=== PATIENT | male | born 1940 | race Caucasian/White ===

== ENCOUNTER 2017-10-21 10:30 | Outpatient (RCR) | payer MEDICARE, SELFPAY ==
--- NOTE | 2017-10-13 14:11 | HP.PTEVAL_ITS ---
Patient's Visit Information ACE ARELLANO is a 77 year old M referred to Physical Therapy by BETO MARTINEZ with a diagnosis of CERVICAL RADICULOPATHY. Date of Evaluation: 10/13/17 Physical Therapist: Mitchell Troy PT, - Visit Plan Frequency: 2x /Week Duration: 4 Weeks Plan: postural ex's,cervical isomtrics,gentle AROM cervical, strengthening,CP/ MHP - Subjective Subjective: This 77 y/o male presents to physical therapy cervical radiculooathy. Patient underwent s/p cervical fusion cage/plate C2-3,C3-4,C5-6 anterior/posterior on Sep [address] Barker at [facility]. D/C on Sep 26. Placed in [place] collar. Seen Dr argelia finnegan with rest ,shower,during day.RTD January 07. Prior to surgery with tingling/parathesia, weakness. Currently has parathesia/tingling forearm/hands. Risrtiction with lifting 8 #. Sleeping good at night. Denies LANDA nausea/dizziness. VOCATION: retired. SOCIAL: - Pain Bilateral Neck Pain Intensity (Out of 10): 0 Pain Intensity Range: 10 - Objective POSTURE: mild foward head. NEURO: c/o parathesia/tingling foearm/hands, reflexes C5-6-7 2/3. SKIN: anterior/ posterior well approximate. AROM: BUE WFL. CERVICAL: flexion mod/severe,extension severe,lateral/flexion mod/severe. MMT: 4/5 grossly. [employer] STRENGTH: R-90 #,L-80# - Special Tests C/S Radiculapathy - Left Upper limb tension test: Negative C/S Radiculapathy - Right Upper limb tension test: Negative - Goals Goal 1:: Patient Independant with HEP. Goal Time Frame: 4-6 Weeks Goal 2:: Patient to be Independant with posture ex's. Goal Time Frame: 4-6 Weeks Goal 3:: Patient decrease pain by 70% or greater to improve function. Goal Time Frame: 4-6 Weeks Goal 4:: Patient increase cervical roation/lateral flexion mod loss to improve function. Goal Time Frame: 4-6 Weeks Goal 5:: Patient be able to perform ADL'S and houseworks tasks with min limiations. Goal Time Frame: 4-6 Weeks - Rehabilitation Potential Physical Therapy Diagnosis: This 77 y/o male presents to physical therapy with cervical fusion anterior/posterior plate/cage with decrease strength ,cervical ROM impairs function thus benifit skilled PT Rehabilitation Potential: Good - Anticipated Interventions Patient/Client Instruction: Educate patient on: Condition, Plan of Care For the Purpose of:: To decrease pain, To improve muscle performance and motor function, To improve ability to perform ADL's, To increase tolerance to activity /condition/position, To improve performance and independence with ADL's, To improve ability of physical actions for home/community/work/leisure, To improve health of tissue, To decrease soft tissue restriction, To improve ability to perform tasks related to life management Therapeutic Exercise to Include: Strength training, Postural training, Flexibilty training, Active ROM For the Purpose of:: To decrease pain, To increase ROM, To improve muscle performance and motor function, To increase tolerance to activity/condition/ position, To improve performance and independence with ADL's, To improve ability of physical actions for home/community/work/leisure, To improve health of tissue, To decrease soft tissue restriction, To increase flexibility/ROM, To improve ability to perform tasks related to life management Cryotherapy (ice pack, ice massage): Yes Thermo therapy (hot pack): Yes For the Purpose of:: To decrease pain, To improve health of tissue, To decrease soft tissue restriction Thank you for the opportunity to evaluate your patient. For Medicare and Medicare HMO plans, please review the plan of care and approve it. It will need to be FAXED BACK to us at [phone] for Medicare purposes. Please let me know if there are questions or concerns regarding this plan of care. Physician Signature: Date:
--- NOTE | 2017-12-31 08:48 | HP.PTDCNRP_ITS ---
HP - Discharge Summary (1) - Patient Information ACE ARELLANO was seen in my office for initial evaluation on 10/13/17. The following Plan of Care was established for this patient: Initial Frequency: 2x /Week Initial Duration: 4 Weeks - Anticipated Interventions Patient/Client Instruction: Educate patient on: Condition, Plan of Care For the Purpose of:: To decrease pain, To improve muscle performance and motor function, To improve ability to perform ADL's, To increase tolerance to activity /condition/position, To improve performance and independence with ADL's, To improve ability of physical actions for home/community/work/leisure, To improve health of tissue, To decrease soft tissue restriction, To improve ability to perform tasks related to life management Therapeutic Exercise to Include: Strength training, Postural training, Flexibilty training, Active ROM For the Purpose of:: To decrease pain, To increase ROM, To improve muscle performance and motor function, To increase tolerance to activity/condition/ position, To improve performance and independence with ADL's, To improve ability of physical actions for home/community/work/leisure, To improve health of tissue, To decrease soft tissue restriction, To increase flexibility/ROM, To improve ability to perform tasks related to life management Cryotherapy (ice pack, ice massage): Yes Thermo therapy (hot pack): Yes For the Purpose of:: To decrease pain, To improve health of tissue, To decrease soft tissue restriction This patient was last seen in our office 10/21/17. Pertinent comments regarding their Physical therapy will appear below: Patient seen for PT for cervical radiculopathy with PT for cervical /postural ex 's,strengthening for 2 visits . Patient had no pain after ,doing well thus is d/ c. At this point I will be discontinuing this patient from physical therapy. I would be happy to see this patient again in the future if found appropriate by the physician. Thank you! Mitchell Troy, PT,
== END 2017-10-21 19:00 | disposition home or self-care (01) ==
LOC: PT 10:30
PROVIDERS: Family Provider Family Medicine; PCP Family Medicine
DX: M54.12 Radiculopathy, cervical region (principal)
CPT/HCPCS: 97110; 97162

== ENCOUNTER → 2018-01-05 07:25 | Outpatient (CLI) | payer MEDICARE, SELFPAY ==
--- NOTE | 2018-01-05 07:25 | DT_ITS ---
This patient was seen during an EMR downtime January 05, 2018 - January 12, 2018. This patient may have a combination of paper and electronic documentation or all paper documentation. All documentation is viewable within the e-chart portion of [employer] for each patient visit.
--- NOTE | 2018-01-05 07:35 | RAD_ITS ---
STUDY: X-RAY - CERVICAL SPINE REASON FOR EXAM: Male, 77 years old. Surgery follow-up. History of numbness and tingling in both upper extremities. TECHNIQUE: 4 view(s) of the cervical spine were obtained. COMPARISON: January 06, 2017. MRI cervical spine June 16, 2017. FINDINGS: Normal anterior atlantoaxial articulation. Normal odontoid process. Postoperative changes of posterior cervical fusion C2-C7. Bilateral rods are present. Pedicle screws C2-C6. Anterior cervical fusion with multi hole plate and screws C3-C6. A vertically oriented cage is noted C4 through the superior aspect of C6. Surgical hardware appears intact. Straightening of normal cervical lordosis. On the lateral view 5 mm density between the posterior spinous processes of C7 and T1 likely representing an old spinous process avulsion fracture. The soft tissue structures are unremarkable. RAD/Cerv Spine 2 or 3 Views IMPRESSION: Postoperative changes of multilevel anterior and posterior cervical fusion. Electronically Signed: Ghulam Betancourt MD at 3:34 EDT , Service support ,
== END ==
PROVIDERS: Family Provider Family Medicine; PCP Family Medicine
DX: M54.12 Radiculopathy, cervical region (principal)
CPT/HCPCS: 72040

== ENCOUNTER → 2019-01-11 09:05 | Outpatient (CLI) | payer MEDICARE, SELFPAY ==
--- NOTE | 2019-01-11 09:16 | RAD_ITS ---
STUDY: X-RAY CHEST REASON FOR EXAM: Male, 78 years old. Feels like heart is keeping beats TECHNIQUE: PA and lateral views of the chest. COMPARISON: 03/15/2015 chest x-ray FINDINGS: There is a cervical spine fusion partially visualized. There is a stable calcific density in the right lung periphery compatible with old granulomatous disease. The lung markings are stable without evidence of focal infiltrate. There is no demonstrated pleural abnormality. Normal size heart. Normal mediastinum and sravan. Normal visualized pulmonary arteries. There is atherosclerotic calcification of the aortic arch with tortuosity. There are diffuse degenerative changes of the visualized thoracic spine. Normal visualized ribs, clavicles, and shoulders. There is no demonstrated abnormality of the visualized soft tissue structures of the upper abdomen. RAD/Chest PA and Lateral IMPRESSION: Stable chest. No evidence of acute focal infiltrate. Tortuous aorta. Electronically Signed: Diann Kohli MD at 16:55 EDT Tel , Service support ,
[2019-01-11 10:14] LABS: Absolute Lymphocyte Count 1.78 X10^3/ul (0.83-4.51); Absolute Neutrophil Count 5.6 X10^3/uL (2.0-7.7); Basophil# 0.03 X10^3/uL; Basophil% 0.4 % (0-1); Eosinophil# 0.31 X10^3/uL; Eosinophils% 3.7 % (0-5); Hematocrit 43.4 % (40-54); Hemoglobin 14.8 g/dl (13.0-16.5); Lymphocyte # 1.78 X10^3/ul (4.0); Lymphocyte % 21.2 % (19-41); Mean Corp Hgb Conc 34.1 g/gl (32-36); Mean Corpuscular Hgb 32.5 pg (27.0-32.0); Mean Corpuscular Volume 95.2 fL (80-94); Mean Platelet Vol. 11.1 fl (6.2-12.0); Monocyte# 0.59 X10^3/uL; Neutrophil # 5.64 X10^3/uL (2.7-7.7); Neutrophil % 67.3 % (47-70); Platelet Count 212 K/mm3 (150-450); RBC Distribution Width CV 13.8 % (11.6-14.6); RBC Distribution Width SD 46.5 fl (35.1-43.9); Red Blood Count 4.56 M/mm3 (4.6-6.2); White Blood Count 8.4 K/mm3 (4.4-11.0)
[2019-01-11 10:30] LABS: POSITIVE COUNT NO; POSITIVE DIFFERENTIAL NO; POSITIVE MORPHOLOGY NO
[2019-01-11 10:48] LABS: ALB/GLOB Ratio 1.2 RATIO (0.9-2.4); AST(SGOT) 10 U/L (15-37); Alanine Aminotransfer ALT/SGPT 24 U/L (16-61); Albumin, Serum 3.7 g/dL (3.2-5.0); Alkaline Phosphatase 67 U/L (45-117); Anion Gap 5 (5-15); BUN 14 mg/dL (7-18); BUN/Creat Ratio 17.3 RATIO (10-20); Calcium,Total 8.7 mg/dL (8.5-10.1); Chloride 103 mmol/L (98-107); Creatinine, Serum 0.81 mg/dL (0.70-1.30); EST Glomerular Filtration Rate 98 mL/min (>60); Est Glom Filt Rate - Afr Amer 119 mL/min (>60); Globulin 3.2 g/dL (2.2-4.2); Glucose 120 mg/dL (74-106); Potassium 4.1 mmol/L (3.5-5.1); Protein, Total 6.9 g/dL (6.4-8.2); Sodium Level 138 mmol/L (136-145); Thyroid Stim Hormone (TSH) 0.42 uIU/mL (0.358-3.74)
== END ==
PROVIDERS: Family Provider Family Medicine; PCP Family Medicine; Referring Provider Family Medicine; Visit Provider Family Medicine
DX: I49.9 Cardiac arrhythmia, unspecified (principal); R55 Syncope and collapse
CPT/HCPCS: 36415; 71046; 80053; 83735; 84443; 85025

== ENCOUNTER → 2019-01-25 13:31 | Outpatient (CLI) | payer MEDICARE, SELFPAY ==
--- NOTE | 2019-01-25 13:36 | ECHOD_ITS ---
Reason For Study: Near syncope Procedure This was a 2D Doppler, Color Flow transthoracic echocardiogram. Exam performed in department. Left Ventricle Normal LV size. Left ventricular systolic function is normal. The estimated ejection fraction is 75 %. Stage 1 diastolic dysfunction. No regional wall motion abnormalities noted. Right Ventricle Normal RV size. Normal systolic function. Atria The left atrium is mildly enlarged. Normal right atrium. Mitral Valve Normal mitral valve. Tricuspid Valve Normal tricuspid valve. Aortic Valve Normal aortic valve. Trisinus/trileaflet aortic valve. Pulmonic Valve The pulmonic valve is not well visualized. Great Vessels Normal aortic root. The pulmonary artery is normal size. Normal inferior vena cava. Pericardium/Pleural No pericardial effusion. MMode/2D Measurements & Calculations LVIDd: 5.0 cm IVSd: 0.93 cm Ao root diam: 3.6 cm LVIDs: 2.7 cm LVPWd: 0.83 cm RVDd: 3.7 cm FS: 46.5 % LAV(MOD-bp): 76.6 ml EDV(MOD-sp4): 98.0 ml EDV(MOD-sp2): 94.3 ml LAV(MOD-bp) Indexed: 41.1 ml/m2 ESV(MOD-sp4): 37.1 ml EF(MOD-sp2): 62.4 % LAV(MOD-sp2): 73.1 ml EF(MOD-sp4): 62.1 % LAV(MOD-sp4): 81.1 ml SV(MOD-sp4): 60.9 ml SV(MOD-sp2): 58.8 ml LA A4 area: 23.8 cm2 LA dimension(2D): 4.6 cm RA A4 area: 17.5 cm2 Doppler Measurements & Calculations MV E max urbano: 91.2 cm/sec Lat Peak E' Urbano: 12.3 cm/sec Med Peak E' Urbano: 10.2 cm/sec MV A max urbano: 102.0 cm/sec E/E' lat: 7.4 E/E' med: 8.9 MV E/A: 0.89 Ao V2 max: 177.6 cm/sec LV V1 max: 131.2 cm/sec PA V2 max: 144.6 cm/sec Ao max P.6 mmHg LV V1 max P.9 mmHg TR max urbano: 296.5 cm/sec TR max P.4 mmHg Interpretation Summary Normal LV size. Left ventricular systolic function is normal. The estimated ejection fraction is 75 %. Stage 1 diastolic dysfunction. Ordering Physician: Raúl Leslie Referring Physician: Raúl Leslie Performed By: Jacinta Aguilar RDCS
== END ==
PROVIDERS: Family Provider Family Medicine; PCP Family Medicine; Referring Provider Family Medicine; Visit Provider Family Medicine
DX: R55 Syncope and collapse (principal)
CPT/HCPCS: 93306

== ENCOUNTER → 2020-10-27 15:11 | Outpatient (CLI) | payer MEDICARE, SELFPAY ==
--- NOTE | 2020-10-27 | LES_PTH ---
PATIENT: ACE ARELLANO LOC: [facility] U#:[id number] AGE/SX: 85/M ROOM: RE10/27/[address]: Dr. Carlos Shin MD : 1940 BED: DIS: SPEC #: [id number] RECD: 10/27/20 14:59 STATUS: YONY OLEA #: [id number] PATRICIA: 10/27/20 00:[address]: Carlos Shin DEPT: SURGICAL PATHOLOGY RECD BY: Palomo Tobar ENTERED: 10/30/20 07:43 SP TYPE: Lesion OTHR DR: Dr. Raúl Leslie MD Tissues: Skin of lip, NOS Procedures: Surgery Specimen Level IV HEADER OPERATION: Lesion excision right upper lid PRE-OP DIAGNOSIS: Rule out BCC TISSUE SUBMITTED: Right upper lid MICROSCOPIC DIAGNOSIS Right upper lid lesion, excisional biopsy: Intradermal nevus. Negative for malignancy. See comment. DOMINICK:[email or web address] 10/31/2020 COMMENT Clinical correlation and appropriate follow up are necessary. MICROSCOPIC DESCRIPTION Slides are reviewed. GROSS DESCRIPTION Received in fixative is one container labeled with the patient's name and designated right upper lid. The specimen consists of a piece of stephenson-white skin measuring 0.3 x 0.2 x 0.1 cm. The specimen is totally submitted in one cassette. / SJ:[email or web address] 10/30/20 TC:1 CPT: 82735
== END ==
PROVIDERS: PCP Family Medicine; Visit Provider Ophthalmology
DX: C44.1121 Basal cell carcinoma of skin of right upper eyelid, including canthus (principal)
CPT/HCPCS: 88305

== ENCOUNTER 2021-11-05 10:34 | Outpatient (CLI) | payer MEDICARE, SELFPAY ==
--- NOTE | 2021-11-05 10:37 | RAD_ITS ---
STUDY: XR Chest 2 Views 11/05/2021 10:41 AM REASON FOR EXAM: Male, 81 years old. CHEST PAIN SOB COMPARISON: 01/11/2019 TECHNIQUE: XR Chest 2 Views FINDINGS: There is no demonstrated pleural abnormality. Stable right midlung calcified granuloma. Normal heart size. Normal mediastinum. Normal sravan. Prominent appearing increased interstitial lung markings. Normal visualized pulmonary arteries. There is atherosclerotic calcification of the aortic arch with tortuosity. There are diffuse degenerative changes of the visualized thoracic spine. There is degenerative osteoarthritis of the bilateral shoulders. There is no demonstrated abnormality of the visualized soft tissue structures of the upper abdomen. RAD/Chest PA and Lateral IMPRESSION: There are no acute findings. Electronically Signed: Flex Perez MD at 17:44 EDT ,
== END 2021-11-05 23:59 | disposition home or self-care (01) ==
LOC: MTRAD 10:36
PROVIDERS: PCP Family Medicine; Referring Provider Family Medicine; Visit Provider Family Medicine
DX: R06.02 Shortness of breath (principal)
CPT/HCPCS: 71046

== ENCOUNTER → 2021-11-24 | Outpatient (CLI) | payer MEDICARE, SELFPAY ==
--- NOTE | 2021-11-24 09:20 | CT_ITS ---
INDICATION: copd EXAMINATION: CT CHEST WITHOUT CONTRAST - CT Chest W/O Contrast Injection TECHNIQUE: Helically acquired images were obtained of the chest. A radiation dose optimization technique was used for this scan. IV Contrast dosage and agent: None. COMPARISON: 02/20/2016 FINDINGS: LUNGS, PLEURA AND LARGE AIRWAYS: Stable calcified granuloma in the right middle lobe on image 72 of series 4, image 122 series 602). Noncalcified nodule of the posterior left upper lobe on image 57 of series 4 measures 5.7 x 6.0 mm, stable. No new noncalcified pulmonary nodule. Fleischner Society Guidelines (MacMahon, et al. Radiology 2017; 284(1):228-43) suggest no follow-up is necessary for patients with low or high risk of malignancy. No pleural effusion or thickening. No pneumothorax. THYROID: No thyroid lesions. HEART AND PERICARDIUM: Heart size is normal. No pericardial effusion. CORONARY ARTERIES: Coronary artery calcification is seen. VESSELS: Thoracic aorta is not dilated. Thoracic aortic atherosclerosis. MEDIASTINUM AND DINESH: No mediastinal or hilar adenopathy. Calcified lymph nodes of the right hilum and mediastinum. Esophagus is unremarkable. No hiatal hernia. UPPER ABDOMEN: No acute pathology. BONES: No suspicious lytic or blastic abnormality. 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 Operative changes of the lower cervical spine. CT/Chest without Contrast IMPRESSION: Since 2015, stable exam. No new or enlarging pulmonary nodule. Electronically Signed: Rao Saenz MD ([place]) at 16:15 EDT ,
== END | disposition home or self-care (01) ==
LOC: CT 09:11
PROVIDERS: PCP Family Medicine; Referring Provider Family Medicine; Visit Provider Family Medicine
DX: J44.9 Chronic obstructive pulmonary disease, unspecified (principal); F17.200 Nicotine dependence, unspecified, uncomplicated
CPT/HCPCS: 71250

== ENCOUNTER → 2023-09-02 | Outpatient (CLI) | payer MEDICARE, SELFPAY ==
--- OUTSIDE RECORDS SUMMARY | 2023-09-02 09:13 | XMS RPT_ITS | CCD ---
Author Name Unknown Address [id number] [place] [address] Organization [facility] Care Team Providers Care Companion Name Role Phone Asim Regan Unavailable Unavailable Leslie, Raúl Unavailable Unavailable Leslie, Raúl Unavailable Unavailable Asim Regan Unavailable Unavailable Leslie, Raúl Unavailable Unavailable Leslie, Raúl Unavailable Unavailable Problems Active Problems Problem Classification Problem Date Documented Da te Episodic/Chronic Alcohol-related disorders (2 sources) Alcohol abuse, uncomplicated; Translations: [Alcohol abuse, uncomplicated] Onset: 09-24-2017 Chronic Diseases of white blood cells (2 sources) Elevated white blood cell count, unspecified; Translations: [Elevated white blood cell count, unspecified] Onset: 09-24-2017 Chronic Other acquired deformities (4 sources) Unspecified kyphosis, cervical region; Translations: [Postural lordosis, site unspecified] Onset: 09-24-2017 Chronic Other nervous system disorders (4 sources) Unspecified cord compression; Translations: [Disease of spinal cord, unspecified] Onset: 09-24-2017 Chronic Other non-traumatic joint disorders (2 sources) Osteophyte, vertebrae; Translations: [Osteophyte, vertebrae] Onset: 09-24-2017 Chronic Other nutritional; endocrine; and metabolic disorders (2 sources) Overweight; Translations: [Overweight] Onset: 09-24-2017 Chronic Past or Other Problems Problem Classification Problem Date Documented Da te Episodic/Chronic Medical examination/evaluation (2 sources) Encounter for other preprocedural examination; Translations: [Encounter for other preprocedural examination] Onset: 09-19-2017 Episodic Other gastrointestinal disorders (2 sources) Constipation, unspecified; Translations: [Constipation, unspecified] Onset: 09-24-2017 Episodic Screening or history of mental health and substance abuse (2 sources) Personal history of nicotine dependence; Translations: [Personal history of nicotine dependence] Onset: 09-24-2017 Episodic Spondylosis; intervertebral disc disorders; other back problems (2 sources) Spinal stenosis, cervical region; Translations: [Spinal stenosis, cervical region] Onset: 09-24-2017 Episodic Unclassified (2 sources) Body mass index (BMI) 26.0-26.9, adult; Translations: [Body mass index (BMI) 26.0-26.9, adult] Onset: 09-24-2017 Episodic Results Test Name Value Interpretation Reference Range Facil ity Encounters Encounter Date Encounter Type Care Provider Facility Start: 09-24-2017 Evaluation and manag ement of inpatient [facility] Start: 09-19-[address] [facility] Payers Date Payer Category Payer Policy ID Unknown Summary Purpose Family History No Family History Records Found Advance Directives No Advanced Directives Records Found Additional Source Comments (unrecognized sect ion and content) No Status Records Found INFORMATION SOURCE (unrecogn ized section and content) FOR RECORDS PERTAINING TO PATIENTS WHO ARE OR HAVE BEEN ENROLLED IN A CHEMICAL DEPENDENCY/SUBSTANCEABUSE PROGRAM, SOME INFORMATION MAY BE OMITTED. This clinical summary was aggregated from multiple sources. Caution should be exercised in using it in the provision of clinical care. This summary normalizes information from multiple sources, and as a consequence, information in this document may materially change the coding, format and clinical context of patient data. In addition, data may be omitted in some cases. CLINICAL DECISIONS SHOULD BE BASED ON THE PRIMARY CLINICAL RECORDS. [facility] [employer] provides no warranty or guarantee of the accuracy or completeness of information in this document.
[2023-09-02 10:34] LABS: PSA,Total - Annual Screen 3.93 ng/mL (0.00-4.00)
== END | disposition home or self-care (01) ==
LOC: LAB 08:52
PROVIDERS: PCP Family Medicine; Referring Provider Nurse Practitioner; Visit Provider Nurse Practitioner
DX: Z12.5 Encounter for screening for malignant neoplasm of prostate (principal)
CPT/HCPCS: 36415; 84153; G0103

== ENCOUNTER → 2025-02-17 | Outpatient (CLI) | payer MEDICARE, SELFPAY ==
[2025-02-17 18:13] LABS: Hematocrit 36.5 % (40-54); Hemoglobin 12.5 g/dL (13.0-16.5); Immature Granulocytes Count 0.040 X10^3/uL (0.0-0.0); Mean Corp Hgb Conc 34.2 g/dL (32-36); Mean Corpuscular Volume 95.3 fL (80-94); Mean Platelet Vol. 11.6 fl (6.2-12.0); NRBC Flagged by Analyzer 0 % (0-5); Platelet Count 228 K/mm3 (150-450); RBC Distribution Width CV 12.7 % (11.6-14.6); RBC Distribution Width SD 43.8 fl (35.1-43.9); Red Blood Count 3.83 M/mm3 (4.6-6.2); White Blood Count 10.6 K/mm3 (4.4-11.0)
[2025-02-17 19:47] LABS: AST(SGOT) 21 U/L (<=37); Alanine Aminotransfer ALT/SGPT 21 U/L (<=46); Albumin, Serum 4.4 g/dL (3.4-4.8); Alkaline Phosphatase 74 U/L (40-129); Anion Gap 13 (5-15); BUN 18 mg/dL (4-19); BUN/Creat Ratio 23.4 RATIO (10-20); Calcium,Total 9.3 mg/dL (7.6-11.0); Carbon Dioxide 25.0 mmol/L (21.0-32.0); Chloride 100 mmol/L (98-108); Cholesterol 206 mg/dL (<=200); Globulin 2.5 g/dL (2.2-4.2); Glucose 90 mg/dL (70-99); Low Density Lipoprotein Calc. 119 mg/dL; Potassium 4.2 mmol/L (3.3-5.1); Triglycerides 110 mg/dL; Very Low Density Lipoprotein 22 mg/dL (5-40); cholesterol:hdl ratio screen 3.15
[2025-02-17 19:48] LABS: CRP < 3.00 mg/L (0.0-3.0)
--- OUTSIDE RECORDS SUMMARY | 2025-02-17 20:43 | XMS RPT_ITS | CCD ---
Author Organization [facility] Care Team Providers Care Investigation Manager Name Role Phone Asim Regan Unavailable Unavailable Leslie, Raúl Unavailable Unavailable Leslie, Raúl Unavailable Unavailable Asim Regan Unavailable Unavailable Leslie, Raúl Unavailable Unavailable Leslie, Raúl Unavailable Unavailable Leslie, Raúl Primary Care Unavailable Jones, Tati Referring Unavailable JonesTati Attending Unavailable Problems Active Problems Problem Classification Problem [...] sources) Overweight; Translations: [Overweight] Onset: 09-24-2017 Chronic Other screening for suspected conditions (not mental disorders or infectious disease) (1 source) Encounter for screening for malignant neoplasm of prostate; Translations: [Encounter for screening for malignant neoplasm of prostate] Onset: 09-05-2023 Episodic Past or Other Problems Problem Classification Problem [...] Results Test Name Value Interpretation Reference Range Facility PSA,Total - Annual Screenon 09-02-2023 PSA,TOT SCREEN 3.93 ng/mL Normal 0.00-4.00 [facility] Comment on above: Result Comment: This test was performed using the TPSA assay method for the [employer] chemistry system. Values obtained with different assay methods cannot be used interchangably. When changing PSA assays in the course of monitoring a patient, additional sequential testing should be carried out to confirm baseline values. Performed By: #### L [phone] #### [facility] Laboratory [address] [place], [place], [address] Screening prostate specific antigen (PSA) measurementOrdered By: Tati Ingram on 09-02-2023 Prostate specific Ag IA [Mass/Vol] 3.93 ng/mL 0.00-4.00 [facility] Comment on above: This test was perfor med using the TPSA assay method for [employer] chemistry system. Values obtained with differentassay methods cannot be used interchangably.When changing PSA assays in the course of monitoring apatient, additional sequential testing should be carriedout to confirm baseline values. APTTon 09-19-2017 aPTT 25.9 s Normal 20.0-30.5 [facility] Comment on above: Result Comment: NOTE : The therapeutic time for Heparin anticoagulation,based on Xa activity inhibition, is an APTT of 46-80seconds. Performed By: #### A PTT, PT, HEMOG, BMP3M, LFT3 ####[address] [place] [address] Basic Metabolic Panelon 02- Anion gap 11 mmol/L Normal [facility] Comment on above: Performed By: #### A PTT, PT, HEMOG, BMP3M, LFT3 ####[address] [address] Calcium 9.4 mg/dL Normal 8.4-10.2 [facility] Comment on above: Performed By: #### A PTT, PT, HEMOG, BMP3M, LFT3 ####[address] [address] CO2 26 mmol/L Normal 22-30 [facility] Comment on above: Performed By: #### A PTT, PT, HEMOG, BMP3M, LFT3 ####[address] [address] Creatinine 0.71 mg/dL Normal 0.52-1.25 [facility] Comment on above: Performed By: #### A PTT, PT, HEMOG, BMP3M, LFT3 ####[address] [address] eGFR (black) mL/min/{1.73_m2} Normal >60 [facility] Comment on above: Performed By: #### A PTT, PT, HEMOG, BMP3M, LFT3 ####[address] [address] eGFR (non-black) mL/min/{1.73_m2} Normal >60 [facility] Comment on above: Result Comment: Sour ce- MDRD equation with creatinine calibration to IDMS(NKDEP)eGFR not recommended for drug dose adjustment Performed By: #### A PTT, PT, HEMOG, BMP3M, LFT3 ####[place] [address] Glucose mass conc 61 mg/dL Low 70-100 [facility] Comment on above: Performed By: #### A PTT, PT, HEMOG, BMP3M, LFT3 ####[place] [id number] Urea nitrogen 16 mg/dL Normal 7-20 [facility] Comment on above: Performed By: #### A PTT, PT, HEMOG, BMP3M, LFT3 ####[address] [address] Potassium molar conc 3.8 mmol/L Normal 3.5-5.1 [facility] Comment on above: Performed By: #### A PTT, PT, HEMOG, BMP3M, LFT3 ####[address] [address] Chloride 103 mmol/L Normal 98-107 [facility] Comment on above: Performed By: #### A PTT, PT, HEMOG, BMP3M, LFT3 ####[place] [address] Sodium 140 mmol/L Normal 137-145 [facility] Comment on above: Performed By: #### A PTT, PT, HEMOG, BMP3M, LFT3 ####[place] [address] Hemogramon 09-19-2017 Erythrocyte distribution width Auto Ratio (RBC) 13.3 % Normal 11.5-14.5 [facility] Comment on above: Performed By: #### A PTT, PT, HEMOG, BMP3M, LFT3 ####[address] [address] Erythrocytes (RBC) 4.37 10*6/uL Low 4.40-5.90 [facility] Comment on above: Performed By: #### A PTT, PT, HEMOG, BMP3M, LFT3 ####[address] [address] Hematocrit (HCT) 42.6 % Normal 40.0-52.0 [facility] Comment on above: Performed By: #### A PTT, PT, HEMOG, BMP3M, LFT3 ####[address] [address] Hemoglobin mass conc (Bld) 14.1 g/dL Normal 13.0-18.0 [facility] Comment on above: Performed By: #### A PTT, PT, HEMOG, BMP3M, LFT3 ####[address] [address] MCH 32.4 pg Normal 26.0-34.0 [facility] Comment on above: Performed By: #### A PTT, PT, HEMOG, BMP3M, LFT3 ####[address] [address] MCHC mass conc (RBC) 33.2 % Normal 32.0-36.0 [facility] Comment on above: Performed By: #### A PTT, PT, HEMOG, BMP3M, LFT3 ####[address] [address] MCV 97.5 fL Normal 80.0-98.0 [facility] Comment on above: Performed By: #### A PTT, PT, HEMOG, BMP3M, LFT3 ####[address] [address] Platelet mean volume (PMV) 9.3 fL Normal 7.4-10.4 [facility] Comment on above: Performed By: #### A PTT, PT, HEMOG, BMP3M, LFT3 ####[address] [address] Platelets 228 10*3/uL Normal 140-440 [facility] Comment on above: Performed By: #### A PTT, PT, HEMOG, BMP3M, LFT3 ####[address] [address] WBC (Leukocytes) 14.5 10*3/uL High 3.6-10.7 [facility] Comment on above: Performed By: #### A PTT, PT, HEMOG, BMP3M, LFT3 ####[place] [address] Hepatic Functionon 8 Alanine aminotransferase (ALT) 34 U/L Normal 13-69 [facility] Comment on above: Performed By: #### A PTT, PT, HEMOG, BMP3M, LFT3 ####[place] [address] [place] [address] Alkaline phosphatase (ALP) 77 U/L Normal 38-126 [facility] Comment on above: Performed By: #### A PTT, PT, HEMOG, BMP3M, LFT3 ####[place] [address] Aspartate aminotransferase (AST) 25 U/L Normal 15-46 [facility] Comment on above: Performed By: #### A PTT, PT, HEMOG, BMP3M, LFT3 ####[place] [address] Bilirubin (direct) 0.0 mg/dL Normal 0.0-0.3 [facility] Comment on above: Performed By: #### A PTT, PT, HEMOG, BMP3M, LFT3 ####[place] [address] Bilirubin (total) 0.5 mg/dL Normal 0.2-1.3 [facility] Comment on above: Performed By: #### A PTT, PT, HEMOG, BMP3M, LFT3 ####[place] [address] Protein 7.3 g/dL Normal 6.3-8.2 [facility] Comment on above: Performed By: #### A PTT, PT, HEMOG, BMP3M, LFT3 ####[place] [address] Albumin 4.4 g/dL Normal 3.5-5.0 [facility] Comment on above: Performed By: #### A PTT, PT, HEMOG, BMP3M, LFT3 ####[place] [address] Prothrombin Timeon 8 INR Coag RelTime (PPP) 1.0 {INR} Normal 0.9-1.1 [facility] Comment on above: Result Comment: Wes mmended Anticoagulant Therapy:SEE BELOW----- INR of 2.0 - 3.0 :- Prophylaxis of Venous Thrombosis (high-risk surgery)- Treatment of Venous Thrombosis- Treatment of Pulmonary Embolism (Includes tissue heartvalves, Acute Myocardial Infarction to prevent systemicembolism, Valvular Heart Disease, and Atrial Fibrillation)----- INR of 2.5 - 3.5 :- Mechanical Prosthetic Valves (high risk)- If oral anticoagulant therapy is used to preventMyocardial Infarction Performed By: #### A PTT, PT, HEMOG, BMP3M, LFT3 ####[place] [address] Prothrombin time (PT) Coag time (PPP) 10.4 s Normal 9.0-12.0 [facility] Comment on above: Result Comment: . Performed By: #### A PTT, PT, HEMOG, BMP3M, LFT3 ####[place] [address] TS GELon 09-19-2017 TS GEL PATIENT: ADAN BELLO LOC: COUCH BILL# : [id number] : 1940 SEX: M AGE: [id number] BY: DENAE Lutz ORDERED : 09/19/2017 12:32 COLLECTED: 09/19/2017 12:51ORDER : [id number] RECEIVED : 09/19/2017 16:11 T EST NAME RESULT UNITS RANGES ABN FL STABO Group A FRh, Gel POS FAntibody Screen Gel NEG F Normal [facility] Comment on above: Performed By: #### T SGL ####[place] [address] [address] [id number] Urinalysis,Macroon 8 Bilirubin (direct) Negative Normal Negative [facility] Comment on above: Performed By: #### U AMAC ####[place] [address] [place] [address] Ketone,Urine Trace Normal Negative [facility] Comment on above: Performed By: #### U AMAC ####[place] [address] [place] [address] Occult Blood,Ur Negative Normal Negative [facility] Comment on above: Performed By: #### U AMAC ####[place] [address] [place] [address] Specific [place],Urine 1.020 Normal 1.005-1.030 [facility] Comment on above: Performed By: #### U AMAC ####[place] [address] [place] [address] Total Protein,Urine Negative Normal Negative [facility] Comment on above: Performed By: #### U AMAC ####[place] [address] [place] [address] Urine, appearance clear Normal Clear [facility] Comment on above: Performed By: #### U AMAC ####[place] [address] [address] [facility] [place] [address] Urine, color yellow Normal Lt. Yellow [facility] Comment on above: Performed By: #### U AMAC ####[place] [address] [address] [facility] [place] [address] Urine, glucose presence NORM Normal Negative [facility] Comment on above: Performed By: #### U AMAC ####[place] [address] [place] [address] Urine, nitrite presence Negative Normal Negative [facility] Comment on above: Performed By: #### U AMAC ####[place] [address] [place] [address] Urine, pH 6.0 [pH] Normal 5.0-8.0 [facility] Comment on above: Performed By: #### U AMAC ####[place] [address] [place] [address] Urine, urobilinogen NORM Normal 0-1 [facility] Comment on above: Performed By: #### U AMAC ####[place] [address] [place] [address] WBC (Leukocytes) Negative Normal Negative [facility] Comment on above: Performed By: #### U AMAC ####[place] [address] [place] [address] Encounters Encounter Date Encounter Type Care Provider Facility Start: 09-02-2023 End: 09-02-2023 ambulatory Raúl Leslie [facility] Work Phone: Start: 09-02-2023 End: 09-02-2023 Patient encounter procedure [facility] Work Phone: Start: 11-05-2021 End: 11-05-2021 Patient encounter procedure [facility], [place] Start: 09-24-2017 Evaluation and manag ement of inpatient [facility] Start: 09-19-2017 Ambulatory [facility] Procedures Date Procedure Procedure Detail Performing Clinician Start: 11-05-2021 Plain chest X-ray Payers Date Payer Category Payer Self-pay [id number] 2016 Unknown [id number] Unknown Unknown [id number] Social History Date Type Detail Facility Tobacco smoking stat [facility] Unknown if ever smoked [facility] Work Phone: Start: 1940 Sex Assigned At Male [facility] Equipment Procedure Code Equipment Code Equipment Origin al Text Equipment Identifier Dates unknown penile prosthesis implanted 2001 [facility] Start: 08-04-2001 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 Start: 08-04-2001 Evaluation note Note Date & Type Note Facility Evaluation note No assessment information availa ble [facility] Work Phone: Summary Purpose Family History No Family History Records FoundNo Family History Records Found Advance Directives No Advanced Directives Records FoundNo Advanced Directives Records Found Chief Complaint and Reason for Visit Chief Complaint did not want labs by Dr. Leslie today Additional Source Comments (unrecognized sect ion and content) No Status Records FoundNo Status Records Found INFORMATION SOURCE (unrecogn ized section and content) DATE CREATED AUTHOR 01/28/2018 [facility] DATE CREATED AUTHOR AUTHOR'S SILVER ATSAL 09/06/2023 [facility] Goals (unrecognized section and content) Goals may be documented in a n alternate sectionGoals may be documented in an alternate section Care Teams (unrecognized sec tion and content) Team Status: Active Member Role Status Dates Dr. Raúl Leslie MD Family Provider Active Dr. Raúl Leslie MD Primary Care Provider Active Team Status: Inactive Member Role Status Dates Dr. Raúl Leslie MD Primary Care Provider Active Tati Ingram Attending Provider, Referring Provide r Active FOR RECORDS PERTAINING TO PATIENTS WHO ARE [...] BE BASED ON THE PRIMARY CLINICAL RECORDS. [employer] provides no warranty or guarantee of the accuracy or completeness of information in this document.
== END | disposition home or self-care (01) ==
LOC: MTLAB 16:00
PROVIDERS: PCP Family Medicine; Referring Provider Family Medicine; Visit Provider Family Medicine
DX: R07.89 Other chest pain (principal); M79.602 Pain in left arm
CPT/HCPCS: 36415; 80053; 80061; 85025; 86140

== ENCOUNTER → 2025-03-29 | Outpatient (CLI) | payer MEDICARE, SELFPAY ==
--- NOTE | 2025-03-29 09:47 | RAD_ITS ---
PROCEDURE: ABDOMEN SINGLE VIEW 03/29/2025 REASON FOR EXAM: CONSTIPATION TECHNIQUE: ABDOMEN SINGLE VIEW COMPARISON: None. FINDINGS: There is a nonobstructive bowel gas pattern. There is a 2 mm calcification projected to the left of the spine at the L 1 2 level and a 7 mm calcification projected to the left of the spine at the L4-5 level. Status post penile implant. 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 RAD/Abdomen Single View IMPRESSION: 1. Possible left ureterolithiasis. 2. No significant constipation. 3. Other findings as noted. Reading Location: [id number]
[2025-03-29 13:12] LABS: PSA,Total- Diagnostic 3.60 ng/mL (0.00-4.00)
[2025-03-29 13:20] LABS: CRP < 3.00 mg/L (0.0-3.0)
[2025-03-30 04:07] LABS: Carcinoembryonic Antigen 1.5 ng/mL (0.0-4.7)
== END | disposition home or self-care (01) ==
LOC: MTLAB 09:43
PROVIDERS: PCP Family Medicine; Referring Provider Family Medicine; Visit Provider Family Medicine
DX: N40.1 Benign prostatic hyperplasia with lower urinary tract symptoms (principal); K59.00 Constipation, unspecified
CPT/HCPCS: 36415; 74018; 82378; 84153; 86140

== ENCOUNTER → 2025-04-21 | Outpatient (CLI) | payer MEDICARE, SELFPAY ==
--- NOTE | 2025-04-21 07:42 | CT_ITS ---
PROCEDURE: ABDOMEN/PELVIS WITHOUT CONT 04/21/2025 REASON FOR EXAM: KIDNEY STONE TECHNIQUE: Procedure Code: [id number] Modality: CT Procedure: ABDOMEN/PELVIS WITHOUT CONT Noncontrast technique limits evaluation of the abdominal and pelvic viscera. Coronal and Sagittal reconstruction series were provided. One or more dose reduction techniques were used (e.g., Automated exposure control, adjustment of the mA and/or kV according to patient size, use of iterative reconstruction technique). RADIATION DOSE SUMMARY: CTDlvol: 7 mGy DLP: 329 mGycm FINDINGS: The lung bases are clear. The peripheral soft tissues are unremarkable. A penile prosthesis is present. Degenerative changes of the spine. S shaped scoliosis. Ifhyegpk-[id number] atherosclerosis. The infrarenal abdominal aorta measures up to 3.0 cm in diameter. No suspicious lymphadenopathy. The liver, gallbladder are unremarkable. 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 Ill-defined hypodensity within the pancreatic body which measures 1.4 cm. The spleen and adrenals are unremarkable. Right kidney vascular calcification. No definite renal calculi. No hydroureteronephrosis. The urinary bladder is unremarkable. Enlarged prostate. Colonic diverticulosis without surrounding inflammatory changes. CT/Abdomen/Pelvis without Cont IMPRESSION: *No evidence of renal or ureteral calculi. No hydroureteronephrosis. *1.4 cm ill-defined hypodensity in the pancreatic body on a non-contrast study; indeterminate. Recommend further evaluation with contrast-enhanced pancreatic protocol CT or MRI. 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 Recommend routine surveillance. *Colonic diverticulosis without diverticulitis. *Enlarged prostate. Reading Location: [id number]
--- OUTSIDE RECORDS SUMMARY | 2025-04-21 07:49 | XMS RPT_ITS | CCD ---
Author Organization [facility] CliniSyin Care Team Providers Care Lozenge Maker Name Role Phone Asim Regan Unavailable Unavailable Leslie, Raúl Unavailable Unavailable Leslie, Raúl Unavailable Unavailable Asim Regan Unavailable Unavailable Leslie, Raúl Unavailable Unavailable Leslie, Raúl Unavailable Unavailable Anuj MCFARLANE, Dr. Olsen Primary Care Provider Anuj MCFARLANE, Dr. Olsen Attending Provider Anuj MCFARLANE, Dr. Olsen Referring Provider Leslie, Raúl Referring Unavailable Leslie, Raúl Primary Care Unavailable Leslie, Raúl Attending Unavailable Leslie, Raúl Referring Unavailable Leslie, Raúl Primary Care Unavailable Leslie, Rúal Attending Unavailable Leslie, Raúl Referring Unavailable Leslie, Raúl Primary Care Unavailable Leslie, Raúl Attending Unavailable Leslie, Raúl Attending Unavailable Leslie, Raúl Referring Unavailable Leslie, Raúl Primary Care Unavailable Problems Active Problems Problem Classification Problem Date Documented Da te Episodic/Chronic Alcohol-related disorders (2 sources) Alcohol abuse, uncomplicated; Translations: [Alcohol abuse, uncomplicated] Onset: 09-24-2017 Chronic Calculus of urinary tract (1 source) Calculus of kidney; Translations: [Calculus of kidney] Onset: 04-17-2025 Episodic Chronic obstructive pulmonary disease and bronchiectasis (1 source) Chronic obstructive pulmonary disease, unspecified; Translations: [Chronic obstructive pulmonary disease, unspecified] Onset: 03-09-2025 Chronic Diseases of white blood cells (2 sources) Elevated white blood cell count, unspecified; Translations: [Elevated white blood cell count, unspecified] Onset: 09-24-2017 Chronic Hyperplasia of prostate (1 source) Benign prostatic hyperplasia with lower urinary tract symptoms; Translations: [Benign prostatic hyperplasia with lower urinary tract symptoms] Onset: 04-08-2025 Chronic Nonspecific chest pain (1 source) Other chest pain; Translations: [Other chest pain] Onset: 02-23-2025 Episodic Other acquired deformities (4 sources) Unspecified kyphosis, [...] Test Name Value Interpretation Reference Range Facility Carcinoembryonic Antigenon 0 03-30-2025 CEA 1.5 ng/mL Normal 0.0-4.7 [facility] Comment on above: Order Comment: Order Date: 03/29/25 Order Info: [id number] - CEA Result Comment: Nons mokers <3.9 Smokers <5.6 [facility] Electrochemiluminescence Immunoassay (ECLIA) Values obtained with different assay methods or kits cannot be used interchangeably. Results cannot be interpreted as absolute evidence of the presence or absence of malignant disease. Performed at: [address] [id number] Clothes Presser: Blue Washington PhD, Phone: [phone] Performed By: #### L 501.9940, L501.6710, L3100.2300 #### [facility] [address] [place], [place], [address] Abdomen Single Viewon 2024 Abdomen Single View [facility] [address] [place], [place] [address] Abdomen Single View MR#: [id number] Acct: [id number] Name: ACE ARELLANO Rep #: [id number] : 1940 M 84 From: Alon Scott MD PCP: Dr. Raúl Leslie MD Status: REG CLI Study: Abdomen Single View Date of Exam: 03/29/25 Exam# [id number] Ordering Dr: Raúl Leslie MD PROCEDURE: ABDOMEN SINGLE VIEW 03/29/2025 REASON FOR EXAM: CONSTIPATION TECHNIQUE: ABDOMEN SINGLE VIEW COMPARISON: None. FINDINGS: There is a nonobstructive bowel gas pattern. There is a 2 mm calcification projected to the left of the spine at the L 1 2 level and a 7 mm calcification projected to the left of the spine at the L4-5 level. Status post penile implant. 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 RAD/Abdomen Single View IMPRESSION: 1. Possible left ureterolithiasis. 2. No significant constipation. 3. Other findings as noted. Reading Location: [id number] CC: Dr. Raúl Leslie MD Research Professor Of Biostatistics: Signed Normal [facility] CRPon 03-29-2025 C-REACTIVE PROT < 3.00 Normal 0.0-3.0 [facility] Comment on above: Order Comment: Order Date: 03/29/25 Order Info: [id number] - CRP Order Info: [id number] - PSAD Performed By: #### L 501.9940, L501.6710, L3100.2300 #### [facility] [address] [place], [place], [address] PSA,Total- Diagnosticon 03-05 PSA, DIAGNOSTIC 3.60 ng/mL Normal 0.00-4.00 [facility] Comment on above: Order Comment: Order Date: 03/29/25 Order Info: [id number] - CRP Order Info: [id number] - PSAD Result Comment: This test was performed using the [facility] tPSA method. Measured values of a patient??sample can vary depending on the testing procedure used. PSA values determined on patient samples by different testing procedures cannot be used interchangeably. If there is a change in PSA assays while monitoring therapy, sequential testing should be performed to confirm baseline values. Performed By: #### L 501.9940, L501.6710, L3100.2300 #### [facility] [address] [place], [place], [address] Serum or plasma C reactive p rotein measurement (mass/volume)Ordered By: Raúl Leslie on 03-29-2025 CRP [Mass/Vol] mg/L 0.0-3.0 [facility] Serum or plasma carcinoembry onic antigen measurement (mass/volume)Ordered By: Raúl Leslie on 03-29-2025 Carcinoembryonic Ag [Mass/Vol] 1.5 ng/mL 0.0-4.7 [facility] Comment on above: Nonsmokers <3.9 Smok ers <5.6[facility] Electrochemiluminescence Immunoassay(ECLIA)Values obtained with different assay methods or kitscannot be used interchangeably. Results cannot beinterpreted as absolute evidence of the presence orabsence of malignant disease.Performed at: [address] [id number] Director: Blue Washington PhD, Phone: [phone] Absolute lymphocyte countOrd ered By: Raúl Leslie on 02-17-2025 Lymphocytes Auto (Unsp spec) [#/Vol] 1.90 10*3/uL 0.83-4.51 [facility] Absolute neutrophil countOrd ered By: Raúl Leslie on 02-17-2025 Neutrophils (Bld) [#/Vol] 7.3 10*3/uL 2.0-7.7 [facility] Anion gap in Serum or Plasma Ordered By: Raúl Leslie on 02-17-2025 Anion gap [Moles/Vol] 13 mmol/L 5-15 [facility] Automated lymphocyte count a s percentage of total leukocytesOrdered By: Raúl Leslie on 02-17-2025 Lymphocytes/100 WBC Auto (Unsp spec) 18.0 % Low 19-41 [facility] BUN/creatinine ratioOrdered By: Raúl Leslie on 02-17-2025 Urea nitrogen/Creatinine [Mass ratio] 23.4 mg/mg High 10-20 [facility] Basophil percentageOrdered B y: Raúl Leslie on 02-17-2025 Basophils/100 WBC (Bld) 0.3 % 0-1 [facility] Bilirubin, totalOrdered By: Raúl Leslie on 02-17-2025 Bilirubin [Mass/Vol] 0.34 mg/dL 0.00-1.30 [facility] CBC W/Diff, Automatedon 02-01 Absolute Lymph 1.90 X10 3/uL Normal 0.83-4.51 [facility] Comment on above: Performed By: #### L 500.4050, L501.6710, L100.0100, L500.4100 #### [facility] [address] [place], [address] Absolute Neut 7.3 X10 3/uL Normal 2.0-7.7 [facility] Comment on above: Performed By: #### L 500.4050, L501.6710, L100.0100, L500.4100 #### [facility] [address] [place], [address] Basophils/100 WBC (Bld) 0.3 % Normal 0-1 [facility] Comment on above: Performed By: #### L 500.4050, L501.6710, L100.0100, L500.4100 #### [facility] [address] [place], [address] Eosinophils/100 WBC (Bld) 4.4 % Normal 0-5 [facility] Comment on above: Performed By: #### L 500.4050, L501.6710, L100.0100, L500.4100 #### [facility] [address] [place], [address] Erythrocyte distribution width (RBC) [Ratio] 12.7 % Normal 11.6-14.6 [facility] Comment on above: Performed By: #### L 500.4050, L501.6710, L100.0100, L500.4100 #### [facility] [address] [place], [address] Hematocrit (Bld) [Volume fraction] 36.5 % Low 40-54 [facility] Comment on above: Performed By: #### L 500.4050, L501.6710, L100.0100, L500.4100 #### [facility] [address] [place], [address] Hemoglobin (Bld) [Mass/Vol] 12.5 g/dL Low 13.0-16.5 [facility] Comment on above: Performed By: #### L 500.4050, L501.6710, L100.0100, L500.4100 #### [facility] [address] [place], [address] IG% 0.400 Normal 0.0-0.9 [facility] Comment on above: Result Comment: IG% - Immature Granulocytes (promyelocytes, myelocytes and metamyelocytes) > 1% indicates that a LEFT SHIFT is Present. Performed By: #### L 500.4050, L501.6710, L100.0100, L500.4100 #### [facility] [address] [place], [address] Lymphocytes/100 WBC (Bld) 18.0 % Low 19-41 [facility] Comment on above: Performed By: #### L 500.4050, L501.6710, L100.0100, L500.4100 #### [facility] [address] [place], [address] MCH (RBC) [Entitic mass] 32.6 pg High 27.0-32.0 [facility] Comment on above: Performed By: #### L 500.4050, L501.6710, L100.0100, L500.4100 #### [facility] [address] [place], [address] MCHC (RBC) [Mass/Vol] 34.2 g/dL Normal 32-36 [facility] Comment on above: Performed By: #### L 500.4050, L501.6710, L100.0100, L500.4100 #### [facility] [address] [place], [address] MCV (RBC) [Entitic vol] 95.3 fL High 80-94 [facility] Comment on above: Performed By: #### L 500.4050, L501.6710, L100.0100, L500.4100 #### [facility] [address] [place], [address] Monocytes/100 WBC (Bld) 7.7 % Normal 0-10 [facility] Comment on above: Performed By: #### L 500.4050, L501.6710, L100.0100, L500.4100 #### [facility] [address] [place], [address] Neutrophils/100 WBC (Bld) 69.2 % Normal 47-70 [facility] Comment on above: Performed By: #### L 500.4050, L501.6710, L100.0100, L500.4100 #### [facility] [address] [place], [address] Nucleated RBC (Bld) [#/Vol] 0 10*3/uL Normal 0-5 [facility] Comment on above: Performed By: #### L 500.4050, L501.6710, L100.0100, L500.4100 #### [facility] [address] [place], [address] Platelet mean volume (Bld) [Entitic vol] 11.6 fL Normal 6.2-12.0 [facility] Comment on above: Performed By: #### L 500.4050, L501.6710, L100.0100, L500.4100 #### [facility] [address] [place], [address] Platelets (Bld) [#/Vol] 228 10*3/uL Normal 150-450 [facility] Comment on above: Performed By: #### L 500.4050, L501.6710, L100.0100, L500.4100 #### [facility] [address] [place], [address] RBC (Bld) [#/Vol] 3.83 10*6/uL Low 4.6-6.2 [facility] Comment on above: Performed By: #### L 500.4050, L501.6710, L100.0100, L500.4100 #### [facility] [address] [place], [address] RDW SD 43.8 fl Normal 35.1-43.9 [facility] Comment on above: Performed By: #### L 500.4050, L501.6710, L100.0100, L500.4100 #### [facility] [address] [place], [address] WBC (Bld) [#/Vol] 10.6 10*3/uL Normal 4.4-11.0 [facility] Comment on above: Performed By: #### L 500.4050, L501.6710, L100.0100, L500.4100 #### [facility] [address] [place], [address] CRPon 07-17-2025 C-REACTIVE PROT < 3.00 Normal 0.0-3.0 [facility] Comment on above: Performed By: #### L 500.4050, L501.6710, L100.0100, L500.4100 #### [facility] [address] [place], [address] Calculated very low density lipoprotein (VLDL) cholesterol measurementOrdered By: Raúl Leslie on 02-17-2025 Calculated very low density lipoprotein (VLDL) cholesterol measurement 22 mg/dL 5-40 [facility] Carbon dioxide, total [Moles /volume] in Central venous bloodOrdered By: Raúl Leslie on 02-17-2025 CO2 [Moles/Vol] 25.0 mmol/L 21.0-32.0 [facility] Chloride assayOrdered By: Addison Leslie on 02-17-2025 Chloride [Moles/Vol] 100 mmol/L 98-108 [facility] Comprehensive Metabolic Prof ilon 02-17-2025 Albumin [Mass/Vol] 4.4 g/dL Normal 3.4-4.8 [facility] Comment on above: Performed By: #### L 500.4050, L501.6710, L100.0100, L500.4100 #### [facility] [address] [place], [address] Albumin/Globulin [Mass ratio] 1.7 {ratio} Normal 0.9-2.4 [facility] Comment on above: Performed By: #### L 500.4050, L501.6710, L100.0100, L500.4100 #### [facility] [address] [place], [address] ALK PHOS 74 U/L Normal 40-129 [facility] Comment on above: Performed By: #### L 500.4050, L501.6710, L100.0100, L500.4100 #### [facility] [address] [place], [address] ALT [Catalytic activity/Vol] 21 U/L Normal <=46 [facility] Comment on above: Performed By: #### L 500.4050, L501.6710, L100.0100, L500.4100 #### [facility] [address] [place], [address] AST [Catalytic activity/Vol] 21 U/L Normal <=37 [facility] Comment on above: Performed By: #### L 500.4050, L501.6710, L100.0100, L500.4100 #### [facility] [address] [place], [address] Bilirubin [Mass/Vol] 0.34 mg/dL Normal 0.00-1.30 [facility] Comment on above: Performed By: #### L 500.4050, L501.6710, L100.0100, L500.4100 #### [facility] [address] [place], [address] BUN/CRE 23.4 RATIO High 10-20 [facility] Comment on above: Performed By: #### L 500.4050, L501.6710, L100.0100, L500.4100 #### [facility] [address] [place], [address] Calcium [Mass/Vol] 9.3 mg/dL Normal 7.6-11.0 [facility] Comment on above: Performed By: #### L 500.4050, L501.6710, L100.0100, L500.4100 #### [facility] [address] [place], [address] Chloride [Moles/Vol] 100 mmol/L Normal 98-108 [facility] Comment on above: Performed By: #### L 500.4050, L501.6710, L100.0100, L500.4100 #### [facility] [address] [place], [address] CO2 [Moles/Vol] 25.0 mmol/L Normal 21.0-32.0 [facility] Comment on above: Performed By: #### L 500.4050, L501.6710, L100.0100, L500.4100 #### [facility] [address] [place], [address] Creatinine [Mass/Vol] 0.78 mg/dL Normal 0.70-1.20 [facility] Comment on above: Performed By: #### L 500.4050, L501.6710, L100.0100, L500.4100 #### [facility] [address] [place], [address] GAP 13 Normal 5-15 [facility] Comment on above: Performed By: #### L 500.4050, L501.6710, L100.0100, L500.4100 #### [facility] [address] [place], [address] GFR/1.73 sq M.predicted among non-blacks MDRD (S/P/Bld) [Vol rate/Area] 88 mL/min/{1.73_m2} Normal >60 [facility] Comment on above: Result Comment: mL/m in/1.73m2 CKD-EPI Creatinine Equation (2020) Performed By: #### L 500.4050, L501.6710, L100.0100, L500.4100 #### [facility] [address] [place], [address] Globulin (S) [Mass/Vol] 2.5 g/dL Normal 2.2-4.2 [facility] Comment on above: Performed By: #### L 500.4050, L501.6710, L100.0100, L500.4100 #### [facility] [address] [place], [address] Glucose [Mass/Vol] 90 mg/dL Normal 70-99 [facility] Comment on above: Performed By: #### L 500.4050, L501.6710, L100.0100, L500.4100 #### [facility] [address] [place], [address] Potassium [Moles/Vol] 4.2 mmol/L Normal 3.3-5.1 [facility] Comment on above: Performed By: #### L 500.4050, L501.6710, L100.0100, L500.4100 #### [facility] [address] [place], [address] Sodium [Moles/Vol] 137 mmol/L Normal 133-145 [facility] Comment on above: Performed By: #### L 500.4050, L501.6710, L100.0100, L500.4100 #### [facility] [address] [place], [address] T PROT 6.9 g/dL Normal 5.9-8.4 [facility] Comment on above: Performed By: #### L 500.4050, L501.6710, L100.0100, L500.4100 #### [facility] [address] [place], [address] Urea nitrogen [Mass/Vol] 18 mg/dL Normal 4-19 [facility] Comment on above: Performed By: #### L 500.4050, L501.6710, L100.0100, L500.4100 #### [facility] [address] [place], [address] Eosinophil percentageOrdered By: Raúl Leslie on 02-17-2025 Eosinophils/100 WBC (Bld) 4.4 % 0-5 [facility] Erythrocyte distribution wid th ratioOrdered By: Raúl Leslie on 02-17-2025 Erythrocyte distribution width (RBC) [Ratio] 12.7 % 11.6-14.6 [facility] Erythrocyte distribution wid th standard deviationOrdered By: Raúl Leslie on 02-17-2025 Erythrocyte distribution width (RBC) [Ratio] 43.8 fl 35.1-43.9 [facility] Glomerular filtration rate ( GFR) estimation/1.73 sq m using serum, plasma, or whole bOrdered By: Raúl Leslie on 02-17-2025 GFR/1.73 sq M.predicted among non-blacks MDRD (S/P/Bld) [Vol rate/Area] 88 mL/min/{1.73_m2} >60 [facility] Comment on above: mL/min/1.73m2 CKD-EP I Creatinine Equation (2020) Hematocrit Auto (Bld) [Volum e fraction]Ordered By: Raúl Leslie on 02-17-2025 Hematocrit (Bld) [Volume fraction] 36.5 % Low 40-54 [facility] Hemoglobin measurementOrdere d By: Raúl Leslie on 02-17-2025 Hemoglobin (Bld) [Mass/Vol] 12.5 g/dL Low 13.0-16.5 [facility] Immature granulocytes/100 WB C Auto (Bld)Ordered By: Raúl Leslie on 02-17-2025 Immature granulocytes/100 WBC (Bld) 0.400 % 0.0-0.9 [facility] Comment on above: IG% - Immature Granu locytes (promyelocytes, myelocytes and metamyelocytes) > 1% indicates that a LEFT SHIFT is Present. LDL calc ser/plasOrdered By: Raúl Leslie on 02-17-2025 Cholesterol in LDL [Mass/Vol] 119 mg/dL [facility] Comment on above: Buqihimrdz=344-381 m g/dL & Higher Febq=534 mg/dL or greater Laboratory - Chemistry and C hemistry - challengeOrdered By: Raúl Leslie on 02-17-2025 AST [Catalytic activity/Vol] 21 U/L <38 [facility] Lipid Profileon 02-17-2025 CHOL:HDL 3.15 Normal [facility] Comment on above: Performed By: #### L 500.3690, L501.7410, L100.0100, L500.4100 #### [facility] [address] [place], [place], [address] Cholesterol [Mass/Vol] 206 mg/dL High <=200 [facility] Comment on above: Result Comment: Chol esterol level, Desirable <200 mg/dL Borderline high cholesterol 200-239 mg/dL High cholesterol >=240 mg/dL Recommendations of the NCEP Adult Treatment Panel for the following risk-cutoff thresholds for the [place] population. Performed By: #### L 500.4050, L501.6710, L100.0100, L500.4100 #### [facility] [address] [place], [address] Cholesterol in HDL [Mass/Vol] 65 mg/dL Normal [facility] Comment on above: Result Comment: Julianne onal Cholesterol Education Program (NCEP) guidelines: <40 mg/dL: Low HDL-cholesterol (major risk factor for CHD) >= 60 mg/dL: High HDL-cholesterol (negative risk factor for CHD) HDL-cholesterol is affected by a number of factors, e.g. smoking, exercise, hormones, sex and age. Performed By: #### L 500.4050, L501.6710, L100.0100, L500.4100 #### [facility] [address] [place], [address] Cholesterol in LDL [Mass/Vol] 119 mg/dL Normal [facility] Comment on above: Result Comment: Bord alkxsv=570-859 mg/dL Higher Nbjr=182 mg/dL or greater Performed By: #### L 500.4050, L501.6710, L100.0100, L500.4100 #### [facility] [address] [place], [address] Cholesterol in VLDL [Mass/Vol] 22 mg/dL Normal 5-40 [facility] Comment on above: Performed By: #### L 500.4050, L501.6710, L100.0100, L500.4100 #### [facility] [address] [place], [address] Triglyceride [Mass/Vol] 110 mg/dL Normal [facility] Comment on above: Result Comment: The drugs N-Acetylcysteine and Metamizole may falsely depress this assay. Normal range: <150 mg/dL Borderline High: 150-199 mg/dL High: 200-499 mg/dL Very High: >500 mg/dL Performed By: #### L 500.4050, L501.6710, L100.0100, L500.4100 #### [facility] [address] [place], [address] MCV (mean corpuscular volume ) determinationOrdered By: Raúl Leslie on 02-17-2025 MCV (RBC) [Entitic vol] 95.3 fL High 80-94 [facility] Mean corpuscular hemoglobin (MCH) determinationOrdered By: Raúl Leslie on 02-17-2025 MCH (RBC) [Entitic mass] 32.6 pg High 27.0-32.0 [facility] Mean corpuscular hemoglobin concentration (MCHC) determinationOrdered By: Raúl Leslie on 02-17-2025 MCHC (RBC) [Mass/Vol] 34.2 g/dL 32-36 [facility] Mean platelet volume determi nationOrdered By: Raúl Leslie on 02-17-2025 Platelet mean volume (Bld) [Entitic vol] 11.6 fL 6.2-12.0 [facility] Monocyte percentageOrdered B y: Raúl Leslie on 02-17-2025 Monocytes/100 WBC (Bld) 7.7 % 0-10 [facility] Neutrophil percentageOrdered By: Raúl Leslie on 02-17-2025 Neutrophils/100 WBC (Bld) 69.2 % 47-70 [facility] Nucleated red blood cell per centageOrdered By: Raúl Leslie on 02-17-2025 Nucleated RBC/100 WBC (Bld) [Ratio] 0 % 0-5 [facility] Platelet countOrdered By: Addison Leslie on 02-17-2025 Platelets (Bld) [#/Vol] 228 10*3/uL 150-450 [facility] Potassium measurement (mass/ volume)Ordered By: Raúl Leslie on 02-17-2025 Potassium (Unsp spec) [Mass/Vol] 4.2 mmol/L 3.3-5.1 [facility] RBC Auto (Bld) [#/Vol]Ordere d By: Raúl Leslie on 02-17-2025 RBC (Bld) [#/Vol] 3.83 10*6/uL Low 4.6-6.2 [facility] Screening total cholesterol/ high density lipoprotein (HDL) cholesterol ratioOrdered By: Raúl Leslie on 02-17-2025 Cholesterol.total/Chol esterol in HDL [Mass ratio] 3.15 {ratio} [facility] Serum creatinine measurement (mass/volume)Ordered By: Raúl Leslie on 02-17-2025 Creatinine [Mass/Vol] 0.78 mg/dL 0.70-1.20 [facility] Serum globulin measurementOr dered By: Raúl Leslie on 02-17-2025 Globulin (S) [Mass/Vol] 2.5 g/dL 2.2-4.2 [facility] Serum glucose measurement (m ass/volume)Ordered By: Raúl Leslie on 02-17-2025 Glucose [Mass/Vol] 90 mg/dL 70-99 [facility] Serum or plasma C reactive p rotein measurement (mass/volume)Ordered By: Raúl Leslie on 02-17-2025 CRP [Mass/Vol] mg/L 0.0-3.0 [facility] Serum or plasma alanine dalton otransferase (ALT) measurementOrdered By: Raúl Leslie on 02-17-2025 ALT [Catalytic activity/Vol] 21 U/L <47 [facility] Serum or plasma albumin paulette urement (mass/volume)Ordered By: Raúl Leslie on 02-17-2025 Albumin [Mass/Vol] 4.4 g/dL 3.4-4.8 [facility] Serum or plasma albumin/glob ulin mass ratioOrdered By: Raúl Leslie on 02-17-2025 Albumin/Globulin [Mass ratio] 1.7 {ratio} 0.9-2.4 [facility] Serum or plasma alkaline jessica sphatase measurementOrdered By: Raúl Leslie on 02-17-2025 ALP [Catalytic activity/Vol] 74 U/L 40-129 [facility] Serum or plasma calcium paulette urement (mass/volume)Ordered By: Raúl Leslie on 02-17-2025 Calcium [Mass/Vol] 9.3 mg/dL 7.6-11.0 [facility] Serum or plasma cholesterol in HDL measurement (mass/volume)Ordered By: Raúl Leslie on 02-17-2025 Cholesterol in HDL [Mass/Vol] 65 mg/dL >40 [facility] Comment on above: National Cholesterol Education Program (NCEP) guidelines:<40 mg/dL: Low HDL-cholesterol (major risk factor for CHD)>= 60 mg/dL: High HDL-cholesterol (negative risk factor for CHD)HDL-cholesterol is affected by a number of factors, e.g. smoking, exercise, hormones, sex and age. Serum or plasma cholesterol measurement (mass/volume)Ordered By: Raúl Leslie on 02-17-2025 Cholesterol [Mass/Vol] 206 mg/dL High <201 [facility] Comment on above: Cholesterol level, D esirable <200 mg/dLBorderline high cholesterol 200-239 mg/dLHigh cholesterol >=240 mg/dLRecommendations of the NCEP Adult Treatment Panel for the following risk-cutoff thresholds for the [place] population. Serum or plasma urea nitroge n measurement (mass/volume)Ordered By: Raúl Leslie on 02-17-2025 Urea nitrogen [Mass/Vol] 18 mg/dL 4-19 [facility] Sodium levelOrdered By: Raúl Leslie on 02-17-2025 Sodium [Moles/Vol] 137 mmol/L 133-145 [facility] Total proteinOrdered By: Constanza Leslie on 02-17-2025 Protein [Mass/Vol] 6.9 g/dL 5.9-8.4 [facility] Triglycerides measurementOrd ered By: Raúl Leslie on 02-17-2025 Triglyceride [Mass/Vol] 110 mg/dL <199 [facility] Comment on above: The drugs N-Acetylcy steine and Metamizole may falsely depress this assay. Normal range: <150 mg/dLBorderline High: 150-199 mg/dLHigh: 200-499 mg/dLVery High: >500 mg/dL White blood cell (WBC) count Ordered By: Raúl Leslie on 02-17-2025 WBC (Bld) [#/Vol] 10.6 10*3/uL 4.4-11.0 [facility] Screening prostate specific antigen (PSA) measurementOrdered By: Tati Ingram on 09-02-2023 Prostate specific Ag IA [Mass/Vol] 3.93 ng/mL 0.00-4.00 [facility] Comment on above: This test was perfor med using the TPSA assay method for the[facility]. Values obtained with differentassay methods cannot be used interchangably.When changing PSA assays in the course of monitoring apatient, additional sequential testing should be carriedout to confirm baseline values. APTTon 09-19-2017 aPTT 25.9 s Normal 20.0-30.5 [facility] Comment on above: Result Comment: NOTE : The therapeutic time for Heparin anticoagulation,based on Xa activity inhibition, is an APTT of 46-80seconds. Performed By: #### A PTT, PT, HEMOG, BMP3M, LFT3 ####[address] [address] Basic Metabolic Panelon 09-04 Anion gap 11 mmol/L Normal [facility] Comment on above: Performed By: #### A PTT, PT, HEMOG, BMP3M, LFT3 ####[address] [address] Calcium 9.4 mg/dL Normal 8.4-10.2 [facility] Comment on above: Performed By: #### A PTT, PT, HEMOG, BMP3M, LFT3 ####[address] [address] CO2 26 mmol/L Normal 22-30 [facility] Comment on above: Performed By: #### A PTT, PT, HEMOG, BMP3M, LFT3 ####[address] [address] Creatinine 0.71 mg/dL Normal 0.52-1.25 [facility] Comment on above: Performed By: #### A PTT, PT, HEMOG, BMP3M, LFT3 ####[address] [address] eGFR (black) mL/min/{1.73_m2} Normal >60 [facility] Comment on above: Performed By: #### A PTT, PT, HEMOG, BMP3M, LFT3 ####[place] [address] eGFR (non-black) mL/min/{1.73_m2} Normal >60 [facility] Comment on above: Result Comment: Sour ce- MDRD equation with creatinine calibration to IDMS(NKDEP)eGFR not recommended for drug dose adjustment Performed By: #### A PTT, PT, HEMOG, BMP3M, LFT3 ####[place] [address] Glucose mass conc 61 mg/dL Low 70-100 [facility] Comment on above: Performed By: #### A PTT, PT, HEMOG, BMP3M, LFT3 ####[place] [address] Urea nitrogen 16 mg/dL Normal 7-20 [facility] Comment on above: Performed By: #### A PTT, PT, HEMOG, BMP3M, LFT3 ####[place] [address] Potassium molar conc 3.8 mmol/L Normal 3.5-5.1 [facility] Comment on above: Performed By: #### A PTT, PT, HEMOG, BMP3M, LFT3 ####[place] [address] Chloride 103 mmol/L Normal 98-107 [facility] Comment on above: Performed By: #### A PTT, PT, HEMOG, BMP3M, LFT3 ####[place] [address] Sodium 140 mmol/L Normal 137-145 [facility] Comment on above: Performed By: #### A PTT, PT, HEMOG, BMP3M, LFT3 ####[place] [address] Hemogramon 09-19-2017 Erythrocyte distribution width Auto Ratio (RBC) 13.3 % Normal 11.5-14.5 [facility] Comment on above: Performed By: #### A PTT, PT, HEMOG, BMP3M, LFT3 ####[address] [place] [address] Erythrocytes (RBC) 4.37 10*6/uL Low 4.40-5.90 [facility] Comment on above: Performed By: #### A PTT, PT, HEMOG, BMP3M, LFT3 ####[place] [address] Hematocrit (HCT) 42.6 % Normal 40.0-52.0 [facility] Comment on above: Performed By: #### A PTT, PT, HEMOG, BMP3M, LFT3 ####[place] [address] Hemoglobin mass conc (Bld) 14.1 g/dL Normal 13.0-18.0 [facility] Comment on above: Performed By: #### A PTT, PT, HEMOG, BMP3M, LFT3 ####[place] [address] MCH 32.4 pg Normal 26.0-34.0 [facility] Comment on above: Performed By: #### A PTT, PT, HEMOG, BMP3M, LFT3 ####[place] [address] MCHC mass conc (RBC) 33.2 % Normal 32.0-36.0 [facility] Comment on above: Performed By: #### A PTT, PT, HEMOG, BMP3M, LFT3 ####[place] [address] MCV 97.5 fL Normal 80.0-98.0 [facility] Comment on above: Performed By: #### A PTT, PT, HEMOG, BMP3M, LFT3 ####[place] [address] Platelet mean volume (PMV) 9.3 fL Normal 7.4-10.4 [facility] Comment on above: Performed By: #### A PTT, PT, HEMOG, BMP3M, LFT3 ####[place] [address] Platelets 228 10*3/uL Normal 140-440 [facility] Comment on above: Performed By: #### A PTT, PT, HEMOG, BMP3M, LFT3 ####[place] [address] WBC (Leukocytes) 14.5 10*3/uL High 3.6-10.7 [facility] Comment on above: Performed By: #### A PTT, PT, HEMOG, BMP3M, LFT3 ####[place] [address] Hepatic Functionon 8 Alanine aminotransferase (ALT) 34 U/L Normal 13-69 [facility] Comment on above: Performed By: #### A PTT, PT, HEMOG, BMP3M, LFT3 ####[place] [address] Alkaline phosphatase (ALP) 77 U/L Normal 38-126 [facility] Comment on above: Performed By: #### A PTT, PT, HEMOG, BMP3M, LFT3 ####[place] [address] Aspartate aminotransferase (AST) 25 U/L Normal 15-46 [facility] Comment on above: Performed By: #### A PTT, PT, HEMOG, BMP3M, LFT3 ####[place] [address] Bilirubin (direct) 0.0 mg/dL Normal 0.0-0.3 [facility] Comment on above: Performed By: #### A PTT, PT, HEMOG, BMP3M, LFT3 ####[place] [address] Bilirubin (total) 0.5 mg/dL Normal 0.2-1.3 [facility] Comment on above: Performed By: #### A PTT, PT, HEMOG, BMP3M, LFT3 ####[place] [address] Protein 7.3 g/dL Normal 6.3-8.2 [facility] Comment on above: Performed By: #### A PTT, PT, HEMOG, BMP3M, LFT3 ####[address] [place] [address] Albumin 4.4 g/dL Normal 3.5-5.0 [facility] Comment on above: Performed By: #### A PTT, PT, HEMOG, BMP3M, LFT3 ####[place] [address] Prothrombin Timeon 8 INR Coag RelTime (PPP) 1.0 {INR} Normal 0.9-1.1 [facility] Comment on above: Result Comment: Wes mmended [...] #### A PTT, PT, HEMOG, BMP3M, LFT3 ####[place] [address] Prothrombin time (PT) Coag time (PPP) 10.4 s Normal 9.0-12.0 [facility] Comment on above: Result Comment: . Performed By: #### A PTT, PT, HEMOG, BMP3M, LFT3 ####[place] [address] TS GELon 09-19-2017 TS GEL PATIENT: ADAN CONN LOC: COUCH BILL# : [id number] : 1940 SEX: M AGE: [id number] BY: DENAE Lutz ORDERED : 09/19/2017 12:32 COLLECTED: 09/19/2017 12:51ORDER : [id number] RECEIVED : 09/19/2017 16:11 -----TEST NAME RESULT UNITS RANGES ABN FL STABO Group A FRh, Gel POS FAntibody Screen Gel NEG F Normal [facility] Comment on above: Performed By: #### T SGL ####[address] [place] [address] Urinalysis,Macroon 8 Bilirubin (direct) Negative Normal Negative [facility] Comment on above: Performed By: #### U AMAC ####[address] [place] [address] Ketone,Urine Trace Normal Negative [facility] Comment on above: Performed By: #### U AMAC ####[address] [place] [address] Occult Blood,Ur Negative Normal Negative [facility] Comment on above: Performed By: #### U AMAC ####[address] [place] [address] Specific [place],Urine 1.020 Normal 1.005-1.030 [facility] Comment on above: Performed By: #### U AMAC ####[address] [place] [address] Total Protein,Urine Negative Normal Negative [facility] Comment on above: Performed By: #### U AMAC ####[address] [place] [address] Urine, appearance clear Normal Clear [facility] Comment on above: Performed By: #### U AMAC ####[address] [place] [address] Urine, color yellow Normal Lt. Yellow [facility] Comment on above: Performed By: #### U AMAC ####[address] [place] [address] Urine, glucose presence NORM Normal Negative [facility] Comment on above: Performed By: #### U AMAC ####[address] [facility] [place] [address] Urine, nitrite presence Negative Normal Negative [facility] Comment on above: Performed By: #### U AMAC ####[address] [place] [address] Urine, pH 6.0 [pH] Normal 5.0-8.0 [facility] Comment on above: Performed By: #### U AMAC ####[address] [facility] [place] [address] Urine, urobilinogen NORM Normal 0-1 [facility] Comment on above: Performed By: #### U AMAC ####[address] [address] [facility] [place] [address] WBC (Leukocytes) Negative Normal Negative [facility] Comment on above: Performed By: #### U AMAC ####[address] [address] [facility] [place] [address] Encounters Encounter Date Encounter Type Care Provider Facility Start: 04-21-2025 ambulatory Raúl Leslie Facility:[facility] Start: 03-29-2025 End: 03-29-[address] Raúl Leslie MD Work Phone: -[facility] [employer] Start: 03-29-2025 End: 03-29-[address] Raúl Leslie MD -[facility] Work Phone: Start: 03-29-2025 End: 03-29-2025 ambulatory Raúl Leslie Facility:[facility] Start: 03-11-2025 ambulatory Raúl Leslie Facility:[facility] Start: 02-17-2025 End: 02-17-[address] Raúl Leslie MD Work Phone: -[facility] [employer] Start: 02-17-2025 End: 02-17-[address] Raúl Leslie MD -[facility] Work Phone: Start: 02-17-2025 End: 02-17-2025 ambulatory Raúl Leslie Facility:[facility] Start: 09-02-2023 End: 09-02-2023 ambulatory [facility] Work Phone: Start: 09-02-2023 End: 09-02-2023 Patient encounter procedure [facility]-Laboratory Work Phone: Start: 11-05-2021 End: 11-05-2021 Patient encounter procedure [facility]-Radiology, [place] Start: 09-24-2017 Evaluation and management of inpatient [facility] Start: 09-19-[address] [facility] Procedures Date Procedure Procedure Detail Performing Clinician Start: 03-29-2025 Assay of prostate sp ecific antigen total Dr. Raúl Leslie MD Work Phone: Comment on above: This test was perfor med using the [employer] tPSA method. Measured values of a patient sample can vary depending on the testing procedure used. PSA values determined on patient samples by different testing procedures cannot be used interchangeably. If there is a change in PSA assays while monitoring therapy, sequential testing should be performed to confirm baseline values. Start: 03-29-2025 Plain X-ray abdomen Dr. Raúl Leslie MD Work Phone: Start: 11-05-2021 Plain chest X-ray Payers Date Payer Category Payer Self-pay [id number] 2016 Unknown [id number] [id number] Unknown Unknown [id number] [id number] [id number] Unknown [id number] [id number] [id number] Unknown [id number] 2.16.8 [id number] Unknown [id number] 2.16.8 [id number] Social History Date Type Detail Facility Tobacco smoking stat [facility] Unknown if ever smoked [facility] Work Phone: Start: 1940 Sex Assigned At Male [facility] Work Phone: Medical Equipment Procedure Code Equipment Code Equipment Origin al Text Equipment Identifier Dates 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 Start: 08-04-2001 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 Start: 08-04-2001 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 Start: 08-04-2001 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 Start: 08-04-2001 Radiology Diagnostic study note 03-30-2025 Note Date & Type Note Facility 03-30-2025 Radiology Diagnostic study note [facility] [address], [place] [address] Abdomen Single View MR#: [id number] Acct: [id number] Name: ACE ARELLANO Rep #: [id number] : 1940 M 84 From: Zacarias Scott MD PCP: Dr. Raúl Leslie MD Status: REG CLI Study:Abdomen Single View Date of Exam: 03/29/25 Exam# [id number] Ordering Dr: Adidson Leslie MD PROCEDURE: ABDOMEN SINGLE VIEW 03/29/2025 REASON FOR EXAM: CONSTIPATION TECHNIQUE: ABDOMEN SINGLE VIEW COMPARISON: None. FINDINGS: There is a nonobstructive bowel gas pattern. There is a 2 mm calcification projected to the left of the spine at the L 1 2 level and a 7 mm calcification projected to the left of the spine at the L4-5 level. Status post penile implant. 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 RAD/Abdomen Single View IMPRESSION: 1. Possible left ureterolithiasis. 2. No significant constipation. 3. Other findings as noted. Reading Location: [id number] CC: Dr. Raúl Leslie MD ~ Research Professor Of Biostatistics: Signed [facility] Work Phone: Evaluation note Note Date & Type Note Facility Evaluation note No assessment information availa ble [facility] Work Phone: Reason for referral (narrative) Note Date & Type Note Facility Reason for referral (narrative) No reason for referral information available [facility] Work Phone: Summary Purpose Family History No Family History Records FoundNo Family History Records Found Advance Directives No Advanced Directives Records FoundNo Advanced Directives Records Found Chief Complaint and Reason for Visit Chief Complaint did not want labs by Dr. Leslie today Chief Complaint Admit Date EORDER- LAB AND XRAY March 29, 2025 9 :42am Additional Source Comments (unrecognized sect ion and content) No Status Records FoundNo Status Records Found INFORMATION SOURCE (unrecogn ized section and content) DATE CREATED AUTHOR 01/28/2018 [facility] DATE CREATED AUTHOR AUTHOR'S ORGANIZ ATION 04/17/2025 [facility] Goals (unrecognized section and content) Goals may be documented in a n alternate sectionGoals may be documented in an alternate sectionGoals may be documented in an alternate sectionGoals may be documented in an alternate section Care Teams (unrecognized sec tion and content) Team Status: Active Member Role Status Dates Dr. Raúl Leslie MD Family Provider Active Dr. Raúl Leslie MD Primary Care Provider Active Team Status: Inactive Member Role Status Dates Dr. Raúl Leslie MD Primary Care Provider Active Tati Ingram Attending Provider, Referring Provide r Active Team Status: Active Member Role/Relationship Status Dates Dr. Raúl Leslie MD Family Provider Active Dr. Raúl Leslie MD Primary Care Provider Active Team Status: Inactive Member Role/Relationship Status Dates Dr. Raúl Leslie MD Primary Care Provider Active Start: February 17, 2025 End: February 17, 2025 Dr. Raúl Leslie MD Attending Provider Active St art: February 17, 2025 End: February 17, 2025 Dr. Raúl Leslie MD Referring Provider Active St art: February 17, 2025 End: February 17, 2025 Team Status: Active Member Role/Relationship Status Dates Dr. Raúl Leslie MD Primary Care Provider Active Team Status: Inactive Member Role/Relationship Status Dates Dr. Raúl Leslie MD Primary Care Provider Active Start: March 29, 2025 End: March 29, 2025 Dr. Raúl Leslie MD Attending Provider Active St art: March 29, 2025 End: March 29, 2025 Dr. Raúl Leslie MD Referring Provider Active St art: March 29, 2025 End: March 29, 2025 FOR RECORDS PERTAINING TO PATIENTS WHO ARE [...] BE BASED ON THE PRIMARY CLINICAL RECORDS. [facility], [facility]. provides no warranty or guarantee of the accuracy or completeness of information in this document.
== END | disposition home or self-care (01) ==
PROVIDERS: PCP Family Medicine; Referring Provider Family Medicine; Visit Provider Family Medicine
DX: N20.0 Calculus of kidney (principal)
CPT/HCPCS: 74176

== ENCOUNTER 2025-05-08 14:50 | Emergency (ER) | payer MEDICARE, SELFPAY ==
[2025-05-08 14:50] VITALS: BP 151/66; PULSE 76; RESP 20; TEMP 36.1; O2SAT 97; BMI 23.6
--- NOTE | 2025-05-08 15:40 | EX.ED.DYSGE1 ---
HPI History of Present Illness Chief Complaint: Abd Pain PFSH PFSH Medical History no medical history Home Medications ?Medication ?Instructions ?Recorded ?Last Taken ?Type linaclotide 290 mcg capsule 290 mcg PO DAILY 05/08/25 Unknown History (Alexandriazeslemuel) ondansetron 4 mg disintegrating 4 mg PO Q8H PRN PRN Nausea #10 tabs 05/08/25 Unknown Rx tablet oxycodone 5 mg tablet 5 mg PO Q6H PRN pain 3 days #12 05/08/25 Unknown Rx tabs Allergy/AdvReac Type Severity Reaction Status Date / Time shellfish derived Allergy Severe Anaphylaxis Verified 05/08/25 14:50 Family History no significant family his Surgical History (Updated 05/08/25 @ 15:31 by Orquidea Wilder) History of back surgery H/O neck surgery Surgical History no surgical history Social History Smoking Status: Never smoker EXAM Physical Exam Const Vital Signs: 05/08/25 14:50 05/08/25 16:50 05/08/25 18:00 Temperature 97 F L Temperature Source Temporal Pulse Rate 76 73 60 Respiratory Rate 20 H Blood Pressure 151/66 H 138/74 H 157/79 H Blood Pressure Mean 94 95 105 Pulse Ox 97 95 95 Oxygen Delivery Method Room Air 05/08/25 19:04 Temperature 97.9 F Temperature Source Pulse Rate 60 Respiratory Rate 16 Blood Pressure 157/79 H Blood Pressure Mean 105 Pulse Ox 95 Oxygen Delivery Method MDM MDM MDM Narrative Medical decision making narrative: HISTORY OF PRESENT ILLNESS: Chief complaint: Abdominal pain 85-year-old male with history of back surgery, neck surgery presents abdominal pain. Abdominal pain is been ongoing for last several weeks but has gotten worse over the last 2 to 3 days. He has not had a bowel movement last 3 days. Typically is about 1 every other day. Denies vomiting but notes nausea. Denies chest pain. Denies history abdominal surgery. Denies urinary complaints REVIEW OF SYSTEMS: Pertinent positives: Abdominal pain, nausea Pertinent negatives: Chest pain, shortness of breath, vomiting, syncope PHYSICAL EXAM: Nursing triage notes reviewed, Vital signs reviewed Constitutional: please see mdm HENT: MMM Eyes: Pupils equal round and reactive to light, Extraocular muscles intact Neck: No stridor, no JVD, full neck ROM Lungs: Clear to auscultation, No wheezing or rales. No increased work of breathing, no conversational dyspnea, no accessory muscle use, no nasal flaring. No respiratory distress noted Heart: Regular rate and rhythm, No murmurs, No rubs and No gallops, 2+ distal pulses (radial, femoral, posterior tibial) in all extremities Abdomen: Soft, diffuse TTP rigidity, rebound or guarding, no obvious peritoneal signs, no palpable pulsatile abdominal masses, no auscultated abdominal bruit : No CVAT Extremities: No edema Neuro: No new focal neurological deficits, cranial nerves II through XII intact, 5/5 strength in all present extremities. Intact sensation to light touch in all present extremities, 2+ reflexes bilateral patella tendons. Skin: No rash or lesions noted MEDICAL DECISION MAKING: Chief Complaint: please see HPI External records reviewed: Reviewed imaging studies: CT scan of the abdomen pelvis from 04/21/2025 showed no evidence of kidney stone but showed 1.4 cm ill-defined hypodensity in the pancreatic body Factors affecting care: n as per HPI Social determinants of health: none History obtained from others: Patient's Consults: none [facility] Narrative: Patient was initially hemodynamically stable, afebrile and nontoxic-appearing. Exam with diffuse tenderness no distention or peritoneal signs noted. I considered the following differential diagnosis: A AAA, small bowel obstruction, abdominal perforation, appendicitis, pancreatitis, hepatobiliary pathology (acute cholecystitis), mesenteric ischemia, pathology (ie nephrolithiasis, pyelonephritis). I obtained broad lab and imaging evaluation to further determine if the patient was suffering from a life-threatening etiology. Initially treat the patient with IV fluids, Zofran, morphine and Toradol. ALL IMAGES (IF OBTAINED) HAVE BEEN PERSONALLY REVIEWED AND INTERPRETED BY MYSELF. CBC with no leukocytosis, no anemia or thrombocytopenia CMP without evidence of acute kidney injury, significant electrolyte abnormality, anion gap to suggest end organ hypo-perfusion, no evidence of metabolic acidosis with a normal bicarbonate, no evidence of hepatobiliary obstructive pathology. Lipase is wnl indicating no pancreatic inflammation. Urinalysis without evidence of UTI CT scan abdomen pelvis without evidence of perforation/obstruction or other acute surgical pathology of the abdomen or pelvis. Did show pancreatic lesion similar to prior The synthesis of the patient's history, physical exam, labs images suggest no acute life-limiting etiology. Repeat abdominal exam remained benign. Patient noted symptomatic improvement after the above medications. He is likely suffering from pain related to likely pancreatic cancer. Discussed pain control and nausea control at home. Discussed Oncology Fast past referral. Strict return precautions were discussed as well. The patient and/or family, caregivers express understanding. The patient and/or family, caregivers agrees with the plan. Shared decision making: I will have a discussion with the patient and or visitors regarding risk/benefits of further testing or admission. They will be made aware of of the risk/benefits inherent in this decision they will be given the opportunity to voice understanding. Total critical care time today provided was at least 0 minutes. This excludes separately billable procedures. Critical care time (if documented) is secondary to the patient having high probability of clinically significant/life threatening deterioration in the patient's condition which required my urgent intervention. Impression: 1. Acute abdominal pain 2. Pancreatic mass Dispo: Discharge home This note was generated with [employer] dictation software. It may contain incorrect words, spelling, and punctuation that were not noted in review of the chart prior to signing. Lab Data Labs: Laboratory Results - last 24 hr 05/08/25 05/08/25 15:10 16:16 WBC 8.8 RBC 4.16 L Hgb 13.2 Hct 37.8 L MCV 90.9 MCH 31.7 MCHC 34.9 RDW Std Deviation 41.1 RDW Coeff of Fabián 12.3 Plt Count 265 MPV 10.8 Immature Gran % (Auto) 0.300 Neut % (Auto) 68.7 Lymph % (Auto) 18.0 L [place] % (Auto) 7.2 Eos % (Auto) 5.3 H Baso % (Auto) 0.5 Absolute Neuts (auto) 6.0 Absolute Lymphs (auto) 1.58 Nucleated RBC % 0 Sodium 134 Potassium 3.9 Chloride 97 L Carbon Dioxide 22.6 Anion Gap 15 BUN 17 Creatinine 0.73 Estim Creat Clear Calc 63.12 Est GFR (MDRD) Non-Af 89 BUN/Creatinine Ratio 22.7 H Glucose 98 Calcium 9.4 Total Bilirubin 0.52 AST 19 ALT 21 Alkaline Phosphatase 76 Total Protein 7.3 Albumin 4.5 Globulin 2.8 Albumin/Globulin Ratio 1.6 Lipase 14 Urine Color Yellow Urine Clarity Clear Urine pH 6.0 Ur Specific [place] 1.020 Urine Protein 30 H Urine Glucose (UA) Normal Urine Ketones 5 H Urine Occult Blood Negative Urine Nitrite Negative Urine Bilirubin Negative Urine Urobilinogen Normal Ur Leukocyte Esterase Negative Urine RBC 0-5 SEEN Urine WBC 0-5 SEEN Ur Squamous Epith Cells 0-5 SEEN Urine Bacteria RARE Urine Mucus 0 SEEN Radiography Diagnostic Testing: Clinical Impression(s) from Imaging Studies Abdomen/Pelvis CT 05/08/25 16:34 IMPRESSION: Persistent pancreatic abnormality. Recommend MRI pancreas without and with contrast. Do not recommend MRCP Reading Location: [facility] Discharge Plan Triage Chief Complaint: Abd Pain ED Provider: Francisco Foster Dx/Rx/DC Orders Instructions: ED Tumor, Uncertain Cause Prescriptions: New oxycodone 5 mg tablet 5 mg PO Q6H PRN (Reason: pain) 3 Days Qty: 12 0RF ondansetron 4 mg tablet,disintegrating 4 mg PO Q8H PRN PRN (Reason: Nausea) Qty: 10 0RF No Action Linzess 290 mcg capsule 290 mcg PO DAILY Other Ambulatory Orders: Fast Pass: Oncology Referral [facility] (Routine) Facility: [facility] - Location: [facility] Ordered By: Dr. Francisco Foster Primary Care Provider: Raúl Leslie Referrals: Raúl Leslie MD [Primary Care Provider, Family Practice] Activity Restrictions/Additional Instructions: Thank you for trusting us with your care today! Your labs and imaging are reassuring. There is no sign of systemic inflammation, issues your kidneys, liver or pancreas. Your CT scan once again showed the abnormality of your pancreas which is concerning for possible cancer. Please follow-up with the [facility] oncology referral. Expect a call for scheduling. This is located here in [facility]. Please take Tylenol (2 pills, 650 mg), ibuprofen (2 pills, 400 mg) every 6 hours as needed for pain and fever control. Please take oxycodone if the above regimen does not control your pain. Narcotics as oxycodone can cause significant amount of constipation. Please begin a bowel regimen which consist of MiraLAX, Colace and senna. Initiate this please increase your fluid intake and start eating fiber 1 cereal daily for breakfast to improve GI throughput. Please take Zofran as needed for nausea vomiting control. Please return to the emergency department if your symptoms change or worsen. Please follow with your primary care physician for further outpatient evaluation and management. Print Language: Cambodian Disposition Disposition: Home, Self Care Discharge Date/Time: 05/08/25 19:35
[2025-05-08 15:49] LABS: Hematocrit 37.8 % (40-54); Hemoglobin 13.2 g/dL (13.0-16.5); Immature Granulocytes Count 0.030 X10^3/uL (0.0-0.0); Mean Corp Hgb Conc 34.9 g/dL (32-36); Mean Corpuscular Volume 90.9 fL (80-94); Mean Platelet Vol. 10.8 fl (6.2-12.0); NRBC Flagged by Analyzer 0 % (0-5); Platelet Count 265 K/mm3 (150-450); RBC Distribution Width CV 12.3 % (11.6-14.6); RBC Distribution Width SD 41.1 fl (35.1-43.9); Red Blood Count 4.16 M/mm3 (4.6-6.2); White Blood Count 8.8 K/mm3 (4.4-11.0)
[2025-05-08 15:53] LABS: AST(SGOT) 19 U/L (<=37); Alanine Aminotransfer ALT/SGPT 21 U/L (<=46); Albumin, Serum 4.5 g/dL (3.4-4.8); Alkaline Phosphatase 76 U/L (40-129); Anion Gap 15 (5-15); BUN 17 mg/dL (4-19); BUN/Creat Ratio 22.7 RATIO (10-20); Calcium,Total 9.4 mg/dL (7.6-11.0); Carbon Dioxide 22.6 mmol/L (21.0-32.0); Chloride 97 mmol/L (98-108); Estimated Creatinine Clearance 63.12 ml/min (50-250); Globulin 2.8 g/dL (2.2-4.2); Glucose 98 mg/dL (70-99); Lipase 14 U/L (13-75); Potassium 3.9 mmol/L (3.3-5.1)
[2025-05-08 16:23] LABS: Mucous, Urine 0 SEEN /hpf (<or=2+)
[2025-05-08 16:28] LABS: Color, Urine Yellow (Yellow); Glucose, Dipstick Normal (Normal); Ketone-Dipstick 5 mg/dl (Negative); Leukocyte Esterase-Dipstick Negative /ul (Negative); Nitrite-Dipstick Negative (Negative); Occult Blood-Urine Negative /ul (Negative); Protein-Dipstick 30 mg/dl (Negative); Specific Gravity, Urine 1.020 (1.002-1.030); Urine Bilirubin Dipstick Negative (Negative)
--- NOTE | 2025-05-08 16:34 | CT_ITS ---
PROCEDURE: ABDOMEN/PELVIS W IV CONT ONLY 05/08/2025 REASON FOR EXAM: EPIGASTRIC ABDOMINAL PAIN TECHNIQUE: Procedure Code: [id number] Modality: CT Procedure: ABDOMEN/PELVIS W IV CONT ONLY Coronal and Sagittal reconstruction series were provided. CONTRAST: Isovue 370 VOLUME: 100 mL One or more dose reduction techniques were used (e.g., Automated exposure control, adjustment of the mA and/or kV according to patient size, use of iterative reconstruction technique. COMPARISON: 04/21/2025 FINDINGS: The lung bases are clear. Irregularity of the pancreas in the body is again seen similar to the recent study. Recommend MRI of the pancreas to evaluate for a pancreatic neoplasm, which is the diagnosis of exclusion. No liver masses. Normal gallbladder. Normal portal vein. No renal mass or hydronephrosis. Normal abdominal aorta. There is no free-fluid in the pelvis. There is no bowel obstruction. Penile implant is in place. No obstruction of the large bowel with the small bowel is seen. The appendix is seen to be normal. There is no colonic wall thickening. There is no gastric distention of significance. CT/Abdomen/Pelvis W IV Cont ONLY IMPRESSION: Persistent pancreatic abnormality. Recommend MRI pancreas without and with con trast. Do not recommend MRCP Reading Location: [facility]
[2025-05-08 16:50] VITALS: BP 138/74; PULSE 73; O2SAT 95
[2025-05-08 17:10] LABS: Red Blood Cells-Urine 0-5 SEEN /hpf (0-5); Squamous Epithelial Cells - UA 0-5 SEEN /hpf (0-5)
--- OUTSIDE RECORDS SUMMARY | 2025-05-08 17:56 | XMS RPT_ITS | CCD ---
Author Organization [facility] Care Team Providers Care Production Team Leader Name Role Phone Asim Regan Unavailable Unavailable Leslie, Raúl Unavailable Unavailable Leslie, Raúl Unavailable Unavailable Asim Regan Unavailable Unavailable Leslie, Raúl Unavailable Unavailable Leslie, Raúl Unavailable Unavailable Anuj MCFARLANE, Dr. Olsen Primary Care Provider [phone] Anuj MCFARLANE, Dr. Olsen Attending Provider [phone] Dr. Raúl Leslie MD Referring Provider Raúl Leslie Referring Unavailable Anuj, Raúl Primary Care Unavailable Anuj, Raúl Attending Unavailable Anuj, Raúl Referring Unavailable Leslie, Raúl Primary Care Unavailable Leslie, Raúl Attending Unavailable Leslie, Raúl Referring Unavailable Leslie, Raúl Primary Care Unavailable Leslie, Raúl Attending Unavailable Leslie, Raúl Attending Unavailable Leslie, Raúl Referring Unavailable Leslie, Raúl Primary Care Unavailable Anuj MCFARLANE, Dr. Olsen Primary Care Physician Dr. Raúl Leslie MD Attending Physician Problems Active Problems Problem Classification Problem Date Documented Da te Episodic/Chronic Alcohol-related disorders (2 sources) Alcohol abuse, uncomplicated; Translations: [Alcohol abuse, uncomplicated] Onset: 09-24-2017 Chronic Calculus of urinary tract (1 source) Calculus of kidney; Translations: [Calculus of kidney] Onset: 04-21-2025 Episodic Chronic obstructive pulmonary disease and bronchiectasis [...] Test Name Value Interpretation Reference Range Facility Abdomen/Pelvis without Conto n 04-21-2025 Abdomen/Pelvis without Cont [facility] Imaging Services [address] [place] [id number] Abdomen/Pelvis without Cont MR#: [id number] Acct: [id number] Name: ACE ARELLANO Rep #: [id number] : 1940 M 84 From: Harjit Hernandez MD PCP: Dr. Raúl Leslie MD Status: REG CLI Study: Abdomen/Pelvis without Cont Date of Exam: 04/04 03/28 Exam# [id number] Ordering Dr: Raúl Leslie MD PROCEDURE: ABDOMEN/PELVIS WITHOUT CONT 04/21/2025 REASON FOR EXAM: KIDNEY STONE TECHNIQUE: Procedure Code: CTABDPEL Modality: CT Procedure: ABDOMEN/PELVIS WITHOUT CONT Noncontrast technique limits evaluation of the abdominal and pelvic viscera. Coronal and Sagittal reconstruction series were provided. One or more dose reduction techniques were used (e.g., Automated exposure control, adjustment of the mA and/or kV according to patient size, use of iterative reconstruction technique). RADIATION DOSE SUMMARY: CTDlvol: 7 mGy DLP: 329 mGycm FINDINGS: The lung bases are clear. The peripheral soft tissues are unremarkable. A penile prosthesis is present. Degenerative changes of the spine. S shaped scoliosis. Ioygommh-oy-ukasry atherosclerosis. The infrarenal abdominal aorta measures up to 3.0 cm in diameter. No suspicious lymphadenopathy. The liver, gallbladder are unremarkable. 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 Ill-defined hypodensity within the pancreatic body which measures 1.4 cm. The spleen and adrenals are unremarkable. Right kidney vascular calcification. No definite renal calculi. No hydroureteronephrosis. The urinary bladder is unremarkable. Enlarged prostate. Colonic diverticulosis without surrounding inflammatory changes. CT/Abdomen/Pelvis without Cont IMPRESSION: *No evidence of renal or ureteral calculi. No hydroureteronephrosis. *1.4 cm ill-defined hypodensity in the pancreatic body on a non-contrast study; indeterminate. Recommend further evaluation with contrast-enhanced pancreatic protocol CT or MRI. 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 Recommend routine surveillance. *Colonic diverticulosis without diverticulitis. *Enlarged prostate. Reading Location: [facility] CC: Dr. Raúl Leslie MD Lead Electrical Controls Engineer: Signed Normal [facility] Carcinoembryonic Antigenon 0 03-30-2025 CEA 1.5 ng/mL Normal 0.0-4.7 [facility] Comment on above: Order Comment: Order Date: 03/29/25 Order Info: [id number] - CEA Result Comment: Nons mokers <3.9 Smokers <5.6 [facility] Electrochemiluminescence Immunoassay (ECLIA) Values obtained with different assay methods or kits cannot be used interchangeably. Results cannot be interpreted as absolute evidence of the presence or absence of malignant disease. Performed at: - [facility] [id number] Flight Manager: Blue Washington PhD, Phone: [phone] Performed By: #### L 501.6477, L563.3160, H7197.2721 #### [facility] [address] [place] [address]. [place], [address] Abdomen Single Viewon 2024 Abdomen Single View [facility] Imaging Services [address] [place] [address] Abdomen Single View MR#: [id number] Acct: [id number] Name: ACE ARELLANO Rep #: [id number] : 1940 M 84 From: Alon Scott MD PCP: Dr. Raúl Leslie MD Status: REG CLI Study: Abdomen Single View Date of Exam: 03/29/25 Exam# [id number] Ordering Dr: Raúl Leslie MD PROCEDURE: ABDOMEN [...] 3. Other findings as noted. Reading Location: [id number] CC: Dr. Raúl Leslie MD Lead Electrical Controls Engineer: Signed Normal [facility] CRPon 03-29-2025 C-REACTIVE PROT < 3.00 Normal 0.0-3.0 [facility] Comment on above: Order Comment: Order Date: 03/29/25 Order Info: [id number] - CRP Order Info: [id number] - PSAD Performed By: #### L 501.9940, L501.6710, L3100.2300 #### [facility] [address] [place], [place], [address] PSA,Total- Diagnosticon 03-05 PSA, DIAGNOSTIC 3.60 ng/mL Normal 0.00-4.00 [facility] Comment on above: Order Comment: Order Date: 03/29/25 Order Info: [id number] - CRP Order Info: [id number] - PSAD Result Comment: This test was performed using the [employer] tPSA method. Measured values of a patient??sample can vary depending on the testing procedure used. PSA values determined on patient samples by different testing procedures cannot be used interchangeably. If there is a change in PSA assays while monitoring therapy, sequential testing should be performed to confirm baseline values. Performed By: #### L 501.9940, L501.6710, L3100.2300 #### [facility] [address] [place], [place], [address] Serum or plasma C reactive p rotein measurement (mass/volume)Ordered By: Raúl Leslie on 03-29-2025 CRP [Mass/Vol] mg/L 0.0-3.0 [facility] Serum or plasma carcinoembry onic antigen measurement (mass/volume)Ordered By: Raúl Leslie on 03-29-2025 Carcinoembryonic Ag [Mass/Vol] 1.5 ng/mL 0.0-4.7 [facility] Comment on above: Nonsmokers <3.9 Smok ers <5.6[facility] Electrochemiluminescence Immunoassay(ECLIA)Values obtained with different assay methods or kitscannot be used interchangeably. Results cannot beinterpreted as absolute evidence of the presence orabsence of malignant disease.Performed at: [facility] [employer] [id number] Director: Blue Washington PhD, Phone: [phone] Absolute lymphocyte countOrd ered By: Raúl Leslie on 02-17-2025 Lymphocytes Auto (Unsp spec) [#/Vol] 1.90 10*3/uL 0.83-4.51 [facility] Absolute neutrophil countOrd ered By: Raúl Leslie on 02-17-2025 Neutrophils (Bld) [#/Vol] 7.3 10*3/uL 2.0-7.7 [facility] Anion gap in Serum or Plasma Ordered By: Raúl Leslie on 02-17-2025 Anion gap [Moles/Vol] 13 mmol/L 5- [facility] Automated lymphocyte count a s percentage of total leukocytesOrdered By: Raúl Leslie on 02-17-2025 Lymphocytes/100 WBC Auto (Unsp spec) 18.0 % Low - [facility] BUN/creatinine ratioOrdered By: Raúl Leslie on 02-17-2025 Urea nitrogen/Creatinine [Mass ratio] 23.4 mg/mg High 10- [facility] Basophil percentageOrdered B y: Raúl Leslie on 02-17-2025 Basophils/100 WBC (Bld) 0.3 % 0- [facility] Bilirubin, totalOrdered By: Raúl Leslie on 02-17-2025 Bilirubin [Mass/Vol] 0.34 mg/dL 0.00-1.30 [facility] CBC W/Diff, Automatedon 02-01 Absolute Lymph 1.90 X10 3/uL Normal 0.83-4.51 [facility] Comment on above: Performed By: #### L 500.4050, L501.6710, L100.0100, L500.4100 #### [facility] [address] [place], [address] Absolute Neut 7.3 X10 3/uL Normal 2.0-7.7 [facility] Comment on above: Performed By: #### L 500.4050, L501.6710, L100.0100, L500.4100 #### [facility] [address] [place], [address] Basophils/100 WBC (Bld) 0.3 % Normal 0-1 [facility] Comment on above: Performed By: #### L 500.4050, L501.6710, L100.0100, L500.4100 #### [facility] [address] [place], [address] Eosinophils/100 WBC (Bld) 4.4 % Normal 0-5 [facility] Comment on above: Performed By: #### L 500.4050, L501.6710, L100.0100, L500.4100 #### [facility] [address] [place], [address] Erythrocyte distribution width (RBC) [Ratio] 12.7 % Normal 11.6-14.6 [facility] Comment on above: Performed By: #### L 500.4050, L501.6710, L100.0100, L500.4100 #### [facility] [address] [place], [address] Hematocrit (Bld) [Volume fraction] 36.5 % Low 40-54 [facility] Comment on above: Performed By: #### L 500.4050, L501.6710, L100.0100, L500.4100 #### [facility] [address] [place], [address] Hemoglobin (Bld) [Mass/Vol] 12.5 g/dL Low 13.0-16.5 [facility] Comment on above: Performed By: #### L 500.4050, L501.6710, L100.0100, L500.4100 #### [facility] [address] [place], [address] IG% 0.400 Normal 0.0-0.9 [facility] Comment on above: Result Comment: IG% - Immature Granulocytes (promyelocytes, myelocytes and metamyelocytes) > 1% indicates that a LEFT SHIFT is Present. Performed By: #### L 500.4050, L501.6710, L100.0100, L500.4100 #### [facility] [address] [place], [address] Lymphocytes/100 WBC (Bld) 18.0 % Low 19-41 [facility] Comment on above: Performed By: #### L 500.4050, L501.6710, L100.0100, L500.4100 #### [facility] [address] [place], [address] MCH (RBC) [Entitic mass] 32.6 pg High 27.0-32.0 [facility] Comment on above: Performed By: #### L 500.4050, L501.6710, L100.0100, L500.4100 #### [facility] [address] [place], [address] MCHC (RBC) [Mass/Vol] 34.2 g/dL Normal 32-36 [facility] Comment on above: Performed By: #### L 500.4050, L501.6710, L100.0100, L500.4100 #### [facility] [address] [place], [address] MCV (RBC) [Entitic vol] 95.3 fL High 80-94 [facility] Comment on above: Performed By: #### L 500.4050, L501.6710, L100.0100, L500.4100 #### [facility] [address] [place], [address] Monocytes/100 WBC (Bld) 7.7 % Normal 0-10 [facility] Comment on above: Performed By: #### L 500.4050, L501.6710, L100.0100, L500.4100 #### [facility] [address] [place], [address] Neutrophils/100 WBC (Bld) 69.2 % Normal 47-70 [facility] Comment on above: Performed By: #### L 500.4050, L501.6710, L100.0100, L500.4100 #### [facility] [address] [place], [address] Nucleated RBC (Bld) [#/Vol] 0 10*3/uL Normal 0-5 [facility] Comment on above: Performed By: #### L 500.4050, L501.6710, L100.0100, L500.4100 #### [facility] [address] [place], [address] Platelet mean volume (Bld) [Entitic vol] 11.6 fL Normal 6.2-12.0 [facility] Comment on above: Performed By: #### L 500.4050, L501.6710, L100.0100, L500.4100 #### [facility] [address] [place], [address] Platelets (Bld) [#/Vol] 228 10*3/uL Normal 150-450 [facility] Comment on above: Performed By: #### L 500.4050, L501.6710, L100.0100, L500.4100 #### [facility] [address] [place], [address] RBC (Bld) [#/Vol] 3.83 10*6/uL Low 4.6-6.2 [facility] Comment on above: Performed By: #### L 500.4050, L501.6710, L100.0100, L500.4100 #### [facility] [address] [place], [address] RDW SD 43.8 fl Normal 35.1-43.9 [facility] Comment on above: Performed By: #### L 500.4050, L501.6710, L100.0100, L500.4100 #### [facility] [address] [place], [address] WBC (Bld) [#/Vol] 10.6 10*3/uL Normal 4.4-11.0 [facility] Comment on above: Performed By: #### L 500.4050, L501.6710, L100.0100, L500.4100 #### [facility] [address] [place], [address] CRPon 02-17-2025 C-REACTIVE PROT < 3.00 Normal 0.0-3.0 [facility] Comment on above: Performed By: #### L 500.4050, L501.6710, L100.0100, L500.4100 #### [facility] [address] [place], [address] Calculated very low density lipoprotein (VLDL) cholesterol measurementOrdered By: Raúl Leslie on 02-17-2025 Calculated very low density lipoprotein (VLDL) cholesterol measurement 22 mg/dL 5-40 [facility] Carbon dioxide, total [Moles /volume] in Central venous bloodOrdered By: Raúl Leslie on 02-17-2025 CO2 [Moles/Vol] 25.0 mmol/L 21.0-32.0 [facility] Chloride assayOrdered By: Addison Leslie on 02-17-2025 Chloride [Moles/Vol] 100 mmol/L 98-108 [facility] Comprehensive Metabolic Prof ilon 02-17-2025 Albumin [Mass/Vol] 4.4 g/dL Normal 3.4-4.8 [facility] Comment on above: Performed By: #### L 500.4050, L501.6710, L100.0100, L500.4100 #### [facility] [address] [place], [address] Albumin/Globulin [Mass ratio] 1.7 {ratio} Normal 0.9-2.4 [facility] Comment on above: Performed By: #### L 500.4050, L501.6710, L100.0100, L500.4100 #### [facility] [address] [place], [address] ALK PHOS 74 U/L Normal 40-129 [facility] Comment on above: Performed By: #### L 500.4050, L501.6710, L100.0100, L500.4100 #### [facility] [address] [place], [address] ALT [Catalytic activity/Vol] 21 U/L Normal <=46 [facility] Comment on above: Performed By: #### L 500.4050, L501.6710, L100.0100, L500.4100 #### [facility] [address] [place], [address] AST [Catalytic activity/Vol] 21 U/L Normal <=37 [facility] Comment on above: Performed By: #### L 500.4050, L501.6710, L100.0100, L500.4100 #### [facility] [address] [place], [address] Bilirubin [Mass/Vol] 0.34 mg/dL Normal 0.00-1.30 [facility] Comment on above: Performed By: #### L 500.4050, L501.6710, L100.0100, L500.4100 #### [facility] [address] [place], [address] BUN/CRE 23.4 RATIO High 10-20 [facility] Comment on above: Performed By: #### L 500.4050, L501.6710, L100.0100, L500.4100 #### [facility] [address] [place], [address] Calcium [Mass/Vol] 9.3 mg/dL Normal 7.6-11.0 [facility] Comment on above: Performed By: #### L 500.4050, L501.6710, L100.0100, L500.4100 #### [facility] [address] [place], [address] Chloride [Moles/Vol] 100 mmol/L Normal 98-108 [facility] Comment on above: Performed By: #### L 500.4050, L501.6710, L100.0100, L500.4100 #### [facility] [address] [place], [address] CO2 [Moles/Vol] 25.0 mmol/L Normal 21.0-32.0 [facility] Comment on above: Performed By: #### L 500.4050, L501.6710, L100.0100, L500.4100 #### [facility] [address] [place], [address] Creatinine [Mass/Vol] 0.78 mg/dL Normal 0.70-1.20 [facility] Comment on above: Performed By: #### L 500.4050, L501.6710, L100.0100, L500.4100 #### [facility] [address] [place], [address] GAP 13 Normal 5-15 [facility] Comment on above: Performed By: #### L 500.4050, L501.6710, L100.0100, L500.4100 #### [facility] [address] [place], [address] GFR/1.73 sq M.predicted among non-blacks MDRD (S/P/Bld) [Vol rate/Area] 88 mL/min/{1.73_m2} Normal >60 [facility] Comment on above: Result Comment: mL/m in/1.73m2 CKD-EPI Creatinine Equation (2020) Performed By: #### L 500.4050, L501.6710, L100.0100, L500.4100 #### [facility] [address] [place], [address] Globulin (S) [Mass/Vol] 2.5 g/dL Normal 2.2-4.2 [facility] Comment on above: Performed By: #### L 500.4050, L501.6710, L100.0100, L500.4100 #### [facility] [address] [place], [address] Glucose [Mass/Vol] 90 mg/dL Normal 70-99 [facility] Comment on above: Performed By: #### L 500.4050, L501.6710, L100.0100, L500.4100 #### [facility] [address] [place], [address] Potassium [Moles/Vol] 4.2 mmol/L Normal 3.3-5.1 [facility] Comment on above: Performed By: #### L 500.4050, L501.6710, L100.0100, L500.4100 #### [facility] [address] [place], [address] Sodium [Moles/Vol] 137 mmol/L Normal 133-145 [facility] Comment on above: Performed By: #### L 500.4050, L501.6710, L100.0100, L500.4100 #### [facility] [address] [place], [address] T PROT 6.9 g/dL Normal 5.9-8.4 [facility] Comment on above: Performed By: #### L 500.4050, L501.6710, L100.0100, L500.4100 #### [facility] [address] [place], [address] Urea nitrogen [Mass/Vol] 18 mg/dL Normal 4-19 [facility] Comment on above: Performed By: #### L 500.4050, L501.6710, L100.0100, L500.4100 #### [facility] [address] [place], [address] Eosinophil percentageOrdered By: Raúl Lselie on 02-17-2025 Eosinophils/100 WBC (Bld) 4.4 % 0-5 [facility] Erythrocyte distribution wid th ratioOrdered By: Raúl Leslie on 02-17-2025 Erythrocyte distribution width (RBC) [Ratio] 12.7 % 11.6-14.6 [facility] Erythrocyte distribution wid th standard deviationOrdered By: Raúl Leslie on 02-17-2025 Erythrocyte distribution width (RBC) [Ratio] 43.8 fl 35.1-43.9 [facility] Glomerular filtration rate ( GFR) estimation/1.73 sq m using serum, plasma, or whole bOrdered By: Raúl Leslie on 02-17-2025 GFR/1.73 sq M.predicted among non-blacks MDRD (S/P/Bld) [Vol rate/Area] 88 mL/min/{1.73_m2} >60 [facility] Comment on above: mL/min/1.73m2 CKD-EP I Creatinine Equation (2020) Hematocrit Auto (Bld) [Volum e fraction]Ordered By: Raúl Leslie on 02-17-2025 Hematocrit (Bld) [Volume fraction] 36.5 % Low 40-54 [facility] Hemoglobin measurementOrdere d By: Raúl Leslie on 02-17-2025 Hemoglobin (Bld) [Mass/Vol] 12.5 g/dL Low 13.0-16.5 [facility] Immature granulocytes/100 WB C Auto (Bld)Ordered By: Raúl Leslie on 02-17-2025 Immature granulocytes/100 WBC (Bld) 0.400 % 0.0-0.9 [facility] Comment on above: IG% - Immature Granu locytes (promyelocytes, myelocytes and metamyelocytes) > 1% indicates that a LEFT SHIFT is Present. LDL calc ser/plasOrdered By: Raúl Leslie on 02-17-2025 Cholesterol in LDL [Mass/Vol] 119 mg/dL [facility] Comment on above: Tnlkctigyk=622-362 m g/dL & Higher Kypz=362 mg/dL or greater Laboratory - Chemistry and C hemistry - challengeOrdered By: Raúl Leslie on 02-17-2025 AST [Catalytic activity/Vol] 21 U/L <38 [facility] Lipid Profileon 02-17-2025 CHOL:HDL 3.15 Normal [facility] Comment on above: Performed By: #### L 500.4050, L501.6710, L100.0100, L500.4100 #### [facility] [address] [place], [address] Cholesterol [Mass/Vol] 206 mg/dL High <=200 [facility] Comment on above: Result Comment: Chol esterol level, Desirable <200 mg/dL Borderline high cholesterol 200-239 mg/dL High cholesterol >=240 mg/dL Recommendations of the NCEP Adult Treatment Panel for the following risk-cutoff thresholds for the [place] population. Performed By: #### L 500.4050, L501.6710, L100.0100, L500.4100 #### [facility] [address] [place], [address] Cholesterol in HDL [Mass/Vol] 65 mg/dL Normal [facility] Comment on above: Result Comment: Julianne onal Cholesterol Education Program (NCEP) guidelines: <40 mg/dL: Low HDL-cholesterol (major risk factor for CHD) >= 60 mg/dL: High HDL-cholesterol (negative risk factor for CHD) HDL-cholesterol is affected by a number of factors, e.g. smoking, exercise, hormones, sex and age. Performed By: #### L 500.4050, L501.6710, L100.0100, L500.4100 #### [facility] [address] [place], [address] Cholesterol in LDL [Mass/Vol] 119 mg/dL Normal [facility] Comment on above: Result Comment: Bord biybrd=723-571 mg/dL Higher Naxw=383 mg/dL or greater Performed By: #### L 500.4050, L501.6710, L100.0100, L500.4100 #### [facility] [address] [place], [address] Cholesterol in VLDL [Mass/Vol] 22 mg/dL Normal 5-40 [facility] Comment on above: Performed By: #### L 500.4050, L501.6710, L100.0100, L500.4100 #### [facility] [address] [place], [place], [address] Triglyceride [Mass/Vol] 110 mg/dL Normal [facility] Comment on above: Result Comment: The drugs N-Acetylcysteine and Metamizole may falsely depress this assay. Normal range: <150 mg/dL Borderline High: 150-199 mg/dL High: 200-499 mg/dL Very High: >500 mg/dL Performed By: #### L 500.4050, L501.6710, L100.0100, L500.4100 #### [facility] [address] [place], [place], [address] MCV (mean corpuscular volume ) determinationOrdered By: Raúl Leslie on 02-17-2025 MCV (RBC) [Entitic vol] 95.3 fL High 80-94 [facility] Mean corpuscular hemoglobin (MCH) determinationOrdered By: Raúl Leslie on 02-17-2025 MCH (RBC) [Entitic mass] 32.6 pg High 27.0-32.0 [facility] Mean corpuscular hemoglobin concentration (MCHC) determinationOrdered By: Raúl Leslie on 02-17-2025 MCHC (RBC) [Mass/Vol] 34.2 g/dL 32-36 [facility] Mean platelet volume determi nationOrdered By: Raúl Leslie on 02-17-2025 Platelet mean volume (Bld) [Entitic vol] 11.6 fL 6.2-12.0 [facility] Monocyte percentageOrdered B y: Raúl Leslie on 02-17-2025 Monocytes/100 WBC (Bld) 7.7 % 0-10 [facility] Neutrophil percentageOrdered By: Raúl Leslie on 02-17-2025 Neutrophils/100 WBC (Bld) 69.2 % 47-70 [facility] Nucleated red blood cell per centageOrdered By: Raúl Leslie on 02-17-2025 Nucleated RBC/100 WBC (Bld) [Ratio] 0 % 0-5 [facility] Platelet countOrdered By: Addison Leslie on 02-17-2025 Platelets (Bld) [#/Vol] 228 10*3/uL 150-450 [facility] Potassium measurement (mass/ volume)Ordered By: Raúl Leslie on 02-17-2025 Potassium (Unsp spec) [Mass/Vol] 4.2 mmol/L 3.3-5.1 [facility] RBC Auto (Bld) [#/Vol]Ordere d By: Raúl Leslie on 02-17-2025 RBC (Bld) [#/Vol] 3.83 10*6/uL Low 4.6-6.2 [facility] Screening total cholesterol/ high density lipoprotein (HDL) cholesterol ratioOrdered By: Raúl Leslie on 02-17-2025 Cholesterol.total/Chol esterol in HDL [Mass ratio] 3.15 {ratio} [facility] Serum creatinine measurement (mass/volume)Ordered By: Raúl Leslie on 02-17-2025 Creatinine [Mass/Vol] 0.78 mg/dL 0.70-1.20 [facility] Serum globulin measurementOr dered By: Raúl Leslie on 02-17-2025 Globulin (S) [Mass/Vol] 2.5 g/dL 2.2-4.2 [facility] Serum glucose measurement (m ass/volume)Ordered By: Raúl Leslie on 02-17-2025 Glucose [Mass/Vol] 90 mg/dL 70-99 [facility] Serum or plasma C reactive p rotein measurement (mass/volume)Ordered By: Raúl Leslie on 02-17-2025 CRP [Mass/Vol] mg/L 0.0-3.0 [facility] Serum or plasma alanine dalton otransferase (ALT) measurementOrdered By: Raúl Leslie on 02-17-2025 ALT [Catalytic activity/Vol] 21 U/L <47 [facility] Serum or plasma albumin paulette urement (mass/volume)Ordered By: Raúl Leslie on 02-17-2025 Albumin [Mass/Vol] 4.4 g/dL 3.4-4.8 [facility] Serum or plasma albumin/glob ulin mass ratioOrdered By: Raúl Leslie on 02-17-2025 Albumin/Globulin [Mass ratio] 1.7 {ratio} 0.9-2.4 [facility] Serum or plasma alkaline jessica sphatase measurementOrdered By: Raúl Leslie on 02-17-2025 ALP [Catalytic activity/Vol] 74 U/L 40-129 [facility] Serum or plasma calcium paulette urement (mass/volume)Ordered By: Raúl Leslie on 02-17-2025 Calcium [Mass/Vol] 9.3 mg/dL 7.6-11.0 [facility] Serum or plasma cholesterol in HDL measurement (mass/volume)Ordered By: Raúl Leslie on 02-17-2025 Cholesterol in HDL [Mass/Vol] 65 mg/dL >40 [facility] Comment on above: National Cholesterol Education Program (NCEP) guidelines:<40 mg/dL: Low HDL-cholesterol (major risk factor for CHD)>= 60 mg/dL: High HDL-cholesterol (negative risk factor for CHD)HDL-cholesterol is affected by a number of factors, e.g. smoking, exercise, hormones, sex and age. Serum or plasma cholesterol measurement (mass/volume)Ordered By: Raúl Leslie on 02-17-2025 Cholesterol [Mass/Vol] 206 mg/dL High <201 [facility] Comment on above: Cholesterol level, D esirable <200 mg/dLBorderline high cholesterol 200-239 mg/dLHigh cholesterol >=240 mg/dLRecommendations of the NCEP Adult Treatment Panel for the following risk-cutoff thresholds for the [place] population. Serum or plasma urea nitroge n measurement (mass/volume)Ordered By: Raúl Leslie on 02-17-2025 Urea nitrogen [Mass/Vol] 18 mg/dL 4-19 [facility] Sodium levelOrdered By: Raúl Leslie on 02-17-2025 Sodium [Moles/Vol] 137 mmol/L 133-145 [facility] Total proteinOrdered By: Constanza Leslie on 02-17-2025 Protein [Mass/Vol] 6.9 g/dL 5.9-8.4 [facility] Triglycerides measurementOrd ered By: Raúl Leslie on 02-17-2025 Triglyceride [Mass/Vol] 110 mg/dL <199 [facility] Comment on above: The drugs N-Acetylcy steine and Metamizole may falsely depress this assay. Normal range: <150 mg/dLBorderline High: 150-199 mg/dLHigh: 200-499 mg/dLVery High: >500 mg/dL White blood cell (WBC) count Ordered By: Raúl Leslie on 02-17-2025 WBC (Bld) [#/Vol] 10.6 10*3/uL 4.4-11.0 [facility] Screening prostate specific antigen (PSA) measurementOrdered By: Tati Ingram on 09-02-2023 Prostate specific Ag IA [Mass/Vol] 3.93 ng/mL 0.00-4.00 [facility] Comment on above: This test was perfor med using the TPSA assay method for the[facility] chemistry system. Values obtained with differentassay methods cannot be used interchangably.When changing PSA assays in the course of monitoring apatient, additional sequential testing should be carriedout to confirm baseline values. APTTon 09-19-2017 aPTT 25.9 s Normal 20.0-30.5 [facility] Comment on above: Result Comment: NOTE : The therapeutic time for Heparin anticoagulation,based on Xa activity inhibition, is an APTT of 46-80seconds. Performed By: #### A PTT, PT, HEMOG, BMP3M, LFT3 ####[address] [address] Basic Metabolic Panelon 09-04 Anion gap 11 mmol/L Normal [facility] Comment on above: Performed By: #### A PTT, PT, HEMOG, BMP3M, LFT3 ####[address] [address] Calcium 9.4 mg/dL Normal 8.4-10.2 [facility] Comment on above: Performed By: #### A PTT, PT, HEMOG, BMP3M, LFT3 ####[address] [address] CO2 26 mmol/L Normal 22-30 [facility] Comment on above: Performed By: #### A PTT, PT, HEMOG, BMP3M, LFT3 ####[address] [place] [address] Creatinine 0.71 mg/dL Normal 0.52-1.25 [facility] Comment on above: Performed By: #### A PTT, PT, HEMOG, BMP3M, LFT3 ####[address] [place] [address] eGFR (black) mL/min/{1.73_m2} Normal >60 [facility] Comment on above: Performed By: #### A PTT, PT, HEMOG, BMP3M, LFT3 ####[address] [place] [address] eGFR (non-black) mL/min/{1.73_m2} Normal >60 [facility] Comment on above: Result Comment: Sour ce- MDRD equation with creatinine calibration to IDMS(NKDEP)eGFR not recommended for drug dose adjustment Performed By: #### A PTT, PT, HEMOG, BMP3M, LFT3 ####[address] [place] [address] Glucose mass conc 61 mg/dL Low 70-100 [facility] Comment on above: Performed By: #### A PTT, PT, HEMOG, BMP3M, LFT3 ####[place] [address] Urea nitrogen 16 mg/dL Normal 7-20 [facility] Comment on above: Performed By: #### A PTT, PT, HEMOG, BMP3M, LFT3 ####[address] [address] Potassium molar conc 3.8 mmol/L Normal 3.5-5.1 [facility] Comment on above: Performed By: #### A PTT, PT, HEMOG, BMP3M, LFT3 ####[address] [address] Chloride 103 mmol/L Normal 98-107 [facility] Comment on above: Performed By: #### A PTT, PT, HEMOG, BMP3M, LFT3 ####[place] [address] Sodium 140 mmol/L Normal 137-145 [facility] Comment on above: Performed By: #### A PTT, PT, HEMOG, BMP3M, LFT3 ####[place] [address] Hemogramon 09-19-2017 Erythrocyte distribution width Auto Ratio (RBC) 13.3 % Normal 11.5-14.5 [facility] Comment on above: Performed By: #### A PTT, PT, HEMOG, BMP3M, LFT3 ####[place] [address] Erythrocytes (RBC) 4.37 10*6/uL Low 4.40-5.90 [facility] Comment on above: Performed By: #### A PTT, PT, HEMOG, BMP3M, LFT3 ####[place] [address] Hematocrit (HCT) 42.6 % Normal 40.0-52.0 [facility] Comment on above: Performed By: #### A PTT, PT, HEMOG, BMP3M, LFT3 ####[place] [address] Hemoglobin mass conc (Bld) 14.1 g/dL Normal 13.0-18.0 [facility] Comment on above: Performed By: #### A PTT, PT, HEMOG, BMP3M, LFT3 ####[place] [address] MCH 32.4 pg Normal 26.0-34.0 [facility] Comment on above: Performed By: #### A PTT, PT, HEMOG, BMP3M, LFT3 ####[place] [address] MCHC mass conc (RBC) 33.2 % Normal 32.0-36.0 [facility] Comment on above: Performed By: #### A PTT, PT, HEMOG, BMP3M, LFT3 ####[place] [address] MCV 97.5 fL Normal 80.0-98.0 [facility] Comment on above: Performed By: #### A PTT, PT, HEMOG, BMP3M, LFT3 ####[address] [address] Platelet mean volume (PMV) 9.3 fL Normal 7.4-10.4 [facility] Comment on above: Performed By: #### A PTT, PT, HEMOG, BMP3M, LFT3 ####[address] [address] Platelets 228 10*3/uL Normal 140-440 [facility] Comment on above: Performed By: #### A PTT, PT, HEMOG, BMP3M, LFT3 ####[address] [address] WBC (Leukocytes) 14.5 10*3/uL High 3.6-10.7 [facility] Comment on above: Performed By: #### A PTT, PT, HEMOG, BMP3M, LFT3 ####[address] [address] Hepatic Functionon 8 Alanine aminotransferase (ALT) 34 U/L Normal 13-69 [facility] Comment on above: Performed By: #### A PTT, PT, HEMOG, BMP3M, LFT3 ####[address] [address] Alkaline phosphatase (ALP) 77 U/L Normal 38-126 [facility] Comment on above: Performed By: #### A PTT, PT, HEMOG, BMP3M, LFT3 ####[address] [address] Aspartate aminotransferase (AST) 25 U/L Normal 15-46 [facility] Comment on above: Performed By: #### A PTT, PT, HEMOG, BMP3M, LFT3 ####[address] [address] Bilirubin (direct) 0.0 mg/dL Normal 0.0-0.3 [facility] Comment on above: Performed By: #### A PTT, PT, HEMOG, BMP3M, LFT3 ####[address] [address] Bilirubin (total) 0.5 mg/dL Normal 0.2-1.3 [facility] Comment on above: Performed By: #### A PTT, PT, HEMOG, BMP3M, LFT3 ####[place] [address] Protein 7.3 g/dL Normal 6.3-8.2 [facility] Comment on above: Performed By: #### A PTT, PT, HEMOG, BMP3M, LFT3 ####[place] [address] Albumin 4.4 g/dL Normal 3.5-5.0 [facility] Comment on above: Performed By: #### A PTT, PT, HEMOG, BMP3M, LFT3 ####[place] [address] Prothrombin Timeon 8 INR Coag RelTime (PPP) 1.0 {INR} Normal 0.9-1.1 [facility] Comment on above: Result Comment: Wes [...] #### A PTT, PT, HEMOG, BMP3M, LFT3 ####[place] [address] Prothrombin time (PT) Coag time (PPP) 10.4 s Normal 9.0-12.0 [facility] Comment on above: Result Comment: . Performed By: #### A PTT, PT, HEMOG, BMP3M, LFT3 ####[place] [address] TS GELon 09-19-2017 TS GEL PATIENT: ADAN CONN LOC: 1PSHARONA,,BILL# : [id number] : 1940 SEX: M AGE: [id number] BY: DENAE MARIA DEL ROSARIO L ORDERED : 09/19/2017 12:32 COLLECTED: 09/19/2017 12:51ORDER : [id number] RECEIVED : 09/19/2017 16:11 -----TEST NAME RESULT UNITS RANGES ABN FL STABO Group A FRh, Gel POS FAntibody Screen Gel NEG F Normal [facility] Comment on above: Performed By: #### T SGL ####[place] [address] Urinalysis,Macroon 8 Bilirubin (direct) Negative Normal Negative [facility] Comment on above: Performed By: #### U AMAC ####[place] [address] Ketone,Urine Trace Normal Negative [facility] Comment on above: Performed By: #### U AMAC ####[address] [place] [address] Occult Blood,Ur Negative Normal Negative [facility] Comment on above: Performed By: #### U AMAC ####[place] [address] Specific [place],Urine 1.020 Normal 1.005-1.030 [facility] Comment on above: Performed By: #### U AMAC ####[place] [address] Total Protein,Urine Negative Normal Negative [facility] Comment on above: Performed By: #### U AMAC ####[place] [address] [place] [address] Urine, appearance clear Normal Clear [facility] Comment on above: Performed By: #### U AMAC ####[address] [place] [address] Urine, color yellow Normal Lt. Yellow [facility] Comment on above: Performed By: #### U AMAC ####[address] [place] [address] Urine, glucose presence NORM Normal Negative [facility] Comment on above: Performed By: #### U AMAC ####[address] [place] [address] Urine, nitrite presence Negative Normal Negative [facility] Comment on above: Performed By: #### U AMAC ####[address] [place] [address] Urine, pH 6.0 [pH] Normal 5.0-8.0 [facility] Comment on above: Performed By: #### U AMAC ####[address] [place] [address] Urine, urobilinogen NORM Normal 0-1 [facility] Comment on above: Performed By: #### U AMAC ####[address] [place] [address] WBC (Leukocytes) Negative Normal Negative [facility] Comment on above: Performed By: #### U AMAC ####[address] [place] [address] Encounters Encounter Date Encounter Type Care Provider Facility Start: 04-21-2025 End: 04-21-[address] Raúl Leslie MD -Cat Scan [facility] Work Phone: Start: 04-21-2025 End: 04-21-2025 ambulatory Raúl Leslie Facility:[facility] Start: 03-29-2025 End: 03-29-[address] Raúl Leslie MD Work Phone: -[facility] [place] Start: 03-29-2025 End: 03-29-[address] Raúl Leslie MD -[facility] [place] Work Phone: Start: 03-29-2025 End: 03-29-2025 ambulatory Raúl Leslie Facility:[facility] Start: 03-11-2025 ambulatory Raúl Leslie Facility:[facility] Start: 02-17-2025 End: 02-17-[address] Raúl Leslie MD Work Phone: -[facility] Start: 02-17-2025 End: 02-17-[address] Raúl Leslie MD -[facility] Work Phone: Start: 02-17-2025 End: 02-17-2025 ambulatory Raúl Lesile Facility:[facility] Start: 09-02-2023 End: 09-02-2023 ambulatory [facility] Work Phone: Start: 09-02-2023 End: 09-02-2023 Patient encounter procedure [facility] Work Phone: Start: 11-05-2021 End: 11-05-2021 Patient encounter procedure [facility], [place] Start: 09-24-2017 Evaluation and management of inpatient [facility] Start: 09-19-2017 Ambulatory [facility] Procedures Date Procedure Procedure Detail Performing Clinician Start: 04-21-2025 CT of abdomen and pe lvis without contrast Dr. Raúl Leslie MD Work Phone: Start: 03-29-2025 Assay of prostate sp ecific [...] performed to confirm baseline values. Start: 03-29-2025 Prostate specific an tigen measurement Dr. Raúl Leslie MD Work Phone: Comment [...] X-ray Payers Date Payer Category Payer Self-pay [id number] 2016 Unknown [id number] [id number] Unknown Unknown [id number] [id number] [id number] Unknown [id number] 2.16.8 [id number] Unknown [id number] 2.16.8 [id number] Unknown [id number] 2.16.8 [id number] Social History Date Type Detail [facility] Work Phone: Start: 1940 Sex Assigned At Male [facility] Work Phone: Sex Male [facility] Medical Equipment Procedure Code Equipment Code Equipment Origin al Text Equipment Identifier Dates 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 Start: 08-04-2001 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 Start: 08-04-2001 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 Start: 08-04-2001 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 Start: 08-04-2001 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 Start: 08-04-2001 Radiology Diagnostic study note 04-21-2025 Note Date & Type Note Facility 04-21-2025 Radiology Diagnostic study note [facility] Imaging Services [address] [place], [place] [id number] Abdomen/Pelvis without Cont MR#: [id number] Acct: [id number] Name: ACE ARELLANO Rep #: [id number] : 1940 M 84 From: Marcelino Hernandez MD PCP: Dr. Raúl Leslie MD Status: REG CLI Study:Abdomen/Pelvis without Cont Date of Exa m: 04/21/25 Exam# [id number] Ordering Dr: Addison Leslie MD PROCEDURE: ABDOMEN/PELVIS WITHOUT CONT 04/21/2025 REASON FOR EXAM: KIDNEY STONE TECHNIQUE: Procedure Code: CTABDPEL Modality: CT Procedure: ABDOMEN/PELVIS WITHOUT CONT Noncontrast technique limits evaluation of the abdominal and pelvic viscera. Coronal and Sagittal reconstruction series were provided. One or more dose reduction techniques were used (e.g., Automated exposure control, adjustment of the mA and/or kV according to patient size, use of iterative reconstruction technique). RADIATION DOSE SUMMARY: CTDlvol: 7 mGy DLP: 329 mGycm FINDINGS: The lung bases are clear. The peripheral soft tissues are unremarkable. A penile prosthesis is present. Degenerative changes of the spine. S shaped scoliosis. Eduseegs-uo-wphmnd atherosclerosis. The infrarenal abdominal aorta measures up to 3.0 cm in diameter. No suspicious lymphadenopathy. The liver, gallbladder are unremarkable. 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 Ill-defined hypodensity within the pancreatic body which measures 1.4 cm. The spleen and adrenals are unremarkable. Right kidney vascular calcification. No definite renal calculi. No hydroureteronephrosis. The urinary bladder is unremarkable. Enlarged prostate. Colonic diverticulosis without surrounding inflammatory changes. CT/Abdomen/Pelvis without Cont IMPRESSION: *No evidence of renal or ureteral calculi. No hydroureteronephrosis. *1.4 cm ill-defined hypodensity in the pancreatic body on a non-contrast study; indeterminate. Recommend further evaluation with contrast-enhanced pancreatic protocol CT or MRI. 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 Recommend routine surveillance. *Colonic diverticulosis without diverticulitis. *Enlarged prostate. Reading Location: [id number] CC: Dr. Raúl Leslie MD ~ Lead Electrical Controls Engineer: Signed [facility] Radiology Diagnostic study note 03-30-2025 Note Date & Type Note Facility 03-30-2025 Radiology Diagnostic study note [facility] Imaging Services [address] [place] [address] Abdomen Single View MR#: [id number] Acct: [id number] Name: ACE ARELLANO Rep #: [id number] : 1940 M 84 From: Zacarias Scott MD PCP: Dr. Raúl Leslie MD Status: REG CLI Study:Abdomen Single View Date of Exam: 03/29/25 Exam# [id number] Ordering Dr: Addison Leslie MD PROCEDURE: ABDOMEN SINGLE VIEW 03/29/2025 [...] 3. Other findings as noted. Reading Location: [facility] CC: Dr. Raúl Leslie MD ~ Lead Electrical Controls Engineer: Signed [facility] Work Phone: Evaluation note Note Date & Type Note Facility Evaluation note No assessment information availa ble [facility] Work Phone: Reason for referral (narrative) Note Date & Type Note Facility Reason for referral (narrative) No reason for referral information available [facility] Work Phone: Summary Purpose Family History No Family History Records FoundNo Family History Records Found Advance Directives No Advanced Directives Records FoundNo Advanced Directives Records Found Chief Complaint and Reason for Visit Chief Complaint did not want labs by Dr. Leslie today Chief Complaint Admit Date EORDER- LAB AND XRAY March 29, 2025 9 :42am Chief Complaint Admit Date EORDER- LAB AND XRAY March 29, 2025 9 :42am KIDNEY STONE ASSETMENT April 21, 025 7:30am Additional Source Comments (unrecognized sect ion and content) No Status Records FoundNo Status Records Found INFORMATION SOURCE (unrecogn ized section and content) DATE CREATED AUTHOR 01/28/2018 [facility] DATE CREATED AUTHOR AUTHOR'S ORGANIZ ATION 04/22/2025 [place] [facility] Goals (unrecognized section and content) Goals [...] Leslie MD Primary Care Provider Active Tati Romeroing Attending Provider, Referring Provide r Active Team [...] March 29, 2025 End: March 29, 2025 Team Status: Active Member Role/Relationship Status Dates Dr. Raúl Leslie MD Primary care physician Active Team Status: Inactive Member Role/Relationship Status Dates Dr. Raúl Leslie MD Primary care physician Active Start: February 17, 2025 End: February 17, 2025 Dr. Raúl Leslie MD Attending physician Active S tart: February 17, 2025 End: February 17, 2025 Dr. Raúl Leslie MD Referring Provider Active St art: February 17, 2025 End: February 17, 2025 Team Status: Inactive Member Role/Relationship Status Dates Dr. Raúl Leslie MD Primary care physician Active Start: March 29, 2025 End: March 29, 2025 Dr. Raúl Leslie MD Attending physician Active S tart: March 29, 2025 End: March 29, 2025 Dr. Raúl Leslie MD Referring Provider Active St art: March 29, 2025 End: March 29, 2025 Team Status: Inactive Member Role/Relationship Status Dates Dr. Raúl Leslie MD Primary care physician Active Start: April 21, 2025 End: April 21, 2025 Dr. Raúl Leslie MD Attending physician Active S tart: April 21, 2025 End: April 21, 2025 Dr. Raúl Leslie MD Referring Provider Active St art: April 21, 2025 End: April 21, 2025 FOR RECORDS PERTAINING TO PATIENTS WHO [...] BE BASED ON THE PRIMARY CLINICAL RECORDS. [facility] [employer] provides no warranty or guarantee of the accuracy or completeness of information in this document.
[2025-05-08 18:00] VITALS: BP 157/79; PULSE 60; O2SAT 95
[2025-05-08 19:04] VITALS: BP 157/79; PULSE 60; RESP 16; TEMP 36.6; O2SAT 95
== END 2025-05-08 19:35 | disposition home or self-care (01) ==
PROVIDERS: Emergency Provider Emergency Medicine; PCP Family Medicine; Visit Provider Emergency Medicine
DX: R10.9 Unspecified abdominal pain (principal); K86.89 Other specified diseases of pancreas
CPT/HCPCS: 74177; 80053; 81001; 83690; 85025; 96374; 96375; 96376; 99283; Q9967; A4216; J2405

== ENCOUNTER → 2025-05-23 | Outpatient (CLI) | payer MEDICARE, SELFPAY ==
--- OUTSIDE RECORDS SUMMARY | 2025-05-23 07:08 | XMS RPT_ITS | CCD ---
Author Organization [facility] Care Team Providers Care Gym Attendant Name Role Phone Asim Regan Unavailable Unavailable Leslie, Raúl Unavailable Unavailable Leslie, Raúl Unavailable Unavailable Asim Regan Unavailable Unavailable Leslie, Raúl Unavailable Unavailable Leslie, Raúl Unavailable Unavailable Anuj MCFARLANE, Dr. Olsen Primary Care Provider Anuj MCFARLANE, Dr. Olsen Attending Provider Dr. Raúl Leslie MD Referring Provider Anuj MCFARLANE, Dr. Olsen Primary Care Physician Anuj MCFARLANE, Dr. Olsen Attending Physician Dr. Francisco Foster DO Emergency Department Physi alex Dr. Francisco Foster DO Referring Provider Akanksha MCFARLANE, Dr. Miller Attending Physician Angela Vale Attending Unavailable Angela Vale Referring Unavailable Leslie, Raúl Primary Care Unavailable Leslie, Raúl Consulting Unavailable Leslie, Raúl Attending Unavailable Leslie, Raúl Referring Unavailable Leslie, Raúl Primary Care Unavailable Francisco Foster Referring Unavailable Angela Vale Attending Unavailable Leslie, Raúl Primary Care Unavailable Leslie, Raúl Attending Unavailable Leslie, Raúl Referring Unavailable Leslie, Raúl Primary Care Unavailable Leslie, Raúl Attending Unavailable Leslie, Raúl Referring Unavailable Leslie, Raúl Primary Care Unavailable Leslie, Raúl Primary Care Unavailable Francisco Foster Attending Unavailable Leslie, Raúl Referring Unavailable Leslie, Raúl Primary Care Unavailable Leslie, Raúl Attending Unavailable Leslie, Raúl Attending Unavailable Leslie, Raúl Referring Unavailable Leslie, Raúl Primary Care Unavailable Allergies Allergy Classification Reported Allergen(s) Allergy Type Date of Onset Reaction(s) Facility (3 sources) Shellfish; Translations: [shellfish derived] Allergy to substance 05-08-2025 Anaphylaxis [facility] Medications Current Medications Medication Drug Class(es) Dates Sig (Normalized) Sig (Original) acetaminophen 500 mg oral tablet (1 source) Start: 05-10-2025 take 1 tablet by mouth every six hours as needed Acetaminophen (Tylenol Extra Strength) 500 mg tablet Active 500 mg PO EVERY 6 HOURS as needed May 10, 2025 12:00am Complies with drug therapy ibuprofen 600 mg oral tablet (1 source) Nonsteroidal Anti-inflammatory Drug Start: 05-10-2025 take 1 tablet by mouth every eight hours as needed Ibuprofen 600 mg tablet Active 600 mg PO Q8H as needed May 10, 2025 12:00am Complies with drug therapy linaclotide 0.29 mg oral capsule (2 sources) Guanylate Cyclase-C Agonist Start: 05-08-2025 take 1 capsule by mouth once daily Linaclotide (Linaclotide 290 Mcg Capsule) 290 mcg capsule Active 290 ug PO DAILY May 08, 2025 12:00am Complies with drug therapy ondansetron 4 mg disintegrating oral tablet (2 sources) Serotonin-3 Receptor Antagonist Start: 05-08-2025 take 1 tablet by mouth every eight hours as needed for nausea Ondansetron 4 mg tablet,disintegrat ing Active 4 mg PO EVERY 8 HOURS NEEDED as needed for Nausea 10 0 May 08, 2025 12:00am Complies with drug therapy oxyCODONE hydrochloride 5 mg oral tablet (2 sources) Opioid Agonist Start: 05-08-2025 take 1 tablet by mouth every six hours as needed for pain Oxycodone 5 mg tablet Active 5 mg PO EVERY 6 HOURS as needed for pain 12 3 0 May 08, 2025 Lesion of pancreas Disease of pancreas, unspecified Complies with drug therapy Problems Active Problems Problem Classification Problem Date Documented Da te Episodic/Chronic Abdominal pain (5 sources) Abdominal pain; Translations: [Unspecified abdominal pain] Onset: 05-10-2025 05-10-2025 Episodic Alcohol-related disorders (2 sources) Alcohol abuse, uncomplicated; Translations: [Alcohol abuse, uncomplicated] Onset: 09-24-2017 Chronic Calculus of urinary tract (1 source) Calculus of kidney; Translations: [Calculus of kidney] Onset: 05-03-2025 Episodic Chronic obstructive pulmonary disease and bronchiectasis [...] sources) Overweight; Translations: [Overweight] Onset: 09-24-2017 Chronic Pancreatic disorders (not diabetes) (5 sources) Disorder of pancreas; Translations: [Disease of pancreas, unspecified] Onset: 05-10-2025 05-08-2025 Episodic Past or Other Problems Problem Classification [...] Test Name Value Interpretation Reference Range Facility Oncology Visit Reporton 10-0 Oncology Visit Report [facility] [place] [address] OFFICE VISIT Date of Service: 05/10/25 1403 MR#: [id number] Acct: [id number] Name: ACE ARELLANO Rep #: [id number] : 1940 From: Angela aVle MD Age/Sex: 85/M Location: [facility] Status: Signed HPI Subjective Date of Service 05/10/25 Chief Complaint Abdominal pain and pancreatic lesion History of Present Illness 85-year-old gentleman who for approximately 2 months has had daily bouts of epigastric pain. The pain appears to be aggravating by meals, laying down, with relieved by sitting up and taking combination of Tylenol and ibuprofen [id number]. He has lost at least 10 pounds of weight since the onset. He has had no nausea or vomiting, no dysphagia, has had recent constipation, his stools are dark but he is not sure whether they are black and melanotic or not. He has had the habit of drinking 2-4 alcoholic drinks daily but denies ever having been intoxicated, jaundiced or history of pancreatitis. April 21, 2025 CT abdomen and pelvis: IMPRESSION: *No evidence of renal or ureteral calculi. No hydroureteronephrosis. *1.4 cm ill-defined hypodensity in the pancreatic body on a non-contrast study; indeterminate. Recommend further evaluation with contrast-enhanced pancreatic protocol CT or MRI. 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 Recommend routine surveillance. *Colonic diverticulosis without diverticulitis. *Enlarged prostate. May 08, 2025 CT abdomen and pelvis: IMPRESSION: Persistent pancreatic abnormality. Recommend MRI pancreas without and with contrast. [facility] Surgical History History of back surgery H/O neck surgery Family History (Updated 05/10/25 @ 14:12 by Candace Prado) Father Colon cancer Mother Cancer Brother Diabetes Daughter Diabetes Social History (Updated 05/10/25 @ 14:11 by Candace Prado) Smoking Status: Former smoker Tobacco: How many years used: 62 alcohol intake: current alcohol intake frequency: 0-2 drinks per day Alcohol type: beer substance use type: does not use ROS Constitutional Constitutional: Reports systems reviewed and no addt'l complaints, except as documented, as per HPI, anorexia and weight loss; Denies fever(s) Eyes Eyes: Reports systems reviewed and no addt'l complaints, except as documented ENT HEENT: Reports systems reviewed and no addt'l complaints, except as documented; Denies mouth lesions Cardiovascular Cardiovascular: Reports systems reviewed and no addt'l complaints, except as documented; Denies chest pain with activity or edema Respiratory/Chest Respiratory/Chest: Reports systems reviewed and no addt'l complaints, except as documented; Denies dyspnea Gastrointestinal Gastrointestinal: Reports systems reviewed and no addt'l complaints, except as documented, as per HPI, abdominal pain, anorexia and constipation Genitourinary Genitourinary: Reports systems reviewed and no addt'l complaints, except as documented Musculoskeletal Musculoskeletal: Reports systems reviewed and no addt'l complaints, except as documented, back pain and other Details: Chronic unchanged back pain Integumentary Integumentary: Reports systems reviewed and no addt'l complaints, except as documented; Denies new lesions Neurologic Neurologic: Reports systems reviewed and no addt'l complaints, except as documented; Denies focal weakness or paresthesias Psychiatric Psychiatric: Reports systems reviewed and no addt'l complaints, except as documented Endocrine Endocrinology: Reports systems reviewed and no addt'l complaints, except as documented Hematologic/Lymphatic Hematologic/Lymphatic: Reports systems reviewed and no addt'l complaints, except as documented Allergic/Immunologic Allergic/Immunologic: Reports systems reviewed and no addt'l complaints, except as documented Intake Vital Signs 05/08/25 14:50 05/10/25 14:04 05/10/25 14:12 Height 5 ft 7 in 5 ft 7 in 5 ft 7 in Weight: 69.116 kg BMI 23.8 BP 136/79 H Blood Pressure Location Lt brachial Position Sitting Respiration 18 Pulse 64 Pulse Source Monitor Temp 98.0 F Temperature Source Temporal Artery Pulse Oximetry (%) 99 Oxygen Delivery Method room air Intake Is patient in pain?: No Allergies shellfish derived Allergy (Severe, Verified 05/10/25 14:08) Anaphylaxis Medications ???Medication ???Instructions ???Recorded ???Confirmed ???Type linaclotide 290 mcg capsule 290 mcg PO DAILY 05/08/25 05/10/25 History (Linzess) ondansetron 4 mg disintegrating 4 mg PO Q8H PRN PRN Nausea #10 tab s 05/08/25 05/10/25 Rx tablet oxycodone 5 (more content not included)... Normal [facility] Abdomen/Pelvis W IV Cont ONL Yon 05-08-2025 Abdomen/Pelvis W IV Cont ONLY [facility] Imaging Services [address] [place], [place] [id number] Abdomen/Pelvis W IV Cont ONLY MR#: [id number] Acct: [id number] Name: ACE ARELLANO Rep #: [id number] : 1940 M 85 From: Roscoe rAellano MD PCP: Dr. Raúl Leslie MD Status: [facility] ER Study: Abdomen/Pelvis W IV Cont ONLY Date of Exam: Exam# [id number] Ordering Dr: Francisco Foster DO PROCEDURE: ABDOMEN/PELVIS W IV CONT ONLY 05/08/2025 REASON FOR EXAM: EPIGASTRIC ABDOMINAL PAIN TECHNIQUE: Procedure Code: [id number] Modality: CT Procedure: ABDOMEN/PELVIS W IV CONT ONLY Coronal and Sagittal reconstruction series were provided. CONTRAST: Isovue 370 VOLUME: 100 mL One or more dose reduction techniques were used (e.g., Automated exposure control, adjustment of the mA and/or kV according to patient size, use of iterative reconstruction technique. COMPARISON: 04/21/2025 FINDINGS: The lung bases are clear. Irregularity of the pancreas in the body is again seen similar to the recent study. Recommend MRI of the pancreas to evaluate for a pancreatic neoplasm, which is the diagnosis of exclusion. No liver masses. Normal gallbladder. Normal portal vein. No renal mass or hydronephrosis. Normal abdominal aorta. There is no free-fluid in the pelvis. There is no bowel obstruction. Penile implant is in place. No obstruction of the large bowel with the small bowel is seen. The appendix is seen to be normal. There is no colonic wall thickening. There is no gastric distention of significance. CT/Abdomen/Pelvis W IV Cont ONLY IMPRESSION: Persistent pancreatic abnormality. Recommend MRI pancreas without and with contrast. Do not recommend MRCP Reading Location: [facility] CC: Dr. Raúl Leslie MD; Dr. Francisco Foster DO Topstitcher Zigzag: Signed Normal [facility] Absolute lymphocyte countOrd ered By: Francisco Foster on 05-08-2025 Lymphocytes Auto (Unsp spec) [#/Vol] 1.58 10*3/uL 0.83-4.51 [facility] Absolute neutrophil countOrd ered By: Francisco Foster on 05-08-2025 Neutrophils (Bld) [#/Vol] 6.0 10*3/uL 2.0-7.7 [facility] Anion gap in Serum or Plasma Ordered By: Francisco Foster on 05-08-2025 Anion gap [Moles/Vol] 15 mmol/L 5-15 [facility] Automated lymphocyte count a s percentage of total leukocytesOrdered By: Francisco Foster on 05-08-2025 Lymphocytes/100 WBC Auto (Unsp spec) 18.0 % Low 19-41 [facility] BUN/creatinine ratioOrdered By: Francisco Foster on 05-08-2025 Urea nitrogen/Creatinine [Mass ratio] 22.7 mg/mg High 10-20 [facility] Basophil percentageOrdered B y: Francisco Foster on 05-08-2025 Basophils/100 WBC (Bld) 0.5 % 0-1 [facility] Bilirubin Test strip Ql (U)O rdered By: Francisco Foster on 05-08-2025 Bilirubin Ql (U) Negative Negative [facility] Bilirubin, totalOrdered By: Francisco Foster on 05-08-2025 Bilirubin [Mass/Vol] 0.52 mg/dL 0.00-1.30 [facility] CBC W/Diff, Automatedon Absolute Lymph 1.58 X10 3/uL Normal 0.83-4.51 [facility] Comment on above: Performed By: #### L 501.9914, L501.6710, L3100.2300 #### [facility] [address] [place], [address] Absolute Neut 6.0 X10 3/uL Normal 2.0-7.7 [facility] Comment on above: Performed By: #### L 501.9940, L501.6710, L3100.2300 #### [facility] [address] [place], [address] Basophils/100 WBC (Bld) 0.5 % Normal 0-1 [facility] Comment on above: Performed By: #### L 501.9940, L501.6710, L3100.2300 #### [facility] [address] [place], [address] Eosinophils/100 WBC (Bld) 5.3 % High 0-5 [facility] Comment on above: Performed By: #### L 501.9940, L501.6710, L3100.2300 #### [facility] [address] [place], [address] Erythrocyte distribution width (RBC) [Ratio] 12.3 % Normal 11.6-14.6 [facility] Comment on above: Performed By: #### L 501.9940, L501.6710, L3100.2300 #### [facility] [address] [place], [address] Hematocrit (Bld) [Volume fraction] 37.8 % Low 40-54 [facility] Comment on above: Performed By: #### L 501.9940, L501.6710, L3100.2300 #### [facility] [address] [place], [address] Hemoglobin (Bld) [Mass/Vol] 13.2 g/dL Normal 13.0-16.5 [facility] Comment on above: Performed By: #### L 501.9940, L501.6710, L3100.2300 #### [facility] [address] [place], [address] IG% 0.300 Normal 0.0-0.9 [facility] Comment on above: Result Comment: IG% - Immature Granulocytes (promyelocytes, myelocytes and metamyelocytes) > 1% indicates that a LEFT SHIFT is Present. Performed By: #### L 501.9940, L501.6710, L3100.2300 #### [facility] [address] [place], [address] Lymphocytes/100 WBC (Bld) 18.0 % Low 19-41 [facility] Comment on above: Performed By: #### L 501.9940, L501.6710, L3100.2300 #### [facility] [address] [place], [address] MCH (RBC) [Entitic mass] 31.7 pg Normal 27.0-32.0 [facility] Comment on above: Performed By: #### L 501.9940, L501.6710, L3100.2300 #### [facility] [address] [place], [address] MCHC (RBC) [Mass/Vol] 34.9 g/dL Normal 32-36 [facility] Comment on above: Performed By: #### L 501.9940, L501.6710, L3100.2300 #### [facility] [address] [place], [address] MCV (RBC) [Entitic vol] 90.9 fL Normal 80-94 [facility] Comment on above: Performed By: #### L 501.9940, L501.6710, L3100.2300 #### [facility] [address] [place], [address] Monocytes/100 WBC (Bld) 7.2 % Normal 0-10 [facility] Comment on above: Performed By: #### L 501.9940, L501.6710, L3100.2300 #### [facility] [address] [place], [address] Neutrophils/100 WBC (Bld) 68.7 % Normal 47-70 [facility] Comment on above: Performed By: #### L 501.9940, L501.6710, L3100.2300 #### [facility] [address] [place], [address] Nucleated RBC (Bld) [#/Vol] 0 10*3/uL Normal 0-5 [facility] Comment on above: Performed By: #### L 501.9940, L501.6710, L3100.2300 #### [facility] [address] [place], [address] Platelet mean volume (Bld) [Entitic vol] 10.8 fL Normal 6.2-12.0 [facility] Comment on above: Performed By: #### L 501.9940, L501.6710, L3100.2300 #### [facility] [address] [place], [address] Platelets (Bld) [#/Vol] 265 10*3/uL Normal 150-450 [facility] Comment on above: Performed By: #### L 501.9940, L501.6710, L3100.2300 #### [facility] [address] [place], [address] RBC (Bld) [#/Vol] 4.16 10*6/uL Low 4.6-6.2 [facility] Comment on above: Performed By: #### L 501.9940, L501.6710, L3100.2300 #### [facility] [address] [place], [address] RDW SD 41.1 fl Normal 35.1-43.9 [facility] Comment on above: Performed By: #### L 501.9940, L501.6710, L3100.2300 #### [facility] [address] [place], [address] WBC (Bld) [#/Vol] 8.8 10*3/uL Normal 4.4-11.0 [facility] Comment on above: Performed By: #### L 501.9940, L501.6710, L3100.2300 #### [facility] [address] [place], [address] Carbon dioxide, total [Moles /volume] in Central venous bloodOrdered By: Francisco Foster on 05-08-2025 CO2 [Moles/Vol] 22.6 mmol/L 21.0-32.0 [facility] Chloride assayOrdered By: Thom Foster on 05-08-2025 Chloride [Moles/Vol] 97 mmol/L Low 98-108 [facility] Comprehensive Metabolic Prof ilon 05-08-2025 Albumin [Mass/Vol] 4.5 g/dL Normal 3.4-4.8 [facility] Comment on above: Performed By: #### L 501.9940, L501.6710, L3100.2300 #### [facility] [address] [place], [address] Albumin/Globulin [Mass ratio] 1.6 {ratio} Normal 0.9-2.4 [facility] Comment on above: Performed By: #### L 501.9940, L501.6710, L3100.2300 #### [facility] [address] [place], [address] ALK PHOS 76 U/L Normal 40-129 [facility] Comment on above: Performed By: #### L 501.9940, L501.6710, L3100.2300 #### [facility] [address] [place], [address] ALT [Catalytic activity/Vol] 21 U/L Normal <=46 [facility] Comment on above: Performed By: #### L 501.9940, L501.6710, L3100.2300 #### [facility] [address] [place], [address] AST [Catalytic activity/Vol] 19 U/L Normal <=37 [facility] Comment on above: Performed By: #### L 501.9940, L501.6710, L3100.2300 #### [facility] [address] [place], [address] Bilirubin [Mass/Vol] 0.52 mg/dL Normal 0.00-1.30 [facility] Comment on above: Performed By: #### L 501.9940, L501.6710, L3100.2300 #### [facility] [address] [place], [address] BUN/CRE 22.7 RATIO High 10-20 [facility] Comment on above: Performed By: #### L 501.9940, L501.6710, L3100.2300 #### [facility] [address] [place], [address] Calcium [Mass/Vol] 9.4 mg/dL Normal 7.6-11.0 [facility] Comment on above: Performed By: #### L 501.9940, L501.6710, L3100.2300 #### [facility] [address] [place], [address] Chloride [Moles/Vol] 97 mmol/L Low 98-108 [facility] Comment on above: Performed By: #### L 501.9940, L501.6710, L3100.2300 #### [facility] [address] [place], [address] CO2 [Moles/Vol] 22.6 mmol/L Normal 21.0-32.0 [facility] Comment on above: Performed By: #### L 501.9940, L501.6710, L3100.2300 #### [facility] [address] [place], [address] Creatinine [Mass/Vol] 0.73 mg/dL Normal 0.70-1.20 [facility] Comment on above: Performed By: #### L 501.9940, L501.6710, L3100.2300 #### [facility] [address] [place], [address] ECRCL 63.12 ml/min Normal 50-250 [facility] Comment on above: Performed By: #### L 501.9940, L501.6710, L3100.2300 #### [facility] [address] [place], [address] GAP 15 Normal 5-15 [facility] Comment on above: Performed By: #### L 501.9940, L501.6710, L3100.2300 #### [facility] [address] [place], [address] GFR/1.73 sq M.predicted among non-blacks MDRD (S/P/Bld) [Vol rate/Area] 89 mL/min/{1.73_m2} Normal >60 [facility] Comment on above: Result Comment: mL/m in/1.73m2 CKD-EPI Creatinine Equation (2020) Performed By: #### L 501.9940, L501.6710, L3100.2300 #### [facility] [address] [place], [address] Globulin (S) [Mass/Vol] 2.8 g/dL Normal 2.2-4.2 [facility] Comment on above: Performed By: #### L 501.9940, L501.6710, L3100.2300 #### [facility] [address] [place], [address] Glucose [Mass/Vol] 98 mg/dL Normal 70-99 [facility] Comment on above: Performed By: #### L 501.9940, L501.6710, L3100.2300 #### [facility] [address] [place], [address] Potassium [Moles/Vol] 3.9 mmol/L Normal 3.3-5.1 [facility] Comment on above: Performed By: #### L 501.9940, L501.6710, L3100.2300 #### [facility] [address] [place], [address] Sodium [Moles/Vol] 134 mmol/L Normal 133-145 [facility] Comment on above: Performed By: #### L 501.9940, L501.6710, L3100.2300 #### [facility] [address] [place], [address] T PROT 7.3 g/dL Normal 5.9-8.4 [facility] Comment on above: Performed By: #### L 501.9940, L501.6710, L3100.2300 #### [facility] [address] [place], [address] Urea nitrogen [Mass/Vol] 17 mg/dL Normal 4-19 [facility] Comment on above: Performed By: #### L 501.9940, L501.6710, L3100.2300 #### [facility] [address] [place], [address] Emergency Department Summary on 05-08-2025 Emergency Department Summary [facility] Medical Records Department [address] [address] Emergency Department Summary 05/08/25 MR#: [id number] Acct: [id number] Name: ACE ARELLANO Rep #: [id number] : 1940 85 From: Francisco Foster DO PCP: Dr. Raúl Leslie MD Status:DEP ER Location: ED HPI History of Present Illness Chief Complaint: Abd Pain PFSH PFSH Medical History no medical history Home Medications ???Medication ???Instructions ???Recorded ???Last Taken ???Type linaclotide 290 mcg capsule 290 mcg PO DAILY 05/08/25 Unknown History (Linzess) ondansetron 4 mg disintegrating 4 mg PO Q8H PRN PRN Nausea #10 tab s 05/08/25 Unknown Rx tablet oxycodone 5 mg tablet 5 mg PO Q6H PRN pain 3 days #12 Unknown Rx tabs Allergy/AdvReac Type Severity Reaction Status Date / Time shellfish derived Allergy Severe Anaphylaxis Verified 05/08/25 14:50 Family History no significant family his Surgical History (Updated 05/08/25 @ 15:31 by Orquidea Wilder) History of back surgery H/O neck surgery Surgical History no surgical history Social History Smoking Status: Never smoker EXAM Physical Exam Const Vital Signs: 05/08/25 14:50 05/08/25 16:50 05/08/25 18:00 Temperature 97 F L Temperature Source Temporal Pulse Rate 76 73 60 Respiratory Rate 20 H Blood Pressure 151/66 H 138/74 H 157/79 H Blood Pressure Mean 94 95 105 Pulse Ox 97 95 95 Oxygen Delivery Method Room Air 05/08/25 19:04 Temperature 97.9 F Temperature Source Pulse Rate 60 Respiratory Rate 16 Blood Pressure 157/79 H Blood Pressure Mean 105 Pulse Ox 95 Oxygen Delivery Method MDM MDM MDM Narrative Medical decision making narrative: HISTORY OF PRESENT ILLNESS: Chief complaint: Abdominal pain 85-year-old male with history of back surgery, neck surgery presents abdominal pain. Abdominal pain is been ongoing for last several weeks but has gotten worse over the last 2 to 3 days. He has not had a bowel movement last 3 days. Typically is about 1 every other day. Denies vomiting but notes nausea. Denies chest pain. Denies history abdominal surgery. Denies urinary complaints REVIEW OF SYSTEMS: Pertinent positives: Abdominal pain, nausea Pertinent negatives: Chest pain, shortness of breath, vomiting, syncope PHYSICAL EXAM: Nursing triage notes reviewed, Vital signs reviewed Constitutional: please see mdm HENT: MMM Eyes: Pupils equal round and reactive to light, Extraocular muscles intact Neck: No stridor, no JVD, full neck ROM Lungs: Clear to auscultation, No wheezing or rales. No increased work of breathing, no conversational dyspnea, no accessory muscle use, no nasal flaring. No respiratory distress noted Heart: Regular rate and rhythm, No murmurs, No rubs and No gallops, 2+ distal pulses (radial, femoral, posterior tibial) in all extremities Abdomen: Soft, diffuse TTP rigidity, rebound or guarding, no obvious peritoneal signs, no palpable pulsatile abdominal masses, no auscultated abdominal bruit : No CVAT Extremities: No edema Neuro: No new focal neurological deficits, cranial nerves II through XII intact, 5/5 strength in all present extremities. Intact sensation to light touch in all present extremities, 2+ reflexes bilateral patella tendons. Skin: No rash or lesions noted MEDICAL DECISION MAKING: Chief Complaint: please see HPI External records reviewed: Reviewed imaging studies: CT scan of the abdomen pelvis from 04/21/2025 showed no evidence of kidney stone but showed 1.4 cm ill-defined hypodensity in the pancreatic body Factors affecting care: n as per HPI Social determinants of health: none History obtained from others: Patient's Consults: none [facility] Narrative: Patient was initially hemodynamically stable, afebrile and nontoxic-appearing. Exam with diffuse tenderness no distention or peritoneal signs noted. I considered the following differential diagnosis: A AAA, small bowel obstruction, abdominal perforation, appendicitis, pancreatitis, hepatobiliary pathology (acute cholecystitis), mesenteric ischemia, pathology (ie nephrolithiasis, pyelonephritis). I obtained broad lab and imaging evaluation to further determine if the patient was suffering from a life-threatening etiology. Initially treat the patient with IV fluids, Zofran, morphine and Toradol. ALL IMAGES (IF OBTAINED) HAVE BEEN PERSONALLY REVIEWED AND INTERPRETED BY MYSELF. CBC with no leukocytosis, no anemia or thrombocytopenia CMP without evidence of acute kidney injury, significant electrolyte abnormality, anion gap to suggest end organ hypo-perfusion, no evidence of metabolic acidosis with a normal bicarbonate, no evidence of hepatobiliary obstructive pathology. (more content not included)... Normal [facility] Eosinophil percentageOrdered By: Francisco Foster on 05-08-2025 Eosinophils/100 WBC (Bld) 5.3 % High 0-5 [facility] Erythrocyte distribution wid th ratioOrdered By: Francisco Foster on 05-08-2025 Erythrocyte distribution width (RBC) [Ratio] 12.3 % 11.6-14.6 [facility] Erythrocyte distribution wid th standard deviationOrdered By: Francisco Foster on 05-08-2025 Erythrocyte distribution width (RBC) [Ratio] 41.1 fl 35.1-43.9 [facility] Glomerular filtration rate ( GFR) estimation/1.73 sq m using serum, plasma, or whole bOrdered By: Francisco Foster on 05-08-2025 GFR/1.73 sq M.predicted among non-blacks MDRD (S/P/Bld) [Vol rate/Area] 89 mL/min/{1.73_m2} >60 [facility] Comment on above: mL/min/1.73m2 CKD-EP I Creatinine Equation (2020) Hematocrit Auto (Bld) [Volum e fraction]Ordered By: Francisco Foster on 05-08-2025 Hematocrit (Bld) [Volume fraction] 37.8 % Low 40-54 [facility] Hemoglobin measurementOrdere d By: Francisco Foster on 05-08-2025 Hemoglobin (Bld) [Mass/Vol] 13.2 g/dL 13.0-16.5 [facility] Immature granulocytes/100 WB C Auto (Bld)Ordered By: Francisco Foster on 05-08-2025 Immature granulocytes/100 WBC (Bld) 0.300 % 0.0-0.9 [facility] Comment on above: IG% - Immature Granu locytes (promyelocytes, myelocytes and metamyelocytes) > 1% indicates that a LEFT SHIFT is Present. Ketones Test strip Ql (U)Ord ered By: Francisco Foster on 05-08-2025 Ketones Ql (U) 5 mg/dl High Negative [facility] - Chemistry and C hemistry - challengeOrdered By: Francisco Foster on 05-08-2025 AST [Catalytic activity/Vol] 19 U/L <38 [facility] Lipaseon 05-08-2025 Lipase [Catalytic activity/Vol] 14 U/L Normal 13-75 [facility] Comment on above: Result Comment: Roxanna decker note: LIPASE revised reference range effective 22. New Lipase methodology. Expected to produce lower values than the previous assay method. NEW Reference Range: 13 - 75 U/L Performed By: #### L 501.9940, L501.6710, L3100.2300 #### [facility] [address] [place], [place], [id number] Lipase measurementOrdered By : Francisco Foster on 05-08-2025 Lipase [Catalytic activity/Vol] 14 U/L 13-75 [facility] Comment on above: Please note:LIPASE r evised reference range effective 22. New Lipase methodology. Expected to produce lower values than the previous assay method. NEW Reference Range: 13 - 75 U/L MCV (mean corpuscular volume ) determinationOrdered By: Francisco Foster on 05-08-2025 MCV (RBC) [Entitic vol] 90.9 fL 80-94 [facility] Mean corpuscular hemoglobin (MCH) determinationOrdered By: Francisco Foster on 05-08-2025 MCH (RBC) [Entitic mass] 31.7 pg 27.0-32.0 [facility] Mean corpuscular hemoglobin concentration (MCHC) determinationOrdered By: Francisco Foster on 05-08-2025 MCHC (RBC) [Mass/Vol] 34.9 g/dL 32-36 [facility] Mean platelet volume determi nationOrdered By: Francisco Foster on 05-08-2025 Platelet mean volume (Bld) [Entitic vol] 10.8 fL 6.2-12.0 [facility] Microscopic analysis of urin e for red blood cells (RBC)Ordered By: Francisco Foster on 05-08-2025 Microscopic analysis of urine for red blood cells (RBC) 0-5 SEEN /hpf 0-5 [facility] Monocyte percentageOrdered B y: Francisco Foster on 05-08-2025 Monocytes/100 WBC (Bld) 7.2 % 0-10 [facility] Mucus LM Ql (Urine sed)Order ed By: Francisco Foster on 05-08-2025 Mucus Ql (Urine sed) 0 SEEN /hpf [facility] Neutrophil percentageOrdered By: Francisco Foster on 05-08-2025 Neutrophils/100 WBC (Bld) 68.7 % 47-70 [facility] Nitrite Test strip Ql (U)Ord ered By: Francisco Foster on 05-08-2025 Nitrite Ql (U) Negative Negative [facility] Nucleated red blood cell per centageOrdered By: Francisco Foster on 05-08-2025 Nucleated RBC/100 WBC (Bld) [Ratio] 0 % 0-5 [facility] Platelet countOrdered By: Thom Foster on 05-08-2025 Platelets (Bld) [#/Vol] 265 10*3/uL 150-450 [facility] Potassium measurement (mass/ volume)Ordered By: Francisco Foster on 05-08-2025 Potassium (Unsp spec) [Mass/Vol] 3.9 mmol/L 3.3-5.1 [facility] Protein Test strip Ql (U)Ord ered By: Francisco Foster on 05-08-2025 Protein Ql (U) 30 mg/dl High Negative [facility] RBC Auto (Bld) [#/Vol]Ordere d By: Francisco Foster on 05-08-2025 RBC (Bld) [#/Vol] 4.16 10*6/uL Low 4.6-6.2 [facility] Serum creatinine measurement (mass/volume)Ordered By: Francisco Foster on 05-08-2025 Creatinine [Mass/Vol] 0.73 mg/dL 0.70-1.20 [facility] Serum globulin measurementOr dered By: Francisco Foster on 05-08-2025 Globulin (S) [Mass/Vol] 2.8 g/dL 2.2-4.2 [facility] Serum glucose measurement (m ass/volume)Ordered By: Francisco Foster on 05-08-2025 Glucose [Mass/Vol] 98 mg/dL 70-99 [facility] Serum or plasma alanine dalton otransferase (ALT) measurementOrdered By: Francisco Foster on 05-08-2025 ALT [Catalytic activity/Vol] 21 U/L <47 [facility] Serum or plasma albumin paulette urement (mass/volume)Ordered By: Francisco Foster on 05-08-2025 Albumin [Mass/Vol] 4.5 g/dL 3.4-4.8 [facility] Serum or plasma albumin/glob ulin mass ratioOrdered By: Francisco Foster on 05-08-2025 Albumin/Globulin [Mass ratio] 1.6 {ratio} 0.9-2.4 [facility] Serum or plasma alkaline jessica sphatase measurementOrdered By: Francisco Foster on 05-08-2025 ALP [Catalytic activity/Vol] 76 U/L 40-129 [facility] Serum or plasma calcium paulette urement (mass/volume)Ordered By: Francisco Foster on 05-08-2025 Calcium [Mass/Vol] 9.4 mg/dL 7.6-11.0 [facility] Serum or plasma urea nitroge n measurement (mass/volume)Ordered By: Francisco Foster on 05-08-2025 Urea nitrogen [Mass/Vol] 17 mg/dL 4-19 [facility] Sodium levelOrdered By: Whit Foster on 05-08-2025 Sodium [Moles/Vol] 134 mmol/L 133-145 [facility] Squamous epithelial cells de tection in urine sediment by light microscopyOrdered By: Francisco Foster on 05-08-2025 Epithelial cells.squamous LM Ql (Urine sed) 0-5 SEEN /hpf 0-5 [facility] Total proteinOrdered By: Denver Foster on 05-08-2025 Protein [Mass/Vol] 7.3 g/dL 5.9-8.4 [facility] Urinalysis, Completeon 05-08 BACTERIA RARE Normal None Seen [facility] Comment on above: Order Comment: Order Date: 03/29/25 Order Info: [id number] - CRP Order Info: 0783-1 - PSAD Performed By: #### L 501.9940, L501.6710, L3100.2300 #### [facility] [address] [place], [place], [id number] EPI,SQUAMOUS 0-5 SEEN Normal 0-5 [facility] Comment on above: Order Comment: Order Date: 03/29/25 Order Info: [id number] - CRP Order Info: 0783-1 - PSAD Performed By: #### L 501.9940, L501.6710, L3100.2300 #### [facility] [address] [place], [address] RBC 0-5 SEEN Normal 0-5 [facility] Comment on above: Order Comment: Order Date: 03/29/25 Order Info: [id number] - CRP Order Info: 0783-1 - PSAD Performed By: #### L 501.9940, L501.6710, L3100.2300 #### [facility] [address] [place], [address] WBC 0-5 SEEN Normal 0-5 [facility] Comment on above: Order Comment: Order Date: 03/29/25 Order Info: [id number] - CRP Order Info: [id number]- - PSAD Performed By: #### L 501.9940, L501.6710, L3100.2300 #### [facility] [address] [place], [address] Mucus Ql (Urine sed) 0 SEEN Normal [facility] Comment on above: Order Comment: Order Date: 03/29/25 Order Info: [id number] - CRP Order Info: 0783-1 - PSAD Performed By: #### L 501.9940, L501.6710, L3100.2300 #### [facility] [address] [place], [address] Urine clarityOrdered By: Denver Foster on 05-08-2025 Clarity (U) Clear Clear [facility] Urine color determinationOrd ered By: Francisco Foster on 05-08-2025 Color (U) Yellow Yellow [facility] Urine glucose detectionOrder ed By: Francisco Foster on 05-08-2025 Glucose Ql (U) Normal mg/dl Normal [facility] Urine leukocyte esterase det ection by dipstickOrdered By: Francisco Foster on 05-08-2025 Leukocyte esterase Test strip Ql (U) Negative Negative [facility] Urine pHOrdered By: Francisco reed on 05-08-2025 pH (U) 6.0 [pH] 5.0 - 8.0 [facility] Urine sediment bacteria coun t by microscopy (number/high power field)Ordered By: Francisco Foster on 05-08-2025 Bacteria LM.HPF (Urine sed) [#/Area] RARE /hpf None Seen [facility] Urine specific gravity measu rementOrdered By: Francisco Foster on 05-08-2025 Specific gravity (U) [Rel density] 1.020 1.002-1.030 [facility] Urine urobilinogen measureme ntOrdered By: Francisco Foster on 05-08-2025 Urobilinogen Ql (U) Normal mg/dl Normal [facility] White blood cell (WBC) count Ordered By: Franciscocassie Foster on 05-08-2025 WBC (Bld) [#/Vol] 8.8 10*3/uL 4.4-11.0 [facility] White blood cell countOrdere d By: Francisco Foster on 05-08-2025 White blood cell count 0-5 SEEN /hpf 0-5 [facility] Abdomen/Pelvis without Conto n 04-21-2025 Abdomen/Pelvis without Cont [facility] [address] [place], [place] [address] Abdomen/Pelvis without Cont MR#: [id number] Acct: [id number] Name: ACE ARELLANO Rep #: [id number] : 1940 M 84 From: Harjit Hernandez MD PCP: Dr. Raúl Leslie MD Status: REG CLI Study: Abdomen/Pelvis without Cont Date of Exam: 04/04 03/28 Exam# [id number] Ordering Dr: Raúl Leslie MD PROCEDURE: ABDOMEN/PELVIS [...] changes of the spine. S shaped scoliosis. Rpnfvfyl-oi-xtehee atherosclerosis. The infrarenal abdominal aorta measures up [...] diverticulosis without diverticulitis. *Enlarged prostate. Reading Location: [facility]GN[facility]OT-GY CC: Dr. Raúl Leslie MD Topstitcher Zigzag: Signed Normal [facility] Carcinoembryonic Antigenon 0 03-30-2025 CEA 1.5 ng/mL Normal 0.0-4.7 [facility] Comment on above: Order Comment: Order Date: 03/29/25 Order Info: [id number] - CEA Result Comment: Nons mokers <3.9 Smokers <5.6 [facility] Electrochemiluminescence Immunoassay (ECLIA) Values obtained with different assay methods or kits cannot be used interchangeably. Results cannot be interpreted as absolute evidence of the presence or absence of malignant disease. Performed at: [facility] [place] [id number] Licensed Therapist: Blue Washington PhD, Phone: [phone] Performed By: #### L 501.6464, X490.3777, L1015.9228 #### [facility] [place], [address] Abdomen Single Viewon 2024 Abdomen Single View [facility] [address] [place] [address] Abdomen Single View MR#: [id number] Acct: [id number] Name: ACE ARELLANO Rep #: [id number] : 1940 M 84 From: Alon Scott MD PCP: Dr. Raúl Leslie MD Status: REG CLI Study: Abdomen Single View Date of Exam: 03/29/25 Exam# [id number] Ordering Dr: Raúl Leslie MD PROCEDURE: ABDOMEN [...] 3. Other findings as noted. Reading Location: [facility]ZOS-CV CC: Dr. Raúl Leslie MD Topstitcher Zigzag: Signed Normal [facility] CRPon 03-29-2025 C-REACTIVE PROT < 3.00 Normal 0.0-3.0 [facility] Comment on above: Order Comment: Order Date: 03/29/25 Order Info: [id number] - CRP Order Info: 0783-1 - PSAD Performed By: #### L 501.9940, L501.6710, L3100.2300 #### [facility] [address] [place], [address] PSA,Total- Diagnosticon 03-05 PSA, DIAGNOSTIC 3.60 ng/mL Normal 0.00-4.00 [facility] Comment on above: Order Comment: Order Date: 03/29/25 Order Info: [id number] - CRP Order Info: 0783-1 - PSAD [...] By: #### L 501.9940, L501.6710, L3100.2300 #### [facility] [address] [place], [address] Serum or plasma C reactive p rotein measurement (mass/volume)Ordered By: Raúl Leslie on 03-29-2025 CRP [Mass/Vol] mg/L 0.0-3.0 [facility] Serum or plasma carcinoembry onic antigen measurement (mass/volume)Ordered By: Raúl Leslie on 03-29-2025 Carcinoembryonic Ag [Mass/Vol] 1.5 ng/mL 0.0-4.7 [facility] Comment on above: Nonsmokers <3.9 Smok ers <5.6[facility] Electrochemiluminescence Immunoassay(ECLIA)Values obtained with different assay methods or kitscannot be used interchangeably. Results cannot beinterpreted as absolute evidence of the presence orabsence of malignant disease.Performed at: [facility] [place] [id number] Director: Blue Washington PhD, Phone: [phone] Absolute lymphocyte countOrd ered By: Raúl Leslie on 02-17-2025 Lymphocytes Auto (Unsp spec) [#/Vol] 1.90 10*3/uL 0.83-4.51 [facility] Absolute neutrophil countOrd ered By: Raúl Leslie on 02-17-2025 Neutrophils (Bld) [#/Vol] 7.3 10*3/uL 2.0-7.7 [facility] Anion gap in Serum or Plasma Ordered By: Raúl Leslie on 02-17-2025 Anion gap [Moles/Vol] 13 mmol/L 5-15 [facility] Automated lymphocyte count a s percentage of total leukocytesOrdered By: Raúl Leslie on 02-17-2025 Lymphocytes/100 WBC Auto (Unsp spec) 18.0 % Low 19-41 [facility] BUN/creatinine ratioOrdered By: Raúl Leslie on 02-17-2025 Urea nitrogen/Creatinine [Mass ratio] 23.4 mg/mg High 10-20 [facility] Basophil percentageOrdered B y: Raúl Leslie on 02-17-2025 Basophils/100 WBC (Bld) 0.3 % 0-1 [facility] Bilirubin, totalOrdered By: Raúl Leslie on 02-17-2025 Bilirubin [Mass/Vol] 0.34 mg/dL 0.00-1.30 [facility] CBC W/Diff, Automatedon 02-01 Absolute Lymph 1.90 X10 3/uL Normal 0.83-4.51 [facility] Comment on above: Performed By: #### L 100.0100, L500.4100, L500.4050, L501.6710 #### [facility] [address] [place], [address] Absolute Neut 7.3 X10 3/uL Normal 2.0-7.7 [facility] Comment on above: Performed By: #### L 100.0100, L500.4100, L500.4050, L501.6710 #### [facility] [address] [place], [address] Basophils/100 WBC (Bld) 0.3 % Normal 0-1 [facility] Comment on above: Performed By: #### L 100.0100, L500.4100, L500.4050, L501.6710 #### [facility] [address] [place], [address] Eosinophils/100 WBC (Bld) 4.4 % Normal 0-5 [facility] Comment on above: Performed By: #### L 100.0100, L500.4100, L500.4050, L501.6710 #### [facility] [address] [place], [address] Erythrocyte distribution width (RBC) [Ratio] 12.7 % Normal 11.6-14.6 [facility] Comment on above: Performed By: #### L 100.0100, L500.4100, L500.4050, L501.6710 #### [facility] [address] [place], [address] Hematocrit (Bld) [Volume fraction] 36.5 % Low 40-54 [facility] Comment on above: Performed By: #### L 100.0100, L500.4100, L500.4050, L501.6710 #### [facility] [address] [place], [address] Hemoglobin (Bld) [Mass/Vol] 12.5 g/dL Low 13.0-16.5 [facility] Comment on above: Performed By: #### L 100.0100, L500.4100, L500.4050, L501.6710 #### [facility] [address] [place], [address] IG% 0.400 Normal 0.0-0.9 [facility] Comment on above: Result Comment: IG% - Immature Granulocytes (promyelocytes, myelocytes and metamyelocytes) > 1% indicates that a LEFT SHIFT is Present. Performed By: #### L 100.0100, L500.4100, L500.4050, L501.6710 #### [facility] [address] [place], [address] Lymphocytes/100 WBC (Bld) 18.0 % Low 19-41 [facility] Comment on above: Performed By: #### L 100.0100, L500.4100, L500.4050, L501.6710 #### [facility] [address] [place], [address] MCH (RBC) [Entitic mass] 32.6 pg High 27.0-32.0 [facility] Comment on above: Performed By: #### L 100.0100, L500.4100, L500.4050, L501.6710 #### [facility] [address] [place], [address] MCHC (RBC) [Mass/Vol] 34.2 g/dL Normal 32-36 [facility] Comment on above: Performed By: #### L 100.0100, L500.4100, L500.4050, L501.6710 #### [facility] [address] [place], [address] MCV (RBC) [Entitic vol] 95.3 fL High 80-94 [facility] Comment on above: Performed By: #### L 100.0100, L500.4100, L500.4050, L501.6710 #### [facility] [address] [place], [address] Monocytes/100 WBC (Bld) 7.7 % Normal 0-10 [facility] Comment on above: Performed By: #### L 100.0100, L500.4100, L500.4050, L501.6710 #### [facility] [address] [place], [address] Neutrophils/100 WBC (Bld) 69.2 % Normal 47-70 [facility] Comment on above: Performed By: #### L 100.0100, L500.4100, L500.4050, L501.6710 #### [facility] [address] [place], [address] Nucleated RBC (Bld) [#/Vol] 0 10*3/uL Normal 0-5 [facility] Comment on above: Performed By: #### L 100.0100, L500.4100, L500.4050, L501.6710 #### [facility] [address] [place], [address] Platelet mean volume (Bld) [Entitic vol] 11.6 fL Normal 6.2-12.0 [facility] Comment on above: Performed By: #### L 100.0100, L500.4100, L500.4050, L501.6710 #### [facility] [address] [place], [address] Platelets (Bld) [#/Vol] 228 10*3/uL Normal 150-450 [facility] Comment on above: Performed By: #### L 100.0100, L500.4100, L500.4050, L501.6710 #### [facility] [address] [place], [address] RBC (Bld) [#/Vol] 3.83 10*6/uL Low 4.6-6.2 [facility] Comment on above: Performed By: #### L 100.0100, L500.4100, L500.4050, L501.6710 #### [facility] [address] [place], [address] RDW SD 43.8 fl Normal 35.1-43.9 [facility] Comment on above: Performed By: #### L 100.0100, L500.4100, L500.4050, L501.6710 #### [facility] [address] [place], [address] WBC (Bld) [#/Vol] 10.6 10*3/uL Normal 4.4-11.0 [facility] Comment on above: Performed By: #### L 100.0100, L500.4100, L500.4050, L501.6710 #### [facility] [address] [place], [address] CRPon 02-17-2025 C-REACTIVE PROT < 3.00 Normal 0.0-3.0 [facility] Comment on above: Performed By: #### L 100.0100, L500.4100, L500.4050, L501.6710 #### [facility] [address] [place], [address] Calculated very low density lipoprotein (VLDL) cholesterol measurementOrdered By: Raúl Leslie on 02-17-2025 Calculated very low density lipoprotein (VLDL) cholesterol measurement 22 mg/dL 5-40 [facility] Carbon dioxide, total [Moles /volume] in Central venous bloodOrdered By: Raúl Leslie on 02-17-2025 CO2 [Moles/Vol] 25.0 mmol/L 21.0-32.0 [facility] Chloride assayOrdered By: Addison Leslie on 02-17-2025 Chloride [Moles/Vol] 100 mmol/L 98-108 [facility] Comprehensive Metabolic Prof ilon 02-17-2025 Albumin [Mass/Vol] 4.4 g/dL Normal 3.4-4.8 [facility] Comment on above: Performed By: #### L 501.9940, L501.6710, L3100.2300 #### [facility] [address] [place], [address] Albumin/Globulin [Mass ratio] 1.7 {ratio} Normal 0.9-2.4 [facility] Comment on above: Performed By: #### L 501.9940, L501.6710, L3100.2300 #### [facility] [address] [place], [address] ALK PHOS 74 U/L Normal 40-129 [facility] Comment on above: Performed By: #### L 501.9940, L501.6710, L3100.2300 #### [facility] [address] [place], [address] ALT [Catalytic activity/Vol] 21 U/L Normal <=46 [facility] Comment on above: Performed By: #### L 501.9940, L501.6710, L3100.2300 #### [facility] [address] [place], [address] AST [Catalytic activity/Vol] 21 U/L Normal <=37 [facility] Comment on above: Performed By: #### L 501.9940, L501.6710, L3100.2300 #### [facility] [address] [place], [address] Bilirubin [Mass/Vol] 0.34 mg/dL Normal 0.00-1.30 [facility] Comment on above: Performed By: #### L 501.9940, L501.6710, L3100.2300 #### [facility] [address] [place], [address] BUN/CRE 23.4 RATIO High 10-20 [facility] Comment on above: Performed By: #### L 501.9940, L501.6710, L3100.2300 #### [facility] [address] [place], [address] Calcium [Mass/Vol] 9.3 mg/dL Normal 7.6-11.0 [facility] Comment on above: Performed By: #### L 501.9940, L501.6710, L3100.2300 #### [facility] [address] [place], [address] Chloride [Moles/Vol] 100 mmol/L Normal 98-108 [facility] Comment on above: Performed By: #### L 501.9940, L501.6710, L3100.2300 #### [facility] [address] [place], [address] CO2 [Moles/Vol] 25.0 mmol/L Normal 21.0-32.0 [facility] Comment on above: Performed By: #### L 501.9940, L501.6710, L3100.2300 #### [facility] [address] [place], [address] Creatinine [Mass/Vol] 0.78 mg/dL Normal 0.70-1.20 [facility] Comment on above: Performed By: #### L 501.9940, L501.6710, L3100.2300 #### [facility] [address] [place], [address] GAP 13 Normal 5-15 [facility] Comment on above: Performed By: #### L 501.9940, L501.6710, L3100.2300 #### [facility] [address] [place], [address] GFR/1.73 sq M.predicted among non-blacks MDRD (S/P/Bld) [Vol rate/Area] 88 mL/min/{1.73_m2} Normal >60 [facility] Comment on above: Result Comment: mL/m in/1.73m2 CKD-EPI Creatinine Equation (2020) Performed By: #### L 501.9940, L501.6710, L3100.2300 #### [facility] [address] [place], [address] Globulin (S) [Mass/Vol] 2.5 g/dL Normal 2.2-4.2 [facility] Comment on above: Performed By: #### L 501.9940, L501.6710, L3100.2300 #### [facility] [address] [place], [address] Glucose [Mass/Vol] 90 mg/dL Normal 70-99 [facility] Comment on above: Performed By: #### L 501.9940, L501.6710, L3100.2300 #### [facility] [address] [place], [address] Potassium [Moles/Vol] 4.2 mmol/L Normal 3.3-5.1 [facility] Comment on above: Performed By: #### L 501.9940, L501.6710, L3100.2300 #### [facility] [address] [place], [address] Sodium [Moles/Vol] 137 mmol/L Normal 133-145 [facility] Comment on above: Performed By: #### L 501.9940, L501.6710, L3100.2300 #### [facility] [address] [place], [address] T PROT 6.9 g/dL Normal 5.9-8.4 [facility] Comment on above: Performed By: #### L 501.9940, L501.6710, L3100.2300 #### [facility] [address] [place], [address] Urea nitrogen [Mass/Vol] 18 mg/dL Normal 4-19 [facility] Comment on above: Performed By: #### L 501.9940, L501.6710, L3100.2300 #### [facility] [address] [place], [address] Eosinophil percentageOrdered By: Raúl Leslie on 02-17-2025 Eosinophils/100 WBC (Bld) 4.4 % 0-5 [facility] Erythrocyte distribution wid th ratioOrdered By: Raúl Leslie on 02-17-2025 Erythrocyte distribution width (RBC) [Ratio] 12.7 % 11.6-14.6 [facility] Erythrocyte distribution wid th standard deviationOrdered By: Raúl [place] on 02-17-2025 Erythrocyte distribution width (RBC) [Ratio] 43.8 fl 35.1-43.9 [facility] Glomerular filtration rate ( GFR) estimation/1.73 sq m using serum, plasma, or whole bOrdered By: Raúl [place] on 02-17-2025 GFR/1.73 sq M.predicted among non-blacks MDRD (S/P/Bld) [Vol rate/Area] 88 mL/min/{1.73_m2} >60 [facility] Comment on above: mL/min/1.73m2 CKD-EP I Creatinine Equation (2020) Hematocrit Auto (Bld) [Volum e fraction]Ordered By: Raúl [place] on 02-17-2025 Hematocrit (Bld) [Volume fraction] 36.5 % Low 40-54 [facility] Hemoglobin measurementOrdere d By: Raúl [place] on 02-17-2025 Hemoglobin (Bld) [Mass/Vol] 12.5 g/dL Low 13.0-16.5 [facility] Immature granulocytes/100 WB C Auto (Bld)Ordered By: Raúl [place] on 02-17-2025 Immature granulocytes/100 WBC (Bld) 0.400 % 0.0-0.9 [facility] Comment on above: IG% - Immature Granu locytes (promyelocytes, myelocytes and metamyelocytes) > 1% indicates that a LEFT SHIFT is Present. LDL calc ser/plasOrdered By: Raúl [place] on 02-17-2025 Cholesterol in LDL [Mass/Vol] 119 mg/dL [facility] Comment on above: Bgcpdutoqb=769-378 m g/dL & Higher Taip=406 mg/dL or greater Laboratory - Chemistry and C hemistry - challengeOrdered By: Raúl [place] on 02-17-2025 AST [Catalytic activity/Vol] 21 U/L <38 [facility] Lipid Profileon 02-17-2025 CHOL:HDL 3.15 Normal [facility] Comment on above: Performed By: #### L 501.9940, L501.6710, L3100.2300 #### [facility] [address] [place], [place], [id number] (454) Cholesterol [Mass/Vol] 206 mg/dL High <=200 [facility] Comment on above: Result Comment: Chol esterol level, Desirable <200 mg/dL Borderline high cholesterol 200-239 mg/dL High cholesterol >=240 mg/dL Recommendations of the NCEP Adult Treatment Panel for the following risk-cutoff thresholds for the [place] population. Performed By: #### L 501.9940, L501.6710, L3100.2300 #### [facility] [address] [place], [place], [phone] (574) Cholesterol in HDL [Mass/Vol] 65 mg/dL Normal [facility] Comment on above: Result Comment: Julianne onal Cholesterol Education Program (NCEP) guidelines: <40 mg/dL: Low HDL-cholesterol (major risk factor for CHD) >= 60 mg/dL: High HDL-cholesterol (negative risk factor for CHD) HDL-cholesterol is affected by a number of factors, e.g. smoking, exercise, hormones, sex and age. Performed By: #### L 501.9940, L501.6710, L3100.2300 #### [facility] [address] [place], [address] Cholesterol in LDL [Mass/Vol] 119 mg/dL Normal [facility] Comment on above: Result Comment: Bord lxkcyi=978-073 mg/dL Higher Kyoz=286 mg/dL or greater Performed By: #### L 501.9940, L501.6710, L3100.2300 #### [facility] [address] [place], [address] Cholesterol in VLDL [Mass/Vol] 22 mg/dL Normal 5-40 [facility] Comment on above: Performed By: #### L 501.9940, L501.6710, L3100.2300 #### [facility] [address] [place], [address] Triglyceride [Mass/Vol] 110 mg/dL Normal [facility] Comment on above: Result Comment: The drugs N-Acetylcysteine and Metamizole may falsely depress this assay. Normal range: <150 mg/dL Borderline High: 150-199 mg/dL High: 200-499 mg/dL Very High: >500 mg/dL Performed By: #### L 501.9940, L501.6710, L3100.2300 #### [facility] [address] [place], [address] MCV (mean corpuscular volume ) determinationOrdered By: Raúl [place] on 02-17-2025 MCV (RBC) [Entitic vol] 95.3 fL High 80-94 [facility] Mean corpuscular hemoglobin (MCH) determinationOrdered By: Raúl [place] on 02-17-2025 MCH (RBC) [Entitic mass] 32.6 pg High 27.0-32.0 [facility] Mean corpuscular hemoglobin concentration (MCHC) determinationOrdered By: Raúl [place] on 02-17-2025 MCHC (RBC) [Mass/Vol] 34.2 g/dL 32-36 [facility] Mean platelet volume determi nationOrdered By: Raúl [place] on 02-17-2025 Platelet mean volume (Bld) [Entitic vol] 11.6 fL 6.2-12.0 [facility] Monocyte percentageOrdered B y: Raúl [place] on 02-17-2025 Monocytes/100 WBC (Bld) 7.7 % 0-10 [facility] Neutrophil percentageOrdered By: Raúl [place] on 02-17-2025 Neutrophils/100 WBC (Bld) 69.2 % 47-70 [facility] Nucleated red blood cell per centageOrdered By: Raúl [place] on 02-17-2025 Nucleated RBC/100 WBC (Bld) [Ratio] 0 % 0-5 [facility] Platelet countOrdered By: Addison [place] on 02-17-2025 Platelets (Bld) [#/Vol] 228 10*3/uL 150-450 [facility] Potassium measurement (mass/ volume)Ordered By: Raúl [place] on 02-17-2025 Potassium (Unsp spec) [Mass/Vol] 4.2 mmol/L 3.3-5.1 [facility] RBC Auto (Bld) [#/Vol]Ordere d By: Raúl [place] on 02-17-2025 RBC (Bld) [#/Vol] 3.83 10*6/uL Low 4.6-6.2 [facility] Screening total cholesterol/ high density lipoprotein (HDL) cholesterol ratioOrdered By: Raúl [place] on 02-17-2025 Cholesterol.total/Chol esterol in HDL [Mass ratio] 3.15 {ratio} [facility] Serum creatinine measurement (mass/volume)Ordered By: Raúl [place] on 02-17-2025 Creatinine [Mass/Vol] 0.78 mg/dL 0.70-1.20 [facility] Serum globulin measurementOr dered By: Raúl [place] on 02-17-2025 Globulin (S) [Mass/Vol] 2.5 g/dL 2.2-4.2 [facility] Serum glucose measurement (m ass/volume)Ordered By: Raúl [place] on 02-17-2025 Glucose [Mass/Vol] 90 mg/dL 70-99 [facility] Serum or plasma C reactive p rotein measurement (mass/volume)Ordered By: Raúl [place] on 02-17-2025 CRP [Mass/Vol] mg/L 0.0-3.0 [facility] Serum or plasma alanine dalton otransferase (ALT) measurementOrdered By: Raúl [place] on 02-17-2025 ALT [Catalytic activity/Vol] 21 U/L <47 [facility] Serum or plasma albumin paulette urement (mass/volume)Ordered By: Raúl [place] on 02-17-2025 Albumin [Mass/Vol] 4.4 g/dL 3.4-4.8 [facility] Serum or plasma albumin/glob ulin mass ratioOrdered By: Raúl [place] on 02-17-2025 Albumin/Globulin [Mass ratio] 1.7 {ratio} 0.9-2.4 [facility] Serum or plasma alkaline jessica sphatase measurementOrdered By: Raúl [place] on 02-17-2025 ALP [Catalytic activity/Vol] 74 U/L 40-129 [facility] Serum or plasma calcium paulette urement (mass/volume)Ordered By: Raúl [place] on 02-17-2025 Calcium [Mass/Vol] 9.3 mg/dL 7.6-11.0 [facility] Serum or plasma cholesterol in HDL measurement (mass/volume)Ordered By: Raúl [place] on 02-17-2025 Cholesterol in HDL [Mass/Vol] 65 mg/dL >40 [facility] Comment on above: National Cholesterol Education Program (NCEP) guidelines:<40 mg/dL: Low HDL-cholesterol (major risk factor for CHD)>= 60 mg/dL: High HDL-cholesterol (negative risk factor for CHD)HDL-cholesterol is affected by a number of factors, e.g. smoking, exercise, hormones, sex and age. Serum or plasma cholesterol measurement (mass/volume)Ordered By: Raúl [place] on 02-17-2025 Cholesterol [Mass/Vol] 206 mg/dL High <201 [facility] Comment on above: Cholesterol level, D esirable <200 mg/dLBorderline high cholesterol 200-239 mg/dLHigh cholesterol >=240 mg/dLRecommendations of the NCEP Adult Treatment Panel for the following risk-cutoff thresholds for the [place] population. Serum or plasma urea nitroge n measurement (mass/volume)Ordered By: Raúl [place] on 02-17-2025 Urea nitrogen [Mass/Vol] 18 mg/dL 4-19 [facility] Sodium levelOrdered By: Raúl [place] on 02-17-2025 Sodium [Moles/Vol] 137 mmol/L 133-145 [facility] Total proteinOrdered By: Constanza [place] on 02-17-2025 Protein [Mass/Vol] 6.9 g/dL 5.9-8.4 [facility] Triglycerides measurementOrd ered By: Raúl [place] on 02-17-2025 Triglyceride [Mass/Vol] 110 mg/dL <199 [facility] Comment on above: The drugs N-Acetylcy steine and Metamizole may falsely depress this assay. Normal range: <150 mg/dLBorderline High: 150-199 mg/dLHigh: 200-499 mg/dLVery High: >500 mg/dL White blood cell (WBC) count Ordered By: Raúl [place] on 02-17-2025 WBC (Bld) [#/Vol] 10.6 10*3/uL 4.4-11.0 [facility] Screening prostate specific antigen (PSA) measurementOrdered By: Tati Ingram on 09-02-2023 Prostate specific Ag IA [Mass/Vol] 3.93 ng/mL 0.00-4.00 [facility] Comment on above: This test was perfor med using the TPSA assay method for the[facility] system. Values obtained with differentassay methods cannot be used interchangably.When changing PSA assays in the course of monitoring apatient, additional sequential testing should be carriedout to confirm baseline values. APTTon 09-19-2017 aPTT 25.9 s Normal 20.0-30.5 [facility] Comment on above: Result Comment: NOTE : The therapeutic time for Heparin anticoagulation,based on Xa activity inhibition, is an APTT of 46-80seconds. Performed By: #### A PTT, PT, HEMOG, BMP3M, LFT3 ####[place] [id number] Basic Metabolic Panelon 09-04 Anion gap 11 mmol/L Normal [facility] Comment on above: Performed By: #### A PTT, PT, HEMOG, BMP3M, LFT3 ####[place] [address] Calcium 9.4 mg/dL Normal 8.4-10.2 [facility] Comment on above: Performed By: #### A PTT, PT, HEMOG, BMP3M, LFT3 ####[place] [address] CO2 26 mmol/L Normal 22-30 [facility] Comment on above: Performed By: #### A PTT, PT, HEMOG, BMP3M, LFT3 ####[place] [address] Creatinine 0.71 mg/dL Normal 0.52-1.25 [facility] Comment on above: Performed By: #### A PTT, PT, HEMOG, BMP3M, LFT3 ####[place] [address] eGFR (black) mL/min/{1.73_m2} Normal >60 [facility] Comment on above: Performed By: #### A PTT, PT, HEMOG, BMP3M, LFT3 ####[place] [address] eGFR (non-black) mL/min/{1.73_m2} Normal >60 [facility] Comment on above: Result Comment: Sour ce- MDRD equation with creatinine calibration to IDMS(NKDEP)eGFR not recommended for drug dose adjustment Performed By: #### A PTT, PT, HEMOG, BMP3M, LFT3 ####[place] [address] Glucose mass conc 61 mg/dL Low 70-100 [facility] Comment on above: Performed By: #### A PTT, PT, HEMOG, BMP3M, LFT3 ####[place] [address] Urea nitrogen 16 mg/dL Normal 7-20 [facility] Comment on above: Performed By: #### A PTT, PT, HEMOG, BMP3M, LFT3 ####[place] [address] Potassium molar conc 3.8 mmol/L Normal 3.5-5.1 [facility] Comment on above: Performed By: #### A PTT, PT, HEMOG, BMP3M, LFT3 ####[place] [address] Chloride 103 mmol/L Normal 98-107 [facility] Comment on above: Performed By: #### A PTT, PT, HEMOG, BMP3M, LFT3 ####[place] [address] Sodium 140 mmol/L Normal 137-145 [facility] Comment on above: Performed By: #### A PTT, PT, HEMOG, BMP3M, LFT3 ####[place] [address] Hemogramon 09-19-2017 Erythrocyte distribution width Auto Ratio (RBC) 13.3 % Normal 11.5-14.5 [facility] Comment on above: Performed By: #### A PTT, PT, HEMOG, BMP3M, LFT3 ####[place] [address] Erythrocytes (RBC) 4.37 10*6/uL Low 4.40-5.90 [facility] Comment on above: Performed By: #### A PTT, PT, HEMOG, BMP3M, LFT3 ####[place] [address] Hematocrit (HCT) 42.6 % Normal 40.0-52.0 [facility] Comment on above: Performed By: #### A PTT, PT, HEMOG, BMP3M, LFT3 ####[place] [address] Hemoglobin mass conc (Bld) 14.1 g/dL Normal 13.0-18.0 [facility] Comment on above: Performed By: #### A PTT, PT, HEMOG, BMP3M, LFT3 ####[address] [address] MCH 32.4 pg Normal 26.0-34.0 [facility] Comment on above: Performed By: #### A PTT, PT, HEMOG, BMP3M, LFT3 ####[address] [address] MCHC mass conc (RBC) 33.2 % Normal 32.0-36.0 [facility] Comment on above: Performed By: #### A PTT, PT, HEMOG, BMP3M, LFT3 ####[address] [address] MCV 97.5 fL Normal 80.0-98.0 [facility] Comment on above: Performed By: #### A PTT, PT, HEMOG, BMP3M, LFT3 ####[address] [address] Platelet mean volume (PMV) 9.3 fL Normal 7.4-10.4 [facility] Comment on above: Performed By: #### A PTT, PT, HEMOG, BMP3M, LFT3 ####[address] [address] Platelets 228 10*3/uL Normal 140-440 [facility] Comment on above: Performed By: #### A PTT, PT, HEMOG, BMP3M, LFT3 ####[address] [address] WBC (Leukocytes) 14.5 10*3/uL High 3.6-10.7 [facility] Comment on above: Performed By: #### A PTT, PT, HEMOG, BMP3M, LFT3 ####[address] [address] Hepatic Functionon 8 Alanine aminotransferase (ALT) 34 U/L Normal 13-69 [facility] Comment on above: Performed By: #### A PTT, PT, HEMOG, BMP3M, LFT3 ####[address] [address] Alkaline phosphatase (ALP) 77 U/L Normal 38-126 [facility] Comment on above: Performed By: #### A PTT, PT, HEMOG, BMP3M, LFT3 ####[place] [address] Aspartate aminotransferase (AST) 25 U/L Normal 15-46 [facility] Comment on above: Performed By: #### A PTT, PT, HEMOG, BMP3M, LFT3 ####[place] [address] Bilirubin (direct) 0.0 mg/dL Normal 0.0-0.3 [facility] Comment on above: Performed By: #### A PTT, PT, HEMOG, BMP3M, LFT3 ####[place] [address] Bilirubin (total) 0.5 mg/dL Normal 0.2-1.3 [facility] Comment on above: Performed By: #### A PTT, PT, HEMOG, BMP3M, LFT3 ####[place] [address] Protein 7.3 g/dL Normal 6.3-8.2 [facility] Comment on above: Performed By: #### A PTT, PT, HEMOG, BMP3M, LFT3 ####[place] [address] Albumin 4.4 g/dL Normal 3.5-5.0 [facility] Comment on above: Performed By: #### A PTT, PT, HEMOG, BMP3M, LFT3 ####[place] [address] Prothrombin Timeon 8 INR Coag RelTime (PPP) 1.0 {INR} Normal 0.9-1.1 [facility] Comment on above: Result Comment: Wes mmended [...] #### A PTT, PT, HEMOG, BMP3M, LFT3 ####[place] [address] Prothrombin time (PT) Coag time (PPP) 10.4 s Normal 9.0-12.0 [facility] Comment on above: Result Comment: . Performed By: #### A PTT, PT, HEMOG, BMP3M, LFT3 ####[place] [address] TS GELon 09-19-2017 TS GEL PATIENT: ADAN CONN LOC: COUCH BILL# : [id number] : 1940 SEX: M AGE: [id number] BY: DENAE Lutz ORDERED : 09/19/2017 12:32 COLLECTED: 09/19/2017 12:51ORDER : [id number] RECEIVED : 09/19/2017 16:11 -----TEST NAME RESULT UNITS RANGES ABN FL STABO Group A FRh, Gel POS FAntibody Screen Gel NEG F [facility] Comment on above: Performed By: #### T SGL ####[place] [address] Urinalysis,Macroon 8 Bilirubin (direct) Negative Normal Negative [facility] Comment on above: Performed By: #### U AMAC ####[address] [place] [address] Ketone,Urine Trace Normal Negative [facility] Comment on above: Performed By: #### U AMAC ####[place] [address] [place] [address] Occult Blood,Ur Negative Normal Negative [facility] Comment on above: Performed By: #### U AMAC ####[place] [address] [place] [address] Specific [place],Urine 1.020 Normal 1.005-1.030 [facility] Comment on above: Performed By: #### U AMAC ####[place] [address] [place] [address] Total Protein,Urine Negative Normal Negative [facility] Comment on above: Performed By: #### U AMAC ####[place] [address] [place] [address] Urine, appearance clear Normal Clear [facility] Comment on above: Performed By: #### U AMAC ####[place] [address] [place] [address] Urine, color yellow Normal Lt. Yellow [facility] Comment on above: Performed By: #### U AMAC ####[place] [address] [place] [address] Urine, glucose presence NORM Normal Negative [facility] Comment on above: Performed By: #### U AMAC ####[place] [address] [place] [address] Urine, nitrite presence Negative Normal Negative [facility] Comment on above: Performed By: #### U AMAC ####[place] [address] [place] [address] Urine, pH 6.0 [pH] Normal 5.0-8.0 [facility] Comment on above: Performed By: #### U AMAC ####[place] [address] [place] [address] Urine, urobilinogen NORM Normal 0-1 [facility] Comment on above: Performed By: #### U AMAC ####[place] [address] [place] [address] WBC (Leukocytes) Negative Normal Negative [facility] Comment on above: Performed By: #### U AMAC ####[address] [address] Vital Signs Date Time Vital Sign Value Performing Clinician Pilar monson 05-10-2025 14:12-0400 Body height 170.[address] Raúl [place] MD Work Phone: 1(157)962-917959 [place] [address] 05-10-2025 14:12-0400 Body mass index (BMI) [Ratio] 23.8 kg/m2 Dr. Raúl [place] MD Work Phone: 4(611)064-396074 [place] [address] 05-10-2025 14:12-0400 Body temperature 98 [degF] Dr. Raúl [place] MD Work Phone: 6(954)861-227074 [place] [address] 05-10-2025 14:12-0400 Body weight 69.[address] Raúl [place] MD Work Phone: 5(674)891-911274 [place] [address] 05-10-2025 14:12-0400 Diastolic blood pressure 79 mm[Hg] Dr. Raúl [place] MD Work Phone: 4(263)131-404574 [place] [address] 05-10-2025 14:12-0400 Heart rate 64 /min Dr. Raúl [place] MD Work Phone: 8(564)127-003174 [place] [address] 05-10-2025 14:12-0400 Respiratory rate 18 /min Dr. Raúl [place] MD Work Phone: 3(811)610-731774 [place] [address] 05-10-2025 14:12-0400 SaO2% (BldA) [Mass fraction] 99 % Dr. Raúl [place] MD Work Phone: 8(997)472-972774 [address] 05-10-2025 14:12-0400 Systolic blood pressure 136 mm[Hg] Dr. Rúal [place] MD Work Phone: 4(423)116-812574 [place] [address] 05-08-2025 19:04-0400 Body temperature 97.9 [degF] Dr. Raúl [place] MD Work Phone: 7(430)134-360974 [place] [address] 05-08-2025 19:04-0400 Diastolic blood pressure 79 mm[Hg] Dr. Raúl [place] MD Work Phone: [facility] 05-08-2025 19:04-0400 Heart rate 60 /min Dr. Raúl [place] MD Work Phone: [facility] 05-08-2025 19:04-0400 Respiratory rate 16 /min Dr. Raúl [place] MD Work Phone: [facility] 05-08-2025 19:04-0400 SaO2% (BldA) [Mass fraction] 95 % Dr. Raúl [place] MD Work Phone: [facility] 05-08-2025 19:04-0400 Systolic blood pressure 157 mm[Hg] Dr. Raúl [place] MD Work Phone: [facility] 05-08-2025 14:50-0400 Body height 170.[address] Raúl [place] MD Work Phone: [facility] 05-08-2025 14:50-0400 Body mass index (BMI) [Ratio] 23.6 kg/m2 Dr. Raúl [place] MD Work Phone: [facility] 05-08-2025 14:50-0400 Body weight 68.[address] Raúl [place] MD Work Phone: [facility] Encounters Encounter Date Encounter Type Care Provider Facility Start: 05-23-2025 ambulatory Angela Godfrey ty:[facility] Start: 05-17-2025 ambulatory Raúl [place] Facility:[facility] Start: 05-10-2025 End: 05-10-[address] Angela Vale MD -[facility] Work Phone: Start: 05-10-2025 End: 05-10-[address] Raúl [place] MD Work Phone: -[facility] Start: 05-08-2025 End: 05-08-2025 Emergency department patient visit Dr. Raúl [place] MD Work Phone: -Emergency Department Work Phone: Start: 04-21-2025 End: 04-21-[address] Raúl [place] MD Work Phone: -Cat Scan [facility] Start: 04-21-2025 End: 04-21-[address] Raúl [place] MD -Cat Scan [facility] Work Phone: Start: 04-21-2025 End: 04-21-2025 ambulatory Raúl [place] Facility:[facility] Start: 03-29-2025 End: 03-29-[address] Raúl [place] MD Work Phone: -[facility] [place] Start: 03-29-2025 End: 03-29-[address] Raúl [place] MD -[facility] [place] Work Phone: Start: 03-29-2025 End: 03-29-2025 ambulatory Raúl [place] Facility:[facility] Start: 03-11-2025 ambulatory Raúl [place] Facility:[facility] Start: 02-17-2025 End: 02-17-[address] Raúl [place] MD Work Phone: -[facility] [place] Start: 02-17-2025 End: 02-17-[address] Raúl [place] MD -[facility] [place] Work Phone: Start: 02-17-2025 End: 02-17-2025 ambulatory Raúl [place] Facility:[facility] Start: 09-02-2023 End: 09-02-2023 ambulatory [facility] Work Phone: Start: 09-02-2023 End: 09-02-2023 Patient encounter procedure [facility] Work Phone: Start: 11-05-2021 End: 11-05-2021 Patient encounter procedure [facility], [place] Start: 09-24-2017 Evaluation and management of inpatient [facility] Start: 09-19-[address] [facility] Procedures Date Procedure Procedure Detail Performing Clinician Start: 05-08-2025 Ct abdomen & pelvis w/contrast material Dr. Raúl [place] MD Work Phone: Start: 05-08-2025 Urnls dip stick/tabl et reagent auto microscopy Dr. Raúl [place] MD Work Phone: Start: 05-08-[address] Raúl [place] MD Work Phone: Start: 04-21-2025 CT of abdomen and pe [...] Work Phone: Start: 11-05-2021 Plain chest X-ray Plan of Treatment Date Care Activity Detail Author Start: 05-08-2025 [facility] Start: 05-08-2025 Referral to oncologist [facility] MR Abdomen WO and W contrast IV [facility] Patient Education ED Tumor, Unce rtain Cause [facility] Work Phone: Payers Date Payer Category Payer Self-pay [id number] 2016 Unknown [id number] Unknown Unknown [id number] 2.16.8 [id number] Unknown [id number] 2.16.8 [id number] Unknown [id number] 2.16.8 [id number] Unknown [id number] 2.16.8 [id number] Unknown [id number] 2.16.8 [id number] Unknown [id number] 2.16.8 [id number] Unknown [id number] 2.16.8 [id number] Unknown [id number] 2.16.8 [id number] Social History Date Type Detail [facility] Work Phone: Start: 1940 Sex Assigned At Male [facility] Work Phone: Sex Male [facility] Start: 05-08-[address] [facility] Never [facility] (finding) [facility] Start: 05-10-[address] [facility] Medical Equipment Procedure Code Equipment Code [...] penile prosthesis implanted 2001 FDA Start: 08-04-2001 Clinical Notes 03-30-2025 to 05-10-2025 Note Date & Type Note Facility 05-10-2025 Progress note [facility] 05-08-2025 Discharge summary [facility] 05-08-2025 Radiology Diagnostic study note [facility] Imaging Services [address] [place] [address] Abdomen/Pelvis W IV Cont ONLY MR#: [id number] Acct: [id number] Name: ACE ARELLANO Rep #: [id number] : 1940 M 85 From: Lacehlle Arellano MD PCP: Dr. Raúl [place] MD Status: REG ER Study:Abdomen/Pelvis W IV Cont ONLY Date of E xam: 05/08/25 Exam# [id number] Ordering Dr: Bhaskar Foster DO PROCEDURE: ABDOMEN/PELVIS W IV CONT ONLY 05/08/2025 REASON FOR EXAM: EPIGASTRIC ABDOMINAL PAIN TECHNIQUE: Procedure Code: [id number] Modality: CT Procedure: ABDOMEN/PELVIS W IV CONT ONLY Coronal and Sagittal reconstruction series were provided. CONTRAST: Isovue 370 VOLUME: 100 mL One or more dose reduction techniques were used (e.g., Automated exposure control, adjustment of the mA and/or kV according to patient size, use of iterative reconstruction technique. COMPARISON: 04/21/2025 FINDINGS: The lung bases are clear. Irregularity of the pancreas in the body is again seen similar to the recent study. Recommend MRI of the pancreas to evaluate for a pancreatic neoplasm, which is the diagnosis of exclusion. No liver masses. Normal gallbladder. Normal portal vein. No renal mass or hydronephrosis. Normal abdominal aorta. There is no free-fluid in the pelvis. There is no bowel obstruction. Penile implant is in place. No obstruction of the large bowel with the small bowel is seen. The appendix isseen to be normal. There is no colonic wall thickening. There is no gastric distention of significance. CT/Abdomen/Pelvis W IV Cont ONLY IMPRESSION: Persistent pancreatic abnormality. Recommend MRI pancreas without and with contrast. Do not recommend MRCP Reading [facility] CC: Dr. Raúl Leslie MD; Dr. Francisco Foster DO ~ Topstitcher Zigzag: Signed [facility] 05-08-2025 Discharge summary Note Date/Time May 08, 2025 7:35pm [facility] Medical Records Department [address] [place] [address] Emergency Department Summary 05/08/25 MR#: [id number] Acct: [id number] Name: ACE ARELLANO Rep #:[id number] : 1940 85 From: Francisco Torres PCP: Dr. Raúl Leslie MD Status:DEP ER Location: ED [facility] History of Present Illness Chief Complaint: Abd Pain PFSH PFSH Medical History no medical history Home Medications ?Medication ?Instructions ?Recorded ?Last Taken ?Type linaclotide 290 mcg capsule 290 mcg PO DAILY 05/08/25 Unknown History (Linzess) ondansetron 4 mg disintegrating 4 mg PO Q8H PRN PRN Na usea #10 tabs 05/08/25 Unknown Rx tablet oxycodone 5 mg tablet 5 mg PO Q6H PRN pain 3 days #12 05/08/25 Unknown Rx tabs Allergy/AdvReac Type Severity Reaction Status Date / Time shellfish derived Allergy Severe Anaphylaxis Verified 05/08/25 14:50 Family History no significant family his Surgical History (Updated 05/08/25 @ 15:31 by Orquidea Wilder) History of back surgery H/O neck surgery Surgical History no surgical history Social History Smoking Status: Never smoker EXAM Physical Exam Const Vital Signs: 05/08/25 14:50 05/08/25 16:50 05/08/25 18:00 Temperature 97 F L Temperature Source Temporal Pulse Rate 76 73 60 Respiratory Rate 20 H Blood Pressure 151/66 H 138/74 H 157/79 H Blood Pressure Mean 94 95 105 Pulse Ox 97 95 95 Oxygen Delivery Method Room Air 05/08/25 19:04 Temperature 97.9 F Temperature Source Pulse Rate 60 Respiratory Rate 16 Blood Pressure 157/79 H Blood Pressure Mean 105 Pulse Ox 95 Oxygen Delivery Method MDM MDM MDM Narrative Medical decision making narrative: HISTORY OF PRESENT ILLNESS: Chief complaint: Abdominal pain 85-year-old male with history of back surgery, neck surgery presents abdominal pain. Abdominal pain is been ongoing for last several weeks but has gotten worse over the last 2 to 3 days. He has not had a bowel movement last 3 days. Typically is about 1 every other day. Denies vomiting but notes nausea. Denieschest pain. Denies history abdominal surgery. Denies urinary complaints REVIEW OF SYSTEMS: Pertinent positives: Abdominal pain, nausea Pertinent negatives: Chest pain, shortness of breath, vomiting, syncope PHYSICAL EXAM: Nursing triage notes reviewed, Vital signs reviewed Constitutional: please see [facility] HENT: MMM Eyes: Pupils equal round and reactive to light, Extraocular muscles intact Neck: No stridor, no JVD, full neck ROM Lungs: Clear to auscultation, No wheezing or rales. No increased work of breathing, no conversational dyspnea, no accessory muscle use, no nasal flaring. No respiratory distress noted Heart: Regular rate and rhythm, No murmurs, No rubs and No gallops, 2+ distal pulses (radial, femoral, posterior tibial) in all extremities Abdomen: Soft, diffuse TTP rigidity, rebound or guarding, no obvious peritoneal signs, no palpable pulsatile abdominal masses, no auscultated abdominal bruit : No CVAT Extremities: No edema Neuro: No new focal neurological deficits, cranial nerves II through XII intact,5/5 strength in all present extremities. Intact sensation to light touch in all present extremities, 2+ reflexes bilateral patella tendons. Skin: No rash or lesions noted MEDICAL DECISION MAKING: Chief Complaint: please see [facility] External records reviewed: Reviewed imaging studies: CT scan of the abdomen pelvis from 04/21/2025 showed no evidence of kidney stone but showed 1.4 cm ill-defined hypodensity in the pancreatic body Factors affecting care: n as per [facility] Social determinants of health: none History obtained from others: Patient's Consults: none [facility] Narrative: Patient was initially hemodynamically stable, afebrile and nontoxic-appearing. Exam with diffuse tenderness no distention or peritoneal signs noted. I considered the following differential diagnosis: A AAA, small bowel obstruction, abdominal perforation, appendicitis, pancreatitis, hepatobiliary pathology (acute cholecystitis), mesenteric ischemia, pathology (ie nephrolithiasis, pyelonephritis). I obtained broad lab and imaging evaluation to further determine if the patient was suffering from a life-threatening etiology. Initially treat the patient with IV fluids, Zofran, morphine and Toradol. ALL IMAGES (IF OBTAINED) HAVE BEEN PERSONALLY REVIEWED AND INTERPRETED BY MYSELF. CBC with no leukocytosis, no anemia or thrombocytopenia CMP without evidence of acute kidney injury, significant electrolyte abnormality, anion gap to suggest end organ hypo-perfusion, no evidence of metabolic acidosis with a normal bicarbonate, no evidence of hepatobiliary obstructive pathology. Lipase is wnl indicating no pancreatic inflammation. Urinalysis without evidence of UTI CT scan abdomen pelvis without evidence of perforation/obstruction or other acute surgical pathology of the abdomen or pelvis. Did show pancreatic lesion similar to prior The synthesis of the patient's history, physical exam, labs images suggest no acute life-limiting etiology. Repeat abdominal exam remained benign. Patient noted symptomatic improvement after the above medications. He is likely suffering from pain related to likely pancreatic cancer. Discussed pain controland nausea control at home. Discussed Oncology Fast past referral. Strict return precautions were discussed as well. The patient and/or family, caregivers express understanding. The patient and/orfamily, caregivers agrees with the plan. Shared decision making: I will have a discussion with the patient and or visitors regarding risk/benefits of further testing or admission. They will be made aware of of the risk/benefits inherent in this decision they will be given the opportunity to voice understanding. Total critical care time today provided was at least 0 minutes. This excludes separately billable procedures. Critical care time (if documented) is secondary to the patient having high probability of clinically significant/life threatening deterioration in the patient's condition which required my urgent intervention. Impression: 1. Acute abdominal pain 2. Pancreatic mass Dispo: Discharge home This note was generated with PharmMD dictation software. It may contain incorrectwords, spelling, and punctuation that were not noted in review of the chart prior to signing. Lab Data Labs: Laboratory Results - last 24 hr 05/08/25 05/08/25 15:10 16:16 WBC 8.8 RBC 4.16 L Hgb 13.2 Hct 37.8 L MCV 90.9 MCH 31.7 MCHC 34.9 RDW Std Deviation 41.1 RDW Coeff of Fabián 12.3 Plt Count 265 MPV 10.8 Immature Gran % (Auto) 0.300 Neut % (Auto) 68.7 Lymph % (Auto) 18.0 L [place] % (Auto) 7.2 Eos % (Auto) 5.3 H Baso % (Auto) 0.5 Absolute Neuts (auto) 6.0 Absolute Lymphs (auto) 1.58 Nucleated RBC % 0 Sodium 134 Potassium 3.9 Chloride 97 L Carbon Dioxide 22.6 Anion Gap 15 BUN 17 Creatinine 0.73 Estim Creat Clear Calc 63.12 Est GFR (MDRD) Non-Af 89 BUN/Creatinine Ratio 22.7 H Glucose 98 Calcium 9.4 Total Bilirubin 0.52 AST 19 ALT 21 Alkaline Phosphatase 76 Total Protein 7.3 Albumin 4.5 Globulin 2.8 Albumin/Globulin Ratio 1.6 Lipase 14 Urine Color Yellow Urine Clarity Clear Urine pH 6.0 Ur Specific [place] 1.020 Urine Protein 30 H Urine Glucose (UA) Normal Urine Ketones 5 H Urine Occult Blood Negative Urine Nitrite Negative Urine Bilirubin Negative Urine Urobilinogen Normal Ur Leukocyte Esterase Negative Urine RBC 0-5 SEEN Urine WBC 0-5 SEEN Ur Squamous Epith Cells 0-5 SEEN Urine Bacteria RARE Urine Mucus 0 SEEN Radiography Diagnostic Testing: Clinical Impression(s) from Imaging Studies Abdomen/Pelvis CT 05/08/25 16:34 IMPRESSION: Persistent pancreatic abnormality. Recommend MRI pancreas without and with contrast. Do not recommend MRCP Reading Location: [facility] Discharge Plan Triage Chief Complaint: Abd Pain ED Provider: Francisco Foster Dx/Rx/DC Orders Instructions: ED Tumor, Uncertain Cause Prescriptions: New oxycodone 5 mg tablet 5 mg PO Q6H PRN (Reason: pain) 3 Days Qty: 12 0RF ondansetron 4 mg tablet,disintegrating 4 mg PO Q8H PRN PRN (Reason: Nausea) Qty: 10 0RF No Action Linzess 290 mcg capsule 290 mcg PO DAILY Other Ambulatory Orders: Fast Pass: Oncology Referral [facility] (Routine) Facility: [facility] - Location: [facility] Ordered By: Dr. Francisco Foster Primary Care Provider: Raúl Leslie Referrals: Raúl Leslie MD [Primary Care Provider, Family Practice] Activity Restrictions/Additional Instructions: Thank you for trusting us with your care today! Your labs and imaging are reassuring. There is no sign of systemic inflammation, issues your kidneys, liver or pancreas. Your CT scan once again showed the abnormality of your pancreas which is concerning for possible cancer. Please follow-up with the [facility] oncology referral. Expect a call for scheduling. This is located here in [facility]. Please take Tylenol (2 pills, 650 mg), ibuprofen (2 pills, 400 mg) every 6 hoursas needed for pain and fever control. Please take oxycodone if the above regimen does not control your pain. Narcotics as oxycodone can cause significant amount of constipation. Please begin a bowel regimen which consist of MiraLAX, Colace and senna. Initiate thisplease increase your fluid intake and start eating fiber 1 cereal daily for breakfast to improve GI throughput. Please take Zofran as needed for nausea vomiting control. Please return to the emergency department if your symptoms change or worsen. Please follow with your primary care physician for further outpatient evaluationand management. Print Language: Swedish Disposition Disposition: Home, Self Care Discharge Date/Time: 05/08/25 19:35 What to do if you have Problems For any increased pain, shortness of breath, bleeding, nausea or vomiting, chestpain, or any unexpected problems, contact your Primary Care Provider. Call [facility] ([phone]) or report to the closest Emergency Room. Call 911 if necessary. 05/08/252149 <Electronically signed by Francisco Foster DO> Cosigner Signature (if applicable): CC: Dr. Raúl Leslie MD ~ Signed [facility] Work Phone: [phone] Radiology Diagnostic study note [facility] Imaging Services [address] [place] [id number] Abdomen/Pelvis without Cont MR#: [id number] Acct: [id number] Name: ACE ARELLANO Rep #: [id number] : 1940 M 84 From: Marcelino Hernandez MD PCP: Dr. Raúl Leslie MD Status: REG CLI Study:Abdomen/Pelvis without Cont Date of Exa m: 04/21/25 Exam# [id number] Ordering Dr: Addison Leslie MD PROCEDURE: ABDOMEN/PELVIS [...] changes of the spine. S shaped scoliosis. Xstukhtx-oj-aetpts atherosclerosis. The infrarenal abdominal aorta measures up to 3.0 cm in diameter. No suspicious lymphadenopathy. The liver, gallbladder are unremarkable. Absent pancreatictail which may be congenital or due to [...] diverticulosis without diverticulitis. *Enlarged prostate. Reading Location: [facility] CC: Dr. Raúl Leslie MD ~ Topstitcher Zigzag: Signed [facility]08-27-2025 Radiology Diagnostic study note [facility] Imaging Services [address] [place] [address] Abdomen Single View MR#: [id number] Acct: [id number] Name: ACE ARELLANO Rep #: [id number] : 1940 M 84 From: Zacarias Scott MD PCP: Dr. Raúl Leslie MD Status: REG CLI Study:Abdomen Single View Date of Exam: 03/29/25 Exam# [id number] Ordering Dr: Addison Leslie MD PROCEDURE: ABDOMEN SINGLE VIEW 03/29/2025 REASON FOR EXAM: CONSTIPATION TECHNIQUE: ABDOMEN SINGLE VIEW COMPARISON: None. FINDINGS: There is a nonobstructive bowel gas pattern. There is a 2 mm calcification projected to the left ofthe spine at the L 1 2 level and a 7 mm calcification projected to the left of the spine at the L4-5 level. Status post penile implant. 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 RAD/Abdomen Single View IMPRESSION: 1. Possible left ureterolithiasis. 2. No significant constipation. 3. Other findings as noted. Reading Location: [facility] CC: Dr. Raúl Leslie MD ~ Topstitcher Zigzag: Signed [facility] Work Phone: Evaluation noteNo assessment information available [facility] Work Phone: Evaluation note* Diagnosis Onset Date Resolution Status Admit Date Abdominal pain acute May 2:01pm Pancreatic lesion acute May 10, 2025 2:01pm [facility] Work Phone: Hospital Discharge instructionsAdditional Instructions Thank you for trusting us with your care today! Your labs and imaging are reassuring. There is no sign of systemic inflammation, issues your kidneys, liver or pancreas. Your CT scan once again showed the abnormality of your pancreas which is concerning for possible cancer. Please follow-up with the [facility] oncology referral. Expect a call for scheduling. This is located here in [facility]. Please take Tylenol (2 pills, 650 mg), ibuprofen (2 pills, 400 mg) every 6 hours as needed for pain and fever control. Please take oxycodone if the above regimen does not control your pain. Narcotics as oxycodone can cause significant amount of constipation. Please begin a bowel regimen which consist of MiraLAX, Colace and senna. Initiate this please increase your fluid intake and start eating fiber 1 cereal daily for breakfast to improve GI throughput. Please take Zofran as needed for nausea vomiting control. Please return to the emergency department if your symptoms change or worsen. Please follow with your primary care physician for further outpatient evaluation and management.[facility] Work Phone: Progress note Author Angela Vale [facility] Note Date/Time May 10, 2025 2: 57pm [facility] [place] [address] OFFICE VISIT Date of Service: 05/10/25 1403 MR#: [id number] Acct: [id number] Name: ACE ARELLANO Rep #: [id number] : 1940 From: Angela rodriguez MD Age/Sex: 85/M Location: [facility] Status: Signed HPI Subjective Date of Service 05/10/25 Chief Complaint Abdominal pain and pancreatic lesion History of Present Illness 85-year-old gentleman who for approximately 2 months has had daily bouts of epigastric pain. The pain appears to be aggravating by meals, laying down, withrelieved by sitting up and taking combination of Tylenol and ibuprofen gbyev-ite-yrzqy. He has lost at least 10 pounds of weight since the onset. He has had no nausea or vomiting, no dysphagia, has had recent constipation, hisstools "are dark" but he is not sure whether they are black and melanotic or not. He has had the habit of drinking 2-4 alcoholic drinks daily but denies ever having been intoxicated, jaundiced or history of pancreatitis. April 21, 2025 CT abdomen and pelvis: IMPRESSION: *No evidence of renal or ureteral calculi. No hydroureteronephrosis. *1.4 cm ill-defined hypodensity in the pancreatic body on a non-contrast study; indeterminate. Recommend further evaluation with contrast-enhanced pancreatic protocol CT or MRI. 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 Recommend routine surveillance. *Colonic diverticulosis without diverticulitis. *Enlarged prostate. May 08, 2025 CT abdomen and pelvis: IMPRESSION: Persistent pancreatic abnormality. Recommend MRI pancreas without and with contrast. [facility] Surgical History History of back surgery H/O neck surgery Family History (Updated 05/10/25 @ 14:12 by Candace Prado) Father Colon cancer Mother Cancer Brother Diabetes Daughter Diabetes Social History (Updated 05/10/25 @ 14:11 by Candace Prado) Smoking Status: Former smoker Tobacco: How many years used: 62 alcohol intake: current alcohol intake frequency: 0-2 drinks per day Alcohol type: beer substance use type: does not use ROS Constitutional Constitutional: Reports systems reviewed and no addt'l complaints, except as documented, as per HPI, anorexia and weight loss; Denies fever(s) Eyes Eyes: Reports systems reviewed and no addt'l complaints, except as documented ENT HEENT: Reports systems reviewed and no addt'l complaints, except as documented; Denies mouth lesions Cardiovascular Cardiovascular: Reports systems reviewed and no addt'l complaints, except as documented; Denies chest pain with activity or edema Respiratory/Chest Respiratory/Chest: Reports systems reviewed and no addt'l complaints, except as documented; Denies dyspnea Gastrointestinal Gastrointestinal: Reports systems reviewed and no addt'l complaints, except as documented, as per HPI, abdominal pain, anorexia and constipation Genitourinary Genitourinary: Reports systems reviewed and no addt'l complaints, except as documented Musculoskeletal Musculoskeletal: Reports systems reviewed and no addt'l complaints, except as documented, back pain and other Details: Chronic unchanged back pain Integumentary Integumentary: Reports systems reviewed and no addt'l complaints, except as documented; Denies new lesions Neurologic Neurologic: Reports systems reviewed and no addt'l complaints, except as documented; Denies focal weakness or paresthesias Psychiatric Psychiatric: Reports systems reviewed and no addt'l complaints, except as documented Endocrine Endocrinology: Reports systems reviewed and no addt'l complaints, except as documented Hematologic/Lymphatic Hematologic/Lymphatic: Reports systems reviewed and no addt'l complaints, exceptas documented Allergic/Immunologic Allergic/Immunologic: Reports systems reviewed and no addt'l complaints, except as documented Intake Vital Signs 05/08/25 14:50 05/10/25 14:04 05/10/25 14:12 Height 5 ft 7 in 5 ft 7 in 5 ft 7 in Weight: 69.116 kg BMI 23.8 BP 136/79 H Blood Pressure Location Lt brachial Position Sitting Respiration 18 Pulse 64 Pulse Source Monitor Temp 98.0 F Temperature Source Temporal Artery Pulse Oximetry (%) 99 Oxygen Delivery Method room air Intake Is patient in pain?: No Allergies shellfish derived Allergy (Severe, Verified 05/10/25 14:08) Anaphylaxis Medications ?Medication ?Instructions ?Recorded ?Confirmed ?Type linaclotide 290 mcg capsule 290 mcg PO DAILY 05/08/25 05/10/25 History (Linzess) ondansetron 4 mg disintegrating 4 mg PO Q8H PRN PRN Na usea #10 tabs 05/08/25 05/10/25 Rx tablet oxycodone 5 mg tablet 5 mg PO Q6H PRN pain 3 days #12 05/08/25 05/10/25 Rx tabs acetaminophen 500 mg tablet 500 mg PO Q6H PRN 05/10/25 05/10/25 History (Tylenol Extra Strength) ibuprofen 600 mg tablet 600 mg PO Q8H PRN 05/10/25 1 History Have you fallen in the past year?: No Central Venous Access Central Venous Access: No Laboratory Tests 05/08/25 15:10 Lipase 14 I personally reviewed patient's CT scan images of April and May of the abdomen and pelvis. Exam Physical Exam Narrative ECOG 1 Const alert, oriented x3 and no apparent distress General Appearance: cooperative and comfortable HEENT Face and Sinus: normal facial exam Eyes General Eye: normal appearance of both eyes Neck no lymphadenopathy and no JVD Resp clear to auscultation bilaterally Cardio regular rate and regular rhythm Jugular Venous Distention: Negative for JVD GI soft to palpation, non-tender, non-distended and no masses; Negative for hepatosplenomegaly Back/Spine no thoracic nor lumbar tenderness Extremity no clubbing, cyanosis or edema Skin no rashes or lesions noted Neuro oriented x3, CN's II-XII intact bilaterally, moves all extremities and no focal motor deficits Coordination / Balance: yuyllg-uq-hplq test normal Speech: speech normal Gait (Neuro): normal gait Psych mental status grossly normal Coding Level of Care Code Off vis,new,level 5 Exam Problem Focused Diagnoses Pancreatic lesion K86.9 Epigastric pain R10.13 Abdominal location: epigastric Assessment and Plan Assessment and Plan (1) Pancreatic lesion: Status: Acute (2) Abdominal pain: Status: Acute Qualifiers: Abdominal location: epigastric Qualified Code(s): R10.13 - Epigastric pain Orders: Orders MRI Abd WITH and W/O Contrast 05/23/25 K86.9 - Disease of pancreas, unspecified Plan 85-year-old gentleman with 2 months history of recurrent bouts of upper abdominal pain (see under HPI for description) weight loss and incidental finding of a pancreatic body abnormality on CT. Notably the patient drinks on average 2-4 alcoholic drinks daily. No history ofhepatitis or pancreatitis. In a recent emergency room visit his amylase was notelevated Chronic comorbid conditions, chronic back pain degenerative, diverticular disease. Plan: 1. MRI of the pancreas with and without contrast and follow-up. 2. Patient was advised to start taking a PPI (has at home purchased [id number]) on a daily basis. He was also advised to stop drinking alcohol on a daily basis and see if that helps with his pain. 3. Further workup depending on the findings from the MRI. Impression and recommendations discussed with patient and his , follow-up after MRI. Angela Vale MD Ladle [facility]iller, [facility] Divisions of Medical Oncology & Hematology Department of Internal Medicine [place] [phone] This note was generated using a voice recognition system software. Although itwas reviewed by the author prior to finalization, it may still contain incorrectwords, spelling, and punctuation that were not noted when reviewing prior to saving. If a clinically significant typo or inaccurately typed phrase is noted, please notify the author. Clinical Quality Measures Falls Risk Screening/Assistive Devices Have you fallen in the past year?: No 05/10/25 1486 <Electronically signed by Angela rodgers MD> Date _ Angela Vale MD Cosigner Signature: Date (if applicable) CC: Dr. Raúl Leslie MD; Dr. Francisco Foster DO ~ [facility] Work Phone: Reason for referral (narrative)No reason for referral information availableWKeenan Private Hospital Work Phone: Summary Purpose Family History No Family History Records Found Relationship Condition Age at Onset Recorded Date/T yoshi father Malignant neoplasm of colon Unknown mother Malignant neoplasm Unknown brother Diabetes mellitus Unknown daughter Diabetes mellitus Unknown Advance Directives No Advanced Directives Records Found Advance Directive Response Recorded Date/ Time Do you have a Healthcare Power of Batt Packer? No May 08, 2025 3:28pm Chief Complaint and Reason for Visit Chief Complaint did not want labs by Dr. Leslie today Chief Complaint Admit Date EORDER- LAB AND XRAY March 29, 2025 9 :42am Chief Complaint Admit Date EORDER- LAB AND XRAY March 29, 2025 9 :42am KIDNEY STONE ASSETMENT April 21, 2 025 7:30am Chief Complaint Admit Date EORDER- LAB AND XRAY March 29, 2025 9 :42am KIDNEY STONE ASSETMENT April 21, 2 025 7:30am ABD PAIN May 08, 2025 2: 50pm Chief Complaint Admit Date EORDER- LAB AND XRAY March 29, 2025 9 :42am KIDNEY STONE ASSETMENT April 21 2 025 7:30am ABD PAIN May 08, 2025 2: 50pm PANCREATIC LESION May 10, 2025 2: 01pm Reason for Visit Admit Date Abdominal pain May 10, 2025 2: 01pm Pancreatic lesion May 10, 2025 2: 01pm Additional Source Comments (unrecognized sect ion and content) No Status Records FoundNo Status Records Found INFORMATION SOURCE (unrecogn ized section and content) DATE CREATED AUTHOR 01/28/2018 [facility] DATE CREATED AUTHOR AUTHOR'S ORGANIZ ATION 05/19/2025 [facility] Goals (unrecognized section and content) Goals [...] April 21, 2025 End: April 21, 2025 Team Status: Inactive Member Role/Relationship Status Dates Dr. Raúl Leslie MD Primary care physician Active Start: May 08, 2025 End: May 08, 2025 Dr. Francisco Foster DO Emergency Department Physician Active Start: May 08, 2025 End: May 08, 2025 Team Status: Inactive Member Role/Relationship Status Dates Dr. Raúl Leslie MD Primary care physician Active Start: May 10, 2025 End: May 10, 2025 Dr. Francisco Foster DO Referring Provider Active Start: May 10, 2025 End: May 10, 2025 Dr. Angela Vale MD Attending physician Active Start: May 10, 2025 End: May 10, 2025 FOR RECORDS PERTAINING TO PATIENTS WHO [...] BE BASED ON THE PRIMARY CLINICAL RECORDS. [employer] provides no warranty or guarantee of the accuracy or completeness of information in this document.
--- NOTE | 2025-05-23 07:12 | MRI_ITS ---
PROCEDURE: MRI ABD WITH AND W/O CONTRAST 05/23/2025 REASON FOR EXAM: PANCREAS LESION TECHNIQUE: Procedure Code: [id number] Modality: MR Procedure: MRI ABD WITH AND W/O CONTRAST Multiplanar and multisequence images were obtained. CONTRAST: Clariscan VOLUME: 13 mL COMPARISON: CT abdomen and pelvis dated 05/08/2025 FINDINGS: Liver: The liver is normal in signal. Few scattered benign-appearing cysts noted. No mass. No biliary ductal dilatation Biliary: The gallbladder intrahepatic ducts and common bile duct appear normal. Pancreas: Nonenhancing mass in the body of the pancreas measuring 2.7 x 2.4 cm. This accounts for atrophy of the distal pancreatic body and tail with dilatation of the upstream pancreatic duct measuring 7.5 mm. The lesion abuts the celiac axis and SMA. There is tumor extending along the inferior body of the pancreas along the course of the superior mesenteric artery with a broad area of contact exceeding [address] demonstrates indistinct margins along the proximal SMA and celiac artery. Dedicated CT angiogram is recommended for surgical planning. Spleen: Small benign splenic cysts measuring 13 mm. Adrenals: Normal Kidneys: Small bilateral cortical renal cysts.. No hydronephrosis. No solid mass. Peritoneum / Retroperitoneum: No ascites. No peritoneal implant. Lymph Nodes: No lymphadenopathy Major Vessels: Focal ectasia of the abdominal aorta measuring 2.7 cm, borderline aneurysmal Bones: No abnormal signal or abnormal pattern of enhancement. MRI/MRI Abd WITH and W/O Contrast IMPRESSION: Hypoenhancing mass 2.7 cm in the body of the pancreas with associated atrophy o f the pancreatic tail and dilatation of the upstream pancreatic duct. The mass abuts both the celiac axis and the SMA with indistinct margins. CT angiography of the abdomen is recommended as vascular compromise is suspected. No lymphadenopathy. No evidence of metastatic disease of the liver. Splenic cysts. Ectasia of the abdominal aorta measuring 2.7 cm Reading Location: [id number]
== END | disposition home or self-care (01) ==
PROVIDERS: PCP Family Medicine; Referring Provider Internal Medicine Hematology & Oncology; Visit Provider Internal Medicine Hematology & Oncology
DX: K86.9 Disease of pancreas, unspecified (principal)
CPT/HCPCS: 74183; A9575; A4216

== ENCOUNTER → 2025-07-11 | Outpatient (CLI) | payer MEDICARE, SELFPAY ==
--- NOTE | 2025-07-11 09:19 | NM_ITS ---
PROCEDURE: BONE SCAN WHOLE BODY 07/11/2025 REASON FOR EXAM: STAGING PANCREAS CANCER TECHNIQUE: Procedure Code: NMBO Modality: NM Procedure: BONE SCAN WHOLE BODY Whole-body bone scan with anterior and posterior views. Imaging at 3.5 hours. RADIOPHARMACEUTICAL: 2 mCi Technetium-99m MDP IV COMPARISON: None available FINDINGS: Bones: Normal uptake identified within the skeleton. No areas of abnormal uptake identified to suggest occult fracture or metastatic disease. Scattered degenerative changes are noted Kidneys: Normal radiotracer excretion. NM/Bone Scan Whole Body IMPRESSION: No areas of abnormal uptake identified to suggest occult fracture or metastatic disease. Reading Location: [facility]
== END | disposition home or self-care (01) ==
PROVIDERS: PCP Family Medicine; Referring Provider Internal Medicine Hematology & Oncology; Visit Provider Internal Medicine Hematology & Oncology
DX: C25.9 Malignant neoplasm of pancreas, unspecified (principal)
CPT/HCPCS: 78306; A9503

== ENCOUNTER 2025-07-19 11:37 | Day surgery (SDC) | payer MEDICARE, SELFPAY ==
--- OUTSIDE RECORDS SUMMARY | 2025-07-15 05:46 | XMS RPT_ITS | CCD ---
Author Organization [facility] Care Team Providers Care Intermediate Card Tender Name Role Phone Asim Regan Unavailable Unavailable Leslie, Raúl Unavailable Unavailable Leslie, Raúl Unavailable Unavailable Asim Regan Unavailable Unavailable Leslie, Raúl Unavailable Unavailable Leslie, Raúl Unavailable Unavailable Anuj MCFARLANE, Dr. Olsen Primary Care Provider Anuj MCFARLANE, Dr. Olsen Attending Provider Anuj MCFARLANE, Dr. Olsen Referring Provider Anuj MCFARLANE, Dr. Olsen Primary Care Physician Anuj MCFARLANE, Dr. Olsen Attending Physician Dr. Francisco Foster DO Emergency Department Physi alex Dr. Francisco Foster DO Referring Provider Akanksha MCFARLANE, Dr. Miller Attending Physician Leslie, Raúl Primary Care Unavailable Leslie, Raúl Attending Unavailable Leslie, Raúl Referring Unavailable Leslie, Raúl Referring Unavailable Leslie, Raúl Primary Care Unavailable Leslie, Raúl Attending Unavailable Leslie, Raúl Referring Unavailable Leslie, Raúl Primary Care Unavailable Leslie, Raúl Attending Unavailable Isckarus, Mansour Attending Unavailable Isckarus, Mansour Referring Unavailable Leslie, Raúl Primary Care Unavailable Leslie, Raúl Consulting Unavailable Leslie, Raúl Primary Care Unavailable Isckarus, Mansour Referring Unavailable Isckarus, Mansour Attending Unavailable Leslie, Raúl Primary Care Unavailable Leslie, Raúl Attending Unavailable Leslie, Raúl Referring Unavailable Leslie, Raúl Referring Unavailable Leslie, Raúl Primary Care Unavailable Leslie, Raúl Attending Unavailable Isckarus, Mansour Attending Unavailable Leslie, Raúl Primary Care Unavailable Francisco Foster Referring Unavailable Isckarus, Mansour Attending Unavailable Leslie, Raúl Primary Care Unavailable Leslie, Raúl Referring Unavailable Raúl Leslie Primary Care Unavailable Francisco Foster Attending Unavailable Litzy MURPHY Attending Unavailable ANGELA VALE Referring Unavailable Litzy MURPHY Referring Unavailable Allergies Allergy Classification Reported Allergen(s) Allergy Type Date of Onset Reaction(s) Facility (3 sources) Shellfish; Translations: [shellfish derived] Allergy to substance 05-08-2025 Anaphylaxis [facility] (1 source) Iodine; Translations: [IODINE] Drug Allergy 05-17-2005 [facility] Repository Medications Current Medications Medication Drug Class(es) Dates [...] lower urinary tract symptoms] Onset: 04-08-2025 Chronic Other acquired deformities (4 sources) Unspecified [...] Onset: 09-24-2017 Chronic Pancreatic disorders (not diabetes) (6 sources) Disorder of pancreas; Translations: [Disease of pancreas, unspecified] Onset: 05-30-2025 05-08-2025 Episodic Past or Other Problems Problem Classification Problem Date Documented Da te Episodic/Chronic Medical examination/evaluation (2 sources) Encounter for other preprocedural examination; Translations: [Encounter for other preprocedural examination] Onset: 09-19-2017 Episodic Nonspecific chest pain (1 source) Other chest pain; Translations: [Other chest pain] Onset: 02-23-2025 Episodic Other gastrointestinal disorders (2 sources) Constipation, [...] Test Name Value Interpretation Reference Range Facility [facility] 06-14-2025 CNOV Office Visit ([facility] ) -- ADANACE MIX ([id number]) 1940 M Date Time Provider Department 06/14/25 1:30 PM [facility] During your visit today, we recorded the following information about you: Temperature Pulse Blood pressure Weight 98.9 degrees 57/minute 138/81 67.7 kg Height 1.702 m Colleen Nation 06/14/2025 4:59 PM Signed What is the reason for your visit today? consult Who is your referring physician? Angela Vale Are you having poor oral intake? NO Have you had unintentional weight loss of 15 lbs/7 Kg in the last 3-6 months? NO Bowels: constipated or regular Wound: clean AND dry Temperature: No Drains: No Guido Bills MD 06/14/2025 4:59 PM Signed INITIAL PANCREATIC CANCER PATIENT NAME: Ace Arellano DATE of SERVICE: 06/14/2025 TIME of SERVICE: 5:15 AM PCP: No primary care provider on file. This consult was requested by Angela Vale MD for evaluation of pancreatic cyst(s) My final recommendations will be communicated to the requesting health care provider by way of the shared medical record or artandseek services. HPI: Mr. Arellano is a 85 year old male who presents for evaluation of pancreatic mass. Patients states that he presented to ED for evaluation of epigastric for 4-5 months that was increasing intensity. The pain is constant. 8/10 intensity. Pain aggravated with meals. Pain for now controlled on tylenol and ibuprofen. + constipation. Had occasional n/v. Weight loss of 25 lbs in last 6 months. Smoker of 60-70 years and quit in 2021. Incidental- No Abdominal Pain-Yes Neck surgery with implant/fixed Lower back surgery WORKUP: MRI 2024 mass size 27 x 24 mm location body vessel involvement yes Arterial: SMA: Soft Tissue Contact Celiac: <180 degress SABIHA:No contact Splenic artery: No Contact Venous: MPV: No Contact SMV: No Contact Splenic Vein: No Contact Venous collaterals present: No Contiguous Organ Involvement: No Lymph node No Liver Lesions: No Ascites No Venous thrombosis No Pathology/Cytology: None PAST MEDICAL HISTORY PAST MEDICAL HISTORY Diagnosis Date Mixed hyperlipidemia Hyperlipidemia PAST SURGICAL HISTORY PAST SURGICAL HISTORY Procedure Laterality Date LAMINECTOMY W/O FFD /2 VERT SEG THORACIC FAMILY HISTORY FAMILY HISTORY Problem Relation Age of Onset Cancer Mother Cancer Father Pancreatic Cancer- No Colon Cancer- Yes Breast Cancer- No Pancreatitis- No SOCIAL HISTORY SOCIAL HISTORY[1] REVIEW OF SYSTEMS GENERAL: Positive for significant weight loss 25 lbs. RESPIRATORY: Negative for cough, hemoptysis, wheezing, COPD, dyspnea or shortness of breath CARDIOVASCULAR: Negative for chest pain, leg swelling, hypertension, CHF or palpitations GI: See HPI PHYSICAL EXAM: General Appearance: Well appearing, alert, in no acute distress, well-hydrated, well nourished.. Skin: Skin color, texture, turgor normal, no suspicious rashes or lesions. Lungs: Unlabored on room air. Heart: regular rate. Abdomen: Normal abdominal exam, Abdomen soft, non-tender. No masses, organomegaly. Neurologic: Gait normal. Reflexes normal and symmetric. Sensation grossly intact.. 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 Patient has not completed staging, or had path confirmation but suspicious for pancreatic cancer. Will need to complete staging and high likelihood of upfront chemotherapy. PLAN: Presentation at Tumor Board IgG4 CA19-[address] Pancreas Other workup: EGD/EUS Genetic testing HgbA1c SIGNATURE: Guido Rangel MD [1] Social History Tobacco Use Smoking status: Former Types: Cigarettes Passive exposure: Never Smokeless tobacco: Never Substance Use Topics Alcohol use: Yes Drug use: No Litzy Murphy MD 06/14/2025 4:59 PM Signed Consultation requested by Dr. Angela Vale for an opinion regarding Ace Arellano, who presents today for pancreas mas. My final recommendations will be communicated back to the requesting physician by way of shared Medical record or letter to requesting physician via US mail. [facility] STAFF PHYSICIAN NOTE OF PERSONAL INVOLVEMENT IN CARE I have reviewed the consult note obtained and doc (more content not included)... Normal [facility] Cancer Ag19-9 SerPl-aCncon 1 08-14-2024 Cancer Ag 19-9 Qn 199.0 [arb'U]/mL High <36.0 C [facility] Comment on above: Order Comment: Speci men Type: BLOOD SPECIMEN Ordering Facility: [facility] Address: [address] [place] [address] Result Comment: [facility] er antigen 19-9 test is used as an aid in monitoring response to treatment or recurrence in patients with established pancreatic, hepatobiliary, or gastrointestinal malignancies. Clinical correlation is required. The CA 19-9 Antigen test was performed using the [employer] DXI paramagnetic particle chemiluminescent immunoassay method. Results obtained with different assay methods or kits cannot be used interchangeably. Performed By: #### 2 4108-3 #### [facility] CLIA [id number] [address] [place] [address] [place] Creatinine and Glomerular fi ltration rate.predicted panel (S/P/Bld)on 06-14-2025 Creatinine [Mass/Vol] 0.76 mg/dL Normal 0.73-1.22 [facility] Comment on above: Order Comment: Bjorn go Type: BLOOD SPECIMEN Ordering Facility: [facility] Address: [address] [place] [address] Performed By: #### 4 5066-8 #### [facility] CLIA [id number] [address] [place] [address] [place] eGFRcr SerPlBld CKD-EPI 2020 88 mL/min/1.73m??? Normal >=60 [facility] Comment on above: Order Comment: Lumai men Type: BLOOD SPECIMEN Ordering Facility: [facility] Address: [address] [place] [address] Result Comment: Padmini mated Glomerular Filtration Rate (eGFR) is calculated using the 2020 CKD-EPI creatinine equation. This equation utilizes serum creatinine, sex, and age as parameters. The creatinine assay has traceable calibration to isotope dilution-mass spectrometry. Refer to KDIGO guidelines for clinical interpretation. In patients with unstable renal function, e.g. those with acute kidney injury, the eGFR may not accurately reflect actual GFR. Performed By: #### 4 5066-8 #### [facility] CLIA [id number] [address] [place] [address] [place] HbA1c (Bld)on 06-14-2025 Average glucose Estimated from glycated hemoglobin (Bld) [Mass/Vol] 117 mg/dL Normal [facility] Comment on above: Order Comment: Bjorn go Type: BLOOD SPECIMEN Ordering Facility: [facility] Address: [address] [place] [address] Result Comment: eAG: (Estimated average glucose) is a calculated value from HgbA1c and is bottling equipment sales representative of the average blood glucose level in the last 2-3 month period. Performed By: #### 5 5454-3 #### [facility] CLIA [id number] [address] [place] [address] [place] HbA1c (Bld) [Mass fraction] 5.7 % High 4.3-5.6 [facility] Comment on above: Order Comment: Bjorn go Type: BLOOD SPECIMEN Ordering Facility: [facility] Address: [address] [place] [address] Result Comment: Jagdish ican Diabetes Association guidelines indicate that patients with HgbA1c in the range 5.7-6.4% are at increased risk for development of diabetes, and intervention by lifestyle modification may be beneficial. HgbA1c greater or equal to 6.5% is considered diagnostic of diabetes. Performed By: #### 5 5454-3 #### [facility] CLIA [id number] [address] [place] [address] [place] IgG4 Ser-mCncon 06-14-2025 IgG subclass 4 (S) [Mass/Vol] 32.4 mg/dL Normal 3.9-86.4 [facility] Comment on above: Order Comment: Speci men Type: BLOOD SPECIMEN Ordering Facility: [facility] Address: [address] [place] [address] Performed By: #### 2 469-5 #### [facility] CLIA [id number] [address] [place] [address] [place] CNPThea 06-02-2025 CNPN Telephone (GENSMN) -- ACE ARELLANO ([id number]) 1940 M Date Time Provider Department 06/02/25 AVI FLETCHER During your visit today, we recorded the following information about you: Avi Fletcher, RN 06/02/2025 4:52 PM Signed [facility] dr grijalva oncologist. - Fax number; [phone] Patient has had an MRI showed pancreas mass. No biopsy yet. Allergies As of Date: 06/02/2025 Noted Allergy Reaction IODINE 05/17/2005 Date Reviewed: 05/04/2007 Reviewed by: Martha Martinez - Reviewed Problem List As Of Date: 06/02/2025 (None) Encounter Status:Closed by AVI FLETCHER on 06/02/25 Normal [facility] Carbohydrate AG 19-9on 06-01 CA 19-9 159 U/mL High 0-35 [facility] Comment on above: Result Comment: [employer] (formerly [employer]) Electrochemiluminescence Immunoassay (ECLIA) Values obtained with different assay methods or kits cannot be used interchangeably. Results cannot be interpreted as absolute evidence of the presence or absence of malignant disease. Performed at: [address] [id number] Capacitor Repairer: Blue Washington PhD, Phone: [phone] Performed By: #### L 8315.4099 #### [facility] [address] [place], [place], [address] Oncology Visit Reporton 05-05 Oncology Visit Report [facility] [address] [place] [address]. [place] [address] OFFICE VISIT Date of Service: 05/30/25 1540 MR#: [id number] Acct: [id number] Name: ACE ARELLANO Rep #: [id number] : 1940 From: Angela Vale MD Age/Sex: 85/M Location: [facility] Status: Signed HPI Subjective Date of Service 05/30/25 Chief Complaint Abdominal pain and pancreatic lesion History of Present Illness 85-year-old gentleman who for approximately 2 months has had daily bouts of epigastric pain. The pain appears to be aggravating by meals, laying down, with relieved by sitting up and taking combination of Tylenol and ibuprofen [id number]. He has lost at least 10 pounds [...] Recommend MRI pancreas without and with contrast. May 23, 2025 MRI abdomen: IMPRESSION: Hypoenhancing mass 2.7 cm in the body of the pancreas with associated atrophy of the pancreatic tail and dilatation of the upstream pancreatic duct. The mass abuts both the celiac axis and the SMA with indistinct margins. CT angiography of the abdomen is recommended as vascular compromise is suspected. No lymphadenopathy. No evidence of metastatic disease of the liver. Splenic cysts. 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 Angela Vale MD) Mass of pancreas Surgical History History of back surgery H/O neck surgery Family History Father Colon cancer Mother Cancer Brother Diabetes Daughter Diabetes Social History Smoking Status: Former smoker Tobacco: How many years used: 62 alcohol intake: current alcohol intake frequency: 0-2 drinks per day Alcohol type: beer substance use type: does not use ROS ROS Narrative See note of May 10, 2025 Intake Vital Signs 05/10/25 14:12 05/30/25 15:41 05/30/25 15:44 Height 5 ft 7 in 5 ft 7 in 5 ft 7 in Weight: 69.116 kg 66.905 kg BMI 23.8 23.1 BP 136/79 H 128/72 H Blood Pressure Location Lt brachial Lt brachial Position Sitting Sitting Respiration 18 16 Pulse 64 69 Pulse Source Monitor Monitor Temp 98.0 F 98.8 F Temperature Source Temporal Artery Temporal Artery Pulse Oximetry (%) 99 97 Oxygen Delivery Method room air room air Intake Is patient in pain?: No Allergies shellfish derived Allergy (Severe, Verified 05/30/25 15:42) Anaphylaxis Medications ???Medication ???Instructions ???Recorded ???Confirmed ???Type linaclotide 290 mcg capsule 290 mcg PO DAILY 05/08/25 05/10/25 History (Linzess) ondansetron 4 mg disintegrating 4 mg PO Q8H PRN PRN Nausea #10 tab s 05/08/25 05/10/25 Rx tablet acetaminophen 500 mg tablet 500 mg PO Q6H PRN 05/10/25 5 History (Tylenol Extra Strength) ibuprofen 600 mg tablet 600 mg PO Q8H PRN 05/10/25 5 History Have you fallen in the past year?: No Central Venous Access Central Venous Access: No Exam Physical Exam Narrative For a full exam please see note of May 10, 2025 Const alert, oriented x3 and no apparent distress Coding Level of Care Code Off vis,est,level 3 Exam Problem Focused Diagnoses Epigastric pain R10.13 Abdominal location: epigastric Mass of pancreas K86.89 Assessment and Plan Assessment and Plan (1) Abdominal pain: Status: Acute Qualifiers: Abdominal location: epigastric Qualified Code(s): R10.13 - Epigastric pain (2) Mass of pancreas: Status: Acute Orders: Orders Carbohydrate AG 19-9 Today K86.89 - Other specified diseases of pancreas Plan 85-year-old gentleman with 2 months history of recurrent bouts of upper abdominal pain (see under HPI for description) weight loss and inci (more content not included)... Normal [facility] MRI Abd WITH and W/O Contras ton 05-23-2025 MRI Abd WITH and W/O Contrast [facility] Services [address] [place] [address] MRI Abd WITH and W/O Contrast MR#: [id number] Acct: [id number] Name: ACE ARELLANO Rep #: [id number] : 1940 M 85 From: Jayy flowers MD PCP: Dr. Raúl Leslie MD Status: REG CLI Study: MRI Abd WITH and W/O Contrast Date of Exam: Exam# [id number] Ordering Dr: Angela Vale MD PROCEDURE: MRI ABD WITH AND W/O CONTRAST 05/23/2025 REASON FOR EXAM: PANCREAS LESION TECHNIQUE: Procedure Code: MRIABDWW Modality: MR Procedure: MRI ABD WITH AND W/O CONTRAST Multiplanar and multisequence images were obtained. CONTRAST: Clariscan VOLUME: 13 mL COMPARISON: CT abdomen and pelvis dated 05/08/2025 FINDINGS: Liver: The liver is normal in signal. Few scattered benign-appearing cysts noted. No mass. No biliary ductal dilatation Biliary: The gallbladder intrahepatic ducts and common bile duct appear normal. Pancreas: Nonenhancing mass in the body of the pancreas measuring 2.7 x 2.4 cm. This accounts for atrophy of the distal pancreatic body and tail with dilatation of the upstream pancreatic duct measuring 7.5 mm. The lesion abuts the celiac axis and SMA. There is tumor extending along the inferior body of the pancreas along the course of the superior mesenteric artery with a broad area of contact exceeding [address] demonstrates indistinct margins along the proximal SMA and celiac artery. Dedicated CT angiogram is recommended for surgical planning. Spleen: Small benign splenic cysts measuring 13 mm. Adrenals: Normal Kidneys: Small bilateral cortical renal cysts.. No hydronephrosis. No solid mass. Peritoneum / Retroperitoneum: No ascites. No peritoneal implant. Lymph Nodes: No lymphadenopathy Major Vessels: Focal ectasia of the abdominal aorta measuring 2.7 cm, borderline aneurysmal Bones: No abnormal signal or abnormal pattern of enhancement. MRI/MRI Abd WITH and W/O Contrast IMPRESSION: Hypoenhancing mass 2.7 cm in the body of the pancreas with associated atrophy of the pancreatic tail and dilatation of the upstream pancreatic duct. The mass abuts both the celiac axis and the SMA with indistinct margins. CT angiography of the abdomen is recommended as vascular compromise is suspected. No lymphadenopathy. No evidence of metastatic disease of the liver. Splenic cysts. 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 Raúl Leslie MD; Dr. Angela Vale MD Implant Coordinator: Signed Normal [facility] Oncology Visit Reporton Oncology Visit Report [facility] Cancer [address] [address] OFFICE VISIT Date of Service: 05/10/25 1403 MR#: [id number] Acct: [id number] Name: ACE ARELLANO Rep #: [id number] : 1940 From: Angela Vale MD Age/Sex: 85/M Location: [facility] Status: Signed HPI Subjective Date of Service 05/10/25 Chief Complaint Abdominal pain and pancreatic lesion History of Present Illness 85-year-old gentleman who for approximately 2 months has had daily bouts of epigastric pain. The pain appears to be aggravating by meals, laying down, with relieved by sitting up and taking combination of Tylenol and ibuprofen [id number]. He has lost at least 10 pounds [...] Recommend MRI pancreas without and with contrast. [facility] Surgical History History of back surgery [...] oxycodone 5 (more content not included)... Normal [facility] Abdomen/Pelvis W IV Cont ONL Yon 05-08-2025 Abdomen/Pelvis W IV Cont ONLY [facility] Services [address] [place] [address] Abdomen/Pelvis W IV Cont ONLY MR#: [id number] Acct: [id number] Name: ACE ARELLANO Rep #: [id number] : 1940 M 85 From: Roscoe Arellano MD PCP: Dr. Raúl Leslie MD Status: [facility] ER Study: Abdomen/Pelvis W IV Cont ONLY Date of Exam: Exam# [id number] Ordering Dr: Francisco Foster DO PROCEDURE: ABDOMEN/PELVIS [...] contrast. Do not recommend MRCP Reading Location: [facility] CC: Dr. Raúl Leslie MD; Dr. Francisco Foster DO Implant Coordinator: Signed Normal [facility] Absolute lymphocyte countOrd ered By: Francisco Foster on 05-08-2025 Lymphocytes Auto (Unsp spec) [#/Vol] 1.58 10*3/uL 0.83-4.51 [facility] Absolute neutrophil countOrd ered By: Francisco Foster on 05-08-2025 Neutrophils (Bld) [#/Vol] 6.0 10*3/uL 2.0-7.7 [facility] Anion gap in Serum or Plasma Ordered By: Francisco Foster on 05-08-2025 Anion gap [Moles/Vol] 15 mmol/L 5- [facility] Automated lymphocyte count a s percentage of total leukocytesOrdered By: Francisco Foster on 05-08-2025 Lymphocytes/100 WBC Auto (Unsp spec) 18.0 % Low 19-41 [facility] BUN/creatinine ratioOrdered By: Francisco Foster on 05-08-2025 Urea nitrogen/Creatinine [Mass ratio] 22.7 mg/mg High 10-20 [facility] Basophil percentageOrdered B y: Francisco Foster on 05-08-2025 Basophils/100 WBC (Bld) 0.5 % 0-1 [facility] Bilirubin Test strip Ql (U)O rdered By: Francisco Foster on 05-08-2025 Bilirubin Ql (U) Negative Negative [facility] Bilirubin, totalOrdered By: Francisco Foster on 05-08-2025 Bilirubin [Mass/Vol] 0.52 mg/dL 0.00-1.30 [facility] CBC W/Diff, Automatedon 10-0 Absolute Lymph 1.58 X10 3/uL Normal 0.83-4.51 [facility] Comment on above: Performed By: #### L 500.4050, L100.0100, L501.2450 ####[facility] [address] [place], [place], [id number] Absolute Neut 6.0 X10 3/uL Normal 2.0-7.7 [facility] Comment on above: Performed By: #### L 500.4050, L100.0100, L501.2450 ####[facility] [address] [place], [address] Basophils/100 WBC (Bld) 0.5 % Normal 0-1 [facility] Comment on above: Performed By: #### L 500.4050, L100.0100, L501.2450 ####[facility] [address] [place], [address] Eosinophils/100 WBC (Bld) 5.3 % High 0-5 [facility] Comment on above: Performed By: #### L 500.4050, L100.0100, L501.2450 ####[facility] [address] [place], [address] Erythrocyte distribution width (RBC) [Ratio] 12.3 % Normal 11.6-14.6 [facility] Comment on above: Performed By: #### L 500.4050, L100.0100, L501.2450 ####[facility] [address] [place], [address] Hematocrit (Bld) [Volume fraction] 37.8 % Low 40-54 [facility] Comment on above: Performed By: #### L 500.4050, L100.0100, L501.2450 ####[facility] [address] [place], [address] Hemoglobin (Bld) [Mass/Vol] 13.2 g/dL Normal 13.0-16.5 [facility] Comment on above: Performed By: #### L 500.4050, L100.0100, L501.2450 ####[facility] [address] [place], [address] IG% 0.300 Normal 0.0-0.9 [facility] Comment on above: Result Comment: IG% - Immature Granulocytes (promyelocytes, myelocytes and metamyelocytes) > 1% indicates that a LEFT SHIFT is Present. Performed By: #### L 500.4050, L100.0100, L501.2450 ####[facility] [address] [place], [address] Lymphocytes/100 WBC (Bld) 18.0 % Low 19-41 [facility] Comment on above: Performed By: #### L 500.4050, L100.0100, L501.2450 ####[facility] [address] [place], [address] MCH (RBC) [Entitic mass] 31.7 pg Normal 27.0-32.0 [facility] Comment on above: Performed By: #### L 500.4050, L100.0100, L501.2450 ####[facility] [address] [place], [address] MCHC (RBC) [Mass/Vol] 34.9 g/dL Normal 32-36 [facility] Comment on above: Performed By: #### L 500.4050, L100.0100, L501.2450 ####[facility] [address] [place], [address] MCV (RBC) [Entitic vol] 90.9 fL Normal 80-94 [facility] Comment on above: Performed By: #### L 500.4050, L100.0100, L501.2450 ####[facility] [address] [place], [address] Monocytes/100 WBC (Bld) 7.2 % Normal 0-10 [facility] Comment on above: Performed By: #### L 500.4050, L100.0100, L501.2450 ####[facility] [address] [place], [address] Neutrophils/100 WBC (Bld) 68.7 % Normal 47-70 [facility] Comment on above: Performed By: #### L 500.4050, L100.0100, L501.2450 ####[facility] [address] [place], [address] Nucleated RBC (Bld) [#/Vol] 0 10*3/uL Normal 0-5 [facility] Comment on above: Performed By: #### L 500.4050, L100.0100, L501.2450 ####[facility] [address] [place], [address] Platelet mean volume (Bld) [Entitic vol] 10.8 fL Normal 6.2-12.0 [facility] Comment on above: Performed By: #### L 500.4050, L100.0100, L501.2450 ####[facility] [address] [place], [address] Platelets (Bld) [#/Vol] 265 10*3/uL Normal 150-450 [facility] Comment on above: Performed By: #### L 500.4050, L100.0100, L501.2450 ####[facility] [address] [place], [address] RBC (Bld) [#/Vol] 4.16 10*6/uL Low 4.6-6.2 [facility] Comment on above: Performed By: #### L 500.4050, L100.0100, L501.2450 ####[facility] [address] [place], [address] RDW SD 41.1 fl Normal 35.1-43.9 [facility] Comment on above: Performed By: #### L 500.4050, L100.0100, L501.2450 ####[facility] [address] [place], [address] WBC (Bld) [#/Vol] 8.8 10*3/uL Normal 4.4-11.0 [facility] Comment on above: Performed By: #### L 500.4050, L100.0100, L501.2450 ####[facility] [address] [place], [address] Carbon dioxide, total [Moles /volume] in Central venous bloodOrdered By: Francisco Foster on 05-08-2025 CO2 [Moles/Vol] 22.6 mmol/L 21.0-32.0 [facility] Chloride assayOrdered By: ricky Foster on 05-08-2025 Chloride [Moles/Vol] 97 mmol/L Low 98-108 [facility] Comprehensive Metabolic Prof ilon 05-08-2025 Albumin [Mass/Vol] 4.5 g/dL Normal 3.4-4.8 [facility] Comment on above: Performed By: #### L 500.4050, L100.0100, L501.2450 ####[facility] [address] [place], [address] Albumin/Globulin [Mass ratio] 1.6 {ratio} Normal 0.9-2.4 [facility] Comment on above: Performed By: #### L 500.4050, L100.0100, L501.2450 ####[facility] [address] [place], [address] ALK PHOS 76 U/L Normal 40-129 [facility] Comment on above: Performed By: #### L 500.4050, L100.0100, L501.2450 ####[facility] [address] [place], [address] ALT [Catalytic activity/Vol] 21 U/L Normal <=46 [facility] Comment on above: Performed By: #### L 500.4050, L100.0100, L501.2450 ####[facility] [address] [place], [address] AST [Catalytic activity/Vol] 19 U/L Normal <=37 [facility] Comment on above: Performed By: #### L 500.4050, L100.0100, L501.2450 ####[facility] [address] [place], [address] Bilirubin [Mass/Vol] 0.52 mg/dL Normal 0.00-1.30 [facility] Comment on above: Performed By: #### L 500.4050, L100.0100, L501.2450 ####[facility] [address] [place], [address] BUN/CRE 22.7 RATIO High 10-20 [facility] Comment on above: Performed By: #### L 500.4050, L100.0100, L501.2450 ####[facility] [address] [place], [address] Calcium [Mass/Vol] 9.4 mg/dL Normal 7.6-11.0 [facility] Comment on above: Performed By: #### L 500.4050, L100.0100, L501.2450 ####[facility] [address] [place], [address] Chloride [Moles/Vol] 97 mmol/L Low 98-108 [facility] Comment on above: Performed By: #### L 500.4050, L100.0100, L501.2450 ####[facility] [address] [place], [address] CO2 [Moles/Vol] 22.6 mmol/L Normal 21.0-32.0 [facility] Comment on above: Performed By: #### L 500.4050, L100.0100, L501.2450 ####[facility] [address] [place], [address] Creatinine [Mass/Vol] 0.73 mg/dL Normal 0.70-1.20 [facility] Comment on above: Performed By: #### L 500.4050, L100.0100, L501.2450 ####[facility] [address] [place], [address] ECRCL 63.12 ml/min Normal 50-250 [facility] Comment on above: Performed By: #### L 500.4050, L100.0100, L501.2450 ####[facility] [address] [place], [address] GAP 15 Normal 5-15 [facility] Comment on above: Performed By: #### L 500.4050, L100.0100, L501.2450 ####[facility] [address] [place], [address] GFR/1.73 sq M.predicted among non-blacks MDRD (S/P/Bld) [Vol rate/Area] 89 mL/min/{1.73_m2} Normal >60 [facility] Comment on above: Result Comment: mL/m in/1.73m2 CKD-EPI Creatinine Equation (2020) Performed By: #### L 500.4050, L100.0100, L501.2450 ####[facility] [address] [place], [address] Globulin (S) [Mass/Vol] 2.8 g/dL Normal 2.2-4.2 [facility] Comment on above: Performed By: #### L 500.4050, L100.0100, L501.2450 ####[facility] [address] [place], [address] Glucose [Mass/Vol] 98 mg/dL Normal 70-99 [facility] Comment on above: Performed By: #### L 500.4050, L100.0100, L501.2450 ####[facility] [address] [place], [address] Potassium [Moles/Vol] 3.9 mmol/L Normal 3.3-5.1 [facility] Comment on above: Performed By: #### L 500.4050, L100.0100, L501.2450 ####[facility] [address] [place], [address] Sodium [Moles/Vol] 134 mmol/L Normal 133-145 [facility] Comment on above: Performed By: #### L 500.4050, L100.0100, L501.2450 ####[facility] [address] [place], [address] T PROT 7.3 g/dL Normal 5.9-8.4 [facility] Comment on above: Performed By: #### L 500.4050, L100.0100, L501.2450 ####[facility] [address] [place], [address] Urea nitrogen [Mass/Vol] 17 mg/dL Normal 4-19 [facility] Comment on above: Performed By: #### L 500.4050, L100.0100, L501.2450 ####[facility] [address] [place], [address] Emergency Department Summary on 05-08-2025 Emergency Department Summary [facility] Medical Records Department [address] [place] [address] Emergency Department Summary 05/08/25 MR#: [id number] Acct: [id number] Name: ACE ARELLANO Rep #: [id number] : 1940 85 From: Francisco Foster DO [...] History obtained from others: Patient's Consults: none [facility] Narrative: Patient was initially hemodynamically stable, afebrile [...] obstructive pathology. (more content not included)... Normal [facility] Eosinophil percentageOrdered By: Francisco Foster on 05-08-2025 Eosinophils/100 WBC (Bld) 5.3 % High 0-5 [facility] Erythrocyte distribution wid th ratioOrdered By: Francisco Foster on 05-08-2025 Erythrocyte distribution width (RBC) [Ratio] 12.3 % 11.6-14.6 [facility] Erythrocyte distribution wid th standard deviationOrdered By: Francisco Foster on 05-08-2025 Erythrocyte distribution width (RBC) [Ratio] 41.1 fl 35.1-43.9 [facility] Glomerular filtration rate ( GFR) estimation/1.73 sq m using serum, plasma, or whole bOrdered By: Francisco Foster on 05-08-2025 GFR/1.73 sq M.predicted among non-blacks MDRD (S/P/Bld) [Vol rate/Area] 89 mL/min/{1.73_m2} >60 [facility] Comment on above: mL/min/1.73m2 CKD-EP I Creatinine Equation (2020) Hematocrit Auto (Bld) [Volum e fraction]Ordered By: Francisco Foster on 05-08-2025 Hematocrit (Bld) [Volume fraction] 37.8 % Low 40-54 [facility] Hemoglobin measurementOrdere d By: Francisco Foster on 05-08-2025 Hemoglobin (Bld) [Mass/Vol] 13.2 g/dL 13.0-16.5 [facility] Immature granulocytes/100 WB C Auto (Bld)Ordered By: Francisco Foster on 05-08-2025 Immature granulocytes/100 WBC (Bld) 0.300 % 0.0-0.9 [facility] Comment on above: IG% - Immature Granu locytes (promyelocytes, myelocytes and metamyelocytes) > 1% indicates that a LEFT SHIFT is Present. Ketones Test strip Ql (U)Ord ered By: Francisco Foster on 05-08-2025 Ketones Ql (U) 5 mg/dl High Negative [facility] - Chemistry and C hemistry - challengeOrdered By: Francisco Foster on 05-08-2025 AST [Catalytic activity/Vol] 19 U/L <38 [facility] Lipaseon 05-08-2025 Lipase [Catalytic activity/Vol] 14 U/L Normal 13-75 [facility] Comment on above: Result Comment: Roxanna decker note: LIPASE revised reference range effective 22. New Lipase methodology. Expected to produce lower values than the previous assay method. NEW Reference Range: 13 - 75 U/L Performed By: #### L 500.4050, L100.0100, L501.2450 ####[facility] [address] [place], [place], [id number] Lipase measurementOrdered By : Francisco Foster on 05-08-2025 Lipase [Catalytic activity/Vol] 14 U/L 13-75 [facility] Comment on above: Please note:LIPASE r evised reference range effective 22. New Lipase methodology. Expected to produce lower values than the previous assay method. NEW Reference Range: 13 - 75 U/L MCV (mean corpuscular volume ) determinationOrdered By: Francisco Foster on 05-08-2025 MCV (RBC) [Entitic vol] 90.9 fL 80-94 [facility] Mean corpuscular hemoglobin (MCH) determinationOrdered By: Francisco Foster on 05-08-2025 MCH (RBC) [Entitic mass] 31.7 pg 27.0-32.0 [facility] Mean corpuscular hemoglobin concentration (MCHC) determinationOrdered By: Francisco Foster on 05-08-2025 MCHC (RBC) [Mass/Vol] 34.9 g/dL 32-36 [facility] Mean platelet volume determi nationOrdered By: Francisco Foster on 05-08-2025 Platelet mean volume (Bld) [Entitic vol] 10.8 fL 6.2-12.0 [facility] Microscopic analysis of urin e for red blood cells (RBC)Ordered By: Francisco Foster on 05-08-2025 Microscopic analysis of urine for red blood cells (RBC) 0-5 SEEN /hpf 0-5 [facility] Monocyte percentageOrdered B y: Francisco Foster on 05-08-2025 Monocytes/100 WBC (Bld) 7.2 % 0-10 [facility] Mucus LM Ql (Urine sed)Order ed By: Francisco Foster on 05-08-2025 Mucus Ql (Urine sed) 0 SEEN /hpf [facility] Neutrophil percentageOrdered By: Francisco Foster on 05-08-2025 Neutrophils/100 WBC (Bld) 68.7 % 47-70 [facility] Nitrite Test strip Ql (U)Ord ered By: Francisco Foster on 05-08-2025 Nitrite Ql (U) Negative Negative [facility] Nucleated red blood cell per centageOrdered By: Francisco Foster on 05-08-2025 Nucleated RBC/100 WBC (Bld) [Ratio] 0 % 0-5 [facility] Platelet countOrdered By: Thom Foster on 05-08-2025 Platelets (Bld) [#/Vol] 265 10*3/uL 150-450 [facility] Potassium measurement (mass/ volume)Ordered By: Francisco Foster on 05-08-2025 Potassium (Unsp spec) [Mass/Vol] 3.9 mmol/L 3.3-5.1 [facility] Protein Test strip Ql (U)Ord ered By: Francisco Foster on 05-08-2025 Protein Ql (U) 30 mg/dl High Negative [facility] RBC Auto (Bld) [#/Vol]Ordere d By: Francisco Foster on 05-08-2025 RBC (Bld) [#/Vol] 4.16 10*6/uL Low 4.6-6.2 [facility] Serum creatinine measurement (mass/volume)Ordered By: Francisco Foster on 05-08-2025 Creatinine [Mass/Vol] 0.73 mg/dL 0.70-1.20 [facility] Serum globulin measurementOr dered By: Francisco Foster on 05-08-2025 Globulin (S) [Mass/Vol] 2.8 g/dL 2.2-4.2 [facility] Serum glucose measurement (m ass/volume)Ordered By: Francisco Foster on 05-08-2025 Glucose [Mass/Vol] 98 mg/dL 70-99 [facility] Serum or plasma alanine dalton otransferase (ALT) measurementOrdered By: Francisco Foster on 05-08-2025 ALT [Catalytic activity/Vol] 21 U/L <47 [facility] Serum or plasma albumin paulette urement (mass/volume)Ordered By: Francisco Foster on 05-08-2025 Albumin [Mass/Vol] 4.5 g/dL 3.4-4.8 [facility] Serum or plasma albumin/glob ulin mass ratioOrdered By: Francisco Foster on 05-08-2025 Albumin/Globulin [Mass ratio] 1.6 {ratio} 0.9-2.4 [facility] Serum or plasma alkaline jessica sphatase measurementOrdered By: Francisco Foster on 05-08-2025 ALP [Catalytic activity/Vol] 76 U/L 40-129 [facility] Serum or plasma calcium paulette urement (mass/volume)Ordered By: Francisco Foster on 05-08-2025 Calcium [Mass/Vol] 9.4 mg/dL 7.6-11.0 [facility] Serum or plasma urea nitroge n measurement (mass/volume)Ordered By: Francisco Foster on 05-08-2025 Urea nitrogen [Mass/Vol] 17 mg/dL 4-19 [facility] Sodium levelOrdered By: Whit Foster on 05-08-2025 Sodium [Moles/Vol] 134 mmol/L 133-145 [facility] Squamous epithelial cells de tection in urine sediment by light microscopyOrdered By: Francisco Foster on 05-08-2025 Epithelial cells.squamous LM Ql (Urine sed) 0-5 SEEN /hpf 0-5 [facility] Total proteinOrdered By: Denver Foster on 05-08-2025 Protein [Mass/Vol] 7.3 g/dL 5.9-8.4 [facility] Urinalysis, Completeon 05-08 BACTERIA RARE Normal None Seen [facility] Comment on above: Order Comment: CLEAN CATCH Performed By: #### L 400.0001 ####[facility] [address] [place] [id number] EPI,SQUAMOUS 0-5 SEEN Normal 0-5 [facility] Comment on above: Order Comment: CLEAN CATCH Performed By: #### L 400.0001 ####[facility] [address] [facility] [address] RBC 0-5 SEEN Normal 0-5 [facility] Comment on above: Order Comment: CLEAN CATCH Performed By: #### L 400.0001 ####[facility] [address] [place], [address] WBC 0-5 SEEN Normal 0-5 [facility] Comment on above: Order Comment: CLEAN CATCH Performed By: #### L 400.0001 ####[facility] [address] [place] [id number] Mucus Ql (Urine sed) 0 SEEN Normal [facility] Comment on above: Order Comment: CLEAN CATCH Performed By: #### L 400.0001 ####[facility] [address] [place], [place], [id number] Urine clarityOrdered By: Denver Foster on 05-08-2025 Clarity (U) Clear Clear [facility] Urine color determinationOrd ered By: Francisco Foster on 05-08-2025 Color (U) Yellow Yellow [facility] Urine glucose detectionOrder ed By: Francisco Foster on 05-08-2025 Glucose Ql (U) Normal mg/dl Normal [facility] Urine leukocyte esterase det ection by dipstickOrdered By: Francisco Foster on 05-08-2025 Leukocyte esterase Test strip Ql (U) Negative Negative [facility] Urine pHOrdered By: Francisco reed on 05-08-2025 pH (U) 6.0 [pH] 5.0 - 8.0 [facility] Urine sediment bacteria coun t by microscopy (number/high power field)Ordered By: Francisco Foster on 05-08-2025 Bacteria LM.HPF (Urine sed) [#/Area] RARE /hpf None Seen [facility] Urine specific gravity measu rementOrdered By: Francisco Foster on 05-08-2025 Specific gravity (U) [Rel density] 1.020 1.002-1.030 [facility] Urine urobilinogen measureme ntOrdered By: Francisco Foster on 05-08-2025 Urobilinogen Ql (U) Normal mg/dl Normal [facility] White blood cell (WBC) count Ordered By: Francisco Foster on 05-08-2025 WBC (Bld) [#/Vol] 8.8 10*3/uL 4.4-11.0 [facility] White blood cell countOrdere d By: Francisco Foster on 05-08-2025 White blood cell count 0-5 SEEN /hpf 0-5 [facility] Abdomen/Pelvis without Conto n 04-21-2025 Abdomen/Pelvis without Cont [facility] Imaging Services [address] [place] [address] Abdomen/Pelvis without Cont MR#: [id number] Acct: [id number] Name: ACE ARELLANO Rep #: [id number] : 1940 M 84 From: Faina Hernandez MD PCP: Dr. Raúl Leslie MD Status: REG CLI Study: Abdomen/Pelvis without Cont Date of Exam: 04/04 03/28 Exam# [id number] Ordering Dr: Raúl Leslie MD PROCEDURE: ABDOMEN/PELVIS [...] changes of the spine. S shaped scoliosis. Kpzdbcxz-vl-vqivor atherosclerosis. The infrarenal abdominal aorta measures up [...] diverticulosis without diverticulitis. *Enlarged prostate. Reading Location: [facility] CC: Dr. Raúl Leslie MD Implant Coordinator: Signed Normal [facility] Carcinoembryonic Antigenon 0 03-30-2025 CEA 1.5 ng/mL Normal 0.0-4.7 [facility] Comment on above: Order Comment: Order Date: 03/29/25Order Info: [id number] - CEA Result Comment: Nons mokers <3.9 Smokers <5.6 [facility] Electrochemiluminescence Immunoassay (ECLIA) Values obtained with different assay methods or kits cannot be used interchangeably. Results cannot be interpreted as absolute evidence of the presence or absence of malignant disease. Performed at: [facility] [address] [id number] Capacitor Repairer: Blue Washington PhD, Phone: [phone] Performed By: #### L 3100.2300, L501.9940, L501.6710 ####[facility] [address] [facility] [place], [place], [address] Abdomen Single Viewon 2024 Abdomen Single View [facility] Imaging [facility] [address] [place], [place] [address] Abdomen Single View MR#: [id number] Acct: [id number] Name: ACE ARELLANO Rep #: [id number] : 1940 M 84 From: Alon Scott MD PCP: Dr. Raúl Leslie MD Status: REG CLI Study: Abdomen Single View Date of Exam: 03/29/25 Exam# [id number] Ordering Dr: Raúl Leslie MD PROCEDURE: ABDOMEN [...] 3. Other findings as noted. Reading Location: [id number] CC: Dr. Raúl Leslie MD Implant Coordinator: Signed Normal [facility] CRPon 03-29-2025 C-REACTIVE PROT < 3.00 Normal 0.0-3.0 [facility] Comment on above: Order Comment: Order Date: 03/29/25Order Info: [id number] - CRPOrder Info: [id number] - PSAD Performed By: #### L 3100.2300, L501.9940, L501.6710 ####[facility] [address] [facility] [address] [place], [place], [id number] PSA,Total- Diagnosticon 03-05 PSA, DIAGNOSTIC 3.60 ng/mL Normal 0.00-4.00 [facility] Comment on above: Order Comment: Order Date: 03/29/25Order Info: [id number] - CRPOrder Info: [id number] - PSAD Result Comment: This [...] confirm baseline values. Performed By: #### L 3100.2300, L501.9940, L501.6710 ####[facility] [address] [place], [place], [id number] Serum or plasma C reactive p rotein measurement (mass/volume)Ordered By: Raúl Leslie on 03-29-2025 CRP [Mass/Vol] mg/L 0.0-3.0 [facility] Serum or plasma carcinoembry onic antigen measurement (mass/volume)Ordered By: Raúl Leslie on 03-29-2025 Carcinoembryonic Ag [Mass/Vol] 1.5 ng/mL 0.0-4.7 [facility] Comment on above: Nonsmokers <3.9 Smok ers <5.6[facility] Electrochemiluminescence Immunoassay(ECLIA)Values obtained with different assay methods or kitscannot be used interchangeably. Results cannot beinterpreted as absolute evidence of the presence orabsence of malignant disease.Performed at: [place] [id number] [place], [place] [id number] Director: Blue Washington PhD, Phone: [phone] Absolute lymphocyte countOrd ered By: Raúl Leslie on 02-17-2025 Lymphocytes Auto (Unsp spec) [#/Vol] 1.90 10*3/uL 0.83-4.51 [facility] Absolute neutrophil countOrd ered By: Raúl Leslie on 02-17-2025 Neutrophils (Bld) [#/Vol] 7.3 10*3/uL 2.0-7.7 [facility] Anion gap in Serum or Plasma Ordered By: Raúl Leslie on 02-17-2025 Anion gap [Moles/Vol] 13 mmol/L 5-15 [facility] Automated lymphocyte count a s percentage of total leukocytesOrdered By: Raúl Leslie on 02-17-2025 Lymphocytes/100 WBC Auto (Unsp spec) 18.0 % Low 19-41 [facility] BUN/creatinine ratioOrdered By: Raúl Leslie on 02-17-2025 Urea nitrogen/Creatinine [Mass ratio] 23.4 mg/mg High 10-20 [facility] Basophil percentageOrdered B y: Raúl Leslie on 02-17-2025 Basophils/100 WBC (Bld) 0.3 % 0-1 [facility] Bilirubin, totalOrdered By: Raúl Leslie on 02-17-2025 Bilirubin [Mass/Vol] 0.34 mg/dL 0.00-1.30 [facility] CBC W/Diff, Automatedon 02-01 Absolute Lymph 1.90 X10 3/uL Normal 0.83-4.51 [facility] Comment on above: Performed By: #### L 100.0100, L500.4100, L500.4050, L501.6710 #### [facility] [address] [place], [address] Absolute Neut 7.3 X10 3/uL Normal 2.0-7.7 [facility] Comment on above: Performed By: #### L 100.0100, L500.4100, L500.4050, L501.6710 #### [facility] [address] [place], [address] Basophils/100 WBC (Bld) 0.3 % Normal 0-1 [facility] Comment on above: Performed By: #### L 100.0100, L500.4100, L500.4050, L501.6710 #### [facility] [address] [place], [address] Eosinophils/100 WBC (Bld) 4.4 % Normal 0-5 [facility] Comment on above: Performed By: #### L 100.0100, L500.4100, L500.4050, L501.6710 #### [facility] [address] [place], [address] Erythrocyte distribution width (RBC) [Ratio] 12.7 % Normal 11.6-14.6 [facility] Comment on above: Performed By: #### L 100.0100, L500.4100, L500.4050, L501.6710 #### [facility] [address] [place], [address] Hematocrit (Bld) [Volume fraction] 36.5 % Low 40-54 [facility] Comment on above: Performed By: #### L 100.0100, L500.4100, L500.4050, L501.6710 #### [facility] [address] [place], [address] Hemoglobin (Bld) [Mass/Vol] 12.5 g/dL Low 13.0-16.5 [facility] Comment on above: Performed By: #### L 100.0100, L500.4100, L500.4050, L501.6710 #### [facility] [address] [place], [address] IG% 0.400 Normal 0.0-0.9 [facility] Comment on above: Result Comment: IG% - Immature Granulocytes (promyelocytes, myelocytes and metamyelocytes) > 1% indicates that a LEFT SHIFT is Present. Performed By: #### L 100.0100, L500.4100, L500.4050, L501.6710 #### [facility] [address] [place], [address] Lymphocytes/100 WBC (Bld) 18.0 % Low 19-41 [facility] Comment on above: Performed By: #### L 100.0100, L500.4100, L500.4050, L501.6710 #### [facility] [address] [place], [address] MCH (RBC) [Entitic mass] 32.6 pg High 27.0-32.0 [facility] Comment on above: Performed By: #### L 100.0100, L500.4100, L500.4050, L501.6710 #### [facility] [address] [place], [address] MCHC (RBC) [Mass/Vol] 34.2 g/dL Normal 32-36 [facility] Comment on above: Performed By: #### L 100.0100, L500.4100, L500.4050, L501.6710 #### [facility] [address] [place], [address] MCV (RBC) [Entitic vol] 95.3 fL High 80-94 [facility] Comment on above: Performed By: #### L 100.0100, L500.4100, L500.4050, L501.6710 #### [facility] [address] [place], [address] Monocytes/100 WBC (Bld) 7.7 % Normal 0-10 [facility] Comment on above: Performed By: #### L 100.0100, L500.4100, L500.4050, L501.6710 #### [facility] [address] [place], [address] Neutrophils/100 WBC (Bld) 69.2 % Normal 47-70 [facility] Comment on above: Performed By: #### L 100.0100, L500.4100, L500.4050, L501.6710 #### [facility] [address] [place], [address] Nucleated RBC (Bld) [#/Vol] 0 10*3/uL Normal 0-5 [facility] Comment on above: Performed By: #### L 100.0100, L500.4100, L500.4050, L501.6710 #### [facility] [address] [place], [address] Platelet mean volume (Bld) [Entitic vol] 11.6 fL Normal 6.2-12.0 [facility] Comment on above: Performed By: #### L 100.0100, L500.4100, L500.4050, L501.6710 #### [facility] [address] [place], [address] Platelets (Bld) [#/Vol] 228 10*3/uL Normal 150-450 [facility] Comment on above: Performed By: #### L 100.0100, L500.4100, L500.4050, L501.6710 #### [facility] [address] [place], [address] RBC (Bld) [#/Vol] 3.83 10*6/uL Low 4.6-6.2 [facility] Comment on above: Performed By: #### L 100.0100, L500.4100, L500.4050, L501.6710 #### [facility] [address] [place], [address] RDW SD 43.8 fl Normal 35.1-43.9 [facility] Comment on above: Performed By: #### L 100.0100, L500.4100, L500.4050, L501.6710 #### [facility] [address] [place], [address] WBC (Bld) [#/Vol] 10.6 10*3/uL Normal 4.4-11.0 [facility] Comment on above: Performed By: #### L 100.0100, L500.4100, L500.4050, L501.6710 #### [facility] [address] [place], [address] CRPon 02-17-2025 C-REACTIVE PROT < 3.00 Normal 0.0-3.0 [facility] Comment on above: Performed By: #### L 100.0100, L500.4100, L500.4050, L501.6710 #### [facility] [address] [place], [address] Calculated very low density lipoprotein (VLDL) cholesterol measurementOrdered By: Raúl Leslie on 02-17-2025 Calculated very low density lipoprotein (VLDL) cholesterol measurement 22 mg/dL 5-40 [facility] Carbon dioxide, total [Moles /volume] in Central venous bloodOrdered By: Raúl Leslie on 02-17-2025 CO2 [Moles/Vol] 25.0 mmol/L 21.0-32.0 [facility] Chloride assayOrdered By: Dominguez Leslie on 02-17-2025 Chloride [Moles/Vol] 100 mmol/L 98-108 [facility] Comprehensive Metabolic Prof ilon 02-17-2025 Albumin [Mass/Vol] 4.4 g/dL Normal 3.4-4.8 [facility] Comment on above: Performed By: #### L 100.0100, L500.4100, L500.4050, L501.6710 #### [facility] [address] [place], [address] Albumin/Globulin [Mass ratio] 1.7 {ratio} Normal 0.9-2.4 [facility] Comment on above: Performed By: #### L 100.0100, L500.4100, L500.4050, L501.6710 #### [facility] [address] [place], [address] ALK PHOS 74 U/L Normal 40-129 [facility] Comment on above: Performed By: #### L 100.0100, L500.4100, L500.4050, L501.6710 #### [facility] [address] [place], [address] ALT [Catalytic activity/Vol] 21 U/L Normal <=46 [facility] Comment on above: Performed By: #### L 100.0100, L500.4100, L500.4050, L501.6710 #### [facility] [address] [place], [address] AST [Catalytic activity/Vol] 21 U/L Normal <=37 [facility] Comment on above: Performed By: #### L 100.0100, L500.4100, L500.4050, L501.6710 #### [facility] [address] [place], [address] Bilirubin [Mass/Vol] 0.34 mg/dL Normal 0.00-1.30 [facility] Comment on above: Performed By: #### L 100.0100, L500.4100, L500.4050, L501.6710 #### [facility] [address] [place], [address] BUN/CRE 23.4 RATIO High 10-20 [facility] Comment on above: Performed By: #### L 100.0100, L500.4100, L500.4050, L501.6710 #### [facility] [address] [place], [address] Calcium [Mass/Vol] 9.3 mg/dL Normal 7.6-11.0 [facility] Comment on above: Performed By: #### L 100.0100, L500.4100, L500.4050, L501.6710 #### [facility] [address] [place], [address] Chloride [Moles/Vol] 100 mmol/L Normal 98-108 [facility] Comment on above: Performed By: #### L 100.0100, L500.4100, L500.4050, L501.6710 #### [facility] [address] [place], [address] CO2 [Moles/Vol] 25.0 mmol/L Normal 21.0-32.0 [facility] Comment on above: Performed By: #### L 100.0100, L500.4100, L500.4050, L501.6710 #### [facility] [address] [place], [address] Creatinine [Mass/Vol] 0.78 mg/dL Normal 0.70-1.20 [facility] Comment on above: Performed By: #### L 100.0100, L500.4100, L500.4050, L501.6710 #### [facility] [address] [place], [address] GAP 13 Normal 5-15 [facility] Comment on above: Performed By: #### L 100.0100, L500.4100, L500.4050, L501.6710 #### [facility] [address] [place], [address] GFR/1.73 sq M.predicted among non-blacks MDRD (S/P/Bld) [Vol rate/Area] 88 mL/min/{1.73_m2} Normal >60 [facility] Comment on above: Result Comment: mL/m in/1.73m2 CKD-EPI Creatinine Equation (2020) Performed By: #### L 100.0100, L500.4100, L500.4050, L501.6710 #### [facility] [address] [place], [address] Globulin (S) [Mass/Vol] 2.5 g/dL Normal 2.2-4.2 [facility] Comment on above: Performed By: #### L 100.0100, L500.4100, L500.4050, L501.6710 #### [facility] [address] [place], [address] Glucose [Mass/Vol] 90 mg/dL Normal 70-99 [facility] Comment on above: Performed By: #### L 100.0100, L500.4100, L500.4050, L501.6710 #### [facility] [address] [place], [address] Potassium [Moles/Vol] 4.2 mmol/L Normal 3.3-5.1 [facility] Comment on above: Performed By: #### L 100.0100, L500.4100, L500.4050, L501.6710 #### [facility] [address] [place], [address] Sodium [Moles/Vol] 137 mmol/L Normal 133-145 [facility] Comment on above: Performed By: #### L 100.0100, L500.4100, L500.4050, L501.6710 #### [facility] [address] [place], [address] T PROT 6.9 g/dL Normal 5.9-8.4 [facility] Comment on above: Performed By: #### L 100.0100, L500.4100, L500.4050, L501.6710 #### [facility] [address] [place], [address] Urea nitrogen [Mass/Vol] 18 mg/dL Normal 4-19 [facility] Comment on above: Performed By: #### L 100.0100, L500.4100, L500.4050, L501.6710 #### [facility] [address] [place], [address] Eosinophil percentageOrdered By: Raúl Leslie on 02-17-2025 Eosinophils/100 WBC (Bld) 4.4 % 0-5 [facility] Erythrocyte distribution wid th ratioOrdered By: Raúl Leslie on 02-17-2025 Erythrocyte distribution width (RBC) [Ratio] 12.7 % 11.6-14.6 [facility] Erythrocyte distribution wid th standard deviationOrdered By: Raúl Leslie on 02-17-2025 Erythrocyte distribution width (RBC) [Ratio] 43.8 fl 35.1-43.9 [facility] Glomerular filtration rate ( GFR) estimation/1.73 sq m using serum, plasma, or whole bOrdered By: Raúl Leslie on 02-17-2025 GFR/1.73 sq M.predicted among non-blacks MDRD (S/P/Bld) [Vol rate/Area] 88 mL/min/{1.73_m2} >60 [facility] Comment on above: mL/min/1.73m2 CKD-EP I Creatinine Equation (2020) Hematocrit Auto (Bld) [Volum e fraction]Ordered By: Raúl Leslie on 02-17-2025 Hematocrit (Bld) [Volume fraction] 36.5 % Low 40-54 [facility] Hemoglobin measurementOrdere d By: Raúl Leslie on 02-17-2025 Hemoglobin (Bld) [Mass/Vol] 12.5 g/dL Low 13.0-16.5 [facility] Immature granulocytes/100 WB C Auto (Bld)Ordered By: Raúl Leslie on 02-17-2025 Immature granulocytes/100 WBC (Bld) 0.400 % 0.0-0.9 [facility] Comment on above: IG% - Immature Granu locytes (promyelocytes, myelocytes and metamyelocytes) > 1% indicates that a LEFT SHIFT is Present. LDL calc ser/plasOrdered By: Raúl Leslie on 02-17-2025 Cholesterol in LDL [Mass/Vol] 119 mg/dL [facility] Comment on above: Uzuljyiafb=647-728 m g/dL & Higher Uaqs=034 mg/dL or greater Laboratory - Chemistry and C hemistry - challengeOrdered By: Raúl Leslie on 02-17-2025 AST [Catalytic activity/Vol] 21 U/L <38 [facility] Lipid Profileon 02-17-2025 CHOL:HDL 3.15 Normal [facility] Comment on above: Performed By: #### L 100.0100, L500.4100, L500.4050, L501.6710 ####[facility] [address] [place], [address] Cholesterol [Mass/Vol] 206 mg/dL High <=200 [facility] Comment on above: Result Comment: Chol esterol level, Desirable <200 mg/dL Borderline high cholesterol 200-239 mg/dL High cholesterol >=240 mg/dL Recommendations of the NCEP Adult Treatment Panel for the following risk-cutoff thresholds for the [place] population. Performed By: #### L 100.0100, L500.4100, L500.4050, L501.6710 ####[facility] [address] [place], [address] Cholesterol in HDL [Mass/Vol] 65 mg/dL Normal [facility] Comment on above: Result Comment: Julianne onal Cholesterol Education Program (NCEP) guidelines: <40 mg/dL: Low HDL-cholesterol (major risk factor for CHD) >= 60 mg/dL: High HDL-cholesterol (negative risk factor for CHD) HDL-cholesterol is affected by a number of factors, e.g. smoking, exercise, hormones, sex and age. Performed By: #### L 100.0100, L500.4100, L500.4050, L501.6710 ####[facility] [address] [place], [address] Cholesterol in LDL [Mass/Vol] 119 mg/dL Normal [facility] Comment on above: Result Comment: Bord tgobex=857-942 mg/dL Higher Njmn=256 mg/dL or greater Performed By: #### L 100.0100, L500.4100, L500.4050, L501.6710 ####[facility] [address] [place], [address] Cholesterol in VLDL [Mass/Vol] 22 mg/dL Normal 5-40 [facility] Comment on above: Performed By: #### L 100.0100, L500.4100, L500.4050, L501.6710 ####[facility] [address] [place], [address] Triglyceride [Mass/Vol] 110 mg/dL Normal [facility] Comment on above: Result Comment: The drugs N-Acetylcysteine and Metamizole may falsely depress this assay. Normal range: <150 mg/dL Borderline High: 150-199 mg/dL High: 200-499 mg/dL Very High: >500 mg/dL Performed By: #### L 100.0100, L500.4100, L500.4050, L501.6710 ####[facility] [address] [place], [address] MCV (mean corpuscular volume ) determinationOrdered By: Raúl Leslie on 02-17-2025 MCV (RBC) [Entitic vol] 95.3 fL High 80-94 [facility] Mean corpuscular hemoglobin (MCH) determinationOrdered By: Raúl Leslie on 02-17-2025 MCH (RBC) [Entitic mass] 32.6 pg High 27.0-32.0 [facility] Mean corpuscular hemoglobin concentration (MCHC) determinationOrdered By: Raúl Leslie on 02-17-2025 MCHC (RBC) [Mass/Vol] 34.2 g/dL 32-36 [facility] Mean platelet volume determi nationOrdered By: Raúl Leslie on 02-17-2025 Platelet mean volume (Bld) [Entitic vol] 11.6 fL 6.2-12.0 [facility] Monocyte percentageOrdered B y: Raúl Leslie on 02-17-2025 Monocytes/100 WBC (Bld) 7.7 % 0-10 [facility] Neutrophil percentageOrdered By: Raúl Leslie on 02-17-2025 Neutrophils/100 WBC (Bld) 69.2 % 47-70 [facility] Nucleated red blood cell per centageOrdered By: Raúl Leslie on 02-17-2025 Nucleated RBC/100 WBC (Bld) [Ratio] 0 % 0-5 [facility] Platelet countOrdered By: Dominguez Leslie on 02-17-2025 Platelets (Bld) [#/Vol] 228 10*3/uL 150-450 [facility] Potassium measurement (mass/ volume)Ordered By: Raúl Leslie on 02-17-2025 Potassium (Unsp spec) [Mass/Vol] 4.2 mmol/L 3.3-5.1 [facility] RBC Auto (Bld) [#/Vol]Ordere d By: Raúl Leslie on 02-17-2025 RBC (Bld) [#/Vol] 3.83 10*6/uL Low 4.6-6.2 [facility] Screening total cholesterol/ high density lipoprotein (HDL) cholesterol ratioOrdered By: Raúl Leslie on 02-17-2025 Cholesterol.total/Chol esterol in HDL [Mass ratio] 3.15 {ratio} [facility] Serum creatinine measurement (mass/volume)Ordered By: Raúl Leslie on 02-17-2025 Creatinine [Mass/Vol] 0.78 mg/dL 0.70-1.20 [facility] Serum globulin measurementOr dered By: Raúl Leslie on 02-17-2025 Globulin (S) [Mass/Vol] 2.5 g/dL 2.2-4.2 [facility] Serum glucose measurement (m ass/volume)Ordered By: Raúl Leslie on 02-17-2025 Glucose [Mass/Vol] 90 mg/dL 70-99 [facility] Serum or plasma C reactive p rotein measurement (mass/volume)Ordered By: Raúl Leslie on 02-17-2025 CRP [Mass/Vol] mg/L 0.0-3.0 [facility] Serum or plasma alanine dalton otransferase (ALT) measurementOrdered By: Raúl Leslie on 02-17-2025 ALT [Catalytic activity/Vol] 21 U/L <47 [facility] Serum or plasma albumin paulette urement (mass/volume)Ordered By: Raúl Leslie on 02-17-2025 Albumin [Mass/Vol] 4.4 g/dL 3.4-4.8 [facility] Serum or plasma albumin/glob ulin mass ratioOrdered By: Raúl Leslie on 02-17-2025 Albumin/Globulin [Mass ratio] 1.7 {ratio} 0.9-2.4 [facility] Serum or plasma alkaline jessica sphatase measurementOrdered By: Raúl Leslie on 02-17-2025 ALP [Catalytic activity/Vol] 74 U/L 40-129 [facility] Serum or plasma calcium paulette urement (mass/volume)Ordered By: Raúl Leslie on 02-17-2025 Calcium [Mass/Vol] 9.3 mg/dL 7.6-11.0 [facility] Serum or plasma cholesterol in HDL measurement (mass/volume)Ordered By: Raúl Leslie on 02-17-2025 Cholesterol in HDL [Mass/Vol] 65 mg/dL >40 [facility] Comment on above: National Cholesterol Education Program (NCEP) guidelines:<40 mg/dL: Low HDL-cholesterol (major risk factor for CHD)>= 60 mg/dL: High HDL-cholesterol (negative risk factor for CHD)HDL-cholesterol is affected by a number of factors, e.g. smoking, exercise, hormones, sex and age. Serum or plasma cholesterol measurement (mass/volume)Ordered By: Raúl Leslie on 02-17-2025 Cholesterol [Mass/Vol] 206 mg/dL High <201 [facility] Comment on above: Cholesterol level, D esirable <200 mg/dLBorderline high cholesterol 200-239 mg/dLHigh cholesterol >=240 mg/dLRecommendations of the NCEP Adult Treatment Panel for the following risk-cutoff thresholds for the [place] population. Serum or plasma urea nitroge n measurement (mass/volume)Ordered By: Raúl Leslie on 02-17-2025 Urea nitrogen [Mass/Vol] 18 mg/dL 4-19 [facility] Sodium levelOrdered By: Raúl Leslie on 02-17-2025 Sodium [Moles/Vol] 137 mmol/L 133-145 [facility] Total proteinOrdered By: Constanza Leslie on 02-17-2025 Protein [Mass/Vol] 6.9 g/dL 5.9-8.4 [facility] Triglycerides measurementOrd ered By: Raúl Leslie on 02-17-2025 Triglyceride [Mass/Vol] 110 mg/dL <199 [facility] Comment on above: The drugs N-Acetylcy steine and Metamizole may falsely depress this assay. Normal range: <150 mg/dLBorderline High: 150-199 mg/dLHigh: 200-499 mg/dLVery High: >500 mg/dL White blood cell (WBC) count Ordered By: Raúl Leslie on 02-17-2025 WBC (Bld) [#/Vol] 10.6 10*3/uL 4.4-11.0 [facility] Screening prostate specific antigen (PSA) measurementOrdered By: Tati Ingram on 09-02-2023 Prostate specific Ag IA [Mass/Vol] 3.93 ng/mL 0.00-4.00 [facility] Comment on above: This test was perfor med using the TPSA assay method [facility]. Values obtained with differentassay methods cannot be used interchangably.When changing PSA assays in the course of monitoring apatient, additional sequential testing should be carriedout to confirm baseline values. APTTon 09-19-2017 aPTT 25.9 s Normal 20.0-30.5 [facility] Comment on above: Result Comment: NOTE : The therapeutic time for Heparin anticoagulation,based on Xa activity inhibition, is an APTT of 46-80seconds. Performed By: #### A PTT, PT, HEMOG, BMP3M, LFT3 ####[address] [address] Basic Metabolic Panelon 09-04 Anion gap 11 mmol/L Normal [facility] Comment on above: Performed By: #### A PTT, PT, HEMOG, BMP3M, LFT3 ####[address] [place] [address] Calcium 9.4 mg/dL Normal 8.4-10.2 [facility] Comment on above: Performed By: #### A PTT, PT, HEMOG, BMP3M, LFT3 ####[address] [place] [address] CO2 26 mmol/L Normal 22-30 [facility] Comment on above: Performed By: #### A PTT, PT, HEMOG, BMP3M, LFT3 ####[address] [place] [address] Creatinine 0.71 mg/dL Normal 0.52-1.25 [facility] Comment on above: Performed By: #### A PTT, PT, HEMOG, BMP3M, LFT3 ####[address] [place] [address] eGFR (black) mL/min/{1.73_m2} Normal >60 [facility] Comment on above: Performed By: #### A PTT, PT, HEMOG, BMP3M, LFT3 ####[address] [place] [address] eGFR (non-black) mL/min/{1.73_m2} Normal >60 [facility] Comment on above: Result Comment: Sour ce- MDRD equation with creatinine calibration to IDMS(NKDEP)eGFR not recommended for drug dose adjustment Performed By: #### A PTT, PT, HEMOG, BMP3M, LFT3 ####[address] [place] [address] Glucose mass conc 61 mg/dL Low 70-100 [facility] Comment on above: Performed By: #### A PTT, PT, HEMOG, BMP3M, LFT3 ####[address] [place] [address] Urea nitrogen 16 mg/dL Normal 7-20 [facility] Comment on above: Performed By: #### A PTT, PT, HEMOG, BMP3M, LFT3 ####[address] [place] [address] Potassium molar conc 3.8 mmol/L Normal 3.5-5.1 [facility] Comment on above: Performed By: #### A PTT, PT, HEMOG, BMP3M, LFT3 ####[address] [address] Chloride 103 mmol/L Normal 98-107 [facility] Comment on above: Performed By: #### A PTT, PT, HEMOG, BMP3M, LFT3 ####[place] [address] Sodium 140 mmol/L Normal 137-145 [facility] Comment on above: Performed By: #### A PTT, PT, HEMOG, BMP3M, LFT3 ####[place] [address] Hemogramon 09-19-2017 Erythrocyte distribution width Auto Ratio (RBC) 13.3 % Normal 11.5-14.5 [facility] Comment on above: Performed By: #### A PTT, PT, HEMOG, BMP3M, LFT3 ####[place] [address] Erythrocytes (RBC) 4.37 10*6/uL Low 4.40-5.90 [facility] Comment on above: Performed By: #### A PTT, PT, HEMOG, BMP3M, LFT3 ####[place] [address] Hematocrit (HCT) 42.6 % Normal 40.0-52.0 [facility] Comment on above: Performed By: #### A PTT, PT, HEMOG, BMP3M, LFT3 ####[place] [address] Hemoglobin mass conc (Bld) 14.1 g/dL Normal 13.0-18.0 [facility] Comment on above: Performed By: #### A PTT, PT, HEMOG, BMP3M, LFT3 ####[place] [address] MCH 32.4 pg Normal 26.0-34.0 [facility] Comment on above: Performed By: #### A PTT, PT, HEMOG, BMP3M, LFT3 ####[place] [address] MCHC mass conc (RBC) 33.2 % Normal 32.0-36.0 [facility] Comment on above: Performed By: #### A PTT, PT, HEMOG, BMP3M, LFT3 ####[address] [address] MCV 97.5 fL Normal 80.0-98.0 [facility] Comment on above: Performed By: #### A PTT, PT, HEMOG, BMP3M, LFT3 ####[place] [address] Platelet mean volume (PMV) 9.3 fL Normal 7.4-10.4 [facility] Comment on above: Performed By: #### A PTT, PT, HEMOG, BMP3M, LFT3 ####[place] [address] Platelets 228 10*3/uL Normal 140-440 [facility] Comment on above: Performed By: #### A PTT, PT, HEMOG, BMP3M, LFT3 ####[place] [address] WBC (Leukocytes) 14.5 10*3/uL High 3.6-10.7 [facility] Comment on above: Performed By: #### A PTT, PT, HEMOG, BMP3M, LFT3 ####[place] [address] Hepatic Functionon 8 Alanine aminotransferase (ALT) 34 U/L Normal 13-69 [facility] Comment on above: Performed By: #### A PTT, PT, HEMOG, BMP3M, LFT3 ####[place] [address] Alkaline phosphatase (ALP) 77 U/L Normal 38-126 [facility] Comment on above: Performed By: #### A PTT, PT, HEMOG, BMP3M, LFT3 ####[place] [address] Aspartate aminotransferase (AST) 25 U/L Normal 15-46 [facility] Comment on above: Performed By: #### A PTT, PT, HEMOG, BMP3M, LFT3 ####[address] [address] Bilirubin (direct) 0.0 mg/dL Normal 0.0-0.3 [facility] Comment on above: Performed By: #### A PTT, PT, HEMOG, BMP3M, LFT3 ####[address] [address] Bilirubin (total) 0.5 mg/dL Normal 0.2-1.3 [facility] Comment on above: Performed By: #### A PTT, PT, HEMOG, BMP3M, LFT3 ####[address] [address] Protein 7.3 g/dL Normal 6.3-8.2 [facility] Comment on above: Performed By: #### A PTT, PT, HEMOG, BMP3M, LFT3 ####[place] [address] Albumin 4.4 g/dL Normal 3.5-5.0 [facility] Comment on above: Performed By: #### A PTT, PT, HEMOG, BMP3M, LFT3 ####[place] [address] Prothrombin Timeon 8 INR Coag RelTime (PPP) 1.0 {INR} Normal 0.9-1.1 [facility] Comment on above: Result Comment: Wes [...] #### A PTT, PT, HEMOG, BMP3M, LFT3 ####[address] [address] Prothrombin time (PT) Coag time (PPP) 10.4 s Normal 9.0-12.0 [facility] Comment on above: Result Comment: . Performed By: #### A PTT, PT, HEMOG, BMP3M, LFT3 ####[address] [place] [address] TS GELon 09-19-2017 TS GEL PATIENT: ADAN CONN LOC: COUCH BILL# : [id number] : 1940 SEX: M AGE: [id number] BY: DENAE Lutz ORDERED : 09/19/2017 12:32 COLLECTED: 09/19/2017 12:51ORDER : [id number] RECEIVED : 09/19/2017 16:11 -----TEST NAME RESULT UNITS RANGES ABN FL STABO Group A FRh, Gel POS FAntibody Screen Gel NEG F Normal [facility] Comment on above: Performed By: #### T SGL ####[address] [place] [address] Urinalysis,Macroon 8 Bilirubin (direct) Negative Normal Negative [facility] Comment on above: Performed By: #### U AMAC ####[address] [place] [address] Ketone,Urine Trace Normal Negative [facility] Comment on above: Performed By: #### U AMAC ####[address] [place] [address] Occult Blood,Ur Negative Normal Negative [facility] Comment on above: Performed By: #### U AMAC ####[address] [place] [address] Specific [place],Urine 1.020 Normal 1.005-1.030 [facility] Comment on above: Performed By: #### U AMAC ####[address] [place] [address] Total Protein,Urine Negative Normal Negative [facility] Comment on above: Performed By: #### U AMAC ####[address] [place] [address] Urine, appearance clear Normal Clear [facility] Comment on above: Performed By: #### U AMAC ####[address] [place] [address] Urine, color yellow Normal Lt. Yellow [facility] Comment on above: Performed By: #### U AMAC ####[address] [place] [address] Urine, glucose presence NORM Normal Negative [facility] Comment on above: Performed By: #### U AMAC ####[address] [place] [address] Urine, nitrite presence Negative Normal Negative [facility] Comment on above: Performed By: #### U AMAC ####[address] [place] [address] Urine, pH 6.0 [pH] Normal 5.0-8.0 [facility] Comment on above: Performed By: #### U AMAC ####[address] [place] [address] Urine, urobilinogen NORM Normal 0-1 [facility] Comment on above: Performed By: #### U AMAC ####[address] [place] [address] WBC (Leukocytes) Negative Normal Negative [facility] Comment on above: Performed By: #### U AMAC ####[address] [place] [address] Vital Signs Date Time Vital Sign Value Performing Clinician Pilar monson 05-10-2025 14:12-0400 Body height 170.[address] Raúl Leslie MD Work Phone: [phone](540)[phone] [place] [address] 05-10-2025 14:12-0400 Body mass index (BMI) [Ratio] 23.8 kg/m2 Dr. Raúl Leslie MD Work Phone: 4(216)[phone] [place] [address] 05-10-2025 14:12-0400 Body temperature 98 [degF] Dr. Raúl Leslie MD Work Phone: 5(008)[phone] [place] [address] 05-10-2025 14:12-0400 Body weight 69.[address] Raúl Leslie MD Work Phone: 9([phone] [place] [address] 05-10-2025 14:12-0400 Diastolic blood pressure 79 mm[Hg] Dr. Raúl Leslie MD Work Phone: 6(088)680-237212 [place] [address] 05-10-2025 14:12-0400 Heart rate 64 /min Dr. Raúl Leslie MD Work Phone: 7(291)240-528712 [place] [address] 05-10-2025 14:12-0400 Respiratory rate 18 /min Dr. Raúl Leslie MD Work Phone: 4(697)911-088212 [place] [address] 05-10-2025 14:12-0400 SaO2% (BldA) [Mass fraction] 99 % Dr. Raúl Leslie MD Work Phone: 1(644)[phone] [place] [address] 05-10-2025 14:12-0400 Systolic blood pressure 136 mm[Hg] Dr. Raúl Leslie MD Work Phone: 9(535)591-885812 [place] [address] 05-08-2025 19:04-0400 Body temperature 97.9 [degF] Dr. Raúl Leslie MD Work Phone: [phone])[phone] [place] [address] 05-08-2025 19:04-0400 Diastolic blood pressure 79 mm[Hg] Dr. Raúl Leslie MD Work Phone: 1(154)300-533112 [place] [address] 05-08-2025 19:04-0400 Heart rate 60 /min Dr. Raúl Leslie MD Work Phone: [phone] [place] [address] 05-08-2025 19:04-0400 Respiratory rate 16 /min Dr. Raúl Leslie MD Work Phone: [phone] [place] [address] 05-08-2025 19:04-0400 SaO2% (BldA) [Mass fraction] 95 % Dr. Raúl Leslie MD Work Phone: [facility] 05-08-2025 19:04-0400 Systolic blood pressure 157 mm[Hg] Dr. Raúl Leslie MD Work Phone: [facility] 05-08-2025 14:50-0400 Body height 170.[address] Raúl Leslie MD Work Phone: [facility] 05-08-2025 14:50-0400 Body mass index (BMI) [Ratio] 23.6 kg/m2 Dr. Raúl Leslie MD Work Phone: [facility] 05-08-2025 14:50-0400 Body weight 68.[address] Raúl Leslie MD Work Phone: [facility] Encounters Encounter Date Encounter Type Care Provider Facility Start: 06-14-2025 End: 06-14-2025 ambulatory R FAINA MURPHY Facility:[facility] Start: 06-14-2025 ambulatory R FAINA MURPHY Facilit y:[facility] Start: 05-30-2025 End: 05-30-2025 [facility] Facility[facility] Start: 05-23-2025 End: 05-23-2025 ambulatory Angela Vale Facility:[facility] Start: 05-17-2025 ambulatory Raúl Leslie Facility:[facility] Start: 05-10-2025 End: 05-10-[address] Angela Vale MD -[facility] Work Phone: Start: 05-10-2025 End: 05-10-[address] Raúl Leslie MD Work Phone: -[facility] Start: 05-08-2025 End: 05-08-2025 Emergency department patient visit Dr. Raúl Leslie MD Work Phone: -Emergency Department Work Phone: Start: 04-21-2025 End: 04-21-[address] Raúl Leslie MD Work Phone: -[facility] Start: 04-21-2025 End: 04-21-[address] Raúl Leslie MD -Cat Scan [facility] Work Phone: Start: 04-21-2025 End: 04-21-2025 ambulatory Raúl Leslie Facility:[facility] Start: 03-29-2025 End: 03-29-[address] Raúl Leslie MD Work Phone: -[facility] [place] Start: 03-29-2025 End: 03-29-[address] Raúl Leslie MD -[facility] [place] Work Phone: Start: 03-29-2025 End: 03-29-2025 ambulatory Raúl Leslie Facility:[facility] Start: 03-11-2025 ambulatory Raúl Leslie Facility:[facility] Start: 02-17-2025 End: 02-17-[address] Raúl Leslie MD Work Phone: -[facility] [place] Start: 02-17-2025 End: 02-17-[address] Raúl Leslie MD -[facility] [place] Work Phone: Start: 02-17-2025 End: 02-17-2025 ambulatory Raúl Leslie Facility:[facility] Start: 09-02-2023 End: 09-02-2023 ambulatory [facility] Work Phone: Start: 09-02-2023 End: 09-02-2023 Patient encounter procedure [facility] Work Phone: Start: 11-05-2021 End: 11-05-2021 Patient encounter procedure [facility], [place] Start: 09-24-2017 Evaluation and management of inpatient [facility] Start: 09-19-2017 Ambulatory [facility] Procedures Date Procedure Procedure Detail [...] Date Care Activity Detail Author Start: 05-08-2025 [facility] Start: 05-08-2025 Referral to oncologist [facility] MR Abdomen WO and W contrast IV [facility] Patient Education ED Tumor, Unce rtain Cause [facility] Work Phone: Payers Date Payer Category Payer Self-pay [id number] 2016 Unknown [id number] Unknown Unknown [id number] 2.16.8 [id number] Unknown [id number] 2.16.8 [id number] Unknown [id number] 2.16.8 [id number] Unknown [id number] 2.16.8 [id number] Unknown [id number] 2.16.8 [id number] Unknown [id number] 2.16.8 [id number] Unknown [id number] 2.16.8 [id number] Unknown [id number] 2.16.8 [id number] Unknown [id number] 2.16.8 [id number] Unknown [id number] 2.16.8 [id number] Social History Date Type Detail [facility] Work Phone: Start: 1940 Sex Assigned At Male [facility] Tobacco smoking stat [facility] Unknown if ever smoked [facility] Work Phone: Sex Male [facility] Start: 05-08-2025 [facility] (finding[facility] Start: 05-10-2025 [facility] Medical Equipment Procedure Code Equipment Code Equipment [...] FDA Start: 08-04-2001 Clinical Notes 03-30-2025 to 06-14-2025 Note Date & Type Note Facility 11-11-2025 Note HNO ID: [id number] Author: Litzy MURPHY MD Service: ? Author Type: Physician Type: Progress Notes Filed: 06/14/2025 16:59 Note Text: Consultation requested by Dr. Angela Vale for an opinion regarding Ace Arellano, who presents today for pancreas mas. My final recommendations will be communicated back to the requesting physician by way of shared Medical record or letter to requesting physician via US mail. [facility] STAFF PHYSICIAN NOTE OF PERSONAL INVOLVEMENT IN CARE I have reviewed the consult note obtained and documented by the resident and I personally participated in the mendez components. I have discussed the case and management of the patient's care. The following comments revise or confirm relevant mendez components of the note. Assessment IMPRESSION: This is a 85 year old who presented with epigastric pain to ED and workup showed pancreatic body mass, would require Rossie longstanding tobacco smoker. no diabetes or steatorrhea. not on narcotics. no biopsy yet. 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 genetic counseling. TB total time 40 min Erick Murphy MD Date of Service: June 14, 2025 Time of Service: 1:54 PM [facility] 06-14-2025 Note HNO ID: [id number] Author: GUIDO BILLS MD Service: ? Author Type: Resident Type: Progress Notes Filed: 06/14/2025 16:59 Note Text: INITIAL PANCREATIC CANCER PATIENT NAME: Ace Arellano DATE of SERVICE: 06/14/2025 TIME of SERVICE: 5:15 AM PCP: No primary care provider on file. This consult was requested by Angela Vale MD for evaluation of pancreatic cyst(s) My final recommendations will be communicated to the requesting health care provider by way of the shared medical record or US postal services. HPI: Mr. Arellano is a 85 year old male who presents for evaluation of pancreatic mass. Patients states that he presented to ED for evaluation of epigastric for 4-5 months that was increasing intensity. The pain is constant. 8/10 intensity. Pain aggravated with meals. Pain for now controlled on tylenol and ibuprofen. + constipation. Had occasional n/v. Weight loss of 25 lbs in last 6 months. Smoker of 60-70 years and quit in 2021. Incidental- No Abdominal Pain-Yes Neck surgery with implant/fixed Lower back surgery WORKUP: MRI 2024 mass size 27 x 24 mm location body vessel involvement yes Arterial: SMA: Soft Tissue Contact Celiac: <180 degress SABIHA:No contact Splenic artery: No Contact Venous: MPV: No Contact SMV: No Contact Splenic Vein: No Contact Venous collaterals present: No Contiguous Organ Involvement: No Lymph node No Liver Lesions: No Ascites No Venous thrombosis No Pathology/Cytology: None PAST MEDICAL HISTORY PAST MEDICAL HISTORY Diagnosis Date Mixed hyperlipidemia Hyperlipidemia PAST SURGICAL HISTORY PAST SURGICAL HISTORY Procedure Laterality Date LAMINECTOMY W/O FFD 08/05 VERT SEG THORACIC FAMILY HISTORY FAMILY HISTORY Problem Relation Age of Onset Cancer Mother Cancer Father Pancreatic Cancer- No Colon Cancer- Yes Breast Cancer- No Pancreatitis- No SOCIAL HISTORY SOCIAL HISTORY[1] REVIEW OF SYSTEMS GENERAL: Positive for significant weight loss 25 lbs. RESPIRATORY: Negative for cough, hemoptysis, wheezing, COPD, dyspnea or shortness of breath CARDIOVASCULAR: Negative for chest pain, leg swelling, hypertension, CHF or palpitations GI: See HPI PHYSICAL EXAM: General Appearance: Well appearing, alert, in no acute distress, well-hydrated, well nourished.. Skin: Skin color, texture, turgor normal, no suspicious rashes or lesions. Lungs: Unlabored on room air. Heart: regular rate. Abdomen: Normal abdominal exam, Abdomen soft, non-tender. No masses, organomegaly. Neurologic: Gait normal. Reflexes normal and symmetric. Sensation grossly intact.. 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 Patient has not completed staging, or had path confirmation but suspicious for pancreatic cancer. Will need to complete staging and high likelihood of upfront chemotherapy. PLAN: Presentation at Tumor Board IgG4 CA19-[address] Pancreas Other workup: EGD/EUS Genetic testing HgbA1c SIGNATURE: Guido Rangel MD [1] Social History Tobacco Use Smoking status: Former Types: Cigarettes Passive exposure: Never Smokeless tobacco: Never Substance Use Topics Alcohol use: Yes Drug use: No [facility] 06-14-2025 Note HNO ID: [id number] Author: ?, ?, ? Service: ? Author Type: ? Type: Progress Notes Filed: 06/14/2025 16:59 Note Text: What is the reason for your visit today? consult Who is your referring physician? Isckarus, Mansour Are you having poor oral intake? NO Have you had unintentional weight loss of 15 lbs/7 Kg in the last 3-6 months? NO Bowels: constipated or regular Wound: clean AND dry Temperature: No Drains: No [facility] 06-02-2025 Note HNO ID: [id number] Author: AVI FLETCHER RN Service: ? Author Type: Registered Nurse Type: Progress Notes Filed: 06/02/2025 16:57 Note Text: Fax to [facility] [phone] [facility] 05-10-2025 Progress note [facility] 05-08-2025 Discharge summary [facility] 05-08-2025 Radiology Diagnostic study note [facility] Imaging Services [address] [place], [place] [id number] Abdomen/Pelvis W IV Cont ONLY MR#: [id number] Acct: [id number] Name: ACE ARELLANO Rep #: [id number] : 1940 M 85 From: Lachelle Arellano MD PCP: Dr. Raúl Leslie MD Status: REG ER Study:Abdomen/Pelvis W IV Cont ONLY Date of E xam: 05/08/25 Exam# [id number] Ordering Dr: Bhaskar Foster DO PROCEDURE: ABDOMEN/PELVIS [...] contrast. Do not recommend MRCP Reading [facility] CC: Dr. Raúl Leslie MD; Dr. Francisco Foster DO ~ Implant Coordinator: Signed [facility] 05-08-2025 Discharge summary Note Date/Time May 08, 2025 7:35pm [facility] Medical Records Department [address] [place] [id number] Emergency Department Summary 05/08/25 MR#: [id number] Acct: [id number] Name: ADANACE REYNAGA Khushi Rep #:[id number] : 1940 85 From: Francisco Torres [...] History obtained from others: Patient's Consults: none [facility] Narrative: Patient was initially hemodynamically stable, afebrile [...] Discharge home This note was generated with [employer] dictation software. It may contain incorrectwords, spelling, [...] (Auto) 68.7 Lymph % (Auto) 18.0 L Randall % (Auto) 7.2 Eos % (Auto) 5.3 [...] Clarity Clear Urine pH 6.0 Ur Specific [place] 1.020 Urine Protein 30 H Urine Glucose [...] contrast. Do not recommend MRCP Reading Location: [facility] Discharge Plan Triage Chief Complaint: Abd Pain ED Provider: Cristian,Francisco Dx/Rx/DC Orders Instructions: ED Tumor, Uncertain Cause Prescriptions: New oxycodone 5 mg tablet 5 mg PO Q6H PRN (Reason: pain) 3 Days Qty: 12 0RF ondansetron 4 mg tablet,disintegrating 4 mg PO Q8H PRN PRN (Reason: Nausea) Qty: 10 0RF No Action Linzess 290 mcg capsule 290 mcg PO DAILY Other Ambulatory Orders: Fast Pass: Oncology Referral [facility] (Routine) Facility: [facility] - Location: [facility] Ordered By: Dr. Francisco Foster [...] for possible cancer. Please follow-up with the [facility] oncology referral. Expect a call for scheduling. This is located here in [facility]. Please take Tylenol (2 pills, 650 [...] for further outpatient evaluationand management. Print Language: Kyrgyz Disposition Disposition: Home, Self Care Discharge Date/Time: 05/08/25 19:35 What to do if you have Problems For any increased pain, shortness of breath, bleeding, nausea or vomiting, chestpain, or any unexpected problems, contact your Primary Care Provider. Call [facility] ([phone]) or report to the closest Emergency Room. Call 911 if necessary. 05/08/25 0542 <Electronically signed by Francisco Cristian DO> Cosigner Signature (if applicable): CC: Dr. Raúl Leslie MD ~ Signed [facility] Work Phone: 1(397) 952-426709-18-2025 Radiology Diagnostic study note [facility] Imaging Services [address] [place] [address] Abdomen/Pelvis without Cont MR#: [id number] Acct: [id number] Name: ACE ARELLANO Rep #: [id number] : 1940 M 84 From: Marcelino Hernandez MD PCP: Dr. Raúl Leslie MD Status: REG CLI Study:Abdomen/Pelvis without Cont Date of Exa m: 04/21/25 Exam# [id number] Ordering Dr: Dominguez Leslie MD PROCEDURE: ABDOMEN/PELVIS WITHOUT CONT 04/21/2025 [...] changes of the spine. S shaped scoliosis. Efnajviz-lk-akpomf atherosclerosis. The infrarenal abdominal aorta measures up [...] diverticulosis without diverticulitis. *Enlarged prostate. Reading Location: [facility] CC: Dr. Raúl Leslie MD ~ Implant Coordinator: Signed [facility]08-27-2025 Radiology Diagnostic study note [facility] Imaging Services [address] [place] [address] Abdomen Single View MR#: [id number] Acct: [id number] Name: ACE ARELLANO Rep #: [id number] : 1940 M 84 From: Zacarias Scott MD PCP: Dr. Raúl Leslie MD Status: REG CLI Study:Abdomen Single View Date of Exam: 03/29/25 Exam# [id number] Ordering Dr: Dominguez Leslie MD PROCEDURE: ABDOMEN SINGLE VIEW 03/29/2025 [...] 3. Other findings as noted. Reading Location: [facility] CC: Dr. Raúl Leslie MD ~ Implant Coordinator: Signed [facility] Work Phone: Evaluation noteNo assessment information available [facility] Work Phone: Evaluation note* Diagnosis Onset Date Resolution Status Admit Date Abdominal pain acute May 2:01pm Pancreatic lesion acute May 10, 2025 2:01pm [facility] Work Phone: Hospital Discharge instructionsAdditional Instructions Thank you for trusting us with your care today! Your labs and imaging are reassuring. There is no sign of systemic inflammation, issues your kidneys, liver or pancreas. Your CT scan once again showed the abnormality of your pancreas which is concerning for possible cancer. Please follow-up with the [facility] oncology referral. Expect a call for scheduling. This is located here in [facility]. Please take Tylenol (2 pills, 650 [...] care physician for further outpatient evaluation and management.[facility] Work Phone: Progress note Author Angela Vale [facility] Note Date/Time May 10, 2025 2: 57pm [facility] [address] [place] [address] OFFICE VISIT Date of Service: 05/10/25 1403 MR#: [id number] Acct: [id number] Name: ACE ARELLANO Rep #: [id number] : 1940 From: Angela rodriguez MD Age/Sex: 85/M Location: [facility] Status: Signed HPI Subjective Date of Service 05/10/25 Chief Complaint Abdominal pain and pancreatic lesion History of Present Illness 85-year-old gentleman who for approximately 2 months has had daily bouts of epigastric pain. The pain appears to be aggravating by meals, laying down, withrelieved by sitting up and taking combination of Tylenol and ibuprofen ydqci-qzp-arboq. He has lost at least 10 pounds of weight since the onset. He has had no nausea or vomiting, no dysphagia, has had recent constipation, hisstools are dark but he is not sure [...] Recommend MRI pancreas without and with contrast. [facility] Surgical History History of back surgery [...] no focal motor deficits Coordination / Balance: ixjqic-vx-rwvs test normal Speech: speech normal Gait (Neuro): [...] taking a PPI (has at home purchased lsdq-gfx-vocedha) on a daily basis. He was also advised to stop drinking alcohol on a daily basis and see if that helps with his pain. 3. Further workup depending on the findings from the MRI. Impression and recommendations discussed with patient and his , follow-up after MRI. Angela Vale MD [employer]eron[employer], [facility] Divisions of Medical Oncology & Hematology Department of Internal Medicine [place] [id number] This note was generated using a voice [...] fallen in the past year?: No 05/10/25 1457 <Electronically signed by Angela rodgers MD> Date _ Angela Vale MD Cosigner Signature: Date (if applicable) CC: Dr. Raúl Leslie MD; Dr. Francisco Foster DO ~ [facility] Work Phone: Reason for referral (narrative)No [facility] for [facility] Work Phone: Summary Purpose Family History No Family History Records Found Relationship Condition Age at Onset Recorded Date/T yoshi father Malignant neoplasm of colon Unknown mother Malignant neoplasm Unknown brother Diabetes mellitus Unknown daughter Diabetes mellitus Unknown Advance Directives No Advanced Directives Records Found Advance Directive Response Recorded Date/ Time Do you have a Healthcare Power of Cut Out Worker? No May 08, 2025 3:28pm Chief Complaint and Reason for Visit Chief Complaint did not want labs by Dr. Leslie today Chief Complaint Admit Date EORDER- LAB AND XRAY March 29, 2025 9 :42am Chief Complaint Admit Date EORDER- LAB AND XRAY March 29, 2025 9 :42am KIDNEY STONE ASSETMENT April 21 025 7:30am Chief Complaint Admit Date EORDER- [...] content) No Status Records FoundNo Status Records FoundNo Status Records Found INFORMATION SOURCE (unrecogn ized section and content) DATE CREATED AUTHOR 01/28/2018 [facility] DATE CREATED AUTHOR AUTHOR'S ORGANIZ ATION 06/02/2025 [facility] DATE CREATED AUTHOR AUTHOR'S ORGANIZ ATION 06/15/2025 [facility] Goals (unrecognized section and content) Goals [...] Active Member Role Status Dates Dr. Raúl eLslie MD Family Provider Active Dr. Raúl Leslie [...] BE BASED ON THE PRIMARY CLINICAL RECORDS. [facility] [employer] provides no warranty or guarantee of the accuracy or completeness of information in this document.
[2025-07-15 06:27] VITALS: BP 134/76; BP 164/76; PULSE 65; RESP 16; TEMP 36.7; O2SAT 98; BMI 22.4
[2025-07-19] VITALS (9 sets, daily range): BP systolic 133–171; BP diastolic 76–97; PULSE 57–72; RESP 16–18; TEMP 36.2–36.4; O2SAT 92–98; BMI 22.1
[2025-07-19] MEDS: Lactated Ringers 1,000 ML 15 ML IV (12:03)
--- NOTE | 2025-07-19 12:45 | PCM.PRE.AN2 ---
ASA Classification* ASA Classification ASA Classification: 3 Assessment & Plan Anesthesia* Anesthesia Assessment Anesthesia Assessment: Discussed sedation and/or anesthesia options, risks, benefits, and alternatives with patient/parents/legal guardian/POA. Questions invited. The patient/parents/legal guardian/POA seems to understand and agrees to proceed with anesthesia plan. Reviewed the physical assessment, medical history, allergy history and patient home medications list prior to surgery/procedure/anesthetic and documented any changes. Performed airway and anesthesia risk assessments. Anesthesia Type Anesthesia Type: MAC Anesthesia Focused Assessment* Temperature: 97.2 F Pulse Rate: 72 Blood Pressure: 153/77 Respiratory Rate: 16 Pulse Ox: 98 Airway Assessment Mouth opens: >3 cm Mallampati Score: II Labs Anesthesia Preop lab: CBC WBC, (4.4-11.0) 8.6 K/mm3 06/29/25, 15:05 RBC, (4.6-6.2) 3.90 M/mm3 L 06/29/25, 15:05 Hgb, (13.0-16.5) 12.5 g/dL L 06/29/25, 15:05 Hct, (40-54) 36.9 % L 06/29/25, 15:05 Plt Count, (150-450) 331 K/mm3 06/29/25, 15:05 CHEMISTRY Potassium, (3.3-5.1) 4.7 mmol/L 06/29/25, 15:05 Sodium, (133-145) 136 mmol/L 06/29/25, 15:05 Magnesium, (1.6-2.6) 2.0 mg/dL 01/11/19, 09:14 BUN, (4-19) 13 mg/dL 06/29/25, 15:05 Creatinine, (0.70-1.20) 0.96 mg/dL 06/29/25, 15:05 Glucose, (70-99) 104 mg/dL H 06/29/25, 15:05 TSH, (0.358-3.74) 0.42 uIU/mL 01/11/19, 09:14 COAG Pre-Assessment Diagnosis/Proposed Procedure Planned Operative Procedure(s): (L) Insertion, Vascular Port left poss right Anesthesia History 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 When Was Last Pacemaker Check QUESTION #4 FULL TEXT: You/Your Family Experience fever (hyperthermia) with Anesthesia Last Oral Intake Last Oral intake: Last Oral Intake NPO since 05:30 07/19/25 11:55 Meds taken in AM with sips of No 07/19/25 11:55 water? Meds patient instructed to see mar 07/15/25 06:27 take am of surgery PONV PONV - assembly line upholsterer: PONV - assembly line upholsterer Female No 07/08/25 11:13 HX of Motion Sickness No 07/08/25 11:13 HX of N/V After Surgery No 07/08/25 11:13 Non-Smoker Yes 07/08/25 11:13 Duration of Surgery greater No 07/08/25 11:13 than 60 minutes Number of Risk Factors 1 07/08/25 11:13 PONV Score Low Risk 07/08/25 11:13 Height & Weight Height & Weight: Anesthesia: Height & Weight Height 5 ft 7 in 07/19/25 11:55 Weight: 64 kg 07/19/25 11:55 Body Mass Index (BMI) 22.1 07/19/25 11:55 Respiratory Assessment Respiratory Assessment - assembly line upholsterer: Respiratory Tract Infection Hx - assembly line upholsterer Hx Respiratory Tract Infection No 07/08/25 11:13 STOP Sleep Apnea STOP Sleep Apnea - assembly line upholsterer: STOP Sleep Apnea - assembly line upholsterer Hx Hypertension No 07/08/25 11:13 Hx Sleep Apnea No 07/08/25 11:13 CPAP BIPAP Do you snore loudly (louder No 07/08/25 11:13 than talking or can be heard Do you often feel tired/ No 07/08/25 11:13 fatigued/ sleepy during daytime? Has anyone observed you stop No 07/08/25 11:13 breathing during sleep? STOP Results Negative 07/08/25 11:13 QUESTION #5 FULL TEXT : Do you snore loudly (louder than talking or can be heard through closed doors)? Tobacco Use History Tobacco Use History - assembly line upholsterer: Tobacco Use History - assembly line upholsterer Tobacco Use Smoking Status Former smoker 07/08/25 11:13 Hx Tobacco Use No 07/08/25 11:13 Years Smoking Packs Smoked per Day Smoking Cessation Date was Yes - quit smoking within 15 07/08/25 11:13 within the last 15 years years Hx Smoking Cessation Date 11/02/21 07/08/25 11:13 Hx Smoking Cessation No 07/08/25 11:13 Counseling Hematologic Medial History Hematologic Hx - assembly line upholsterer: Hematologic Medical Hx - claim service representative Hx of Blood Transfusion No 07/08/25 11:13 Hx of Transfusion in last 3 No 07/08/25 11:13 Months Date of Last Transfusion (if within last 3 months) Ever experience any problems No 07/08/25 11:13 with transfusion(s)? Specify any problems Hx of Preganancy in last 3 N/A 07/08/25 11:13 Months Nurse Filling Out Transfusion NBUCHER 07/08/25 11:13 & Questions: Date: 07/08/25 07/08/25 11:13 Time: 11:14 07/08/25 11:13 Patient unable to answer at this time (ie. confused, unrespo /Reproduction History /Reproductive History - assembly line upholsterer: /Reproductive Hx- assembly line upholsterer Hx Now No 07/08/25 11:13 Gestational Age (in weeks): EDC: Hx Hx Para Hx Section SAB No 07/08/25 11:13 Does the father of the baby or his family experience fever w Father of the baby Malignant Hypertension history comment Active Medications Active Medications: Current Medications Generic Name Dose Route Start Last Admin Trade Name Freq PRN Reason Stop Dose Admin Lactated Ringer's 1,000 mls @ 15 mls/hr 07/19/25 11:45 07/19/25 12:03 IV 15 mls/hr .Q48H JOSE Administration PFSH Medical History Cancer Restless legs Heartburn Gastric reflux Former smoker History of echocardiogram Encounter for education Pancreas cancer Home Medications ?Medication ?Instructions ?Recorded ?Last Taken ?Type linaclotide 290 mcg capsule 290 mcg PO DAILY 05/08/25 Unknown History (Linzess) acetaminophen 500 mg tablet 500 mg PO Q6H PRN pain 05/10/25 Unknown History (Tylenol Extra Strength) ibuprofen 600 mg tablet 600 mg PO Q8H PRN pain 05/10/25 07/19/25 History lidocaine-prilocaine 2.5 %-2.5 % 1 applic topical ONCE PRN port 07/07/25 Unknown Rx topical cream access 30 days #30 grams ondansetron 8 mg disintegrating 8 mg PO Q8H PRN nausea and 07/07/25 Unknown Rx tablet vomiting #30 tabs oxycodone 5 mg tablet 5 mg PO 4X/DAY PRN pain 07/07/25 07/19/25 History omeprazole 20 mg tablet,delayed 20 mg PO DAILY 07/08/25 Unknown History release Allergy/AdvReac Type Severity Reaction Status Date / Time shellfish derived Allergy Severe Anaphylaxis Verified 07/19/25 11:54 Family History Father Colon cancer Mother Cancer Brother Diabetes Daughter Diabetes Surgical History History of back surgery H/O neck surgery Social History Smoking Status: Former smoker Tobacco: How many years used: 62 alcohol intake: current alcohol intake frequency: 0-2 drinks per day Alcohol type: beer substance use type: does not use Review of Systems (Anesthesia) ROS Narrative System reviewed and no additional complaints, except as documented.
--- NOTE | 2025-07-19 13:34 | PCM.HP.STD ---
HPI - General General Date of Admission: 07/19/25 Date of Service: 07/19/25 Chief Complaint: Mediport placement HPI Narrative ACE ARELLANO, is a 85 M who presents for elective Mediport placement [facility] Medical History Cancer Restless legs Heartburn Gastric reflux Former smoker History of echocardiogram Encounter for education Pancreas cancer Home Medications ?Medication ?Instructions ?Recorded ?Last Taken ?Type linaclotide 290 mcg capsule 290 mcg PO DAILY 05/08/25 Unknown History (Linzess) acetaminophen 500 mg tablet 500 mg PO Q6H PRN pain 05/10/25 Unknown History (Tylenol Extra Strength) ibuprofen 600 mg tablet 600 mg PO Q8H PRN pain 05/10/25 07/19/25 History lidocaine-prilocaine 2.5 %-2.5 % 1 applic topical ONCE PRN port 07/07/25 Unknown Rx topical cream access 30 days #30 grams ondansetron 8 mg disintegrating 8 mg PO Q8H PRN nausea and 07/07/25 Unknown Rx tablet vomiting #30 tabs oxycodone 5 mg tablet 5 mg PO 4X/DAY PRN pain 07/07/25 07/19/25 History omeprazole 20 mg tablet,delayed 20 mg PO DAILY 07/08/25 Unknown History release Allergy/AdvReac Type Severity Reaction Status Date / Time shellfish derived Allergy Severe Anaphylaxis Verified 07/19/25 11:54 Family History Father Colon cancer Mother Cancer Brother Diabetes Daughter Diabetes Surgical History History of back surgery H/O neck surgery Social History Smoking Status: Former smoker Tobacco: How many years used: 62 alcohol intake: current alcohol intake frequency: 0-2 drinks per day Alcohol type: beer substance use type: does not use Vital Signs Vital Signs Vital Signs: 07/19/25 11:55 07/19/25 11:55 07/19/25 11:55 Temperature 97.2 F L Temperature Source Temporal Pulse Rate 72 Respiratory Rate 16 Respiratory Pattern Normal Blood Pressure 153/77 H Blood Pressure Mean 102 Blood Pressure Source Monitor Blood Pressure Position Sitting Blood Pressure Location Left Arm Baseline BP 153/77 Pulse Ox 98 Oxygen Delivery Method Room Air 07/19/25 12:45 Temperature 97.2 F L Temperature Source Pulse Rate 72 Respiratory Rate 16 Respiratory Pattern Blood Pressure 153/77 H Blood Pressure Mean Blood Pressure Source Blood Pressure Position Blood Pressure Location Baseline BP Pulse Ox 98 Oxygen Delivery Method Weight Weight: 141 lb 1.533 oz Body Mass Index (BMI) 22.1 Physical Exam Const alert, oriented x3 and no apparent distress Assessment & Plan Assessment/Plan (1) Pancreas cancer: QUALIFIERS: Pancreatic malignancy location: body of pancreas Qualified Code(s): C25.1 - Malignant neoplasm of body of pancreas PLAN: Plan Plan is for Mediport placement today. We discussed the details of the planned procedure and he wishes to proceed. This began momentarily
[2025-07-19] MEDS: Lactated Ringers 1,000 ML 1000 ML IV (14:12)
[2025-07-19] MEDS: Lidocaine 1% (5 ml sdv) 5 ML Vial IV (14:17)
[2025-07-19] MEDS: Cefazolin 1 GM/5 ML Vial 2 GM IV (14:20)
[2025-07-19] MEDS: fentaNYL 100 MCG/2 ML Ampul IV (14:57)
[2025-07-19] MEDS: Lidocaine 1% /Epi 1:100 (20ml) 20 ML Vial (15:02)
--- NOTE | 2025-07-19 15:23 | DCINST_ITS ---
Discharge Instructions Diet Discharge Diet: Light diet - advance as tolerated Activity Discharge Activity: Return to Normal Activity May shower in (days): 1 Ice area for (Minutes): 30 Dressing / Incision Call your doctor if your incision/area has: Continuous Slow Oozing, Sudden Increased Bleeding, Increased Pain/ Swelling, Increased Redness, Foul Smelling Discharge and Swelling at the incision site Call your doctor if you observe: Fever of 101 or Higher Follow Up Care Please Follow Up With: Corey Curtis MD When: 2 weeks Test Results: Test results from this visit will be discussed in further detail at your follow- up appointment, if applicable. Discharge Plan Admission Primary Reason for Your Visit: Port placement Attending Provider: Corey Curtis Primary Care Provider: Raúl Leslie Instructions Print Language: Yoruba Discharge Orders/Prescriptions Prescriptions: New oxycodone 5 mg tablet 5 mg PO Q8H PRN (Reason: pain) 3 Days Qty: 7 0RF Continued acetaminophen [Tylenol Extra Strength] 500 mg tablet 500 mg PO Q6H PRN (Reason: pain) ibuprofen 600 mg tablet 600 mg PO Q8H PRN (Reason: pain) ondansetron 8 mg tablet,disintegrating 8 mg PO Q8H PRN (Reason: nausea and vomiting) Qty: 30 2RF lidocaine-prilocaine 2.5-2.5 % cream 1 applic topical ONCE PRN (Reason: port access) 30 Days Qty: 30 2RF oxycodone 5 mg tablet 5 mg PO 4X/DAY PRN (Reason: pain) Linzess 290 mcg capsule 290 mcg PO DAILY omeprazole 20 mg tablet,delayed release (DR/EC) 20 mg PO DAILY Referrals / Follow Up: Raúl Leslie MD [Primary Care Provider, Family Practice] Disposition Disposition (needs filled in before D/C Order can be placed): Home, Self Care
--- NOTE | 2025-07-19 15:24 | PCM.POST.ANE ---
Anesthesia: Postop Eval I Current Vital Signs Temperature: 97.1 F Pulse Rate: 67 Blood Pressure: 133/79 Respiratory Rate: 18 Pulse Ox: 96 Assessment Airway patent: Yes Spontaneous unlabored respirations: Yes nausea: No Vomiting: No Anesthesia Complication: No Fluid Hydration Crystalloid volume administer (ml): 1,000 Total IV fluid infused: 1,000 Progress Note Anesthesia document: Postop Eval 1 completed: Yes
--- NOTE | 2025-07-19 15:25 | RAD_ITS ---
PROCEDURE: CXR FOR LINE PLACEMENT 07/19/2025 REASON FOR EXAM: PORT TECHNIQUE: Procedure Code: [id number] Modality: DX Procedure: CXR FOR LINE PLACEMENT COMPARISON: 11/05/2021 FINDINGS: Devices: Left chest wall MediPort with catheter tip at the superior cavoatrial junction. Lungs/Pleura: No focal consolidation, pneumothorax or sizable pleural effusion. No vascular congestion. Stable appearing subcentimeter probable calcified granuloma in the right mid lung zone. Heart/Mediastinum: Normal in size. Mildly tortuous and calcified thoracic aorta. Bones/Soft tissues: Mild degenerative changes of the spine and bilateral shoulders. Partially imaged lower cervical spine metallic fixation hardware. RAD/CXR for Line Placement IMPRESSION: Left chest wall MediPort, catheter tip at the superior cavoatrial junction. No acute cardiopulmonary disease. Reading Location: [id number]
--- NOTE | 2025-07-19 15:28 | OP.PCM_ITS ---
Procedures Cardiovascular CF Procedures [id number]: [id number] Insert tunneled cv cath Operative Report (Standard) Operative Information Date of Procedure: 07/19/25 Pre-Operative Diagnosis: Pancreatic cancer Post-Operative Diagnosis: Same Surgery/Procedure Performed: Left IJ Mediport insertion with C arm and ultrasound vacuum filter operator: No Type of Anesthesia: Local and MAC RN Documented Start/Stop Times: Operation Date: 07/19/25 13:30 Case Time Into Pre-Op 07/19/25 11:42 Out of Pre-Op 07/19/25 14:08 Anesthesia Start 07/19/25 14:12 Into Room 07/19/25 14:12 Procedure Start 07/19/25 14:31 Procedure End 07/19/25 15:13 Anesthesia End 07/19/25 15:19 Out of Room 07/19/25 15:19 Procedure Start Time: 14:31 Procedure Stop Time: 15:13 Select all DRAINS/GRAFTS/IMPLANTS that apply: Implanted device Implanted device details: 8 [place] Mediport?MRI compatible Special Medications: 2 g Ancef IV Estimated Blood Loss: 20 mL Specimen collected: No Description of surgery: Patient is an 85-year-old male who has been recently diagnosed with pancreatic cancer. Oncology has offered him chemotherapy. Mediport was requested. We discussed the details of the planned procedure including risks benefits and alternatives. He wishes to proceed. Patient was brought to the operating room today following informed consent. Preoperative antibiotics were given and a timeout was performed. He was placed supine on the operative table with arms comfortably at his sides. MAC anesthesia was induced. The left upper chest and neck regions were prepped and draped in the usual sterile manner. Ultrasound was used to identify the left internal jugular vein. Local anesthetic was infiltrated into this area. Using the supplied needle and syringe, the left internal jugular vein was able to be accessed. The blood return was a dark red, nonpulsatile, venous appearing blood return. Guidewire was advanced through the aperture and the needle. There was some resistance. C-arm was brought in as the wire was being inserted and was noted this seemed to be coiling in the re gion of the innominate and SVC. I obtained a angled guidewire which was able to traverse the band and was able to be advanced into the right atrium. Next a subcutaneous pocket was created involving the left upper chest region. A #11 blade was used to make a small incision at the entry point of the guidewire. Tubing was tunneled into the larger incision and up and out through the smaller incision. This was trimmed to about 27 cm. This was attached to the hub of the port. The port was affixed to the chest wall. The dilator and tear-away sheath were then threaded over the guidewire. This was advanced to the hub of the sheath. C-arm was utilized to confirm appropriate positioning of the sheath. Next the guidewire and dilator were then removed thus leaving the sheath in place. The free end of the Mediport tubing was then threaded down the sheath under fluoroscopy. The sheath was then extracted. The port sherri and flushed easily with saline. C-arm was again used to examine the tubing. The tip of the tubing appeared to be in adequate location. There were no obvious kinks or bends to the tubing. The skin incisions were then closed using 3-0 Vicryl and 4-0 Vicryl. Skin glue was applied as dressing. The port was accessed using a 1 inch Trevino needle accessing tubing. It sherri and flushed easily. It was flushed with heparin. OpSite dressings were applied. He was awakened from anesthesia and taken to recovery in good condition. Chest x-ray will be performed Surgical Findings: See operative note Complications Complications: No Admit VTE Documentation VTE Present on Admission: No VTE Mechan Device Prophylaxis: SCD's VTE Pharm Prophylaxis ordered?: No Reason prophylaxis not ordered: Treatment Not Indicated
--- NOTE | 2025-07-19 16:27 | SUR.PHASEII ---
radiology called about xray results- she is going to call the radiologist and have read
--- OUTSIDE RECORDS SUMMARY | 2025-07-19 17:44 | XMS RPT_ITS | CCD ---
Author Organization [facility] Care Team Providers Care Court Officer Name Role Phone Asim Regan Unavailable Unavailable Leslie, Raúl Unavailable Unavailable Leslie, Raúl Unavailable Unavailable Asim Regan Unavailable Unavailable Leslie, Raúl Unavailable Unavailable Leslie, Raúl Unavailable Unavailable Anuj MCFARLANE, Dr. Olsen Primary Care Provider [phone] Anuj MCFARLANE, Dr. Olsen Attending Provider [phone] Anuj MCFARLANE, Dr. Olsen Referring Provider [phone] Anuj MCFARLANE, Dr. Olsen Primary Care Physician Anuj MCFARLANE, Dr. Olsen Attending Physician Dr. Francisco Foster DO Emergency Department Physi alex Dr. Francisco Foster DO Referring Provider [phone] Akanksha MCFARLANE, Dr. Miller Attending Physician Leslie, [...] [shellfish derived] Allergy to substance 05-08-2025 Anaphylaxis [facility] (1 source) Iodine; Translations: [IODINE] Drug Allergy 05-17-2005 [facility] Repository Medications Current Medications Medication Drug Class(es) [...] Test Name Value Interpretation Reference Range Facility [facility] 06-14-2025 CNOV Office Visit ([facility] ) -- ADANACE MIX ([id number]) 1940 M Date Time Provider Department 06/14/25 1:30 PM [facility] During your visit today, we recorded the [...] way of the shared medical record or [employer] services. HPI: Mr. Arellano is a 85 [...] letter to requesting physician via US mail. [facility] STAFF PHYSICIAN NOTE OF PERSONAL INVOLVEMENT IN CARE I have reviewed the consult note obtained and doc (more content not included)... Normal [facility] Cancer Ag19-9 SerPl-aCncon 1 08-14-2024 Cancer Ag 19-9 Qn 199.0 [arb'U]/mL High <36.0 C [facility] Comment on above: Order Comment: Speci men Type: BLOOD SPECIMEN Ordering Facility: [facility] Address: [address] [place] [address] Result Comment: [facility] er antigen 19-9 test is used as an aid in monitoring response to treatment or recurrence in patients with established pancreatic, hepatobiliary, or gastrointestinal malignancies. Clinical correlation is required. The CA 19-9 Antigen test was performed using the [employer] Un[employer]el DXI paramagnetic particle chemiluminescent immunoassay method. Results obtained with different assay methods or kits cannot be used interchangeably. Performed By: #### 2 4108-3 #### [facility] CLIA [id number] [address] [place] [address] [place] Creatinine and Glomerular fi ltration rate.predicted panel (S/P/Bld)on 06-14-2025 Creatinine [Mass/Vol] 0.76 mg/dL Normal 0.73-1.22 [facility] Comment on above: Order Comment: Bjorn go Type: BLOOD SPECIMEN Ordering Facility: [facility] Address: [address] [place] [address] Performed By: #### 4 5066-8 #### [facility] CLIA [id number] [address] [place] [address] [place] eGFRcr SerPlBld CKD-EPI 2020 88 mL/min/1.73m??? Normal >=60 [facility] Comment on above: Order Comment: Lumai men Type: BLOOD SPECIMEN Ordering Facility: [facility] Address: [address] [place] [address] Result Comment: Padmini mated Glomerular Filtration Rate [...] GFR. Performed By: #### 4 5066-8 #### [facility] CLIA [id number] [address] [place] [address] [place] HbA1c (Bld)on 06-14-2025 Average glucose Estimated from glycated hemoglobin (Bld) [Mass/Vol] 117 mg/dL Normal [facility] Comment on above: Order Comment: Bjorn go Type: BLOOD SPECIMEN Ordering Facility: [facility] Address: [address] [place] [address] Result Comment: eAG: (Estimated average glucose) is a calculated value from HgbA1c and is retail wireless sales representative of the average blood glucose level in the last 2-3 month period. Performed By: #### 5 5454-3 #### [facility] CLIA [id number] [address] [place] [address] [place] HbA1c (Bld) [Mass fraction] 5.7 % High 4.3-5.6 [facility] Comment on above: Order Comment: Bjorn go Type: BLOOD SPECIMEN Ordering Facility: [facility] Address: [address] [place] [address] Result Comment: Jagdish ican Diabetes Association guidelines indicate that patients with HgbA1c in the range 5.7-6.4% are at increased risk for development of diabetes, and intervention by lifestyle modification may be beneficial. HgbA1c greater or equal to 6.5% is considered diagnostic of diabetes. Performed By: #### 5 5454-3 #### [facility] CLIA [id number] [address] [place] [address] [place] IgG4 Ser-mCncon 06-14-2025 IgG subclass 4 (S) [Mass/Vol] 32.4 mg/dL Normal 3.9-86.4 [facility] Comment on above: Order Comment: Speci men Type: BLOOD SPECIMEN Ordering Facility: [facility] Address: [address] [place] [address] Performed By: #### 2 469-5 #### [facility] CLIA [id number] [address] [place] [address] [place] CNPThea 06-02-2025 CNPN Telephone (GENSMN) -- ACE ARELLANO ([id number]) 1940 M Date Time Provider Department 06/02/25 AVI FLETCHER During your visit today, we recorded the following information about you: Avi Fletcher, RN 06/02/2025 4:52 PM Signed [facility] dr grijalva oncologist. - Fax number; [phone] Patient has had an MRI showed pancreas mass. No biopsy yet. Allergies As of Date: 06/02/2025 Noted Allergy Reaction IODINE 05/17/2005 Date Reviewed: 05/04/2007 Reviewed by: Martha Martinez - Reviewed Problem List As Of Date: 06/02/2025 (None) Encounter Status:Closed by AVI FLETCHER on 06/02/25 Normal [facility] Carbohydrate AG 19-9on 06-01 CA 19-9 159 U/mL High 0-35 [facility] Comment on above: Result Comment: [employer] Electrochemiluminescence Immunoassay (ECLIA) Values obtained with different assay methods or kits cannot be used interchangeably. Results cannot be interpreted as absolute evidence of the presence or absence of malignant disease. Performed at: [address] [id number] [employer] Pan Salt: Blue Washington PhD, Phone: [phone] Performed By: #### L 0638.1279 #### [facility] [address] [facility]. [place], [place], [address] Oncology Visit Reporton 05-05 Oncology Visit Report [facility] [address] [place] [address]. [place] [address] OFFICE VISIT Date of Service: 05/30/25 1540 MR#: [id number] Acct: [id number] Name: ACE ARELLANO Rep #: [id number] : 1940 From: Angela Vale MD Age/Sex: 85/M Location: [facility] Status: Signed HPI Subjective Date of Service 05/30/25 Chief Complaint Abdominal pain and pancreatic lesion History of Present Illness 85-year-old gentleman who for approximately 2 months has had daily bouts of epigastric pain. The pain appears to be aggravating by meals, laying down, with relieved by sitting up and taking combination of Tylenol and ibuprofen hevcu-bxu-aoppz. 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 Normal [facility] MRI Abd WITH and W/O Contras ton 05-23-2025 MRI Abd WITH and W/O Contrast [facility] Imaging Services [address] [place] [address] MRI Abd WITH and W/O Contrast MR#: [id number] Acct: [id number] Name: ACE ARELLANO Rep #: [id number] : 1940 M 85 From: Jayy flowers MD PCP: Dr. Raúl Leslie MD Status: REG CLI Study: MRI Abd WITH and W/O Contrast Date of Exam: Exam# [id number] Ordering Dr: Angela Vale MD PROCEDURE: MRI [...] abdominal aorta measuring 2.7 cm Reading Location: [id number] CC: Dr. Raúl Leslie MD; Dr. Angela Vale MD Evaluation Manager: Signed Normal [facility] Oncology Visit Reporton Oncology Visit Report [facility] [address] [address] OFFICE VISIT Date of Service: 05/10/25 1403 MR#: [id number] Acct: [id number] Name: ACE ARELLANO Rep #: [id number] : 1940 From: Angela Vale MD Age/Sex: 85/M Location: [facility] Status: Signed HPI Subjective Date of Service 05/10/25 Chief Complaint Abdominal pain and pancreatic lesion History of Present Illness 85-year-old gentleman who for approximately 2 months has had daily bouts of epigastric pain. The pain appears to be aggravating by meals, laying down, with relieved by sitting up and taking combination of Tylenol and ibuprofen qlynw-fib-ayyqj. He has lost at least 10 pounds [...] Recommend MRI pancreas without and with contrast. [facility] Surgical History History of back surgery [...] oxycodone 5 (more content not included)... Normal [facility] Abdomen/Pelvis W IV Cont ONL Yon 05-08-2025 Abdomen/Pelvis W IV Cont ONLY [facility] Imaging Services [address] [place] [address] Abdomen/Pelvis W IV Cont ONLY MR#: [id number] Acct: [id number] Name: ACE ARELLANO Rep #: [id number] : 1940 M 85 From: Roscoe Arellano MD PCP: Dr. Raúl Leslie MD Status: [facility] ER Study: Abdomen/Pelvis W IV Cont ONLY Date of Exam: Exam# [id number] Ordering Dr: Francisco Foster DO PROCEDURE: ABDOMEN/PELVIS [...] contrast. Do not recommend MRCP Reading Location: [facility] CC: Dr. Raúl Leslie MD; Dr. Francisco Foster DO Evaluation Manager: Signed Normal [facility] Absolute lymphocyte countOrd ered By: Francisco Foster on 05-08-2025 Lymphocytes Auto (Unsp spec) [#/Vol] 1.58 10*3/uL 0.83-4.51 [facility] Absolute neutrophil countOrd ered By: Francisco Foster on 05-08-2025 Neutrophils (Bld) [#/Vol] 6.0 10*3/uL 2.0-7.7 [facility] Anion gap in Serum or Plasma Ordered By: Francisco Foster on 05-08-2025 Anion gap [Moles/Vol] 15 mmol/L 5- [facility] Automated lymphocyte count a s percentage of total leukocytesOrdered By: Francisco Foster on 05-08-2025 Lymphocytes/100 WBC Auto (Unsp spec) 18.0 % Low 19-41 [facility] BUN/creatinine ratioOrdered By: Francisco Foster on 05-08-2025 Urea nitrogen/Creatinine [Mass ratio] 22.7 mg/mg High 10-20 [facility] Basophil percentageOrdered B y: Francisco Foster on 05-08-2025 Basophils/100 WBC (Bld) 0.5 % 0-1 [facility] Bilirubin Test strip Ql (U)O rdered By: Francisco Foster on 05-08-2025 Bilirubin Ql (U) Negative Negative [facility] Bilirubin, totalOrdered By: Francisco Foster on 05-08-2025 Bilirubin [Mass/Vol] 0.52 mg/dL 0.00-1.30 [facility] CBC W/Diff, Automatedon 10-0 Absolute Lymph 1.58 X10 3/uL Normal 0.83-4.51 [facility] Comment on above: Performed By: #### L 500.4050, L100.0100, L501.2450 ####[facility] [address] [place], [place], [address] Absolute Neut 6.0 X10 3/uL Normal 2.0-7.7 [facility] Comment on above: Performed By: #### L 500.4050, L100.0100, L501.2450 ####[facility] [address] [place], [address] Basophils/100 WBC (Bld) 0.5 % Normal 0-1 [facility] Comment on above: Performed By: #### L 500.4050, L100.0100, L501.2450 ####[facility] [address] [place], [address] Eosinophils/100 WBC (Bld) 5.3 % High 0-5 [facility] Comment on above: Performed By: #### L 500.4050, L100.0100, L501.2450 ####[facility] [address] [place], [address] Erythrocyte distribution width (RBC) [Ratio] 12.3 % Normal 11.6-14.6 [facility] Comment on above: Performed By: #### L 500.4050, L100.0100, L501.2450 ####[facility] [address] [place], [address] Hematocrit (Bld) [Volume fraction] 37.8 % Low 40-54 [facility] Comment on above: Performed By: #### L 500.4050, L100.0100, L501.2450 ####[facility] [address] [place], [address] Hemoglobin (Bld) [Mass/Vol] 13.2 g/dL Normal 13.0-16.5 [facility] Comment on above: Performed By: #### L 500.4050, L100.0100, L501.2450 ####[facility] [address] [place], [address] IG% 0.300 Normal 0.0-0.9 [facility] Comment on above: Result Comment: IG% - Immature Granulocytes (promyelocytes, myelocytes and metamyelocytes) > 1% indicates that a LEFT SHIFT is Present. Performed By: #### L 500.4050, L100.0100, L501.2450 ####[facility] [address] [place], [address] Lymphocytes/100 WBC (Bld) 18.0 % Low 19-41 [facility] Comment on above: Performed By: #### L 500.4050, L100.0100, L501.2450 ####[facility] [address] [place], [address] MCH (RBC) [Entitic mass] 31.7 pg Normal 27.0-32.0 [facility] Comment on above: Performed By: #### L 500.4050, L100.0100, L501.2450 ####[facility] [address] [place], [address] MCHC (RBC) [Mass/Vol] 34.9 g/dL Normal 32-36 [facility] Comment on above: Performed By: #### L 500.4050, L100.0100, L501.2450 ####[facility] [address] [place], [address] MCV (RBC) [Entitic vol] 90.9 fL Normal 80-94 [facility] Comment on above: Performed By: #### L 500.4050, L100.0100, L501.2450 ####[facility] [address] [place], [address] Monocytes/100 WBC (Bld) 7.2 % Normal 0-10 [facility] Comment on above: Performed By: #### L 500.4050, L100.0100, L501.2450 ####[facility] [address] [place], [address] Neutrophils/100 WBC (Bld) 68.7 % Normal 47-70 [facility] Comment on above: Performed By: #### L 500.4050, L100.0100, L501.2450 ####[facility] [address] [place], [address] Nucleated RBC (Bld) [#/Vol] 0 10*3/uL Normal 0-5 [facility] Comment on above: Performed By: #### L 500.4050, L100.0100, L501.2450 ####[facility] [address] [place], [address] Platelet mean volume (Bld) [Entitic vol] 10.8 fL Normal 6.2-12.0 [facility] Comment on above: Performed By: #### L 500.4050, L100.0100, L501.2450 ####[facility] [address] [place], [address] Platelets (Bld) [#/Vol] 265 10*3/uL Normal 150-450 [facility] Comment on above: Performed By: #### L 500.4050, L100.0100, L501.2450 ####[facility] [address] [place], [address] RBC (Bld) [#/Vol] 4.16 10*6/uL Low 4.6-6.2 [facility] Comment on above: Performed By: #### L 500.4050, L100.0100, L501.2450 ####[facility] [address] [place], [address] RDW SD 41.1 fl Normal 35.1-43.9 [facility] Comment on above: Performed By: #### L 500.4050, L100.0100, L501.2450 ####[facility] [address] [place], [address] WBC (Bld) [#/Vol] 8.8 10*3/uL Normal 4.4-11.0 [facility] Comment on above: Performed By: #### L 500.4050, L100.0100, L501.2450 ####[facility] [address] [place], [address] Carbon dioxide, total [Moles /volume] in Central venous bloodOrdered By: Francisco Foster on 05-08-2025 CO2 [Moles/Vol] 22.6 mmol/L 21.0-32.0 [facility] Chloride assayOrdered By: ricky Foster on 05-08-2025 Chloride [Moles/Vol] 97 mmol/L Low 98-108 [facility] Comprehensive Metabolic Prof ilon 05-08-2025 Albumin [Mass/Vol] 4.5 g/dL Normal 3.4-4.8 [facility] Comment on above: Performed By: #### L 500.4050, L100.0100, L501.2450 ####[facility] [address] [place], [address] Albumin/Globulin [Mass ratio] 1.6 {ratio} Normal 0.9-2.4 [facility] Comment on above: Performed By: #### L 500.4050, L100.0100, L501.2450 ####[facility] [address] [place], [address] ALK PHOS 76 U/L Normal 40-129 [facility] Comment on above: Performed By: #### L 500.4050, L100.0100, L501.2450 ####[facility] [address] [place], [address] ALT [Catalytic activity/Vol] 21 U/L Normal <=46 [facility] Comment on above: Performed By: #### L 500.4050, L100.0100, L501.2450 ####[facility] [address] [place], [address] AST [Catalytic activity/Vol] 19 U/L Normal <=37 [facility] Comment on above: Performed By: #### L 500.4050, L100.0100, L501.2450 ####[facility] [address] [place], [address] Bilirubin [Mass/Vol] 0.52 mg/dL Normal 0.00-1.30 [facility] Comment on above: Performed By: #### L 500.4050, L100.0100, L501.2450 ####[facility] [address] [place], [address] BUN/CRE 22.7 RATIO High 10-20 [facility] Comment on above: Performed By: #### L 500.4050, L100.0100, L501.2450 ####[facility] [address] [place], [address] Calcium [Mass/Vol] 9.4 mg/dL Normal 7.6-11.0 [facility] Comment on above: Performed By: #### L 500.4050, L100.0100, L501.2450 ####[facility] [address] [place], [address] Chloride [Moles/Vol] 97 mmol/L Low 98-108 [facility] Comment on above: Performed By: #### L 500.4050, L100.0100, L501.2450 ####[facility] [address] [place], [address] CO2 [Moles/Vol] 22.6 mmol/L Normal 21.0-32.0 [facility] Comment on above: Performed By: #### L 500.4050, L100.0100, L501.2450 ####[facility] [address] [place], [address] Creatinine [Mass/Vol] 0.73 mg/dL Normal 0.70-1.20 [facility] Comment on above: Performed By: #### L 500.4050, L100.0100, L501.2450 ####[facility] [address] [place], [address] ECRCL 63.12 ml/min Normal 50-250 [facility] Comment on above: Performed By: #### L 500.4050, L100.0100, L501.2450 ####[facility] [address] [place], [address] GAP 15 Normal 5-15 [facility] Comment on above: Performed By: #### L 500.4050, L100.0100, L501.2450 ####[facility] [address] [place], [address] GFR/1.73 sq M.predicted among non-blacks MDRD (S/P/Bld) [Vol rate/Area] 89 mL/min/{1.73_m2} Normal >60 [facility] Comment on above: Result Comment: mL/m in/1.73m2 CKD-EPI Creatinine Equation (2020) Performed By: #### L 500.4050, L100.0100, L501.2450 ####[facility] [address] [place], [address] Globulin (S) [Mass/Vol] 2.8 g/dL Normal 2.2-4.2 [facility] Comment on above: Performed By: #### L 500.4050, L100.0100, L501.2450 ####[facility] [address] [place], [address] Glucose [Mass/Vol] 98 mg/dL Normal 70-99 [facility] Comment on above: Performed By: #### L 500.4050, L100.0100, L501.2450 ####[facility] [address] [place], [address] Potassium [Moles/Vol] 3.9 mmol/L Normal 3.3-5.1 [facility] Comment on above: Performed By: #### L 500.4050, L100.0100, L501.2450 ####[facility] [address] [place], [address] Sodium [Moles/Vol] 134 mmol/L Normal 133-145 [facility] Comment on above: Performed By: #### L 500.4050, L100.0100, L501.2450 ####[facility] [address] [place], [address] T PROT 7.3 g/dL Normal 5.9-8.4 [facility] Comment on above: Performed By: #### L 500.4050, L100.0100, L501.2450 ####[facility] [address] [place], [address] Urea nitrogen [Mass/Vol] 17 mg/dL Normal 4-19 [facility] Comment on above: Performed By: #### L 500.4050, L100.0100, L501.2450 ####[facility] [address] [place], [address] Emergency Department Summary on 05-08-2025 Emergency Department Summary [facility] Medical Records Department [address] [place] [address] Emergency Department Summary 05/08/25 MR#: [id number] Acct: [id number] Name: ACE ARELLANO Rep #: [id number] : 1940 85 From: Francisco Foster DO [...] History obtained from others: Patient's Consults: none [facility] Narrative: Patient was initially hemodynamically stable, afebrile [...] obstructive pathology. (more content not included)... Normal [facility] Eosinophil percentageOrdered By: Francisco Foster on 05-08-2025 Eosinophils/100 WBC (Bld) 5.3 % High 0-5 [facility] Erythrocyte distribution wid th ratioOrdered By: Francisco Foster on 05-08-2025 Erythrocyte distribution width (RBC) [Ratio] 12.3 % 11.6-14.6 [facility] Erythrocyte distribution wid th standard deviationOrdered By: Francisco Foster on 05-08-2025 Erythrocyte distribution width (RBC) [Ratio] 41.1 fl 35.1-43.9 [facility] Glomerular filtration rate ( GFR) estimation/1.73 sq m using serum, plasma, or whole bOrdered By: Francisco Foster on 05-08-2025 GFR/1.73 sq M.predicted among non-blacks MDRD (S/P/Bld) [Vol rate/Area] 89 mL/min/{1.73_m2} >60 [facility] Comment on above: mL/min/1.73m2 CKD-EP I Creatinine Equation (2020) Hematocrit Auto (Bld) [Volum e fraction]Ordered By: Francisco Foster on 05-08-2025 Hematocrit (Bld) [Volume fraction] 37.8 % Low 40-54 [facility] Hemoglobin measurementOrdere d By: Francisco Foster on 05-08-2025 Hemoglobin (Bld) [Mass/Vol] 13.2 g/dL 13.0-16.5 [facility] Immature granulocytes/100 WB C Auto (Bld)Ordered By: Francisco Foster on 05-08-2025 Immature granulocytes/100 WBC (Bld) 0.300 % 0.0-0.9 [facility] Comment on above: IG% - Immature Granu locytes (promyelocytes, myelocytes and metamyelocytes) > 1% indicates that a LEFT SHIFT is Present. Ketones Test strip Ql (U)Ord ered By: Francisco Foster on 05-08-2025 Ketones Ql (U) 5 mg/dl High Negative [facility] Laboratory - Chemistry and C hemistry - challengeOrdered By: Francisco Foster on 05-08-2025 AST [Catalytic activity/Vol] 19 U/L <38 [facility] Lipaseon 05-08-2025 Lipase [Catalytic activity/Vol] 14 U/L Normal 13-75 [facility] Comment on above: Result Comment: Roxanna decker note: LIPASE revised reference range effective 22. New Lipase methodology. Expected to produce lower values than the previous assay method. NEW Reference Range: 13 - 75 U/L Performed By: #### L 500.4050, L100.0100, L501.2450 ####[facility] [address] [place], [place], [id number] Lipase measurementOrdered By : Francisco Foster on 05-08-2025 Lipase [Catalytic activity/Vol] 14 U/L 13-75 [facility] Comment on above: Please note:LIPASE r evised reference range effective 22. New Lipase methodology. Expected to produce lower values than the previous assay method. NEW Reference Range: 13 - 75 U/L MCV (mean corpuscular volume ) determinationOrdered By: Francisco Foster on 05-08-2025 MCV (RBC) [Entitic vol] 90.9 fL 80-94 [facility] Mean corpuscular hemoglobin (MCH) determinationOrdered By: Francisco Foster on 05-08-2025 MCH (RBC) [Entitic mass] 31.7 pg 27.0-32.0 [facility] Mean corpuscular hemoglobin concentration (MCHC) determinationOrdered By: Francisco Foster on 05-08-2025 MCHC (RBC) [Mass/Vol] 34.9 g/dL 32-36 [facility] Mean platelet volume determi nationOrdered By: Francisco Foster on 05-08-2025 Platelet mean volume (Bld) [Entitic vol] 10.8 fL 6.2-12.0 [facility] Microscopic analysis of urin e for red blood cells (RBC)Ordered By: Francisco Foster on 05-08-2025 Microscopic analysis of urine for red blood cells (RBC) 0-5 SEEN /hpf 0-5 [facility] Monocyte percentageOrdered B y: Francisco Foster on 05-08-2025 Monocytes/100 WBC (Bld) 7.2 % 0-10 [facility] Mucus LM Ql (Urine sed)Order ed By: Francisco Foster on 05-08-2025 Mucus Ql (Urine sed) 0 SEEN /hpf [facility] Neutrophil percentageOrdered By: Francisco Foster on 05-08-2025 Neutrophils/100 WBC (Bld) 68.7 % 47-70 [facility] Nitrite Test strip Ql (U)Ord ered By: Francisco Foster on 05-08-2025 Nitrite Ql (U) Negative Negative [facility] Nucleated red blood cell per centageOrdered By: Francisco Foster on 05-08-2025 Nucleated RBC/100 WBC (Bld) [Ratio] 0 % 0-5 [facility] Platelet countOrdered By: Thom Foster on 05-08-2025 Platelets (Bld) [#/Vol] 265 10*3/uL 150-450 [facility] Potassium measurement (mass/ volume)Ordered By: Francisco Foster on 05-08-2025 Potassium (Unsp spec) [Mass/Vol] 3.9 mmol/L 3.3-5.1 [facility] Protein Test strip Ql (U)Ord ered By: Francisco Foster on 05-08-2025 Protein Ql (U) 30 mg/dl High Negative [facility] RBC Auto (Bld) [#/Vol]Ordere d By: Francisco Foster on 05-08-2025 RBC (Bld) [#/Vol] 4.16 10*6/uL Low 4.6-6.2 [facility] Serum creatinine measurement (mass/volume)Ordered By: Francisco Foster on 05-08-2025 Creatinine [Mass/Vol] 0.73 mg/dL 0.70-1.20 [facility] Serum globulin measurementOr dered By: Francisco Foster on 05-08-2025 Globulin (S) [Mass/Vol] 2.8 g/dL 2.2-4.2 [facility] Serum glucose measurement (m ass/volume)Ordered By: Francisco Foster on 05-08-2025 Glucose [Mass/Vol] 98 mg/dL 70-99 [facility] Serum or plasma alanine dalton otransferase (ALT) measurementOrdered By: Francisco Fsoter on 05-08-2025 ALT [Catalytic activity/Vol] 21 U/L <47 [facility] Serum or plasma albumin paulette urement (mass/volume)Ordered By: Francisco Foster on 05-08-2025 Albumin [Mass/Vol] 4.5 g/dL 3.4-4.8 [facility] Serum or plasma albumin/glob ulin mass ratioOrdered By: Francisco Foster on 05-08-2025 Albumin/Globulin [Mass ratio] 1.6 {ratio} 0.9-2.4 [facility] Serum or plasma alkaline jessica sphatase measurementOrdered By: Francisco Foster on 05-08-2025 ALP [Catalytic activity/Vol] 76 U/L 40-129 [facility] Serum or plasma calcium paulette urement (mass/volume)Ordered By: Francisco Foster on 05-08-2025 Calcium [Mass/Vol] 9.4 mg/dL 7.6-11.0 [facility] Serum or plasma urea nitroge n measurement (mass/volume)Ordered By: Francisco Foster on 05-08-2025 Urea nitrogen [Mass/Vol] 17 mg/dL 4-19 [facility] Sodium levelOrdered By: Whit Foster on 05-08-2025 Sodium [Moles/Vol] 134 mmol/L 133-145 [facility] Squamous epithelial cells de tection in urine sediment by light microscopyOrdered By: Francisco Foster on 05-08-2025 Epithelial cells.squamous LM Ql (Urine sed) 0-5 SEEN /hpf 0-5 [facility] Total proteinOrdered By: Denver Foster on 05-08-2025 Protein [Mass/Vol] 7.3 g/dL 5.9-8.4 [facility] Urinalysis, Completeon 05-08 BACTERIA RARE Normal None Seen [facility] Comment on above: Order Comment: CLEAN CATCH Performed By: #### L 400.0001 ####[facility] [address] [place] [id number] EPI,SQUAMOUS 0-5 SEEN Normal 0-5 [facility] Comment on above: Order Comment: CLEAN CATCH Performed By: #### L 400.0001 ####[facility] [address] [facility] [address] RBC 0-5 SEEN Normal 0-5 [facility] Comment on above: Order Comment: CLEAN CATCH Performed By: #### L 400.0001 ####[facility] [address] [place], [address] WBC 0-5 SEEN Normal 0-5 [facility] Comment on above: Order Comment: CLEAN CATCH Performed By: #### L 400.0001 ####[facility] [address] [place] [id number] Mucus Ql (Urine sed) 0 SEEN Normal [facility] Comment on above: Order Comment: CLEAN CATCH Performed By: #### L 400.0001 ####[facility] [address] [place], [place], [id number] Urine clarityOrdered By: Denver Foster on 05-08-2025 Clarity (U) Clear Clear [facility] Urine color determinationOrd ered By: Francisco Foster on 05-08-2025 Color (U) Yellow Yellow [facility] Urine glucose detectionOrder ed By: Francisco Foster on 05-08-2025 Glucose Ql (U) Normal mg/dl Normal [facility] Urine leukocyte esterase det ection by dipstickOrdered By: Francisco Foster on 05-08-2025 Leukocyte esterase Test strip Ql (U) Negative Negative [facility] Urine pHOrdered By: Francisco reed on 05-08-2025 pH (U) 6.0 [pH] 5.0 - 8.0 [facility] Urine sediment bacteria coun t by microscopy (number/high power field)Ordered By: Francisco Foster on 05-08-2025 Bacteria LM.HPF (Urine sed) [#/Area] RARE /hpf None Seen [facility] Urine specific gravity measu rementOrdered By: Francisco Foster on 05-08-2025 Specific gravity (U) [Rel density] 1.020 1.002-1.030 [facility] Urine urobilinogen measureme ntOrdered By: Francisco Foster on 05-08-2025 Urobilinogen Ql (U) Normal mg/dl Normal [facility] White blood cell (WBC) count Ordered By: Francisco Foster on 05-08-2025 WBC (Bld) [#/Vol] 8.8 10*3/uL 4.4-11.0 [facility] White blood cell countOrdere d By: Francisco Foster on 05-08-2025 White blood cell count 0-5 SEEN /hpf 0-5 [facility] Abdomen/Pelvis without Conto n 04-21-2025 Abdomen/Pelvis without Cont [facility] Imaging Services [address] [place] [address] Abdomen/Pelvis without Cont MR#: [id number] Acct: [id number] Name: ACE ARELLANO Rep #: [id number] : 1940 M 84 From: Faina Hernandez MD PCP: Dr. Raúl Leslie MD Status: REG CLI Study: Abdomen/Pelvis without Cont Date of Exam: 04/04 03/28 Exam# [id number] Ordering Dr: Raúl Leslie MD PROCEDURE: ABDOMEN/PELVIS [...] changes of the spine. S shaped scoliosis. Zdhrohiy-mq-fjpfih atherosclerosis. The infrarenal abdominal aorta measures up [...] diverticulosis without diverticulitis. *Enlarged prostate. Reading Location: [facility] CC: Dr. Raúl Leslie MD Evaluation Manager: Signed Normal [facility] Carcinoembryonic Antigenon 0 03-30-2025 CEA 1.5 ng/mL Normal 0.0-4.7 [facility] Comment on above: Order Comment: Order Date: 03/29/25Order Info: [id number] - CEA Result Comment: Nons mokers <3.9 Smokers <5.6 [facility] Electrochemiluminescence Immunoassay (ECLIA) Values obtained with different assay methods or kits cannot be used interchangeably. Results cannot be interpreted as absolute evidence of the presence or absence of malignant disease. Performed at: [facility] [id number] [employer] Pan Salt: Blue Washington PhD, Phone: [phone] Performed By: #### L 3100.2300, L501.9940, L501.6710 ####[facility] [address] [facility] [place], [place], [address] Abdomen Single Viewon 2024 Abdomen Single View [facility] Imaging Services [address] [place], [place] [address] Abdomen Single View MR#: [id number] Acct: [id number] Name: ACE ARELLANO Rep #: [id number] : 1940 M 84 From: Alon Scott MD PCP: Dr. Raúl Leslie MD Status: REG CLI Study: Abdomen Single View Date of Exam: 03/29/25 Exam# [id number] Ordering Dr: Raúl Leslie MD PROCEDURE: ABDOMEN [...] 3. Other findings as noted. Reading Location: [id number] CC: Dr. Raúl Leslie MD Evaluation Manager: Signed Normal [facility] CRPon 03-29-2025 C-REACTIVE PROT < 3.00 Normal 0.0-3.0 [facility] Comment on above: Order Comment: Order Date: 03/29/25Order Info: [id number] - CRPOrder Info: [id number] - PSAD Performed By: #### L 3100.2300, L501.9940, L501.6710 ####[facility] [address] [facility] [place], [place], [id number] PSA,Total- Diagnosticon 03-05 PSA, DIAGNOSTIC 3.60 ng/mL Normal 0.00-4.00 [facility] Comment on above: Order Comment: Order Date: 03/29/25Order Info: [id number] - CRPOrder Info: [id number] - PSAD Result [...] Performed By: #### L 3100.2300, L501.9940, L501.6710 ####[facility] [address] [place], [place], [id number] Serum or plasma C reactive p rotein measurement (mass/volume)Ordered By: Raúl Leslie on 03-29-2025 CRP [Mass/Vol] mg/L 0.0-3.0 [facility] Serum or plasma carcinoembry onic antigen measurement (mass/volume)Ordered By: Raúl Leslie on 03-29-2025 Carcinoembryonic Ag [Mass/Vol] 1.5 ng/mL 0.0-4.7 [facility] Comment on above: Nonsmokers <3.9 Smok ers <5.[facility] Electrochemiluminescence Immunoassay(ECLIA)Values obtained with different assay methods or kitscannot be used interchangeably. Results cannot beinterpreted as absolute evidence of the presence orabsence of malignant disease.Performed at: [place] [id number] [place], [place] [id number] Director: Blue Washington PhD, Phone: [phone] Absolute lymphocyte countOrd ered By: Raúl Leslie on 02-17-2025 Lymphocytes Auto (Unsp spec) [#/Vol] 1.90 10*3/uL 0.83-4.51 [facility] Absolute neutrophil countOrd ered By: Raúl Leslie on 02-17-2025 Neutrophils (Bld) [#/Vol] 7.3 10*3/uL 2.0-7.7 [facility] Anion gap in Serum or Plasma Ordered By: Raúl Leslie on 02-17-2025 Anion gap [Moles/Vol] 13 mmol/L 5-15 [facility] Automated lymphocyte count a s percentage of total leukocytesOrdered By: Raúl Leslie on 02-17-2025 Lymphocytes/100 WBC Auto (Unsp spec) 18.0 % Low 19-41 [facility] BUN/creatinine ratioOrdered By: Raúl Leslie on 02-17-2025 Urea nitrogen/Creatinine [Mass ratio] 23.4 mg/mg High 10-20 [facility] Basophil percentageOrdered B y: Raúl Leslie on 02-17-2025 Basophils/100 WBC (Bld) 0.3 % 0-1 [facility] Bilirubin, totalOrdered By: Raúl Leslie on 02-17-2025 Bilirubin [Mass/Vol] 0.34 mg/dL 0.00-1.30 [facility] CBC W/Diff, Automatedon 02-01 Absolute Lymph 1.90 X10 3/uL Normal 0.83-4.51 [facility] Comment on above: Performed By: #### L 100.0100, L500.4100, L500.4050, L501.6710 #### [facility] [address] [place], [address] Absolute Neut 7.3 X10 3/uL Normal 2.0-7.7 [facility] Comment on above: Performed By: #### L 100.0100, L500.4100, L500.4050, L501.6710 #### [facility] [address] [place], [address] Basophils/100 WBC (Bld) 0.3 % Normal 0-1 [facility] Comment on above: Performed By: #### L 100.0100, L500.4100, L500.4050, L501.6710 #### [facility] [address] [place], [address] Eosinophils/100 WBC (Bld) 4.4 % Normal 0-5 [facility] Comment on above: Performed By: #### L 100.0100, L500.4100, L500.4050, L501.6710 #### [facility] [address] [place], [address] Erythrocyte distribution width (RBC) [Ratio] 12.7 % Normal 11.6-14.6 [facility] Comment on above: Performed By: #### L 100.0100, L500.4100, L500.4050, L501.6710 #### [facility] [address] [place], [address] Hematocrit (Bld) [Volume fraction] 36.5 % Low 40-54 [facility] Comment on above: Performed By: #### L 100.0100, L500.4100, L500.4050, L501.6710 #### [facility] [address] [place], [address] Hemoglobin (Bld) [Mass/Vol] 12.5 g/dL Low 13.0-16.5 [facility] Comment on above: Performed By: #### L 100.0100, L500.4100, L500.4050, L501.6710 #### [facility] [address] [place], [address] IG% 0.400 Normal 0.0-0.9 [facility] Comment on above: Result Comment: IG% - Immature Granulocytes (promyelocytes, myelocytes and metamyelocytes) > 1% indicates that a LEFT SHIFT is Present. Performed By: #### L 100.0100, L500.4100, L500.4050, L501.6710 #### [facility] [address] [place], [address] Lymphocytes/100 WBC (Bld) 18.0 % Low 19-41 [facility] Comment on above: Performed By: #### L 100.0100, L500.4100, L500.4050, L501.6710 #### [facility] [address] [place], [address] MCH (RBC) [Entitic mass] 32.6 pg High 27.0-32.0 [facility] Comment on above: Performed By: #### L 100.0100, L500.4100, L500.4050, L501.6710 #### [facility] [address] [place], [address] MCHC (RBC) [Mass/Vol] 34.2 g/dL Normal 32-36 [facility] Comment on above: Performed By: #### L 100.0100, L500.4100, L500.4050, L501.6710 #### [facility] [address] [place], [address] MCV (RBC) [Entitic vol] 95.3 fL High 80-94 [facility] Comment on above: Performed By: #### L 100.0100, L500.4100, L500.4050, L501.6710 #### [facility] [address] [place], [address] Monocytes/100 WBC (Bld) 7.7 % Normal 0-10 [facility] Comment on above: Performed By: #### L 100.0100, L500.4100, L500.4050, L501.6710 #### [facility] [address] [place], [address] Neutrophils/100 WBC (Bld) 69.2 % Normal 47-70 [facility] Comment on above: Performed By: #### L 100.0100, L500.4100, L500.4050, L501.6710 #### [facility] [address] [place], [address] Nucleated RBC (Bld) [#/Vol] 0 10*3/uL Normal 0-5 [facility] Comment on above: Performed By: #### L 100.0100, L500.4100, L500.4050, L501.6710 #### [facility] [address] [place], [address] Platelet mean volume (Bld) [Entitic vol] 11.6 fL Normal 6.2-12.0 [facility] Comment on above: Performed By: #### L 100.0100, L500.4100, L500.4050, L501.6710 #### [facility] [address] [place], [address] Platelets (Bld) [#/Vol] 228 10*3/uL Normal 150-450 [facility] Comment on above: Performed By: #### L 100.0100, L500.4100, L500.4050, L501.6710 #### [facility] [address] [place], [address] RBC (Bld) [#/Vol] 3.83 10*6/uL Low 4.6-6.2 [facility] Comment on above: Performed By: #### L 100.0100, L500.4100, L500.4050, L501.6710 #### [facility] [address] [place], [address] RDW SD 43.8 fl Normal 35.1-43.9 [facility] Comment on above: Performed By: #### L 100.0100, L500.4100, L500.4050, L501.6710 #### [facility] [address] [place], [address] WBC (Bld) [#/Vol] 10.6 10*3/uL Normal 4.4-11.0 [facility] Comment on above: Performed By: #### L 100.0100, L500.4100, L500.4050, L501.6710 #### [facility] [address] [place], [address] CRPon 02-17-2025 C-REACTIVE PROT < 3.00 Normal 0.0-3.0 [facility] Comment on above: Performed By: #### L 100.0100, L500.4100, L500.4050, L501.6710 #### [facility] [address] [place], [address] Calculated very low density lipoprotein (VLDL) cholesterol measurementOrdered By: Raúl Leslie on 02-17-2025 Calculated very low density lipoprotein (VLDL) cholesterol measurement 22 mg/dL 5-40 [facility] Carbon dioxide, total [Moles /volume] in Central venous bloodOrdered By: Raúl Leslie on 02-17-2025 CO2 [Moles/Vol] 25.0 mmol/L 21.0-32.0 [facility] Chloride assayOrdered By: Dominguez Leslie on 02-17-2025 Chloride [Moles/Vol] 100 mmol/L 98-108 [facility] Comprehensive Metabolic Prof ilon 02-17-2025 Albumin [Mass/Vol] 4.4 g/dL Normal 3.4-4.8 [facility] Comment on above: Performed By: #### L 100.0100, L500.4100, L500.4050, L501.6710 #### [facility] [address] [place], [address] Albumin/Globulin [Mass ratio] 1.7 {ratio} Normal 0.9-2.4 [facility] Comment on above: Performed By: #### L 100.0100, L500.4100, L500.4050, L501.6710 #### [facility] [address] [place], [address] ALK PHOS 74 U/L Normal 40-129 [facility] Comment on above: Performed By: #### L 100.0100, L500.4100, L500.4050, L501.6710 #### [facility] [address] [place], [address] ALT [Catalytic activity/Vol] 21 U/L Normal <=46 [facility] Comment on above: Performed By: #### L 100.0100, L500.4100, L500.4050, L501.6710 #### [facility] [address] [place], [address] AST [Catalytic activity/Vol] 21 U/L Normal <=37 [facility] Comment on above: Performed By: #### L 100.0100, L500.4100, L500.4050, L501.6710 #### [facility] [address] [place], [address] Bilirubin [Mass/Vol] 0.34 mg/dL Normal 0.00-1.30 [facility] Comment on above: Performed By: #### L 100.0100, L500.4100, L500.4050, L501.6710 #### [facility] [address] [place], [address] BUN/CRE 23.4 RATIO High 10-20 [facility] Comment on above: Performed By: #### L 100.0100, L500.4100, L500.4050, L501.6710 #### [facility] [address] [place], [address] Calcium [Mass/Vol] 9.3 mg/dL Normal 7.6-11.0 [facility] Comment on above: Performed By: #### L 100.0100, L500.4100, L500.4050, L501.6710 #### [facility] [address] [place], [address] Chloride [Moles/Vol] 100 mmol/L Normal 98-108 [facility] Comment on above: Performed By: #### L 100.0100, L500.4100, L500.4050, L501.6710 #### [facility] [address] [place], [address] CO2 [Moles/Vol] 25.0 mmol/L Normal 21.0-32.0 [facility] Comment on above: Performed By: #### L 100.0100, L500.4100, L500.4050, L501.6710 #### [facility] [address] [place], [address] Creatinine [Mass/Vol] 0.78 mg/dL Normal 0.70-1.20 [facility] Comment on above: Performed By: #### L 100.0100, L500.4100, L500.4050, L501.6710 #### [facility] [address] [place], [address] GAP 13 Normal 5-15 [facility] Comment on above: Performed By: #### L 100.0100, L500.4100, L500.4050, L501.6710 #### [facility] [address] [place], [address] GFR/1.73 sq M.predicted among non-blacks MDRD (S/P/Bld) [Vol rate/Area] 88 mL/min/{1.73_m2} Normal >60 [facility] Comment on above: Result Comment: mL/m in/1.73m2 CKD-EPI Creatinine Equation (2020) Performed By: #### L 100.0100, L500.4100, L500.4050, L501.6710 #### [facility] [address] [place], [address] Globulin (S) [Mass/Vol] 2.5 g/dL Normal 2.2-4.2 [facility] Comment on above: Performed By: #### L 100.0100, L500.4100, L500.4050, L501.6710 #### [facility] [address] [place], [address] Glucose [Mass/Vol] 90 mg/dL Normal 70-99 [facility] Comment on above: Performed By: #### L 100.0100, L500.4100, L500.4050, L501.6710 #### [facility] [address] [place], [address] Potassium [Moles/Vol] 4.2 mmol/L Normal 3.3-5.1 [facility] Comment on above: Performed By: #### L 100.0100, L500.4100, L500.4050, L501.6710 #### [facility] [address] [place], [address] Sodium [Moles/Vol] 137 mmol/L Normal 133-145 [facility] Comment on above: Performed By: #### L 100.0100, L500.4100, L500.4050, L501.6710 #### [facility] [address] [place], [address] T PROT 6.9 g/dL Normal 5.9-8.4 [facility] Comment on above: Performed By: #### L 100.0100, L500.4100, L500.4050, L501.6710 #### [facility] [address] [place], [address] Urea nitrogen [Mass/Vol] 18 mg/dL Normal 4-19 [facility] Comment on above: Performed By: #### L 100.0100, L500.4100, L500.4050, L501.6710 #### [facility] [address] [place], [address] Eosinophil percentageOrdered By: Raúl Leslie on 02-17-2025 Eosinophils/100 WBC (Bld) 4.4 % 0-5 [facility] Erythrocyte distribution wid th ratioOrdered By: Raúl Leslie on 02-17-2025 Erythrocyte distribution width (RBC) [Ratio] 12.7 % 11.6-14.6 [facility] Erythrocyte distribution wid th standard deviationOrdered By: Raúl Leslie on 02-17-2025 Erythrocyte distribution width (RBC) [Ratio] 43.8 fl 35.1-43.9 [facility] Glomerular filtration rate ( GFR) estimation/1.73 sq m using serum, plasma, or whole bOrdered By: Raúl Leslie on 02-17-2025 GFR/1.73 sq M.predicted among non-blacks MDRD (S/P/Bld) [Vol rate/Area] 88 mL/min/{1.73_m2} >60 [facility] Comment on above: mL/min/1.73m2 CKD-EP I Creatinine Equation (2020) Hematocrit Auto (Bld) [Volum e fraction]Ordered By: Raúl Leslie on 02-17-2025 Hematocrit (Bld) [Volume fraction] 36.5 % Low 40-54 [facility] Hemoglobin measurementOrdere d By: Raúl Leslie on 02-17-2025 Hemoglobin (Bld) [Mass/Vol] 12.5 g/dL Low 13.0-16.5 [facility] Immature granulocytes/100 WB C Auto (Bld)Ordered By: Raúl Leslie on 02-17-2025 Immature granulocytes/100 WBC (Bld) 0.400 % 0.0-0.9 [facility] Comment on above: IG% - Immature Granu locytes (promyelocytes, myelocytes and metamyelocytes) > 1% indicates that a LEFT SHIFT is Present. LDL calc ser/plasOrdered By: Raúl Leslie on 02-17-2025 Cholesterol in LDL [Mass/Vol] 119 mg/dL [facility] Comment on above: Subytjkmzh=021-772 m g/dL & Higher Puks=484 mg/dL or greater Laboratory - Chemistry and C hemistry - challengeOrdered By: Raúl Leslie on 02-17-2025 AST [Catalytic activity/Vol] 21 U/L <38 [facility] Lipid Profileon 02-17-2025 CHOL:HDL 3.15 Normal [facility] Comment on above: Performed By: #### L 100.0100, L500.4100, L500.4050, L501.6710 ####[facility] [address] [place], [address] Cholesterol [Mass/Vol] 206 mg/dL High <=200 [facility] Comment on above: Result Comment: Chol esterol level, Desirable <200 mg/dL Borderline high cholesterol 200-239 mg/dL High cholesterol >=240 mg/dL Recommendations of the NCEP Adult Treatment Panel for the following risk-cutoff thresholds for the [place] population. Performed By: #### L 100.0100, L500.4100, L500.4050, L501.6710 ####[facility] [address] [place], [address] Cholesterol in HDL [Mass/Vol] 65 mg/dL Normal [facility] Comment on above: Result Comment: Julianne onal Cholesterol Education Program (NCEP) guidelines: <40 mg/dL: Low HDL-cholesterol (major risk factor for CHD) >= 60 mg/dL: High HDL-cholesterol (negative risk factor for CHD) HDL-cholesterol is affected by a number of factors, e.g. smoking, exercise, hormones, sex and age. Performed By: #### L 100.0100, L500.4100, L500.4050, L501.6710 ####[facility] [address] [place], [address] Cholesterol in LDL [Mass/Vol] 119 mg/dL Normal [facility] Comment on above: Result Comment: Bord rhnjeh=516-388 mg/dL Higher Wdfx=501 mg/dL or greater Performed By: #### L 100.0100, L500.4100, L500.4050, L501.6710 ####[facility] [address] [place], [address] Cholesterol in VLDL [Mass/Vol] 22 mg/dL Normal 5-40 [facility] Comment on above: Performed By: #### L 100.0100, L500.4100, L500.4050, L501.6710 ####[facility] [address] [place], [address] Triglyceride [Mass/Vol] 110 mg/dL Normal [facility] Comment on above: Result Comment: The drugs N-Acetylcysteine and Metamizole may falsely depress this assay. Normal range: <150 mg/dL Borderline High: 150-199 mg/dL High: 200-499 mg/dL Very High: >500 mg/dL Performed By: #### L 100.0100, L500.4100, L500.4050, L501.6710 ####[facility] [address] [place], [address] MCV (mean corpuscular volume ) determinationOrdered By: Raúl Leslie on 02-17-2025 MCV (RBC) [Entitic vol] 95.3 fL High 80-94 [facility] Mean corpuscular hemoglobin (MCH) determinationOrdered By: Raúl Leslie on 02-17-2025 MCH (RBC) [Entitic mass] 32.6 pg High 27.0-32.0 [facility] Mean corpuscular hemoglobin concentration (MCHC) determinationOrdered By: Raúl Leslie on 02-17-2025 MCHC (RBC) [Mass/Vol] 34.2 g/dL 32-36 [facility] Mean platelet volume determi nationOrdered By: Raúl Leslie on 02-17-2025 Platelet mean volume (Bld) [Entitic vol] 11.6 fL 6.2-12.0 [facility] Monocyte percentageOrdered B y: Raúl Leslie on 02-17-2025 Monocytes/100 WBC (Bld) 7.7 % 0-10 [facility] Neutrophil percentageOrdered By: Raúl Leslie on 02-17-2025 Neutrophils/100 WBC (Bld) 69.2 % 47-70 [facility] Nucleated red blood cell per centageOrdered By: Raúl Leslie on 02-17-2025 Nucleated RBC/100 WBC (Bld) [Ratio] 0 % 0-5 [facility] Platelet countOrdered By: Dominguez Leslie on 02-17-2025 Platelets (Bld) [#/Vol] 228 10*3/uL 150-450 [facility] Potassium measurement (mass/ volume)Ordered By: Raúl Leslie on 02-17-2025 Potassium (Unsp spec) [Mass/Vol] 4.2 mmol/L 3.3-5.1 [facility] RBC Auto (Bld) [#/Vol]Ordere d By: Raúl Leslie on 02-17-2025 RBC (Bld) [#/Vol] 3.83 10*6/uL Low 4.6-6.2 [facility] Screening total cholesterol/ high density lipoprotein (HDL) cholesterol ratioOrdered By: Raúl Leslie on 02-17-2025 Cholesterol.total/Chol esterol in HDL [Mass ratio] 3.15 {ratio} [facility] Serum creatinine measurement (mass/volume)Ordered By: Raúl Leslie on 02-17-2025 Creatinine [Mass/Vol] 0.78 mg/dL 0.70-1.20 [facility] Serum globulin measurementOr dered By: Raúl Leslie on 02-17-2025 Globulin (S) [Mass/Vol] 2.5 g/dL 2.2-4.2 [facility] Serum glucose measurement (m ass/volume)Ordered By: Raúl Leslie on 02-17-2025 Glucose [Mass/Vol] 90 mg/dL 70-99 [facility] Serum or plasma C reactive p rotein measurement (mass/volume)Ordered By: Raúl Leslie on 02-17-2025 CRP [Mass/Vol] mg/L 0.0-3.0 [facility] Serum or plasma alanine dalton otransferase (ALT) measurementOrdered By: Raúl Leslie on 02-17-2025 ALT [Catalytic activity/Vol] 21 U/L <47 [facility] Serum or plasma albumin paulette urement (mass/volume)Ordered By: Raúl Leslie on 02-17-2025 Albumin [Mass/Vol] 4.4 g/dL 3.4-4.8 [facility] Serum or plasma albumin/glob ulin mass ratioOrdered By: Raúl Leslie on 02-17-2025 Albumin/Globulin [Mass ratio] 1.7 {ratio} 0.9-2.4 [facility] Serum or plasma alkaline jessica sphatase measurementOrdered By: Raúl Leslie on 02-17-2025 ALP [Catalytic activity/Vol] 74 U/L 40-129 [facility] Serum or plasma calcium paulette urement (mass/volume)Ordered By: Raúl Leslie on 02-17-2025 Calcium [Mass/Vol] 9.3 mg/dL 7.6-11.0 [facility] Serum or plasma cholesterol in HDL measurement (mass/volume)Ordered By: Raúl Leslie on 02-17-2025 Cholesterol in HDL [Mass/Vol] 65 mg/dL >40 [facility] Comment on above: National Cholesterol Education Program (NCEP) guidelines:<40 mg/dL: Low HDL-cholesterol (major risk factor for CHD)>= 60 mg/dL: High HDL-cholesterol (negative risk factor for CHD)HDL-cholesterol is affected by a number of factors, e.g. smoking, exercise, hormones, sex and age. Serum or plasma cholesterol measurement (mass/volume)Ordered By: Raúl Leslie on 02-17-2025 Cholesterol [Mass/Vol] 206 mg/dL High <201 [facility] Comment on above: Cholesterol level, D esirable <200 mg/dLBorderline high cholesterol 200-239 mg/dLHigh cholesterol >=240 mg/dLRecommendations of the NCEP Adult Treatment Panel for the following risk-cutoff thresholds for the [place] population. Serum or plasma urea nitroge n measurement (mass/volume)Ordered By: Raúl Leslie on 02-17-2025 Urea nitrogen [Mass/Vol] 18 mg/dL 4-19 [facility] Sodium levelOrdered By: Raúl Leslie on 02-17-2025 Sodium [Moles/Vol] 137 mmol/L 133-145 [facility] Total proteinOrdered By: Constanza Leslie on 02-17-2025 Protein [Mass/Vol] 6.9 g/dL 5.9-8.4 [facility] Triglycerides measurementOrd ered By: Raúl Leslie on 02-17-2025 Triglyceride [Mass/Vol] 110 mg/dL <199 [facility] Comment on above: The drugs N-Acetylcy steine and Metamizole may falsely depress this assay. Normal range: <150 mg/dLBorderline High: 150-199 mg/dLHigh: 200-499 mg/dLVery High: >500 mg/dL White blood cell (WBC) count Ordered By: Raúl Leslie on 02-17-2025 WBC (Bld) [#/Vol] 10.6 10*3/uL 4.4-11.0 [facility] Screening prostate specific antigen (PSA) measurementOrdered By: Tati Ingram on 09-02-2023 Prostate specific Ag IA [Mass/Vol] 3.93 ng/mL 0.00-4.00 [facility] Comment on above: This test was perfor med using the TPSA assay method for the[facility] chemistry system. Values obtained with differentassay methods cannot be used interchangably.When changing PSA assays in the course of monitoring apatient, additional sequential testing should be carriedout to confirm baseline values. APTTon 09-19-2017 aPTT 25.9 s Normal 20.0-30.5 [facility] Comment on above: Result Comment: NOTE : The therapeutic time for Heparin anticoagulation,based on Xa activity inhibition, is an APTT of 46-80seconds. Performed By: #### A PTT, PT, HEMOG, BMP3M, LFT3 ####[address] [address] Basic Metabolic Panelon 09-04 Anion gap 11 mmol/L Normal [facility] Comment on above: Performed By: #### A PTT, PT, HEMOG, BMP3M, LFT3 ####[address] [place] [address] Calcium 9.4 mg/dL Normal 8.4-10.2 [facility] Comment on above: Performed By: #### A PTT, PT, HEMOG, BMP3M, LFT3 ####[address] [place] [address] CO2 26 mmol/L Normal 22-30 [facility] Comment on above: Performed By: #### A PTT, PT, HEMOG, BMP3M, LFT3 ####[address] [place] [address] Creatinine 0.71 mg/dL Normal 0.52-1.25 [facility] Comment on above: Performed By: #### A PTT, PT, HEMOG, BMP3M, LFT3 ####[address] [place] [address] eGFR (black) mL/min/{1.73_m2} Normal >60 [facility] Comment on above: Performed By: #### A PTT, PT, HEMOG, BMP3M, LFT3 ####[address] [place] [address] eGFR (non-black) mL/min/{1.73_m2} Normal >60 [facility] Comment on above: Result Comment: Sour ce- MDRD equation with creatinine calibration to IDMS(NKDEP)eGFR not recommended for drug dose adjustment Performed By: #### A PTT, PT, HEMOG, BMP3M, LFT3 ####[address] [place] [address] Glucose mass conc 61 mg/dL Low 70-100 [facility] Comment on above: Performed By: #### A PTT, PT, HEMOG, BMP3M, LFT3 ####[address] [place] [address] Urea nitrogen 16 mg/dL Normal 7-20 [facility] Comment on above: Performed By: #### A PTT, PT, HEMOG, BMP3M, LFT3 ####[address] [place] [address] Potassium molar conc 3.8 mmol/L Normal 3.5-5.1 [facility] Comment on above: Performed By: #### A PTT, PT, HEMOG, BMP3M, LFT3 ####[address] [address] Chloride 103 mmol/L Normal 98-107 [facility] Comment on above: Performed By: #### A PTT, PT, HEMOG, BMP3M, LFT3 ####[place] [address] Sodium 140 mmol/L Normal 137-145 [facility] Comment on above: Performed By: #### A PTT, PT, HEMOG, BMP3M, LFT3 ####[place] [address] Hemogramon 09-19-2017 Erythrocyte distribution width Auto Ratio (RBC) 13.3 % Normal 11.5-14.5 [facility] Comment on above: Performed By: #### A PTT, PT, HEMOG, BMP3M, LFT3 ####[place] [address] Erythrocytes (RBC) 4.37 10*6/uL Low 4.40-5.90 [facility] Comment on above: Performed By: #### A PTT, PT, HEMOG, BMP3M, LFT3 ####[place] [address] Hematocrit (HCT) 42.6 % Normal 40.0-52.0 [facility] Comment on above: Performed By: #### A PTT, PT, HEMOG, BMP3M, LFT3 ####[place] [address] Hemoglobin mass conc (Bld) 14.1 g/dL Normal 13.0-18.0 [facility] Comment on above: Performed By: #### A PTT, PT, HEMOG, BMP3M, LFT3 ####[place] [address] MCH 32.4 pg Normal 26.0-34.0 [facility] Comment on above: Performed By: #### A PTT, PT, HEMOG, BMP3M, LFT3 ####[place] [address] MCHC mass conc (RBC) 33.2 % Normal 32.0-36.0 [facility] Comment on above: Performed By: #### A PTT, PT, HEMOG, BMP3M, LFT3 ####[address] [address] MCV 97.5 fL Normal 80.0-98.0 [facility] Comment on above: Performed By: #### A PTT, PT, HEMOG, BMP3M, LFT3 ####[place] [address] Platelet mean volume (PMV) 9.3 fL Normal 7.4-10.4 [facility] Comment on above: Performed By: #### A PTT, PT, HEMOG, BMP3M, LFT3 ####[place] [address] Platelets 228 10*3/uL Normal 140-440 [facility] Comment on above: Performed By: #### A PTT, PT, HEMOG, BMP3M, LFT3 ####[place] [address] WBC (Leukocytes) 14.5 10*3/uL High 3.6-10.7 [facility] Comment on above: Performed By: #### A PTT, PT, HEMOG, BMP3M, LFT3 ####[place] [address] Hepatic Functionon 8 Alanine aminotransferase (ALT) 34 U/L Normal 13-69 [facility] Comment on above: Performed By: #### A PTT, PT, HEMOG, BMP3M, LFT3 ####[place] [address] Alkaline phosphatase (ALP) 77 U/L Normal 38-126 [facility] Comment on above: Performed By: #### A PTT, PT, HEMOG, BMP3M, LFT3 ####[place] [address] Aspartate aminotransferase (AST) 25 U/L Normal 15-46 [facility] Comment on above: Performed By: #### A PTT, PT, HEMOG, BMP3M, LFT3 ####[address] [address] Bilirubin (direct) 0.0 mg/dL Normal 0.0-0.3 [facility] Comment on above: Performed By: #### A PTT, PT, HEMOG, BMP3M, LFT3 ####[address] [address] Bilirubin (total) 0.5 mg/dL Normal 0.2-1.3 [facility] Comment on above: Performed By: #### A PTT, PT, HEMOG, BMP3M, LFT3 ####[address] [address] Protein 7.3 g/dL Normal 6.3-8.2 [facility] Comment on above: Performed By: #### A PTT, PT, HEMOG, BMP3M, LFT3 ####[place] [address] Albumin 4.4 g/dL Normal 3.5-5.0 [facility] Comment on above: Performed By: #### A PTT, PT, HEMOG, BMP3M, LFT3 ####[place] [address] Prothrombin Timeon 8 INR Coag RelTime (PPP) 1.0 {INR} Normal 0.9-1.1 [facility] Comment on above: Result Comment: Wes [...] #### A PTT, PT, HEMOG, BMP3M, LFT3 ####[address] [address] Prothrombin time (PT) Coag time (PPP) 10.4 s Normal 9.0-12.0 [facility] Comment on above: Result Comment: . Performed By: #### A PTT, PT, HEMOG, BMP3M, LFT3 ####[address] [facility] [place] [address] TS GELon 09-19-2017 TS GEL PATIENT: ADAN CONN LOC: COUCH BILL# : [id number] : 1940 SEX: M AGE: [id number] BY: DENAE Lutz ORDERED : 09/19/2017 12:32 COLLECTED: 09/19/2017 12:51ORDER : [id number] RECEIVED : 09/19/2017 16:11 -----TEST NAME RESULT UNITS RANGES ABN FL STABO Group A FRh, Gel POS FAntibody Screen Gel NEG F Normal [facility] Comment on above: Performed By: #### T SGL ####[address] [place] [address] Urinalysis,Macroon 8 Bilirubin (direct) Negative Normal Negative [facility] Comment on above: Performed By: #### U AMAC ####[address] [place] [address] Ketone,Urine Trace Normal Negative [facility] Comment on above: Performed By: #### U AMAC ####[address] [place] [address] Occult Blood,Ur Negative Normal Negative [facility] Comment on above: Performed By: #### U AMAC ####[address] [place] [address] Specific [place],Urine 1.020 Normal 1.005-1.030 [facility] Comment on above: Performed By: #### U AMAC ####[address] [place] [address] Total Protein,Urine Negative Normal Negative [facility] Comment on above: Performed By: #### U AMAC ####[address] [place] [address] Urine, appearance clear Normal Clear [facility] Comment on above: Performed By: #### U AMAC ####[address] [place] [address] Urine, color yellow Normal Lt. Yellow [facility] Comment on above: Performed By: #### U AMAC ####[address] [place] [address] Urine, glucose presence NORM Normal Negative [facility] Comment on above: Performed By: #### U AMAC ####[address] [place] [address] Urine, nitrite presence Negative Normal Negative [facility] Comment on above: Performed By: #### U AMAC ####[address] [place] [address] Urine, pH 6.0 [pH] Normal 5.0-8.0 [facility] Comment on above: Performed By: #### U AMAC ####[address] [place] [address] Urine, urobilinogen NORM Normal 0-1 [facility] Comment on above: Performed By: #### U AMAC ####[address] [place] [address] WBC (Leukocytes) Negative Normal Negative [facility] Comment on above: Performed By: #### U AMAC ####[address] [place] [address] Vital Signs Date Time Vital Sign Value Performing Clinician Pilar monson 05-10-2025 14:12-0400 Body height 170.[address] Raúl Leslie MD Work Phone: 7(995)620-498301 [place] [address] 05-10-2025 14:12-0400 Body mass index (BMI) [Ratio] 23.8 kg/m2 Dr. Raúl Leslie MD Work Phone: 6(435)362-346001 [place] [address] 05-10-2025 14:12-0400 Body temperature 98 [degF] Dr. Raúl Leslie MD Work Phone: 7(838)850-017201 [place] [address] 05-10-2025 14:12-0400 Body weight 69.[address] Raúl Leslie MD Work Phone: 6(074)514-077201 [place] [address] 05-10-2025 14:12-0400 Diastolic blood pressure 79 mm[Hg] Dr. Raúl Leslie MD Work Phone: 3(248)774-707801 [place] [address] 05-10-2025 14:12-0400 Heart rate 64 /min Dr. Raúl Leslie MD Work Phone: 4(071)694-041501 [place] [address] 05-10-2025 14:12-0400 Respiratory rate 18 /min Dr. Raúl Leslie MD Work Phone: 0(819)380-720101 [place] [address] 05-10-2025 14:12-0400 SaO2% (BldA) [Mass fraction] 99 % Dr. Raúl Leslie MD Work Phone: 6(243)677-634401 [place] [address] 05-10-2025 14:12-0400 Systolic blood pressure 136 mm[Hg] Dr. Raúl Leslie MD Work Phone: 1(642)047-044701 [place] [address] 05-08-2025 19:04-0400 Body temperature 97.9 [degF] Dr. Raúl Leslie MD Work Phone: 7(281)662-664001 [place] [address] 05-08-2025 19:04-0400 Diastolic blood pressure 79 mm[Hg] Dr. Raúl Leslie MD Work Phone: 3(040)656-758501 [place] [address] 05-08-2025 19:04-0400 Heart rate 60 /min Dr. Raúl Leslie MD Work Phone: 7(452)124-739001 [place] [address] 05-08-2025 19:04-0400 Respiratory rate 16 /min Dr. Raúl Leslie MD Work Phone: 4(835)530-524701 [place] [address] 05-08-2025 19:04-0400 SaO2% (BldA) [Mass fraction] 95 % Dr. Raúl Leslie MD Work Phone: [facility] 05-08-2025 19:04-0400 Systolic blood pressure 157 mm[Hg] Dr. Raúl Leslie MD Work Phone: [facility] 05-08-2025 14:50-0400 Body height 170.[address] Raúl Leslie MD Work Phone: [facility] 05-08-2025 14:50-0400 Body mass index (BMI) [Ratio] 23.6 kg/m2 Dr. Raúl Leslie MD Work Phone: [facility] 05-08-2025 14:50-0400 Body weight 68.[address] Raúl Leslie MD Work Phone: [facility] Encounters Encounter Date Encounter Type Care Provider Facility Start: 06-14-2025 End: 06-14-2025 ambulatory R FAINA MURPHY Facility:[facility] Start: 06-14-2025 ambulatory R FAINA MURPHY Facilit y:[facility] Start: 05-30-2025 End: 05-30-2025 ambulatory [facility] Facility:[facility] Start: 05-23-2025 End: 05-23-2025 ambulatory Angela Vale Facility:[facility] Start: 05-17-2025 ambulatory Raúl Leslie Facility:[facility] Start: 05-10-2025 End: 05-10-[address] Angela Vale MD -[facility] Work Phone: Start: 05-10-2025 End: 05-10-[address] Raúl Leslie MD Work Phone: -[facility] Start: 05-08-2025 End: 05-08-2025 Emergency department patient visit Dr. Raúl Leslie MD Work Phone: -Emergency Department Work Phone: Start: 04-21-2025 End: 04-21-[address] Raúl Leslie MD Work Phone: -Cat Scan [facility] Start: 04-21-2025 End: 04-21-[address] Raúl Leslie MD -Cat Scan [facility] Work Phone: Start: 04-21-2025 End: 04-21-2025 ambulatory Raúl Leslie Facility:[facility] Start: 03-29-2025 End: 03-29-[address] Raúl Leslie MD Work Phone: -[facility] Start: 03-29-2025 End: 03-29-[address] Raúl Leslie MD -[facility] Work Phone: Start: 03-29-2025 End: 03-29-2025 ambulatory Raúl Leslie Facility:[facility] Start: 03-11-2025 ambulatory Raúl Leslie Facility:[facility] Start: 02-17-2025 End: 02-17-[address] Raúl Leslie MD Work Phone: -[facility] Start: 02-17-2025 End: 02-17-[address] Raúl Leslie MD -[facility] Work Phone: Start: 02-17-2025 End: 02-17-2025 ambulatory Raúl Leslie Facility:[facility] Start: 09-02-2023 End: 09-02-2023 ambulatory [facility] Work Phone: Start: 09-02-2023 End: 09-02-2023 Patient encounter procedure [facility] Work Phone: Start: 11-05-2021 End: 11-05-2021 Patient encounter procedure [facility], [facility] Start: 09-24-2017 Evaluation and management of inpatient [facility] Start: 09-19-2017 Ambulatory [facility] Procedures Date Procedure Procedure Detail Performing Clinician [...] Date Care Activity Detail Author Start: 05-08-2025 [facility] Start: 05-08-2025 Referral to oncologist [facility] MR Abdomen WO and W contrast IV [facility] Patient Education ED Tumor, Unce rtain Cause [facility] Work Phone: Payers Date Payer Category Payer Self-pay [id number] 2016 Unknown [id number] Unknown Unknown [id number] 2.16.8 [id number] Unknown [id number] 2.16.8 [id number] Unknown [id number] 2.16.8 [id number] Unknown [id number] 2.16.8 [id number] Unknown [id number] 2.16.8 [id number] Unknown [id number] 2.16.8 [id number] Unknown [id number] 2.16.8 [id number] Unknown [id number] 2.16.8 [id number] Unknown [id number] 2.16.8 [id number] Unknown [id number] 2.16.8 [id number] Social History Date Type Detail [facility] Work Phone: Start: 1940 Sex Assigned At Male [facility] Tobacco smoking stat [facility] Unknown if ever smoked [facility] Work Phone: Sex Male [facility] Start: 05-08-2025 [facility] (finding[facility] Start: 05-10-2025 [facility] Medical Equipment Procedure Code [...] Type Note Facility 11-11-2025 Note HNO ID: [id number] Author: Litzy MURPHY MD Service: ? Author Type: Physician Type: Progress Notes Filed: 06/14/2025 16:59 Note Text: Consultation requested by Dr. Angela Vale for an opinion regarding Ace Arellano, who presents today for pancreas mas. My final recommendations will be communicated back to the requesting physician by way of shared Medical record or letter to requesting physician via US mail. [facility] STAFF PHYSICIAN NOTE OF PERSONAL INVOLVEMENT IN [...] workup showed pancreatic body mass, would require [place] longstanding tobacco smoker. no diabetes or steatorrhea. not on narcotics. no biopsy yet. 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 genetic counseling. TB total time 40 min Erick Murphy MD Date of Service: June 14, 2025 Time of Service: 1:54 PM [facility] 06-14-2025 Note HNO ID: [id number] Author: GUIDO BILLS MD Service: ? Author [...] Topics Alcohol use: Yes Drug use: No [facility] 06-14-2025 Note HNO ID: [id number] Author: ?, ?, ? Service: ? Author [...] clean AND dry Temperature: No Drains: No [facility] 06-02-2025 Note HNO ID: [id number] Author: AVI FLETCHER RN Service: ? Author Type: Registered Nurse Type: Progress Notes Filed: 06/02/2025 16:57 Note Text: Fax to [facility] [phone] [facility] 05-10-2025 Progress note [facility] 05-08-2025 Discharge summary [facility] 05-08-2025 Radiology Diagnostic study note [facility] Imaging Services [address], [place] [id number] Abdomen/Pelvis W IV Cont ONLY MR#: [id number] Acct: [id number] Name: ACE ARELLANO Rep #: [id number] : 1940 M 85 From: Lachelle Arellano MD PCP: Dr. Raúl Leslie MD Status: REG ER Study:Abdomen/Pelvis W IV Cont ONLY Date of E xam: 05/08/25 Exam# [id number] Ordering Dr: Bhaskar Foster DO PROCEDURE: ABDOMEN/PELVIS [...] contrast. Do not recommend MRCP [facility] CC: Dr. Raúl Leslie MD; Dr. Francisco Foster DO ~ Evaluation Manager: Signed [facility] 05-08-2025 Discharge summary Note Date/Time May 08, 2025 7:35pm [facility] Medical Records Department [address] [place] [id number] Emergency Department Summary 05/08/25 MR#: [id number] Acct: [id number] Name: ADANACE REYNAGA Khushi Rep #:[id number] : 1940 85 From: Francisco Torres [...] History obtained from others: Patient's Consults: none [facility] Narrative: Patient was initially hemodynamically stable, afebrile [...] Discharge home This note was generated with [employer]oca[employer] dictation software. It may contain incorrectwords, spelling, [...] (Auto) 68.7 Lymph % (Auto) 18.0 L [place] % (Auto) 7.2 Eos % (Auto) 5.3 [...] Clarity Clear Urine pH 6.0 Ur Specific [place] 1.020 Urine Protein 30 H Urine Glucose [...] contrast. Do not recommend MRCP Reading [facility] Discharge Plan Triage Chief Complaint: Abd Pain [...] Other Ambulatory Orders: Fast Pass: Oncology Referral [facility] (Routine) Facility: [facility] - Location: [facility] Ordered By: Dr. Francisco Foster [...] for possible cancer. Please follow-up with the [facility] oncology referral. Expect a call for scheduling. This is located here in [facility]. Please take Tylenol (2 pills, 650 [...] for further outpatient evaluationand management. Print Language: Yoruba Disposition Disposition: Home, Self Care Discharge Date/Time: 05/08/25 19:35 What to do if you have Problems For any increased pain, shortness of breath, bleeding, nausea or vomiting, chestpain, or any unexpected problems, contact your Primary Care Provider. Call [employer], Registry ([phone]) or report to the closest Emergency Room. Call 911 if necessary. 05/08/25 [id number] <Electronically signed by Francisco Cristian DO> Cosigner Signature (if applicable): CC: Dr. Raúl Leslie MD ~ Signed [facility] Work Phone: [phone] [phone] Radiology Diagnostic study note [facility] Imaging Services [address] [place] [address] Abdomen/Pelvis without Cont MR#: [id number] Acct: [id number] Name: ACE ARELLANO Rep #: [id number] : 1940 M 84 From: Marcelino Hernandez MD PCP: Dr. Raúl Leslie MD Status: REG CLI Study:Abdomen/Pelvis without Cont Date of Exa m: 04/21/25 Exam# [id number] Ordering Dr: Dominguez Leslie MD PROCEDURE: ABDOMEN/PELVIS [...] changes of the spine. S shaped scoliosis. Aghznqql-th-vmnsqg atherosclerosis. The infrarenal abdominal aorta measures up [...] diverticulosis without diverticulitis. *Enlarged prostate. Reading Location: [facility] CC: Dr. Raúl Leslie MD ~ Evaluation Manager: Signed [facility]08-27-2025 Radiology Diagnostic study note [facility] Imaging Services [address] [place] [address] Abdomen Single View MR#: [id number] Acct: [id number] Name: ACE ARELLANO Rep #: [id number] : 1940 M 84 From: Zacarias Scott MD PCP: Dr. Raúl Leslie MD Status: REG CLI Study:Abdomen Single View Date of Exam: 03/29/25 Exam# [id number] Ordering Dr: Dominguez Leslie MD PROCEDURE: ABDOMEN [...] 3. Other findings as noted. Reading Location: [facility] CC: Dr. Raúl Leslie MD ~ Evaluation Manager: Signed [facility] Work Phone: Evaluation noteNo assessment information available [facility] Work Phone: Evaluation note* Diagnosis Onset Date Resolution Status Admit Date Abdominal pain acute May 2:01pm Pancreatic lesion acute May 10, 2025 2:01pm [facility] Work Phone: Hospital Discharge instructionsAdditional Instructions Thank you for trusting us with your care today! Your labs and imaging are reassuring. There is no sign of systemic inflammation, issues your kidneys, liver or pancreas. Your CT scan once again showed the abnormality of your pancreas which is concerning for possible cancer. Please follow-up with the [facility] oncology referral. Expect a call for scheduling. This is located here in [facility]. Please take Tylenol (2 pills, 650 [...] care physician for further outpatient evaluation and management.[facility] Work Phone: Progress note Author Angela Vale [facility] Note Date/Time May 10, 2025 2: 57pm [facility] [address] [place] [address] OFFICE VISIT Date of Service: 05/10/25 1403 MR#: [id number] Acct: [id number] Name: ACE ARELLANO Rep #: [id number] : 1940 From: Angela rodriguez MD Age/Sex: 85/M Location: [facility] Status: Signed HPI Subjective Date of Service 05/10/25 Chief Complaint Abdominal pain and pancreatic lesion History of Present Illness 85-year-old gentleman who for approximately 2 months has had daily bouts of epigastric pain. The pain appears to be aggravating by meals, laying down, withrelieved by sitting up and taking combination of Tylenol and ibuprofen beqrj-mzh-kpkqs. He has lost at least 10 pounds [...] Recommend MRI pancreas without and with contrast. [facility] Surgical History History of back surgery [...] no focal motor deficits Coordination / Balance: rbzoqo-zx-aakh test normal Speech: speech normal Gait (Neuro): [...] taking a PPI (has at home purchased npin-osn-cegsqvl) on a daily basis. He was also advised to stop drinking alcohol on a daily basis and see if that helps with his pain. 3. Further workup depending on the findings from the MRI. Impression and recommendations discussed with patient and his , follow-up after MRI. Angela Vale MD Construction Ironworker Helper, [facility] Divisions of Medical Oncology & Hematology Department of Internal Medicine [place] [address] This note was generated using a voice [...] Leslie MD; Dr. Francisco Foster DO ~ [facility] Work Phone: Reason for referral (narrative)No reason for referral information availableWPomerene Hospital Work Phone: Summary Purpose Family History No Family History Records Found Relationship Condition Age at Onset Recorded Date/T yoshi father Malignant neoplasm of colon Unknown mother Malignant neoplasm Unknown brother Diabetes mellitus Unknown daughter Diabetes mellitus Unknown Advance Directives No Advanced Directives Records Found Advance Directive Response Recorded Date/ Time Do you have a Healthcare Power of Aircraft Part Assembler? No May 08, 2025 3:28pm Chief Complaint [...] section and content) DATE CREATED AUTHOR 01/28/2018 [facility] DATE CREATED AUTHOR AUTHOR'S ORGANIZ ATION 06/02/2025 [facility] DATE CREATED AUTHOR AUTHOR'S ORGANIZ ATION 06/15/2025 [facility] Goals (unrecognized section and content) Goals [...] BE BASED ON THE PRIMARY CLINICAL RECORDS. [facility] [employer] [facility]. provides no warranty or guarantee of the accuracy or completeness of information in this document.
--- NOTE | 2025-07-20 22:52 | POSTOPAN2_ITS ---
Anesthesia Postop Eval I Sum Postop Eval Completion status Anesthesia document: Postop Eval 1 completed: Yes Anesthesia Postop Eval I Summary Anesthesia Postop Eval I Summary: Anesthesia Postop Eval I: Assessment Summary Airway patent Yes 07/19/25 15:24 MACHINE CLOTHING MAN.CSIR Spontaneous unlabored Yes 07/19/25 15:24 MACHINE CLOTHING MAN.CSIR respirations Mental status nausea No 07/19/25 15:24 MACHINE CLOTHING MAN.CSIR Vomiting No 07/19/25 15:24 MACHINE CLOTHING MAN.CSIR Anesthesia Postop Eval I: Fluid Summary Crystalloid volume administer 1,000 07/19/25 15:24 MACHINE CLOTHING MAN.CSIR (ml) Colloids volume administered ( ml) Blood Product volume administered (ml) Total IV fluid infused 1,000 07/19/25 15:24 MACHINE CLOTHING MAN.CSIR Anesthesia Postop Eval I: Summary Notes Anesthesia Complication No 07/19/25 15:24 MACHINE CLOTHING MAN.CSIR Anesthesia Complication Comment: Post-operative progress note Anesthesia: Postop Eval II Evaluation Mental status: Awake and Calm Pain Level: 1 nausea: No Vomiting: No Complications Anesthesia Complication: No
--- NOTE | 2025-07-20 22:52 | PCM.POSTANE2 ---
Anesthesia Postop Eval I Sum Postop Eval Completion status Anesthesia document: Postop Eval 1 completed: Yes Anesthesia Postop Eval I Summary Anesthesia Postop Eval I Summary: Anesthesia Postop Eval I: Assessment Summary Airway patent Yes 07/19/25 15:24 DIRECTOR GENERAL.CSIR Spontaneous unlabored Yes 07/19/25 15:24 DIRECTOR GENERAL.CSIR respirations Mental status nausea No 07/19/25 15:24 DIRECTOR GENERAL.CSIR Vomiting No 07/19/25 15:24 DIRECTOR GENERAL.CSIR Anesthesia Postop Eval I: Fluid Summary Crystalloid volume administer 1,000 07/19/25 15:24 DIRECTOR GENERAL.CSIR (ml) Colloids volume administered ( ml) Blood Product volume administered (ml) Total IV fluid infused 1,000 07/19/25 15:24 DIRECTOR GENERAL.CSIR Anesthesia Postop Eval I: Summary Notes Anesthesia Complication No 07/19/25 15:24 DIRECTOR GENERAL.CSIR Anesthesia Complication Comment: Post-operative progress note Anesthesia: Postop Eval II Evaluation Mental status: Awake and Calm Pain Level: 1 nausea: No Vomiting: No Complications Anesthesia Complication: No
== END 2025-07-19 16:59 | disposition home or self-care (01) ==
LOC: SDC 11:38 → AC 11:38
PROVIDERS: PCP Family Medicine; Referring Provider Surgery; Visit Provider Surgery
PROC: (CPT 36561; principal; 2025-07-19 13:15)
DX: Z45.2 Encounter for adjustment and management of vascular access device (principal); C25.1 Malignant neoplasm of body of pancreas; Z87.891 Personal history of nicotine dependence; K21.9 Gastro-esophageal reflux disease without esophagitis
CPT/HCPCS: 36561; 00532; 71045; 77001; C1894; C1769; C1788; J2405